=== PATIENT | female | born 1975 | race African-American/Black ===

== ENCOUNTER → 2019-05-29 15:37 | Outpatient (CLI) | payer OTHER, SELFPAY ==
[2019-05-29 13:57] VITALS: BMI 43.6
[2019-05-29 17:30] LABS: Absolute Lymphocyte Count 3.51 X10^3/uL (0.83-4.51); Absolute Neutrophil Count 4.7 X10^3/uL (2.0-7.7); Basophil# 0.03 X10^3/uL; Basophil% 0.3 % (0-1); Eosinophil# 0.06 X10^3/uL; Eosinophils% 0.7 % (0-5); Hematocrit 38.7 % (37-47); Hemoglobin 12.5 g/dL (12.0-15.0); Lymphocyte # 3.51 X10^3/ul (4.0); Lymphocyte % 39.6 % (19-41); Mean Corp Hgb Conc 32.3 g/dL (32-36); Mean Corpuscular Hgb 29.6 pg (27.0-32.0); Mean Corpuscular Volume 91.7 fL (81-99); Mean Platelet Vol. 9.8 fl (6.2-12.0); Monocyte# 0.57 X10^3/uL; Monocyte% 6.4 % (0-10); NRBC Flagged by Analyzer 0 % (0-5); Neutrophil # 4.68 X10^3/uL (2.7-7.7); Neutrophil % 52.8 % (47-70); Platelet Count 449 K/mm3 (150-450); RBC Distribution Width SD 43.6 fl (35.1-43.9); Red Blood Count 4.22 M/mm3 (4.2-5.4); White Blood Count 8.9 K/mm3 (4.4-11.0)
[2019-05-29 17:47] LABS: Hemoglobin A1c 5.6 % (4.2-6.3)
[2019-05-29 17:53] LABS: ALB/GLOB Ratio 0.8 RATIO (0.9-2.4); AST(SGOT) 17 U/L (15-37); Alanine Aminotransfer ALT/SGPT 26 U/L (13-56); Albumin, Serum 3.8 g/dL (3.2-5.0); Alkaline Phosphatase 129 U/L (45-117); Anion Gap 8 (5-15); BUN 10 mg/dL (7-18); BUN/Creat Ratio 12.3 RATIO (10-20); Calcium,Total 9.2 mg/dL (8.5-10.1); Chloride 102 mmol/L (98-107); Cholesterol 228 mg/dL (200); Creatinine, Serum 0.81 mg/dL (0.55-1.02); EST Glomerular Filtration Rate 81 mL/min (>60); Est Glom Filt Rate - Afr Amer 98 mL/min (>60); Globulin 4.6 g/dL (2.2-4.2); Glucose 81 mg/dL (74-106); High Density Lipoprotein 51 mg/dL; Potassium 3.7 mmol/L (3.5-5.1); Protein, Total 8.4 g/dL (6.4-8.2); Sodium Level 139 mmol/L (136-145); T4 Free Direct 1.07 ng/dL (0.76-1.46); Thyroid Stim Hormone (TSH) 1.05 uIU/mL (0.358-3.74); Triglycerides 151 mg/dL; Very Low Density Lipoprotein 30 mg/dL (5-40)
== END ==
PROVIDERS: Family Provider Internal Medicine; PCP Internal Medicine; Referring Provider Internal Medicine; Visit Provider Internal Medicine
DX: I10 Essential (primary) hypertension (principal); E66.01 Morbid (severe) obesity due to excess calories; Z68.41 Body mass index [BMI] 40.0-44.9, adult
CPT/HCPCS: 36415; 80053; 80061; 83036; 84439; 84443; 85025

== ENCOUNTER → 2019-06-28 10:46 | Outpatient (CLI) | payer OTHER, SELFPAY ==
[2019-06-28 10:18] VITALS: BMI 44.1
[2019-06-28 13:39] LABS: Anion Gap 4 (5-15); BUN 13 mg/dL (7-18); BUN/Creat Ratio 15.2 RATIO (10-20); Calcium,Total 9.7 mg/dL (8.5-10.1); Chloride 104 mmol/L (98-107); Creatinine, Serum 0.85 mg/dL (0.55-1.02); EST Glomerular Filtration Rate 76 mL/min (>60); Est Glom Filt Rate - Afr Amer 92 mL/min (>60); Glucose 82 mg/dL (74-106); Potassium 4.1 mmol/L (3.5-5.1); Sodium Level 138 mmol/L (136-145)
== END ==
PROVIDERS: Family Provider Internal Medicine; PCP Internal Medicine; Visit Provider Internal Medicine
DX: I10 Essential (primary) hypertension (principal)
CPT/HCPCS: 36415; 80048

== ENCOUNTER → 2020-03-06 14:17 | Outpatient (CLI) | payer OTHER, SELFPAY ==
[2020-02-28 11:51] VITALS: BMI 43.6
[2020-03-06 16:03] LABS: Anion Gap 7 (5-15); BUN 7 mg/dL (7-18); BUN/Creat Ratio 10.5 RATIO (10-20); Calcium,Total 8.8 mg/dL (8.5-10.1); Chloride 101 mmol/L (98-107); Creatinine, Serum 0.67 mg/dL (0.55-1.02); EST Glomerular Filtration Rate 101 mL/min (>60); Est Glom Filt Rate - Afr Amer 122 mL/min (>60); Glucose 76 mg/dL (74-106); Potassium 3.8 mmol/L (3.5-5.1); Sodium Level 137 mmol/L (136-145)
== END ==
PROVIDERS: PCP Internal Medicine; Referring Provider Internal Medicine; Visit Provider Internal Medicine
DX: I10 Essential (primary) hypertension (principal)
CPT/HCPCS: 36415; 80048

== ENCOUNTER → 2020-05-07 17:00 | Outpatient (CLI) | payer OTHER, SELFPAY ==
[2020-03-09 08:38] VITALS: BMI 43.6
--- NOTE | 2020-05-07 17:14 | BI_ITS ---
MAMMOGRAPHY - BILATERAL SCREENING REASON FOR EXAM: Female, 45 years old. Routine annual screening examination. PERTINENT HISTORY: Non-contributory. TECHNIQUE: Digital bilateral breast earline (3D mammographic acquisition) in the CC and MLO projections. 2-D mediolateral oblique (MLO) and craniocaudad (CC) views of both breasts were obtained. CAD: Full Field Digital Mammography with Computer Added Detection was performed. COMPARISON: Comparison is made with prior study dated 12/04/2013. FINDINGS: Breast Composition: The breasts are almost entirely fatty. There are no dominant masses or suspicious calcifications. Stable small benign-appearing bilateral axillary nodes. No other significant abnormalities are identified. There has been no significant change since the prior study. BI/SCREEN MAMM (CAD) W/EARLINE BILAT IMPRESSION: Stable bilateral screening mammogram. Yearly follow-up mammogram recommended. (A) ASSESSMENT CATEGORY: BIRADS Category 2: Benign. A letter regarding these results will be sent to the patient by the facility within 30 days. Approximately 10% of breast cancers are not detected by mammography. A normal mammogram should not delay biopsy of a clinically suspicious abnormality. [id number] Electronically Signed: Eusebio Dodson, at 9:02 EDT , Service support ,
== END ==
PROVIDERS: PCP Internal Medicine; Referring Provider Internal Medicine; Visit Provider Internal Medicine
DX: Z12.31 Encounter for screening mammogram for malignant neoplasm of breast (principal)
CPT/HCPCS: 77063; 77067

== ENCOUNTER → 2020-09-22 13:40 | Outpatient (CLI) | payer OTHER, SELFPAY ==
[2020-03-09 08:38] VITALS: BMI 43.6
[2020-09-22 15:20] LABS: Absolute Lymphocyte Count 3.85 X10^3/uL (0.83-4.51); Absolute Neutrophil Count 3.9 X10^3/uL (2.0-7.7); Basophil# 0.02 X10^3/uL; Basophil% 0.2 % (0-1); Eosinophil# 0.05 X10^3/uL; Eosinophils% 0.6 % (0-5); Hematocrit 39.2 % (37-47); Hemoglobin 12.6 g/dL (12.0-15.0); Lymphocyte # 3.85 X10^3/ul (4.0); Lymphocyte % 45.9 % (19-41); Mean Corp Hgb Conc 32.1 g/dL (32-36); Mean Corpuscular Hgb 29.9 pg (27.0-32.0); Mean Corpuscular Volume 92.9 fL (81-99); Monocyte# 0.51 X10^3/uL; Monocyte% 6.1 % (0-10); NRBC Flagged by Analyzer 0 % (0-5); Neutrophil # 3.94 X10^3/uL (2.7-7.7); Platelet Count 453 K/mm3 (150-450); RBC Distribution Width CV 13.3 % (11.6-14.6); RBC Distribution Width SD 45.3 fl (35.1-43.9); Red Blood Count 4.22 M/mm3 (4.2-5.4); White Blood Count 8.4 K/mm3 (4.4-11.0)
[2020-09-22 16:12] LABS: ALB/GLOB Ratio 0.8 RATIO (0.9-2.4); AST(SGOT) 29 U/L (15-37); Alanine Aminotransfer ALT/SGPT 45 U/L (13-56); Albumin, Serum 3.8 g/dL (3.2-5.0); Alkaline Phosphatase 116 U/L (45-117); Anion Gap 4 (5-15); BUN 9 mg/dL (7-18); BUN/Creat Ratio 11.4 RATIO (10-20); Calcium,Total 9.4 mg/dL (8.5-10.1); Chloride 103 mmol/L (98-107); Cholesterol 199 mg/dL (200); Creatinine, Serum 0.79 mg/dL (0.55-1.02); EST Glomerular Filtration Rate 83 mL/min (>60); Est Glom Filt Rate - Afr Amer 100 mL/min (>60); Globulin 4.6 g/dL (2.2-4.2); Glucose 81 mg/dL (74-106); High Density Lipoprotein 50 mg/dL; Potassium 3.5 mmol/L (3.5-5.1); Protein, Total 8.4 g/dL (6.4-8.2); Sodium Level 139 mmol/L (136-145); Triglycerides 176 mg/dL; Very Low Density Lipoprotein 35 mg/dL (5-40)
== END ==
PROVIDERS: PCP Internal Medicine; Referring Provider Internal Medicine; Visit Provider Internal Medicine
DX: I10 Essential (primary) hypertension (principal); E78.5 Hyperlipidemia, unspecified; F31.9 Bipolar disorder, unspecified; E66.01 Morbid (severe) obesity due to excess calories; Z68.41 Body mass index [BMI] 40.0-44.9, adult
CPT/HCPCS: 36415; 80053; 80061; 85025

== ENCOUNTER → 2021-03-31 15:48 | Outpatient (CLI) | payer OTHER, SELFPAY ==
[2021-03-31 17:35] LABS: Thyroid Stim Hormone (TSH) 1.31 uIU/mL (0.358-3.74)
[2021-03-31 17:53] LABS: Valproic Acid (Depakene) Level 47 ug/mL (50-100)
== END ==
PROVIDERS: PCP Internal Medicine; Referring Provider Nurse Practitioner Family; Visit Provider Nurse Practitioner Family
DX: F31.9 Bipolar disorder, unspecified (principal)
CPT/HCPCS: 36415; 80164; 84443

== ENCOUNTER → 2021-05-20 07:00 | Outpatient (CLI) | payer OTHER, SELFPAY ==
--- NOTE | 2021-05-20 07:02 | BI_ITS ---
MAMMOGRAPHY - BILATERAL SCREENING REASON FOR EXAM: Female, 46 years old. Routine annual screening examination. PERTINENT HISTORY: Non-contributory. TECHNIQUE: Digital bilateral breast earline (3D mammographic acquisition) in the CC and MLO projections. 2-D mediolateral oblique (MLO) and craniocaudad (CC) views of both breasts were obtained. CAD: Full Field Digital Mammography with Computer Added Detection was performed. COMPARISON: Comparison is made with prior study dated 05/07/2020 and 12/04/2013. FINDINGS: Breast Composition: The breasts are almost entirely fatty. There are no dominant masses or suspicious calcifications. Stable small benign-appearing bilateral axillary lymph nodes. No other significant abnormalities are identified. There has been no significant change since the prior study. BI/SCRN MAMM (CAD)W/EARLINE BILAT IMPRESSION: Stable bilateral screening mammogram. Yearly follow-up mammogram recommended. (A) ASSESSMENT CATEGORY: BIRADS Category 2: Benign. A letter regarding these results will be sent to the patient by the facility within 30 days. Approximately 10% of breast cancers are not detected by mammography. A normal mammogram should not delay biopsy of a clinically suspicious abnormality. [id number] Electronically Signed: Eusebio Dodson MD at 8:26 EST , Service support ,
== END ==
PROVIDERS: PCP Internal Medicine; Referring Provider Nurse Practitioner Family; Visit Provider Nurse Practitioner Family
DX: Z12.31 Encounter for screening mammogram for malignant neoplasm of breast (principal)
CPT/HCPCS: 77063; 77067

== ENCOUNTER 2021-06-01 11:09 | Day surgery (SDC) | payer OTHER, SELFPAY ==
[2021-06-01] VITALS (7 sets, daily range): BP systolic 95–125; BP diastolic 61–88; PULSE 72–84; RESP 16; TEMP -13.6–35.8; O2SAT 100; BMI 42.9
[2021-06-01] MEDS: Lactated Ringers 1,000 ML 15 ML IV (11:41)
--- NOTE | 2021-06-01 12:13 | HP.PCM_ITS ---
History and Physical Date of Admission: 06/01/21 VINITA ROBERTS, is a 46 F who presents A screening colonoscopy. She has no abdominal pain. No nausea. No chest pain or shortness of breath. She is not have any problems with her bowels. She does have a past medical history of hypertension , hypothyroidism ,bipolar depression and hyperlipidemia. All of those are under control. She takes blood pressure medicines on a daily basis Past medical history: Hypertension, hyperlipidemia, obesity, bipolar depression Past surgical history: Negative Social history: Negative alcohol and drugs Family history: Negative for GI malignancy or GI disease ROS Const Constitutional: No chills, fatigue, fever(s), frequent falls, malaise, weakness, sleep problems or change in appetite Eyes Eyes: No blurry vision, change in vision, double vision, discharge or visual disturbances ENT ENT: No abnormal hearing, ear pain, ear pressure, tinnitus or dizziness/vertigo Resp Respiratory: No cough, shortness of breath or wheezing Cardio Cardiology: Positive for fast heart rate; no chest pain at rest, chest pain with exertion, shortness of breath, dyspnea on exertion, generalized swelling, irregular heart rhythm, lightheadedness, orthopnea or palpitations Gastro GI: No abdominal pain, change in bowel habits, constipation, diarrhea, nause a/dyspepsia or vomiting Genitourinary-Female: No difficulty urinating, burning urination, painful urination, urinary incontinence, urinary frequency, urinary urgency, urinary hesitancy, urinary retention, Frequent nighttime urination/ nocturia, sexual problems, genital lesions, abnormal vaginal bleeding, pelvic pain, vaginal dryness, vaginal odor or Vaginal Itching Musc Musculoskeletal: No joint pain, back pain, joint swelling, limited range of motion, numbness or tingling Skin Skin: No change in skin color, itching, rash or wounds Breast Breast: No breast lump or breast pain Neuro Neurology: No abnormal hearing, weakness, frequent falls, numbness, tingling or visual disturbances Psych Psychiatric: No change in appetite Endo Endocrine: No fatigue Aller/Imm Allergy/Immunologic: No itchy eyes or wheezing Cortez/Lymp Hematologic/Lymphatic: No easy bleeding, easy bruising or enlarged lymph nodes Exam Blood pressure is 125/88 pulse , 84 respiratory rate is 16, and temperature is 97.6 On HEENT: Normocephalic atraumatic Neck: No JVD lymphadenopathy Cardiovascular: +1 S1-S2 Respiratory: Clear to auscultation bilaterally Abdominal exam: Within normal limits Assessment & Plan Problems She will undergo screening colonoscopy. She was explained alternatives, risk, benefits including not withstanding bleeding, infection, sepsis, perforation, need for emergent surgery . She will have ASA of 1.
--- NOTE | 2021-06-01 12:49 | OP.COLON_ITS ---
Patient Name: Elizabeth Mosley Procedure Date: 06/01/2021 11:40 AM Date of : 1975 Age: 46 Procedure: Colonoscopy Indications: Screening for colorectal malignant neoplasm Providers: Edgar Wray DO Medicines: See the Anesthesia note for documentation of the administered medications Patient Profile: This is a 46 year old female. Refer to note in patient chart for documentation of history and physical. Last Colonoscopy: none. The patient's first colonoscopy is today. Complications: No immediate complications. Procedure: Pre-Anesthesia Assessment: - Prior to the procedure, a History and Physical was performed, and patient medications and allergies were reviewed. The patient is competent. The risks and benefits of the procedure and the sedation options and risks were discussed with the patient. All questions were answered and informed consent was obtained. Patient identification and proposed procedure were verified by the physician in the pre-procedure area. Mental Status Examination: alert and oriented. Airway Examination: normal oropharyngeal airway and neck mobility. Respiratory Examination: clear to auscultation. CV Examination: normal. Prophylactic Antibiotics: The patient does not require prophylactic antibiotics. Prior Anticoagulants: The patient has taken no previous anticoagulant or antiplatelet agents. ASA Grade Assessment: II - A patient with mild systemic disease. After reviewing the risks and benefits, the patient was deemed in satisfactory condition to undergo the procedure. The anesthesia plan was to use moderate sedation / analgesia (conscious sedation). Immediately prior to administration of medications, the patient was re-assessed for adequacy to receive sedatives. The heart rate, respiratory rate, oxygen saturations, blood pressure, adequacy of pulmonary ventilation, and response to care were monitored throughout the procedure. The physical status of the patient was re-assessed after the procedure. After I obtained informed consent, the scope was passed under direct vision. Throughout the procedure, the patient's blood pressure, pulse, and oxygen saturations were monitored continuously. The Colonoscope was introduced through the anus and advanced to the cecum, identified by the appendiceal orifice, ileocecal valve and palpation. The colonoscopy was performed without difficulty. The patient tolerated the procedure well. The quality of the bowel preparation was good. Moderate Sedation: Moderate (conscious) sedation was administered by the endoscopy nurse and supervised by the endoscopist. The patient's oxygen saturation, heart rate, blood pressure and response to care were monitored. Total physician intraservice time was 15 minutes. Scope In: 12:21:59 PM Scope Withdrawal Time 0 hours 12 minutes 38 seconds Scope Out: 12:43:07 PM Total Procedure Duration Time 0 hours 21 minutes 8 seconds Findings: The perianal and digital rectal examinations were normal. A few medium-mouthed diverticula were found in the sigmoid colon, transverse colon and ascending colon. The exam was otherwise without abnormality on direct and retroflexion views. Impression: - Diverticulosis in the sigmoid colon, in the transverse colon and in the ascending colon. - The examination was otherwise normal on direct and retroflexion views. - No specimens collected. Recommendation: - Discharge patient to home. - Resume previous diet. - Continue present medications. - Repeat colonoscopy in 10 years for surveillance. - Return to GI office PRN. Procedure Code(s): --- Professional --- 99614, Colonoscopy, flexible; diagnostic, including collection of specimen(s) by brushing or washing, when performed (separate procedure) 03299, 59, Moderate sedation services provided by the same physician or other qualified health intensive care medicine specialist performing the diagnostic or therapeutic service that the sedation supports, requiring the presence of an independent trained observer to assist in the monitoring of the patient's level of consciousness and physiological status; initial 15 minutes of intraservice time, patient age 5 years or older CPT copyright 2017 [employer]. All rights reserved. The codes documented in this report are preliminary and upon edger technician review may be revised to meet current compliance requirements. Edgar Wray DO 06/01/2021 12:48:43 PM This report has been signed electronically. Number of Addenda: 1 Note Initiated On: 06/01/2021 11:40 AM Addendum Number: 1 Addendum Date: 03/11/2022 6:32:58 AM MAC was used instead of moderate sedation for this patient. Edgar Wray DO 03/11/2022 6:33:03 AM This report has been signed electronically.
--- NOTE | 2021-06-01 12:50 | OP.CCLET_ITS ---
03/11/2022 Rosa Dwyer MD [address] [place] [address] [place] [address] Re : Colonoscopy procedure for Elizabeth Mosley Dear Dr. Dwyer This procedure was performed on Tuesday, June 01, 2021. My impressions and recommendations are as follows: Impressions : - Diverticulosis in the sigmoid colon, in the transverse colon and in the ascending colon. - The examination was otherwise normal on direct and retroflexion views. - No specimens collected. Recommendations : - Discharge patient to home. - Resume previous diet. - Continue present medications. - Repeat colonoscopy in 10 years for surveillance. - Return to GI office PRN. My findings are described in the full procedure note, which is enclosed. If I can be of further assistance, please feel free to contact me at . Sincerely, Edgar Wray, 06/01/2021 12:48:43 PM This report has been signed electronically.
== END 2021-06-01 13:49 ==
LOC: EN 11:17 → AC 11:24
PROVIDERS: PCP Internal Medicine; Referring Provider Internal Medicine; Visit Provider Internal Medicine Gastroenterology
PROC: 0DJD8ZZ Inspection of Lower Intestinal Tract, Via Natural or Artificial Opening Endoscopic (ICD-10-PCS; CPT 45378; principal; 2021-06-01 11:55)
DX: Z12.11 Encounter for screening for malignant neoplasm of colon (principal); K57.30 Diverticulosis of large intestine without perforation or abscess without bleeding; I10 Essential (primary) hypertension; E78.5 Hyperlipidemia, unspecified; F31.9 Bipolar disorder, unspecified; E66.01 Morbid (severe) obesity due to excess calories; Z68.41 Body mass index [BMI] 40.0-44.9, adult; Z79.899 Other long term (current) drug therapy
CPT/HCPCS: 45378; J7120; J2405

== ENCOUNTER 2021-09-29 14:49 | Outpatient (CLI) | payer OTHER, SELFPAY ==
[2021-09-29 16:37] LABS: Absolute Lymphocyte Count 3.64 X10^3/uL (0.83-4.51); Absolute Neutrophil Count 4.4 X10^3/uL (2.0-7.7); Basophil# 0.02 X10^3/uL; Basophil% 0.2 % (0-1); Eosinophil# 0.05 X10^3/uL; Eosinophils% 0.6 % (0-5); Hematocrit 37.9 % (37-47); Hemoglobin 12.5 g/dL (12.0-15.0); Lymphocyte # 3.64 X10^3/ul (0.83-4.51); Lymphocyte % 41.2 % (19-41); Mean Corpuscular Hgb 30.3 pg (27.0-32.0); Monocyte# 0.64 X10^3/uL; Monocyte% 7.2 % (0-10); NRBC Flagged by Analyzer 0 % (0-5); Neutrophil # 4.44 X10^3/uL (2.7-7.7); Neutrophil % 50.3 % (47-70); Platelet Count 403 K/mm3 (150-450); RBC Distribution Width CV 13.3 % (11.6-14.6); RBC Distribution Width SD 44.6 fl (35.1-43.9); Red Blood Count 4.12 M/mm3 (4.2-5.4); White Blood Count 8.8 K/mm3 (4.4-11.0)
[2021-09-29 17:03] LABS: ALB/GLOB Ratio 0.8 RATIO (0.9-2.4); AST(SGOT) 20 U/L (15-37); Alanine Aminotransfer ALT/SGPT 40 U/L (13-56); Albumin, Serum 3.6 g/dL (3.2-5.0); Alkaline Phosphatase 114 U/L (45-117); Anion Gap 5 (5-15); BUN 12 mg/dL (7-18); BUN/Creat Ratio 15.7 RATIO (10-20); Calcium,Total 9.3 mg/dL (8.5-10.1); Chloride 99 mmol/L (98-107); Cholesterol 220 mg/dL (200); Creatinine, Serum 0.76 mg/dL (0.55-1.02); EST Glomerular Filtration Rate 86 mL/min (>60); Est Glom Filt Rate - Afr Amer 104 mL/min (>60); Globulin 4.7 g/dL (2.2-4.2); Glucose 80 mg/dL (74-106); High Density Lipoprotein 51 mg/dL; Potassium 3.5 mmol/L (3.5-5.1); Protein, Total 8.3 g/dL (6.4-8.2); Sodium Level 135 mmol/L (136-145); Thyroid Stim Hormone (TSH) 1.59 uIU/mL (0.358-3.74); Triglycerides 113 mg/dL; Very Low Density Lipoprotein 23 mg/dL (5-40)
== END 2021-09-29 23:59 | disposition home or self-care (01) ==
LOC: BIMLAB 14:50
PROVIDERS: PCP Internal Medicine; Referring Provider Nurse Practitioner Family; Visit Provider Nurse Practitioner Family
DX: I10 Essential (primary) hypertension (principal); F32.9 Major depressive disorder, single episode, unspecified; E03.9 Hypothyroidism, unspecified
CPT/HCPCS: 36415; 80053; 80061; 84443; 85025

== ENCOUNTER → 2022-07-21 | Outpatient (CLI) | payer OTHER, SELFPAY ==
--- NOTE | 2022-07-21 07:38 | BI_ITS ---
MAMMOGRAPHY - BILATERAL SCREENING REASON FOR EXAM: Female, 47 years old. Routine annual screening examination. PERTINENT HISTORY: Non-contributory. TECHNIQUE: Digital bilateral breast earline (3D mammographic acquisition) in the CC and MLO projections. 2-D mediolateral oblique (MLO) and craniocaudad (CC) views of both breasts were obtained. CAD: Full Field Digital Mammography with Computer Added Detection was performed. COMPARISON: Comparison is made with prior examination dated 05/20/2021 and 05/07/2020. FINDINGS: Breast Composition: The breasts are almost entirely fatty. There are no dominant masses or suspicious calcifications. Stable benign-appearing bilateral axillary lymph nodes. No other significant abnormalities are identified. There has been no significant change since the prior study. BI/SCRN MAMM (CAD)W/EARLINE BILAT IMPRESSION: Stable bilateral screening mammogram. Yearly follow-up mammogram recommended. (A) ASSESSMENT CATEGORY: BIRADS Category 2: Benign. A letter regarding these results will be sent to the patient by the facility within 30 days. Approximately 10% of breast cancers are not detected by mammography. A normal mammogram should not delay biopsy of a clinically suspicious abnormality. [id number] Electronically Signed: Eusebio Dodson MD at 9:02 EST ,
== END | disposition home or self-care (01) ==
LOC: OPBI 07:36
PROVIDERS: PCP Internal Medicine; Visit Provider Internal Medicine
DX: Z12.31 Encounter for screening mammogram for malignant neoplasm of breast (principal)
CPT/HCPCS: 77063; 77067

== ENCOUNTER → 2022-08-17 | Outpatient (CLI) | payer OTHER, SELFPAY ==
[2022-08-17 12:42] LABS: Thyroid Stim Hormone (TSH) 1.06 uIU/mL (0.358-3.74)
[2022-08-17 12:43] LABS: Valproic Acid (Depakene) Level 58 ug/mL (50-100)
== END | disposition home or self-care (01) ==
LOC: BIMLAB 10:51
PROVIDERS: PCP Internal Medicine; Referring Provider Nurse Practitioner Family; Visit Provider Nurse Practitioner Family
DX: F31.9 Bipolar disorder, unspecified (principal)
CPT/HCPCS: 36415; 80164; 84443

== ENCOUNTER → 2022-08-23 | Outpatient (CLI) | payer OTHER, SELFPAY | END | disposition home or self-care (01) | LOC: LAB 16:32 | PROVIDERS: PCP Internal Medicine; Visit Provider Nurse Practitioner Family | DX: F31.9 Bipolar disorder, unspecified (principal) | CPT/HCPCS: 36415; 82140 ==

== ENCOUNTER → 2023-03-31 | Outpatient (CLI) | payer OTHER, SELFPAY ==
[2023-03-31 12:22] LABS: Absolute Lymphocyte Count 3.54 X10^3/uL (0.83-4.51); Absolute Neutrophil Count 4.2 X10^3/uL (2.0-7.7); Basophil# 0.02 X10^3/uL; Basophil% 0.2 % (0-1); Eosinophil# 0.04 X10^3/uL; Eosinophils% 0.5 % (0-5); Hematocrit 41.7 % (37-47); Hemoglobin 13.4 g/dL (12.0-15.0); Lymphocyte # 3.54 X10^3/ul (0.83-4.51); Lymphocyte % 42.2 % (19-41); Mean Corp Hgb Conc 32.1 g/dL (32-36); Mean Corpuscular Hgb 29.8 pg (27.0-32.0); Mean Corpuscular Volume 92.7 fL (81-99); Monocyte# 0.62 X10^3/uL; Monocyte% 7.4 % (0-10); NRBC Flagged by Analyzer 0 % (0-5); Neutrophil # 4.15 X10^3/uL (2.7-7.7); Neutrophil % 49.5 % (47-70); Platelet Count 413 K/mm3 (150-450); RBC Distribution Width CV 13.1 % (11.6-14.6); RBC Distribution Width SD 44.2 fl (35.1-43.9); White Blood Count 8.4 K/mm3 (4.4-11.0)
[2023-03-31 13:27] LABS: AST(SGOT) 20 U/L (15-37); Alanine Aminotransfer ALT/SGPT 32 U/L (13-56); Albumin, Serum 3.6 g/dL (3.2-5.0); Alkaline Phosphatase 127 U/L (45-117); Bilirubin, Direct 0.12 mg/dL (0.00-0.30); Globulin 4.7 g/dL (2.2-4.2); Protein, Total 8.3 g/dL (6.4-8.2)
[2023-03-31 13:31] LABS: Valproic Acid (Depakene) Level 48 ug/mL (50-100)
== END | disposition home or self-care (01) ==
LOC: BIMLAB 09:16
PROVIDERS: PCP Internal Medicine; Referring Provider Student in an Organized Health Care Education/Training Program; Visit Provider Student in an Organized Health Care Education/Training Program
DX: F31.9 Bipolar disorder, unspecified (principal); Z51.81 Encounter for therapeutic drug level monitoring
CPT/HCPCS: 36415; 80076; 80164; 85025

== ENCOUNTER → 2023-08-11 | Outpatient (CLI) | payer OTHER, SELFPAY ==
[2023-08-11 12:35] LABS: Absolute Lymphocyte Count 3.73 X10^3/uL (0.83-4.51); Basophil# 0.02 X10^3/uL; Basophil% 0.2 % (0-1); Eosinophil# 0.05 X10^3/uL; Eosinophils% 0.5 % (0-5); Hematocrit 38.4 % (37-47); Hemoglobin 12.6 g/dL (12.0-15.0); Lymphocyte # 3.73 X10^3/ul (0.83-4.51); Lymphocyte % 39.4 % (19-41); Mean Corp Hgb Conc 32.8 g/dL (32-36); Mean Corpuscular Hgb 29.8 pg (27.0-32.0); Mean Corpuscular Volume 90.8 fL (81-99); Mean Platelet Vol. 10.1 fl (6.2-12.0); Monocyte# 0.62 X10^3/uL; Monocyte% 6.5 % (0-10); NRBC Flagged by Analyzer 0 % (0-5); Neutrophil # 5.02 X10^3/uL (2.7-7.7); Neutrophil % 53.1 % (47-70); Platelet Count 404 K/mm3 (150-450); RBC Distribution Width CV 13.2 % (11.6-14.6); RBC Distribution Width SD 43.4 fl (35.1-43.9); Red Blood Count 4.23 M/mm3 (4.2-5.4); White Blood Count 9.5 K/mm3 (4.4-11.0)
[2023-08-11 13:05] LABS: ALB/GLOB Ratio 0.7 RATIO (0.9-2.4); AST(SGOT) 17 U/L (15-37); Alanine Aminotransfer ALT/SGPT 23 U/L (13-56); Albumin, Serum 3.4 g/dL (3.2-5.0); Alkaline Phosphatase 121 U/L (45-117); Anion Gap 3 (5-15); BUN 12 mg/dL (7-18); BUN/Creat Ratio 15.9 RATIO (10-20); Calcium,Total 9.2 mg/dL (8.5-10.1); Chloride 101 mmol/L (98-107); Cholesterol 202 mg/dL (200); Creatinine, Serum 0.76 mg/dL (0.55-1.02); EST Glomerular Filtration Rate 86 mL/min (>60); Est Glom Filt Rate - Afr Amer 104 mL/min (>60); Globulin 4.6 g/dL (2.2-4.2); Glucose 95 mg/dL (74-106); High Density Lipoprotein 46 mg/dL; Potassium 3.4 mmol/L (3.5-5.1); Sodium Level 134 mmol/L (136-145); Triglycerides 154 mg/dL; Very Low Density Lipoprotein 31 mg/dL (5-40)
== END | disposition home or self-care (01) ==
LOC: BIMLAB 10:09
PROVIDERS: PCP Internal Medicine; Referring Provider Internal Medicine; Visit Provider Internal Medicine
DX: I10 Essential (primary) hypertension (principal)
CPT/HCPCS: 36415; 80053; 80061; 85025

== ENCOUNTER → 2023-09-13 | Outpatient (CLI) | payer OTHER, SELFPAY ==
--- NOTE | 2023-09-13 08:06 | BI_ITS ---
MAMMOGRAPHY - BILATERAL SCREENING 3-D TOMOSYNTHESIS REASON FOR EXAM: Female, 48 years old. SCREENING PERTINENT HISTORY: No significant family history. TECHNIQUE: 2-D mammograms and 3-D Tomosynthesis of the breast (s) were performed. CAD was performed. COMPARISON: 07/21/2022 FINDINGS: The breast composition is composed of scattered fibroglandular density. Scattered benign calcifications are seen. No dense spiculated masses or suspicious microcalcifications are identified. No architectural distortion is identified. There is no skin thickening or retraction. There has been no significant change since the prior study. BI/SCRN MAMM (CAD)W/EARLINE BILAT IMPRESSION: No mammographic signs of malignancy. Routine yearly mammograms recommended. ASSESSMENT CATEGORY: BIRADS Category 1: Negative. A letter regarding these results will be sent to the patient by the facility within 30 days. FOLLOW UP RECOMMENDATION: Yearly follow up mammogram recommended. (A) Approximately 10% of breast cancers are not detected by mammography. A normal mammogram should not delay biopsy of a clinically suspicious abnormality. Electronically Signed: Jayesh Alarcon MD at 19:45 EST ,
== END | disposition home or self-care (01) ==
LOC: OPBI 08:05
PROVIDERS: PCP Internal Medicine; Referring Provider Internal Medicine; Visit Provider Internal Medicine
DX: Z12.31 Encounter for screening mammogram for malignant neoplasm of breast (principal)
CPT/HCPCS: 77063; 77067

== ENCOUNTER → 2024-02-14 | Outpatient (CLI) | payer OTHER, SELFPAY ==
[2024-02-14 16:56] LABS: Valproic Acid (Depakene) Level 46 ug/mL (50-100)
[2024-02-14 17:02] LABS: Anion Gap 5 (5-15); BUN 11 mg/dL (7-18); BUN/Creat Ratio 14.1 RATIO (10-20); Calcium,Total 9.7 mg/dL (8.5-10.1); Chloride 103 mmol/L (98-107); Creatinine, Serum 0.78 mg/dL (0.55-1.02); EST Glomerular Filtration Rate 83 mL/min (>60); Est Glom Filt Rate - Afr Amer 100 mL/min (>60); Glucose 81 mg/dL (74-106); Potassium 3.7 mmol/L (3.5-5.1); Sodium Level 138 mmol/L (136-145)
== END | disposition home or self-care (01) ==
LOC: BIMLAB 14:19
PROVIDERS: Student in an Organized Health Care Education/Training Program; PCP Internal Medicine; Referring Provider Internal Medicine; Visit Provider Internal Medicine
DX: F31.9 Bipolar disorder, unspecified (principal); Z51.81 Encounter for therapeutic drug level monitoring; I10 Essential (primary) hypertension
CPT/HCPCS: 36415; 80048; 80164

== ENCOUNTER → 2025-03-20 | Outpatient (CLI) | payer OTHER, SELFPAY ==
[2025-03-20 09:48] LABS: Hematocrit 37.6 % (37-47); Hemoglobin 12.1 g/dL (12.0-15.0); Immature Granulocytes Count 0.030 X10^3/uL (0.0-0.0); Mean Corp Hgb Conc 32.2 g/dL (32-36); Mean Corpuscular Volume 88.5 fL (81-99); Mean Platelet Vol. 9.7 fl (6.2-12.0); NRBC Flagged by Analyzer 0 % (0-5); Platelet Count 343 K/mm3 (150-450); RBC Distribution Width CV 14.1 % (11.6-14.6); RBC Distribution Width SD 44.8 fl (35.1-43.9); Red Blood Count 4.25 M/mm3 (4.2-5.4); White Blood Count 8.9 K/mm3 (4.4-11.0)
[2025-03-20 10:17] LABS: Valproic Acid (Depakene) Level 37 ug/mL (50-100)
[2025-03-20 10:21] LABS: AST(SGOT) 18 U/L (<=31); Alanine Aminotransfer ALT/SGPT 16 U/L (<=34); Albumin, Serum 4.1 g/dL (3.5-5.0); Alkaline Phosphatase 114 U/L (35-104); Anion Gap 10 (5-15); BUN 9 mg/dL (4-19); BUN/Creat Ratio 12.7 RATIO (10-20); Calcium,Total 9.8 mg/dL (7.6-11.0); Carbon Dioxide 25.7 mmol/L (21.0-32.0); Chloride 104 mmol/L (98-108); Cholesterol 228 mg/dL (<=200); Globulin 3.7 g/dL (2.2-4.2); Glucose 99 mg/dL (70-99); Low Density Lipoprotein Calc. 147 mg/dL; Potassium 4.1 mmol/L (3.3-5.1); Triglycerides 158 mg/dL; Very Low Density Lipoprotein 32 mg/dL (5-40); cholesterol:hdl ratio screen 4.62
== END | disposition home or self-care (01) ==
PROVIDERS: Student in an Organized Health Care Education/Training Program; PCP Internal Medicine; Referring Provider Internal Medicine; Visit Provider Internal Medicine
DX: Z00.00 Encounter for general adult medical examination without abnormal findings (principal); F31.9 Bipolar disorder, unspecified
CPT/HCPCS: 36415; 80053; 80061; 80164; 85025

== ENCOUNTER → 2025-04-01 | Outpatient (CLI) | payer OTHER, SELFPAY ==
--- NOTE | 2025-04-01 07:15 | BI_ITS ---
EXAM: SCRN MAMM (CAD)W/EARLINE BILAT DATE: 04/01/2025 CLINICAL HISTORY: F, Age 50 y/o , BREAST CANCER SCREENING No family history. TECHNIQUE: Procedure Code: [id number] Modality: MG Procedure: SCRN MAMM (CAD)W/EARLINE BILAT COMPARISON: Prior exam(s) dated September 13, 2023.. FINDINGS: TISSUE DENSITY: The breasts are almost entirely fatty. Bilateral Breast Mammographic Findings: No significant masses, calcifications or other abnormalities are identified. Stable small benign-appearing bilateral axillary lymph nodes. No suspicious masses, areas of developing architectural distortion, or suspicious calcifications. There has been no significant interval change. BI/SCRN MAMM (CAD)W/EARLINE BILAT IMPRESSION: Stable screening bilateral mammogram. OVERALL FINAL ASSESSMENT BI-RADS 2: BENIGN RECOMMENDATION: Routine annual follow-up in 1 Year Additional Recommendation none A letter with findings and recommendations will be mailed to the patient. Reading Location: [place] [id number]
--- OUTSIDE RECORDS SUMMARY | 2025-04-01 07:28 | XMS RPT_ITS | CCD ---
Author Organization [facility] Care Team Providers Care Medical Physics Professor Name Role Phone Dr. Rosa Dwyer Primary Care Provider Dr. Rosa Dwyer Referring Provider [phone] Isela ETIENNE, KALINA Mckeon Attending Provider TERESITA SHELTON Attending Unavailable RENITA THOMAS JR Admitting Unavailable SCHETERESITA ALEJANDRO Attending Unavailable ANGELES, DIEGO Referring Unavailable SCHEPENSTERESITA Attending Unavailable SCHEPENS, TERESITA Admitting Unavailable ANGELES, DIEGO Referring Unavailable ANGELES, DIEGO Referring Unavailable Unavailable Primary Care Provider Unavailabl e PHYSICIAN, NOT RECORDED Primary Care Physician JULES Christy MD Attending Unavailable PHYSICIAN, NOT RECORDED Primary Care UnavailDMITRIY Lopez MD Attending Unavailable PHYSICIAN, NOT RECORDED Primary Care UnavailJULES Davis MD Attending Unavailable PHYSICIAN, NOT RECORDED Primary Care Unavaila ble Oleghe, Efewongbe Primary Care Unavailable Jh Miner Attending Unavailable Jh Miner Attending Unavailable Oleghe, Efewongbe Primary Care Unavailable Oleghe, Efewongbe Attending Unavailable Oleghe, Efewongbe Referring Unavailable Oleghe, Efewongbe Primary Care Unavailable Symone Quach Attending Unavailable Oleghe, Efewongbe Primary Care Unavailable Oleghe, Efewongbe Referring Unavailable Oleghe, Efewongbe Primary Care Unavailable Jh Miner Attending Unavailable Jh Miner Consulting Unavailable Oleghe, Efewongbe Attending Unavailable Oleghe, Efewongbe Referring Unavailable Oleghe, Efewongbe Primary Care Unavailable Oleghe, Efewongbe Attending Unavailable Rosa Dwyer Referring Unavailable Rosa Dwyer Primary Care Unavailable Medications Current Medications Medication Drug Class(es) Dates Sig (Normalized) Sig (Original) Biotin Forte oral tablet (2 sources) Start: 7 take 1 tablet by mouth once daily Biotin Forte oral tablet Dose = 1 tab(s), Oral, Daily, # 90 tab(s), 0 Refill(s) Start Date: 07/13/16 Status: Ordered Quantity: 90.0 Unit: tab(s) Repeat number: 1 cyclobenzaprine hydrochloride 10 mg oral tablet (2 sources) Muscle Relaxant Start: 7 Flexeril 10 mg oral tablet Dose : 10 mg = 1 tab(s), Oral, TID, PRN for muscle spasm, 0 Refill(s) Start Date: 07/13/16 Status: Ordered Repeat number: 1 hydroCHLOROthiazide 25 mg oral tablet (13 sources) Thiazide Diuretic Start: 9 End: 2 take 25 mg by mouth once daily Hydrochlorothiazide Active 25 MG PO DAILY July 06, 2022 3:57pm Start: 05-30-2019 End: 06-28-2019 take 12.5 mg by mouth once daily Hydrochlorothiazide Discontinued 12.5 MG PO DAILY May 30, 2019 2:19pm June 28, 2019 11:39am Multivitamin preparation (2 sources) Start: 07-13-2016 take 1 tablet by mouth once daily Multivitamin Dose = 1 tab(s), Oral, Daily, 0 Refill(s) Start Date: 07/13/16 Status: Ordered Repeat number: 1 Completed/Discontinued Medications Medication Drug Class(es) Dates Sig (Normalized) Sig (Original) divalproex sodium 500 mg delayed release oral tablet (19 sources) Mood Stabilizer, Anti-epileptic Agent Start: 05-29-2019 End: 06-28-2019 take 1 tablet by mouth once daily Divalproex (Depakote Er) 500 mg tablet extended release 24 hr Discontinued 500 MG PO DAILY May 29, 2019 2:42pm June 28, 2019 10:17am Start: 02-14-2019 End: 07-06-2022 divalproex sodium 500 mg ora l delayed release tablet Dose : 500 mg = 1 tab(s), Oral, Daily, # 30 tab(s), 5 Refill(s), called to pharmacy (Rx) Start Date: 02/14/19 Status: Ordered Quantity: 30.0 Unit: tab(s) Repeat number: 6 Problems Active Problems Problem Classification Problem Date Documented Date Episodic/Chronic Anxiety disorders (2 sources) Anxiety disorder, unspecified; Translations: [Anxiety disorder, unspecified] Onset: 09-01-2022 Chronic Disorders of lipid metabolism (2 sources) Hyperlipidemia; Translations: [Hyperlipidemia, unspecified] 10-04-2019 Chronic Essential hypertension (3 sources) Hypertensive disorder; Translations: [Essential (primary) hypertension] Chronic Mood disorders (12 sources) Depressive disorder; Translations: [Depression] Onset: 09-01-2022 Chronic Other nutritional; endocrine; and metabolic disorders (2 sources) Body mass index 40+ - severely obese; Translations: [Morbid (severe) obesity due to excess calories] 05-29-2019 Chronic Other screening for suspected conditions (not mental disorders or infectious disease) (3 sources) Encounter for screening for malignant neoplasm of cervix; Translations: [Encounter for screening mammogram for malignant neoplasm of breast] Onset: 10-22-2024 Episodic Residual codes; unclassified (2 sources) Altered mental status; Translations: [Altered mental status, unspecified] 10-13-2014 Episodic Thyroid disorders (3 sources) Hypothyroidism; Translations: [Hypothyroidism, unspecified] Chronic Unclassified (1 source) Caregiver's other noncompliance with patient's medication regimen; Translations: [Caregiver's other noncompliance with patient's medication regimen] Onset: 09-02-2022 Past or Other Problems Problem Classification Problem Date Documented Date Episodic/Chronic Residual codes; unclassified (2 sources) Disorientation, unspecified; Translations: [Disorientation, unspecified] Onset: 09-01-2022 Episodic Unclassified (1 source) Caregiver's other noncompliance with patient's medication regimen; Translations: [Caregiver's other noncompliance with patient's medication regimen] Onset: 09-01-2022 Results Test Name Value Interpretation Reference Range Facility CBC W/Diff, Automatedon 03-10 Absolute Lymph 3.96 X10 3/uL Normal 0.83-4.51 [facility] Comment on above: Performed By: #### L 500.4100, L100.0100, L500.4050 #### [facility] [address] [place], [address] Absolute Neut 4.2 X10 3/uL Normal 2.0-7.7 [facility] Comment on above: Performed By: #### L 500.4100, L100.0100, L500.4050 #### [facility] [address] [place], [address] Basophils/100 WBC (Bld) 0.3 % Normal 0-1 [facility] Comment on above: Performed By: #### L 500.4100, L100.0100, L500.4050 #### [facility] [address] [place], [address] Eosinophils/100 WBC (Bld) 0.7 % Normal 0-5 [facility] Comment on above: Performed By: #### L 500.4100, L100.0100, L500.4050 #### [facility] [address] [place], [address] Erythrocyte distribution width (RBC) [Ratio] 14.1 % Normal 11.6-14.6 [facility] Comment on above: Performed By: #### L 500.4100, L100.0100, L500.4050 #### [facility] [address] [place], [address] Hematocrit (Bld) [Volume fraction] 37.6 % Normal 37-47 [facility] Comment on above: Performed By: #### L 500.4100, L100.0100, L500.4050 #### [facility] [address] [place], [address] Hemoglobin (Bld) [Mass/Vol] 12.1 g/dL Normal 12.0-15.0 [facility] Comment on above: Performed By: #### L 500.4100, L100.0100, L500.4050 #### [facility] [address] [place], [address] IG% 0.300 Normal 0.0-0.9 [facility] Comment on above: Result Comment: IG% - Immature Granulocytes (promyelocytes, myelocytes and metamyelocytes) > 1% indicates that a LEFT SHIFT is Present. Performed By: #### L 500.4100, L100.0100, L500.4050 #### [facility] [address] [place], [address] Lymphocytes/100 WBC (Bld) 44.7 % High 19-41 [facility] Comment on above: Performed By: #### L 500.4100, L100.0100, L500.4050 #### [facility] [address] [place], [address] MCH (RBC) [Entitic mass] 28.5 pg Normal 27.0-32.0 [facility] Comment on above: Performed By: #### L 500.4100, L100.0100, L500.4050 #### [facility] [address] [place], [address] MCHC (RBC) [Mass/Vol] 32.2 g/dL Normal 32-36 [facility] Comment on above: Performed By: #### L 500.4100, L100.0100, L500.4050 #### [facility] [address] [place], [address] MCV (RBC) [Entitic vol] 88.5 fL Normal 81-99 [facility] Comment on above: Performed By: #### L 500.4100, L100.0100, L500.4050 #### [facility] [address] [place], [address] Monocytes/100 WBC (Bld) 6.7 % Normal 0-10 [facility] Comment on above: Performed By: #### L 500.4100, L100.0100, L500.4050 #### [facility] [address] [place], [address] Neutrophils/100 WBC (Bld) 47.3 % Normal 47-70 [facility] Comment on above: Performed By: #### L 500.4100, L100.0100, L500.4050 #### [facility] [address] [place], [address] Nucleated RBC (Bld) [#/Vol] 0 10*3/uL Normal 0-5 [facility] Comment on above: Performed By: #### L 500.4100, L100.0100, L500.4050 #### [facility] [address] [place], [address] Platelet mean volume (Bld) [Entitic vol] 9.7 fL Normal 6.2-12.0 [facility] Comment on above: Performed By: #### L 500.4100, L100.0100, L500.4050 #### [facility] [address] [place], [address] Platelets (Bld) [#/Vol] 343 10*3/uL Normal 150-450 [facility] Comment on above: Performed By: #### L 500.4100, L100.0100, L500.4050 #### [facility] [address] [place], [address] RBC (Bld) [#/Vol] 4.25 10*6/uL Normal 4.2-5.4 [facility] Comment on above: Performed By: #### L 500.4100, L100.0100, L500.4050 #### [facility] [address] [place], [address] RDW SD 44.8 fl High 35.1-43.9 [facility] Comment on above: Performed By: #### L 500.4100, L100.0100, L500.4050 #### [facility] [address] [place], [address] WBC (Bld) [#/Vol] 8.9 10*3/uL Normal 4.4-11.0 [facility] Comment on above: Performed By: #### L 500.4100, L100.0100, L500.4050 #### [facility] [address] [place], [address] Comprehensive Metabolic Prof ilon 03-20-2025 Albumin [Mass/Vol] 4.1 g/dL Normal 3.5-5.0 [facility] Comment on above: Performed By: #### L 500.4100, L100.0100, L500.4050 #### [facility] [address] [place], [address] Albumin/Globulin [Mass ratio] 1.1 {ratio} Normal 0.9-2.4 [facility] Comment on above: Performed By: #### L 500.4100, L100.0100, L500.4050 #### [facility] [address] [place], [address] ALK PHOS 114 U/L High 35-104 [facility] Comment on above: Performed By: #### L 500.4100, L100.0100, L500.4050 #### [facility] [address] [place], [address] ALT [Catalytic activity/Vol] 16 U/L Normal <=34 [facility] Comment on above: Performed By: #### L 500.4100, L100.0100, L500.4050 #### [facility] [address] [place], [address] AST [Catalytic activity/Vol] 18 U/L Normal <=31 [facility] Comment on above: Performed By: #### L 500.4100, L100.0100, L500.4050 #### [facility] [address] [place], [address] Bilirubin [Mass/Vol] 0.29 mg/dL Normal 0.00-1.30 [facility] Comment on above: Performed By: #### L 500.4100, L100.0100, L500.4050 #### [facility] [address] [place], [address] BUN/CRE 12.7 RATIO Normal 10-20 [facility] Comment on above: Performed By: #### L 500.4100, L100.0100, L500.4050 #### [facility] [address] [place], [address] Calcium [Mass/Vol] 9.8 mg/dL Normal 7.6-11.0 [facility] Comment on above: Performed By: #### L 500.4100, L100.0100, L500.4050 #### [facility] [address] [place], [address] Chloride [Moles/Vol] 104 mmol/L Normal 98-108 [facility] Comment on above: Performed By: #### L 500.4100, L100.0100, L500.4050 #### [facility] [address] [place], [address] CO2 [Moles/Vol] 25.7 mmol/L Normal 21.0-32.0 [facility] Comment on above: Performed By: #### L 500.4100, L100.0100, L500.4050 #### [facility] [address] [place], [address] Creatinine [Mass/Vol] 0.72 mg/dL Normal 0.70-1.20 [facility] Comment on above: Performed By: #### L 500.4100, L100.0100, L500.4050 #### [facility] [address] [place], [address] GAP 10 Normal 5-15 [facility] Comment on above: Performed By: #### L 500.4100, L100.0100, L500.4050 #### [facility] [address] [place], [address] GFR/1.73 sq M.predicted among non-blacks MDRD (S/P/Bld) [Vol rate/Area] 101 mL/min/{1.73_m2} Normal >60 [facility] Comment on above: Result Comment: mL/m in/1.73m2 CKD-EPI Creatinine Equation (2020) Performed By: #### L 500.4100, L100.0100, L500.4050 #### [facility] [address] [place], [address] Globulin (S) [Mass/Vol] 3.7 g/dL Normal 2.2-4.2 [facility] Comment on above: Performed By: #### L 500.4100, L100.0100, L500.4050 #### [facility] [address] [place], [address] Glucose [Mass/Vol] 99 mg/dL Normal 70-99 [facility] Comment on above: Performed By: #### L 500.4100, L100.0100, L500.4050 #### [facility] [address] [place], [address] Potassium [Moles/Vol] 4.1 mmol/L Normal 3.3-5.1 [facility] Comment on above: Performed By: #### L 500.4100, L100.0100, L500.4050 #### [facility] [address] [place], [address] Sodium [Moles/Vol] 140 mmol/L Normal 133-145 [facility] Comment on above: Performed By: #### L 500.4100, L100.0100, L500.4050 #### [facility] [address] [place], [address] T PROT 7.7 g/dL Normal 5.9-8.4 [facility] Comment on above: Performed By: #### L 500.4100, L100.0100, L500.4050 #### [facility] [address] [place], [address] Urea nitrogen [Mass/Vol] 9 mg/dL Normal 4-19 [facility] Comment on above: Performed By: #### L 500.4100, L100.0100, L500.4050 #### [facility] [address] [place], [address] Lipid Profileon 03-20-2025 CHOL:HDL 4.62 Normal [facility] Comment on above: Performed By: #### L 500.4100, L100.0100, L500.4050 #### [facility] [address] [place], [address] Cholesterol [Mass/Vol] 228 mg/dL High <=200 [facility] Comment on above: Result Comment: Chol esterol level, Desirable <200 mg/dL Borderline high cholesterol 200-239 mg/dL High cholesterol >=240 mg/dL Recommendations of the NCEP Adult Treatment Panel for the following risk-cutoff thresholds for the [place] population. Performed By: #### L 500.4100, L100.0100, L500.4050 #### [facility] [address] [place], [address] Cholesterol in HDL [Mass/Vol] 49 mg/dL Normal [facility] Comment on above: Result Comment: Ami onal Cholesterol Education Program (NCEP) guidelines: <40 mg/dL: Low HDL-cholesterol (major risk factor for CHD) >= 60 mg/dL: High HDL-cholesterol (negative risk factor for CHD) HDL-cholesterol is affected by a number of factors, e.g. smoking, exercise, hormones, sex and age. Performed By: #### L 500.4100, L100.0100, L500.4050 #### [facility] [address] [place], [address] Cholesterol in LDL [Mass/Vol] 147 mg/dL Normal [facility] Comment on above: Result Comment: Bord ggzyvg=633-500 mg/dL Higher Ttfn=781 mg/dL or greater Friedwald Equation for LDL-C Performed By: #### L 500.4100, L100.0100, L500.4050 #### [facility] [address] [place], [address] Cholesterol in VLDL [Mass/Vol] 32 mg/dL Normal 5-40 [facility] Comment on above: Performed By: #### L 500.4100, L100.0100, L500.4050 #### [facility] [address] [place], [address] Triglyceride [Mass/Vol] 158 mg/dL Normal [facility] Comment on above: Result Comment: The drugs N-Acetylcysteine and Metamizole may falsely depress this assay. Normal range: <150 mg/dL Borderline High: 150-199 mg/dL High: 200-499 mg/dL Very High: >500 mg/dL Performed By: #### L 500.4100, L100.0100, L500.4050 #### [facility] [address] [place], [address] MR/Jamel 03-20-2025 MR/ [address], [address] [place] [address] OFFICE VISIT Date of Service: 03/20/25 MR#: [id number] Acct: [id number] Name: ELIZABETH MOSLEY Rep #: [id number] : 1975 Provider: Dr. Jh Yousif se, DO Age/Sex: 49/F [place] [facility] [place]: Signed Intake Vital Signs 08/08/24 07:05 03/07/25 13:42 03/20/25 08:32 Height 5 ft 5 in 5 ft 5 in 5 ft 5 in Weight: 261 lb 8 oz 267 lb BMI 43.4 44.4 BP 142/82 H 137/81 H Blood Pressure Location Rt brachial Lt brachial Position Sitting Sitting Respiration 16 16 Pulse 79 81 Pulse Source Monitor Monitor Temp 96.7 F L Pulse Oximetry (%) 96 Oxygen Delivery Method room air BP Intake Visit Reasons: Follow up Accompanied by: Granddaughter Allergies No Known Allergies Allergy (Verified 03/20/25 08:36) Medications ???Medication ???Instructions ???Recorded ???Confirmed ???Type hydrocortisone 2.5 % topical 1 applic topical BID PRN rash 01/3003/20/25 Rx ointment #28.35 grams nystatin 100,000 unit/gram topical 1 applic topical TID #60 grams 0 02/14/24 03/20/25 Rx powder hydrochlorothiazide 25 mg tablet 25 mg PO DAILY #90 tabs 04/23/24 0 03/20/25 Rx tirzepatide (weight loss) 2.5 2.5 mg (0.5 mL) subcut QWEEK #2 mL 03/07/25 03/20/25 Rx mg/0.5 mL subcutaneous pen injector (Zepbound) divalproex 500 mg tablet,delayed 500 mg PO QHS #90 tabs 03/20/25 Rx release (Depakote) [facility] Medical History (Updated 03/07/25 @ 14:[address] Rosa Dwyer MD) Preventative health care Intertriginous dermatitis associated with moisture Bilateral lower extremity edema Encounter for medication monitoring Bipolar 1 disorder Wears contact lenses Bipolar disorder Depression Low iron Injury of head and neck Non-smoker Hypertension Encounter for preventative adult health care examination Hypothyroidism Hypertension Depression Surgical History Hx laparoscopic cholecystectomy History of tubal ligation Family History Other Anemia Depression Hypertension Parkinsons Thyroid disorder Social History (Reviewed 03/07/25 @ 13:47 by Iveth Tomlin Smoking Status: Never smoker alcohol intake: never substance use type: does not use what type of physical activity do you participate in: swimming frequency: 1-2 times per week HPI History of Present Illness History provided by: patient HPI: Elizabeth Mosley is a 49 year old female who presents today for follow up evaluation. Father in December, but she was prepared for this. Mood has been doing largely well despite the stressor. Has had some additions to her household. Elaborates that her 2 grand children from her one daughter and also her grandson from her other daughter so has had 3 grandchildren living with her. Also has her sister and her granddaughter living with her. Has been trying to get up early to go and swim to help do some self care. Work has been doing pretty good. Sleep has been doing largely well. Denies SI/HI or AVH. Review of Systems Constitutional Denies: fever(s), chills, change in weight or fatigue Eyes Denies: change in vision or blurry vision Ears, Nose, Mouth, Throat Denies: throat pain, neck pain or change in hearing Cardiovascular Denies: chest pain, palpitations or dyspnea Respiratory Denies: dyspnea, cough or wheezing Gastrointestinal Denies: abdominal pain, nausea, vomiting, diarrhea or constipation Genitourinary Denies: dysuria or urinary frequency Musculoskeletal Denies: back pain, neck pain, joint pain or muscle weakness Integumentary/Breast Denies: rash or new lesions Neurological Denies: headache(s), dizziness or confusion Endocrine Denies: fatigue or excessive sweating Hematologic/Lymphatic Denies: easy bruising or easy bleeding Allergic/Immunologic Denies: wheezing Exam Mental Status Exam - Psych Appearance casually dressed and no apparent distress Attitude cooperative and calm Activity/Motor Behavior MSE activity/motor behavior finding no adventitious movements Speech regular rate, regular volume and regular prosody Mood euythmic Affect full range and congruent Thought Process linear, logical and coherent Thought Content no delusions and no hallucinations Suicidal Ideation none Homicidal Ideation none Attention intact Concentration intact Sensorium/Orientation awake, alert and oriented x3 Memory/Cognition other (appropriate for stated age) Insight good Judgement good Assessment Plan Assessment Plan (1) Bipolar 1 disorder: Plan: - Continue depakote 500 mg at bedtime. - Some recent increase in anxiety secondary to passing of her father how (more content not included)... Normal [facility] Valproic Acid (Depakene) Lev jacki 03-20-2025 VALPROIC ACID 37 ug/mL Low 50-100 [facility] Comment on above: Result Comment: Valp roic Acid concentrations >100 ug/mL are potentially toxic. Performed By: #### L 501.8100 #### [facility] [address] [place], [address] Internal Medicine Office Vis iton 03-07-2025 Internal Medicine Office Visit [facility] [address] [place] [address] [place] [address] OFFICE VISIT Date of Service: 03/07/25 MR#: [id number] Acct: [id number] Name: ELIZABETH MOSLEY Rep #: [id number] : 1975 Provider: Dr. Rosa marin MD Age/Sex: 49/F [place] [facility] [place] Status: Signed Intake Vital Signs 08/08/24 07:05 03/07/25 13:42 Height 5 ft 5 in 5 ft 5 in Weight: 263 lb 261 lb 8 oz BMI 43.7 43.4 BP 136/88 H 142/82 H Blood Pressure Location Lt brachial Rt brachial Position Sitting Sitting Respiration 16 16 Pulse 78 79 Pulse Source Monitor Monitor Temp 96.7 F L Temp Source Temporal Pulse Oximetry (%) 96 Oxygen Delivery Method room air Intake Visit Reasons: YEARLY Chief Complaint: yearly Research Tech Required: No Accompanied by: Self Is patient in pain?: No Allergies No Known Allergies Allergy (Verified 03/07/25 13:37) Medications ???Medication ???Instructions ???Recorded ???Confirmed ???Type hydrocortisone 2.5 % topical 1 applic topical BID PRN rash 01/3003/07/25 Rx ointment #28.35 grams nystatin 100,000 unit/gram topical 1 applic topical TID #60 grams 0 02/14/24 03/07/25 Rx powder hydrochlorothiazide 25 mg tablet 25 mg PO DAILY #90 tabs 04/23/24 0 03/07/25 Rx divalproex 500 mg tablet,delayed 500 mg PO QHS #90 tabs 08/08/24 Rx release (Depakote) tirzepatide (weight loss) 2.5 2.5 mg (0.5 mL) subcut QWEEK #2 mL 03/07/25 03/07/25 Rx mg/0.5 mL subcutaneous pen injector (Zepbound) Nurse's Note: yearly [facility] Medical History (Updated 03/07/25 @ 14:[address] Rosa Dwyer MD) Preventative health care Intertriginous dermatitis associated with moisture Bilateral lower extremity edema Encounter for medication monitoring Bipolar 1 disorder Wears contact lenses Bipolar disorder Depression Low iron Injury of head and neck Non-smoker Hypertension Encounter for preventative adult health care examination Hypothyroidism Hypertension Depression Surgical History Hx laparoscopic cholecystectomy History of tubal ligation Family History Other Anemia Depression Hypertension Parkinsons Thyroid disorder Social History Smoking Status: Never smoker alcohol intake: never substance use type: does not use what type of physical activity do you participate in: swimming frequency: 1-2 times per week HPI HPI Chief Complaint: yearly Details: ELIZABETH MOSLEY, is a 49 F who presents to the office today for her yearly visit. No acute concerns at this time. No significant personal or family history changes since the last visit. Has stayed active and continues to exercise at least daily. Lost a few pounds but currently remains at a BMI of 43.4. She denies any significant personal or family history of pancreatitis, pancreatic or thyroid cancer. No significant alcohol use or abuse. Continues to follow-up closely with [facility] and up-to-date on her Pap smear. Mammogram is due. Last colon cancer screening was in 2020 and a 10-year follow-up was recommended. Has not seen dermatology. ROS Const Constitutional: No body ache, excessive sweating, fatigue, fever(s), frequent falls, headache(s), snoring, weakness, weight change, sleep problems or change in appetite Eyes Eyes: No blurry vision, change in vision, eye pain or Light sensitivity ENT ENT: No abnormal hearing, ear or mastoid pain, tinnitus, nasal congestion, headache(s), neck pain or sore throat Resp Respiratory: No cough, shortness of breath, snoring or wheezing Cardio Cardiology: No chest pain at rest, chest pain with exertion, excessive sweating, shortness of breath, dyspnea on exertion, lightheadedness, orthopnea or palpitations Gastro GI: No abdominal pain, change in bowel habits, constipation, cramping, diarrhea, nausea/dyspepsia or vomiting Genitourinary-Female: No burning urination, painful urination, urinary incontinence, urinary frequency, blood in urine, abnormal periods or pelvic pain Musc Musculoskeletal: No abnormal gait, joint pain, back pain, limited range of motion, neck pain, numbness, stiffness, tingling or Arthritis Skin Skin: No dry skin, redness, lesions, itchy eyes, rash or wounds Neuro Neurology: No abnormal gait, abnormal hearing, abnormal speech, dizziness, weakness, frequent falls, headache(s), memory loss, numbness or tingling Psych Psychiatric: No anxiety, No change in appetite, No depression, No memory loss and No Thoughts of harming yourself/Others Endo Endocrine: No cold intolerance, excessive sweating, fatigue, flushing, heat intolerance, increased thirst/drinking, increased hunger or weight change Aller/I (more content not included)... Normal [facility] Retail Delivery Driver Cytology Reporton 2024 Retail Delivery Driver Cytology Report . Pathology Reports Accession: Collected Date/Time: Received Date/Time: Pathologist: [id number] 10/22/2024 14:26 EDT 10/22/2024 18:00 EDT Retail Delivery Driver Cytology Report SPECIMEN: Specimen Description: Liquid Prep w/ HPV Specimen: Cervical/Endocervical Screening or Diagnostic: Screening RELEVANT HISTORY: LMP: Aug 2024 SPECIMEN ADEQUACY: SATISFACTORY FOR EVALUATION Endocervical/Transforma tional zone component present INTERPRETATION/RESULTS: NEGATIVE FOR INTRAEPITHELIAL LESION OR MALIGNANCY HIGH RISK HPV TESTING: Event Code Result HPV Interp See Interp HPVN HPV Interp Text: High Risk HPV Typing: NEGATIVE HPV types 16, 18, 31, 33, 35, 39, 45, 51, 52, 56, 58, 59, 66 and 68 DNA were undetectable or below the pre-set threshold. The cecy High-Risk HPV DNA Test is not intended for use as a screening device for Pap normal women under age 30 and is not intended to substitute for regular Pap screening. The cecy High-Risk HPV DNA Test is designed to augment existing methods for the detection of cervical disease and should be used in conjunction with clinical information derived from other diagnostic and screening tests, physical examinations and full medical history in accordance with appropriate patient management procedures. NOTE: A negative result does not preclude the presence of HPV infection because results depend on adequate specimen collection, absence of inhibitors and sufficient DNA to be detected. As of: 10/29/24 15:40 EDT COMMENT: This Pap Test was successfully processed and evaluated with the assistance of the [employer] ThinPrep Test Imaging System. Pathology Reports Accession: Collected Date/Time: Received Date/Time: Pathologist: [id number] 10/22/2024 14:26 EDT 10/22/2024 18:00 EDT Verified by Pathology report verified by [facility] Screened by: JEWEL Electronically signed by Mariza Manzanares Sign-Out Date: 10/29/2024 15:45 Performing Lab: [facility], [address] [place] [address] Pathology Dept Disclaimer The Pap test is a screening test for cervical cancer. As evidenced by published data, it is subject to both inherent false negative and false positive results. Your patient's results should be interpreted in context with pertinent clinical history including gynecological examination. Normal [facility] HPVon 10-25-2024 HPV Interp Normal See Interp HPVN [facility] Comment on above: Order Comment: Order placed by AP_HPV_ORDER rule from [id number] Result Comment: High Risk HPV Typing: NEGATIVE HPV types 16, 18, 31, 33, 35, 39, 45, 51, 52, 56, 58, 59, 66 and 68 DNA were undetectable or below the pre-set threshold. The cecy High-Risk HPV DNA Test is not intended for use as a screening device for Pap normal women under age 30 and is not intended to substitute for regular Pap screening. The cecy High-Risk HPV DNA Test is designed to augment existing methods for the detection of cervical disease and should be used in conjunction with clinical information derived from other diagnostic and screening tests, physical examinations and full medical history in accordance with appropriate patient management procedures. NOTE: A negative result does not preclude the presence of HPV infection because results depend on adequate specimen collection, absence of inhibitors and sufficient DNA to be detected. See Interp HPVN Performed By: #### H PV #### [facility] [address] [place] [id number] HPV Source Cervix Normal [facility] Comment on above: Order Comment: Order placed by AP_HPV_ORDER rule from [id number] Performed By: #### H PV #### [facility] [address] [place] [id number] MR/BMS.BPon 08-08-2024 MR/BMS.BP [address], [address] [place] [address] OFFICE VISIT Date of Service: 08/08/24 MR#: [id number] Acct: [id number] Name: ELIZABETH MOSLEY Rep #: [id number] : 1975 Provider: Dr. Jh Yousif se, DO Age/Sex: 49/F [place] [facility] [place]: Signed Intake Vital Signs 01/18/24 06:57 02/14/24 13:46 08/08/24 07:05 Height 5 ft 5 in 5 ft 5 in 5 ft 5 in Weight: 267 lb 6 oz 263 lb BMI 44.4 43.7 BP 121/84 H 120/64 136/88 H Blood Pressure Location Rt brachial Lt brachial Lt brachial Position Sitting Sitting Sitting Respiration 16 16 Pulse 85 81 78 Pulse Source Monitor Monitor Monitor Temp 97.3 F L Pulse Oximetry (%) 96 Oxygen Delivery Method room air BP Intake Visit Reasons: 6 M FU Accompanied by: Self Allergies No Known Allergies Allergy (Verified 08/08/24 07:07) Medications ???Medication ???Instructions ???Recorded ???Confirmed ???Type hydrocortisone 2.5 % topical 1 applic topical BID PRN rash 08/01/3008/08/24 Rx ointment #28.35 grams nystatin 100,000 unit/gram topical 1 applic topical TID #60 grams 0 02/14/24 08/08/24 Rx powder hydrochlorothiazide 25 mg tablet 25 mg PO DAILY #90 tabs 04/23/24 0 08/08/24 Rx divalproex 500 mg tablet,delayed 500 mg PO QHS #90 tabs 08/08/24 Rx release (Depakote) [facility] Medical History (Updated 12/12/24 @ 07:22 by Selena Laura SUPERINTENDENT CIRCUS, SUPERINTENDENT CIRCUS-C) Intertriginous dermatitis associated with moisture Bilateral lower extremity edema Encounter for medication monitoring Bipolar 1 disorder Wears contact lenses Bipolar disorder Depression Low iron Injury of head and neck Non-smoker Hypertension Encounter for preventative adult health care examination Hypothyroidism Hypertension Depression Surgical History Hx laparoscopic cholecystectomy History of tubal ligation Family History Other Anemia Depression Hypertension Parkinsons Thyroid disorder Social History Smoking Status: Never smoker alcohol intake: never substance use type: does not use what type of physical activity do you participate in: swimming frequency: 1-2 times per week HPI History of Present Illness History provided by: patient HPI: Elizabeth Mosley is a 49 year old female who presents today for follow up evaluation. Patient reports that she has been hanging in there. Has been very busy at her working at the [employer]. Mood has been largely ok. Does remain feeling somewhat tired. Has been waking up and having trouble getting back to sleep. If she does fall back asleep she can oversleep. Does help take care of her grandchildren on the weekend. Dad continues to live in the halfway and has been decompensating to some degree. Appetite has been largely stable. Denies SI/HI or AVH. Review of Systems Constitutional Denies: fever(s), chills, change in weight or fatigue Eyes Denies: change in vision or blurry vision Ears, Nose, Mouth, Throat Denies: throat pain, neck pain or change in hearing Cardiovascular Denies: chest pain, palpitations or dyspnea Respiratory Denies: dyspnea, cough or wheezing Gastrointestinal Denies: abdominal pain, nausea, vomiting, diarrhea or constipation Genitourinary Denies: dysuria or urinary frequency Musculoskeletal Denies: back pain, neck pain, joint pain or muscle weakness Integumentary/Breast Denies: rash or new lesions Neurological Denies: headache(s), dizziness or confusion Endocrine Denies: fatigue or excessive sweating Hematologic/Lymphatic Denies: easy bruising or easy bleeding Allergic/Immunologic Denies: wheezing Exam Mental Status Exam - Psych Appearance casually dressed and no apparent distress Attitude cooperative and calm Activity/Motor Behavior MSE activity/motor behavior finding no adventitious movements Speech regular rate, regular volume and regular prosody Mood euythmic Affect full range and congruent Thought Process linear, logical and coherent Thought Content no delusions and no hallucinations Suicidal Ideation none Homicidal Ideation none Attention intact Concentration intact Sensorium/Orientation awake, alert and oriented x3 Memory/Cognition other (appropriate for stated age) Insight good Judgement good Assessment Plan Assessment Plan (1) Bipolar 1 disorder: Plan: - Continue depakote 500 mg at bedtime. -last valproic acid 48, which is appropriate for maintenance treatment - Advised of risks benefits and possible side effects - doing largely well (2) Encounter for medication monitoring: Plan: - See above Medications: Refilled divalproex (Depa (more content not included)... [facility] Progress Noteon 10-24-2022 Progress Note Pt met with this RN. Pt is discharging from evening IOP. Message sent to Dr. Shelton through Secure Chat for clarification. Pt explains I'm supposed to take: Depakote ER 250mg four tablets at night. Pt's discharge instructions indicate five tablets at night. [facility] is going to [facility], tomorrow at 1:30 pm. 2:45 pm: Received a return message from Dr. Shelton who approved Depakote ER 250mg four tablet at night. Depakote corrected on discharge instructions. Pt thanks this RN for the correction. [facility] GROUPNOTEon 10-20-2022 GROUPNOTE Outpatient [facility] Intensive Outpatient Program (IOP) Group Therapy - Session 2 Group Name: Intensive Outpatient Program Summary: Patients and outbound telemarketer discussed and processed changes that will be occurring for group. Patients were informed of this time slot at this ([facility]) location would be ending on 10/27/2022. Patients were presented options: earlier time slot same location, same time slot at different location ([facility]), or discharge with referral to other agency/provider. Patient were also provided director's contact information if they had further questions. Department: [facility] Psych IOP Group Topic: Check-in Group Date: 10/20/2022 Start Time: 6:25 PM End Time: 8:00 PM Number of Participants: 2 Mental Status Exam: Appearance: Appropriately dressed and groomed and Good eye contact Mood: Irritated Affect: Appropriate and Congruent with mood Behavior: Cooperative and Monopolizing Alertness: Alert Speech: Pressured Cognition: Intact, Oriented X4, and Intelligent Thought Process: Circumstantial Thought Content: No evidence of psychosis/delusions Level/Quality of Participation: active Interactions with others: monopolizing Interventions utilized were Building rapport and engagement and Empathic listening Patient's Response to Intervention: Patient joined group and was informed of the changes occurring to group. Patient was informed of the options she had available to her and provided with production assembly supervisor's phone number if she had further questions. Patient shared that she had a follow up appointment scheduled with an agency which is closer to home. Patient expressed frustrations as she received call from daughter and stated that her daughter knows that she is in group at the time and that her father is home and would be available to provide assistance. Patient discussed difficulties with her immediate family, as well as, struggles and difficulties with siblings with regards to care for their father. Patient additionally shared her experienced difficulty in attending group due to her work schedule and commute. Progress Towards Goal(s): Moderate Additional Comments: NA Next Step: Continue with current services Patients Problems: Patient Active Problem List Diagnosis Bipolar 1 disorder, manic, mild (CMS/HCC) (HCC) Agitation states as acute reaction to exceptional (gross) stress Caregiver's other noncompliance with patient's medication regimen Disorientation Manic behavior (HCC) Name: Elizabeth Mosley Date of : 1975 MR: [id number] Claire Yeung [facility] GROUPNOTE Outpatient [facility] Intensive Outpatient Program (IOP) Group Therapy - Session 3 Group Name: Intensive Outpatient Program Summary: Processing and advocacy for mental health care and services. Discussion of what was seen before beginning treatment/therapy versus how it is looked at now. Discussion of what they would like to see happen with mental health treatment. Processing and discussing the need for improved communication, not just within their own circles of family and/or friends but people in general; increased understanding/knowledge , removal of stigma, treating anyone with mental health condition as a person, not an embarrassment and definitely don't shame them. Department: [facility] Psych IOP Group Topic: Check-in Group Date: 10/20/2022 Start Time: 8:05 PM End Time: 8:25 PM Number of Participants: 2 Mental Status Exam: Appearance: Appropriately dressed and groomed and Good eye contact Mood: Anxious Affect: Appropriate and Congruent with mood Behavior: Cooperative and Interactive Alertness: Alert Speech: Clear and Pressured Cognition: Intact, Oriented X4, and Intelligent Thought Process: Circumstantial Thought Content: No evidence of psychosis/delusions Level/Quality of Participation: active, mild-moderately redirectable Interactions with others: gave feedback, and mild-moderately monopolizing Interventions utilized were Building rapport and engagement, Empathic listening, and Dialectical Behavioral Therapy skills (DBT) Patient's Response to Intervention: Patient engaged in discussion of identification of one's support network. Patient reports having a good support network. Patient demonstrated recognition that she was monopolizing discussion; offering apology to fellow group member and curtailing details of interaction with family. Patient was receptive to receiving materials about emotion regulation. Progress Towards Goal(s): Moderate Additional Comments: NA Next Step: Continue with current services Patients Problems: Patient Active Problem List Diagnosis ? Bipolar 1 disorder, manic, mild (CMS/HCC) (HCC) ? Agitation states as acute reaction to exceptional (gross) stress ? Caregiver's other noncompliance with patient's medication regimen ? Disorientation ? Manic behavior (HCC) Name: Elizabeth Mosley Date of : 1975 MR: [id number] Claire Yeung, [facility] GROUPNOTEon 10-18-2022 GROUPNOTE Outpatient [facility] Intensive Outpatient Program (IOP) Group Therapy - Session 1 Group Name: Intensive Outpatient Program Summary: Therapist facilitated check in exploring and reinforcing skills used to manage mental health sxs. Identified ways of fitting mindfulness practice into daily activities. Explored pts' use of mindfulness and their thoughts on its helpfulness. Department: [facility] Psych IOP Group Topic: Check-in Group Date: 10/18/2022 Start Time: 5:30 PM End Time: 6:25 PM Number of Participants: 3 Mental Status Exam: Appearance: Appropriately dressed and groomed Mood: Pleasant Affect: Full and Appropriate Behavior: Cooperative and Engaging Alertness: Alert Speech: Appropriate and Clear Cognition: Oriented X4 Thought Process: Goal-directed Thought Content: No evidence of psychosis/delusions Level/Quality of Participation: attentive, cooperative, engaged, and supportive Interactions with others: gave feedback and supportive Interventions utilized were Building rapport and engagement, Empathic listening, Dialectical Behavioral Therapy skills (DBT), and Psychoeducation Patient's Response to Intervention: Pt arrived a little late to group as she was coming from work. Pt immediately joined in sharing group has helped her develop more insight into contributing factors to her mental health issues including her marital relationship. Pt shares she is getting ready to make some difficult decisions. Pt is trying to practice mindfulness. She is using grounding techniques to remain in control of her emotions. Pt says she is being more assertive at home and setting boundaries, she is making self care more of a priority and she is practicing acceptance. Pt is focusing her efforts on what she can control and what is in her best interest. Pt is trying to no longer let others control her. Progress Towards Goal(s): Significant Additional Comments: n/a Next Step: Continue with current services Patients Problems: Patient Active Problem List Diagnosis Bipolar 1 disorder, manic, mild (CMS/HCC) (HCC) Agitation states as acute reaction to exceptional (gross) stress Caregiver's other noncompliance with patient's medication regimen Disorientation Manic behavior (HCC) Name: Elizabeth Mosley Date of : 1975 MR: [id number] Kindra Ratliff [facility] GROUPNOTE Outpatient [facility] Intensive Outpatient Program (IOP) Group Therapy - Session 2 Group Name: Intensive Outpatient Program Summary: Therapist facilitated discussion about emotion regulation skills to include opposite action, checking the facts, PLEASE and paying attention to positive events. Explored how pts have been using these skills. Explored where efforts are good and where improvements could be made. Department: [facility] Psych IOP Group Topic: Emotional Regulation Skill Group Date: 10/18/2022 Start Time: 6:35 PM End Time: 7:25 PM Number of Participants: 3 Mental Status Exam: Appearance: Appropriately dressed and groomed Mood: Pleasant Affect: Appropriate Behavior: Cooperative and Interactive Alertness: Alert Speech: Appropriate Cognition: Oriented X4 Thought Process: Goal-directed Thought Content: No evidence of psychosis/delusions Level/Quality of Participation: attentive and cooperative Interactions with others: gave feedback and supportive Interventions utilized were Building rapport and engagement, Empathic listening, Dialectical Behavioral Therapy skills (DBT), and Psychoeducation Patient's Response to Intervention: Pt appeared receptive to information presented throughout group. Pt has learned through experience the value of medication compliance. She shared how she has modified her diet to eat healthy foods that do not have a negative impact on her mental health. Pt participated in group discussion about mood altering substances. Pt has been sleeping well and she exercises on a regular basis. Progress Towards Goal(s): Moderate Additional Comments: n/a Next Step: Continue with current services Patients Problems: Patient Active Problem List Diagnosis Bipolar 1 disorder, manic, mild (CMS/HCC) (HCC) Agitation states as acute reaction to exceptional (gross) stress Caregiver's other noncompliance with patient's medication regimen Disorientation Manic behavior (HCC) Name: Elizabeth Mosley Date of : 1975 MR: [id number] Kindra Ratliff, [facility] GROUPNOTE Outpatient [facility] Intensive Outpatient Program (IOP) Group Therapy - Session 3 Group Name: Intensive Outpatient Program Summary: Continued discussion about emotion regulation skills to include opposite action, checking the facts, PLEASE and paying attention to positive events. Explored how pts have been using these skills. Explored where efforts are good and where improvements could be made. Department: [facility] Psych IOP Group Topic: Emotional Regulation Skill Group Date: 10/18/2022 Start Time: 7:35 PM End Time: 8:25 PM Number of Participants: 3 Mental Status Exam: Appearance: Appropriately dressed and groomed Mood: Pleasant Affect: Appropriate Behavior: Cooperative and Interactive Alertness: Alert Speech: Appropriate Cognition: Oriented X4 Thought Process: Goal-directed Thought Content: No evidence of psychosis/delusions Level/Quality of Participation: attentive and cooperative Interactions with others: gave feedback and supportive Interventions utilized were Building rapport and engagement, Empathic listening, Dialectical Behavioral Therapy skills (DBT), and Psychoeducation Patient's Response to Intervention: Pt shares positive events she incorporates into her day/routine. Pt is able to identify how pleasant events enhance how she feels and contribute to having a life worth living. Pt shares she finds positive events daily through her work. She shares several examples with the group. Pt encouraged to continue positive efforts. Progress Towards Goal(s): Moderate Additional Comments: n/a Next Step: Continue with current services Patients Problems: Patient Active Problem List Diagnosis Bipolar 1 disorder, manic, mild (CMS/HCC) (HCC) Agitation states as acute reaction to exceptional (gross) stress Caregiver's other noncompliance with patient's medication regimen Disorientation Manic behavior (HCC) Name: Elizabeth Mosley Date of : 1975 MR: [id number] Kindra Ratliff, [facility] GROUPNOTEon 10-17-2022 GROUPNOTE Outpatient [facility] Intensive Outpatient Program (IOP) Group Therapy - Session 2 Group Name: Intensive Outpatient Program Summary: Education on the origins of emotions and the relationships that thoughts and feelings have on the experiencing of emotions. Reframing of negative thought and increased insight provided regarding the impact of thoughts on mood functioning. Department: [facility] Psych IOP Group Topic: Feeling Awareness/Expression Group Date: 10/17/2022 Start Time: 6:45 PM End Time: 7:30 PM Number of Participants: 4 Mental Status Exam: Appearance: Appropriately dressed and groomed Mood: euthymic Affect: full Behavior: Pleasant, Cooperative, Engaging, and Interactive Alertness: Alert Speech: Appropriate, Clear, and Normal pace Cognition: Intact, Oriented X4, and Intelligent Thought Process: Goal-directed Thought Content: No evidence of psychosis/delusions Level/Quality of Participation: active, attentive, cooperative, and engaged Interactions with others: supportive Interventions utilized were Building rapport and engagement, Cognitive Behavioral Therapy (CBT), Psychoeducation, Patient's Response to Intervention: Pt was alert and engaged in treatment. Pt gained education on the relationship between thought feelings and behaviors. Pt was receptive to challenging and re-framing of thoughts. Pt was active in ones attempt to recognize distortions and placed considerable effort in trying to work through and resolve distortions and irrationalities. Pt articulated multiple distorted thoughts and patterns that she has came to realize in her time in treatment. Pt articulated that her self- talk has been guilt driven and her guilt has driven her decisions and behavior which has led to increased anxiety. Progress Towards Goal(s): Minimal Additional Comments: n/a Next Step: Continue with current services Patients Problems: Patient Active Problem List Diagnosis Bipolar 1 disorder, manic, mild (CMS/HCC) (HCC) Agitation states as acute reaction to exceptional (gross) stress Caregiver's other noncompliance with patient's medication regimen Disorientation Manic behavior (HCC) Name: Elizabeth Mosley Date of : 1975 MR: [id number] Bg Howe, [facility] GROUPNOT Outpatient [facility] Intensive Outpatient Program (IOP) Group Therapy - Session 1 Group Name: [facility] Outpatient [facility] Summary: Check-in facilitated where patient assessed current symptoms, articulated needs and shared coping strategies used and there perceived effectiveness. Department: [facility] IOP Group Topic: Check-in Group Date: 10/17/2022 Start Time: 5:30 AM End Time: 6:30 PM Number of Participants: 4 Mental Status Exam: Appearance: Appropriately dressed and groomed Mood: euthymic Affect: full Behavior: Pleasant, Cooperative, Engaging, and Interactive Alertness: Alert Speech: Appropriate, Clear, and Normal pace Cognition: Intact, Oriented X4, and Intelligent Thought Process: Goal-directed Thought Content: No evidence of psychosis/delusions Level/Quality of Participation: active, attentive, cooperative, and engaged Interactions with others: supportive Interventions utilized were Building rapport and engagement, Cognitive Behavioral Therapy (CBT), Psychoeducation, Modeling/skills training techniques Patient's Response to Intervention: Pt was attentive and engaged in discussed. Pt provided update on current symptoms, medication compliance and needs. Pt reported improved mood functioning as she has transitioned from [facility]. Pt shared worry about her going back to work and wanting to ease back into it rather than dive in completely. Pt rated depression and anxiety as 1/10 and reported not SI, SH, thoughts or intentions. Pt overall appeared to be doing well and is stable at this time. Progress Towards Goal(s): Minimal Additional Comments: NA Next Step: Continue with current services Patients Problems: Patient Active Problem List Diagnosis Bipolar 1 disorder, manic, mild (CMS/HCC) (HCC) Agitation states as acute reaction to exceptional (gross) stress Caregiver's other noncompliance with patient's medication regimen Disorientation Manic behavior (HCC) Name: Elizabeth Mosley Date of : 1975 MR: [id number] Bg Howe, [facility] GROUPNOTE Outpatient [facility] Intensive Outpatient Program (IOP) Group Therapy - Session 3 Group Name: Intensive Outpatient [facility] Summary: insight on the attachments to deprivation, rejection and control was provided. Consequences to such unhealthy attachments was explored. Department: [facility] Psych IOP Group Topic: Feeling Awareness/Expression Group Date: 10/17/2022 Start Time: 7:45 PM End Time: 8:30 PM Number of Participants: 4 Mental Status Exam: Appearance: Appropriately dressed and groomed Mood: euthymic Affect: full Behavior: Pleasant, Cooperative, Engaging, and Interactive Alertness: Alert Speech: Appropriate, Clear, and Normal pace Cognition: Intact, Oriented X4, and Intelligent Thought Process: Goal-directed Thought Content: No evidence of psychosis/delusions Level/Quality of Participation: active, attentive, cooperative, and engaged Interactions with others: supportive Interventions utilized were Building rapport and engagement, Cognitive Behavioral Therapy (CBT), Dialectical Behavioral Therapy skills (DBT), Psychoeducation, Modeling/skills training, and Motivational interviewing techniques Patient's Response to Intervention: Pt was attentive and engaged during session. Pt gained insight regarding attachments and the potential for one to be be recreating unhealthy patterns that are rooted in early life experiences. Pt gained awareness on non-conscious attachments (deprivation, rejection and control) and how they may manifest in adulthood. Pt expressed understanding and was able to provide examples. Pt was transparent about where she thinks she allows rejection and control to govern thinking, pt discussed strategies that she can use to take the attachments into account. Pt was receptive to encouragement to seek out individual therapist to further explore attachments. Progress Towards Goal(s): Minimal Additional Comments: Next Step: Continue with current services Patients Problems: Patient Active Problem List Diagnosis Bipolar 1 disorder, manic, mild (CMS/HCC) (HCC) Agitation states as acute reaction to exceptional (gross) stress Caregiver's other noncompliance with patient's medication regimen Disorientation Manic behavior (HCC) Name: Elizabeth Mosley Date of : 1975 MR: [id number] STEVIE Beasley-S [facility] CARECOORDon 10-13-2022 [place] Missed Session Note Excused Pt is excused from Psych IOP group on this date. [facility] GROUPNOTEon 10-11-2022 GROUPNOTE Outpatient [facility] Intensive Outpatient Program (IOP) Group Therapy - Session 1 Group Name: Intensive Outpatient Program Summary: Discussed with pt how they have been doing since last session. Inquired about mental status, stressors, use of coping skills. Provided support and encouragement. Department: [facility] Psych IOP Group Topic: Check-in Group Date: 10/11/2022 Start Time: 5:30 PM End Time: 6:25 PM Number of Participants: 5 Mental Status Exam: Appearance: Appropriately dressed and groomed Mood: euthymic Affect: full Behavior: Pleasant, Cooperative, Engaging, and Interactive Alertness: Alert Speech: Appropriate, Clear, and Normal pace Cognition: Intact, Oriented X4, and Intelligent Thought Process: Goal-directed Thought Content: No evidence of psychosis/delusions Level/Quality of Participation: active, attentive, cooperative, and engaged Interactions with others: supportive Interventions utilized were Building rapport and engagement, Cognitive Behavioral Therapy (CBT), Psychoeducation, Modeling/skills training techniques Patient's Response to Intervention: Pt was attentive and engaged in discussed. Pt provided update on current symptoms, medication compliance and needs. Reports depression at a 1 (10 severe) and anxiety at a 1 (10 severe). Progress Towards Goal(s): Minimal Additional Comments: NA Next Step: Continue with current services Patients Problems: Patient Active Problem List Diagnosis Bipolar 1 disorder, manic, mild (CMS/HCC) (HCC) Agitation states as acute reaction to exceptional (gross) stress Caregiver's other noncompliance with patient's medication regimen Disorientation Manic behavior (HCC) Name: Elizabeth Mosley Date of : 1975 MR: [id number] Debra Man [facility] GROUPNOTE Outpatient [facility] Intensive Outpatient Program (IOP) Group Therapy - Session 2 Group Name: Intensive Outpatient Program Summary: Reviewed handout What do emotions do for you. Discussed how emotions motivate us for action, how we use emotions to communicate with others and to communicate with ourselves. Also discussed setting boundaries and the challenges and benefits that come with that. Department: [facility] Psych IOP Group Topic: Emotions 101 Group Date: 10/11/2022 Start Time: 6:40 PM End Time: 7:25 PM Number of Participants: 5 Mental Status Exam: Appearance: Appropriately dressed and groomed Mood: euthymic Affect: full Behavior: Pleasant, Cooperative, Engaging, and Interactive Alertness: Alert Speech: Appropriate, Clear, and Normal pace Cognition: Intact, Oriented X4, and Intelligent Thought Process: Goal-directed Thought Content: No evidence of psychosis/delusions Level/Quality of Participation: active, attentive, cooperative, and engaged Interactions with others: supportive Interventions utilized were Building rapport and engagement, Cognitive Behavioral Therapy (CBT), Dialectical Behavioral Therapy skills (DBT), Psychoeducation, Modeling/skills training, and Motivational interviewing techniques Patient's Response to Intervention: Pt was attentive and engaged during discussion. Demonstrated knowledge and understanding of what emotions do for us. Gained insight regarding setting boundaries. Pt reports that her day started off rough but she is feeling better now. She wants to go back to work but is not ready to get back to her regular schedule. Progress Towards Goal(s): Minimal Additional Comments: n/a Next Step: Continue with current services Patients Problems: Patient Active Problem List Diagnosis Bipolar 1 disorder, manic, mild (CMS/HCC) (HCC) Agitation states as acute reaction to exceptional (gross) stress Caregiver's other noncompliance with patient's medication regimen Disorientation Manic behavior (HCC) Name: Elizabeth Mosley Date of : 1975 MR: [id number] Debra Conway [facility] GROUPNOTE Outpatient [facility] Intensive Outpatient Program (IOP) Group Therapy - Session 3 Group Name: Intensive Outpatient Program Summary: Discussed topic of control. Discussed that when we try to control things that we do not have control over is when we become distressed. Reviewed list of 50 things that we do have control over. Encouraged pt to work in increasing their awareness and focusing on what in in their control. Department: [facility] Psych IOP Group Topic: Other Group Date: 10/11/2022 Start Time: 7:40 PM End Time: 8:25 PM Number of Participants: 4 Mental Status Exam: Appearance: Appropriately dressed and groomed Mood: euthymic Affect: full Behavior: Pleasant, Cooperative, Engaging, and Interactive Alertness: Alert Speech: Appropriate, Clear, and Normal pace Cognition: Intact, Oriented X4, and Intelligent Thought Process: Goal-directed Thought Content: No evidence of psychosis/delusions Level/Quality of Participation: active, attentive, cooperative, and engaged Interactions with others: supportive Interventions utilized were Building rapport and engagement, Cognitive Behavioral Therapy (CBT), Dialectical Behavioral Therapy skills (DBT), Psychoeducation, Modeling/skills training, and Motivational interviewing techniques Patient's Response to Intervention: Pt was attentive and engaged during session. Actively participated in discussion regarding control. Related to wanting to control things that they do not have control over. Identified a few items from the list of things we can control that they can refer back to when they feel they don't have control over anything. Pt reports that she feels that she is really benefiting from this group. Progress Towards Goal(s): Minimal Additional Comments: Next Step: Continue with current services Patients Problems: Patient Active Problem List Diagnosis Bipolar 1 disorder, manic, mild (CMS/HCC) (HCC) Agitation states as acute reaction to exceptional (gross) stress Caregiver's other noncompliance with patient's medication regimen Disorientation Manic behavior (HCC) Name: Elizabeth Mosley Date of : 1975 MR: [id number] Debra Conway [facility] Progress Noteon 10-11-2022 Progress Note Intermittent FMLA - [employer] Pt stopped by PHP, requesting intermittent FMLA. Documentation completed and pt agrees with content. 3:[address] Thomas reviewed, approves and signs FMLA documentation. Debra, [facility] Therapist will give pt FMLA will she returns to [facility] tonight. [facility] GROUPNOTEon 10-10-2022 GROUPNOTE Outpatient [facility] Intensive Outpatient Program (IOP) Group Therapy - Session 3 Group Name: Intensive Outpatient Program Summary: Reviewed handout that listed multiple different emotion describing words. Processed with pt their thoughts on how many words to describe emotions there are. Began to review and challenge myths about emotions. Department: [facility] Psych IOP Group Topic: Emotions 101 Group Date: 10/10/2022 Start Time: 7:35 PM End Time: 8:25 PM Number of Participants: 4 Mental Status Exam: Appearance: Appropriately dressed and groomed Mood: dysthymic Affect: mood congruent Behavior: Pleasant, Cooperative, Engaging, and Interactive Alertness: Alert Speech: Appropriate, Clear, and Normal pace Cognition: Intact, Oriented X4, and Intelligent Thought Process: Goal-directed Thought Content: No evidence of psychosis/delusions Level/Quality of Participation: active, attentive, cooperative, and engaged Interactions with others: supportive Interventions utilized were Building rapport and engagement, Cognitive Behavioral Therapy (CBT), Dialectical Behavioral Therapy skills (DBT), Psychoeducation, Modeling/skills training, and Motivational interviewing techniques Patient's Response to Intervention: Pt was attentive and engaged during session. Actively participated in discussed about emotions. Pt reports that the words to describe her current emotions are peaceful, hopeful, and joyful. Progress Towards Goal(s): Minimal Additional Comments: Next Step: Continue with current services Patients Problems: Patient Active Problem List Diagnosis Bipolar 1 disorder, manic, mild (CMS/HCC) (HCC) Agitation states as acute reaction to exceptional (gross) stress Caregiver's other noncompliance with patient's medication regimen Disorientation Manic behavior (HCC) Name: Elizabeth Mosley Date of : 1975 MR: [id number] Debra Man [facility] GROUPNOTE Outpatient [facility] Intensive Outpatient Program (IOP) Group Therapy - Session 2 Group Name: Intensive Outpatient Program Summary: Continued to discuss how exercise improves mental health. Explored the connection between exercise and mental well-being. Discussed strategies to help us to remember to exercise. Department: [facility] Psych IOP Group Topic: Physical Activity Group Date: 10/10/2022 Start Time: 6:35 PM End Time: 7:25 PM Number of Participants: 5 Mental Status Exam: Appearance: Appropriately dressed and groomed Mood: euthymic Affect: full Behavior: Pleasant, Cooperative, Engaging, and Interactive Alertness: Alert Speech: Appropriate, Clear, and Normal pace Cognition: Intact, Oriented X4, and Intelligent Thought Process: Goal-directed Thought Content: No evidence of psychosis/delusions Level/Quality of Participation: active, attentive, cooperative, and engaged Interactions with others: supportive Interventions utilized were Building rapport and engagement, Cognitive Behavioral Therapy (CBT), Dialectical Behavioral Therapy skills (DBT), Psychoeducation, Modeling/skills training, and Motivational interviewing techniques Patient's Response to Intervention: Pt was attentive and engaged during discussion. Demonstrated knowledge and understanding of the mental health benefits of exercise. Pt identifies stamina, energy, and endorphins as benefits to exercise. Progress Towards Goal(s): Minimal Additional Comments: n/a Next Step: Continue with current services Patients Problems: Patient Active Problem List Diagnosis Bipolar 1 disorder, manic, mild (CMS/HCC) (HCC) Agitation states as acute reaction to exceptional (gross) stress Caregiver's other noncompliance with patient's medication regimen Disorientation Manic behavior (HCC) Name: Elizabeth Mosley Date of : 1975 MR: [id number] Debra Conway [facility] - [facility] Group Name: Intensive Outpatient Program Summary: Reviewed mindfulness handout Taking Hold of Your Mind. Discussed the what skills; observe, describe, and participate. Discussed the hoe skills; nonjudgementally, one-minded, and effectively. Began to discuss the mental health benefits of exercise. Department: [facility] Psych IOP Group Topic: Mindfulness Group Date: 10/10/2022 Start Time: 5:30 PM End Time: 6:25 PM Number of Participants: 6 Mental Status Exam: Appearance: Appropriately dressed and groomed Mood: euthymic Affect: full Behavior: Pleasant, Cooperative, Engaging, and Interactive Alertness: Alert Speech: Appropriate, Clear, and Normal pace Cognition: Intact, Oriented X4, and Intelligent Thought Process: Goal-directed Thought Content: No evidence of psychosis/delusions Level/Quality of Participation: active, attentive, cooperative, and engaged Interactions with others: supportive Interventions utilized were Building rapport and engagement, Cognitive Behavioral Therapy (CBT), Psychoeducation, Modeling/skills training techniques Patient's Response to Intervention: Pt was attentive and engaged in discussed. Pt provided update on current symptoms, medication compliance and needs. Attentive during discussed about mindfulness. Engaged in discussed regarding exercise. Pt reports that she goes swimming and walks for exercise. Progress Towards Goal(s): Minimal Additional Comments: NA Next Step: Continue with current services Patients Problems: Patient Active Problem List Diagnosis Bipolar 1 disorder, manic, mild (CMS/HCC) (HCC) Agitation states as acute reaction to exceptional (gross) stress Caregiver's other noncompliance with patient's medication regimen Disorientation Manic behavior (HCC) Name: Elizabeth Mosley Date of : 1975 MR: [id number] Debra Conway [facility] Progress Noteon 10-10-2022 Progress Note Admission Note Psychiatric IOP Date: 10/10/2022 Start Time: 5:30 pm End Time: 8:30 pm Pt admitted to Psychiatric IOP on this date. She reported understanding and agreement with Pt rights/responsibilities , group rules/expectations, and confidentiality. She signed all consents for Tx. Reviewed presenting problem and goals for Tx with the Pt. Pts mood is euthymic and her affect is full. She is alert and oriented x4. She demonstrates fair insight and judgment. Treatment Plan problems developed with the Pt and opened. Pt was oriented to the unit and daily group paperwork. She is scheduled to begin in the group this evening at 5:30pm. [facility] Progress Note OUTPATIENT [facility] PHYSICIAN ORDERS Admit to: [] Partial Hospitalization Program [x] Psych Intensive Outpatient Program [] Addiction Medicine Intensive Outpatient Program []Relapse Prevention - Psych [] Recovery Readiness []Relapse Prevention - Addiction [] Impaired Professionals Aftercare with individual sessions [] Other: 2. Client to attend: []Day []Afternoon [x]Evening # of sessions per week: 3- 3 hour sessions Anticipated Length of Stay: 16-20 Sessions 3. This level of care is needed: [x] To reduce or control psychiatric symptoms to prevent relapse of hospitalization [x] To improve Client?s level of functioning [] To maintain current level of functioning [x] To accurately diagnose client condition [x] Because there is a reasonable expectation that improvement will result with this level of care 4. Admitting Diagnosis(es): (F31.9) Bipolar I disorder (HCC) 5. Allergies: Patient has no known allergies. 6. Client to Attend and Participate in the following activities: [x] Group Therapy [x] Education relevant to client condition [x] Individualized Activity Therapy [x] Individual Therapy as needed [x] Family Therapy as needed [] Other (please identify): 7. Lab Work: [] CBC [] TSH [] U/A [] Urine HcG<55 with intact uterus [] GTT [] Valproic Acid Level on DATE [] Depakote Level on NA [] [place] Level on DATE [] Other: NA 8. Urine Drug Screening: [] on admission [] random [] frequency (identify): for the following substances: cannabinoids; amphetamine group; barbiturate group; benzodiazepine group; cocaine metabolite; methadone; opiates; oxycodone; fentanyl; Buprenorphine Rationale for UDS: [] Monitoring sobriety/level of use [] Treatment compliance [] Behavioral Indicators [] Other (identify): 9. Breathalyzer: [] on admission [] random [] frequency (identify): 9. Additional: 10. Physician: Debra Conway [facility] GROUPNOTEon 10-05-2022 GROUPNOTE Outpatient [facility] Intensive Outpatient Program (IOP) Group Therapy - Session 3 Group Name: Intensive Outpatient Program Summary: Therapist introduced topic of resiliency. Presented foundational principles of resilience using acronym BOUNCE BACK. Provided definitions and quotes related to resilience. Provided hand out with tips for enhancing resiliency. Department: [facility] Psych IOP Group Topic: Other Group Date: 10/05/2022 Start Time: 2:35 PM End Time: 3:25 PM Number of Participants: 7 Mental Status Exam: Appearance: Appropriately dressed and groomed and Good eye contact Mood: pleasant, positive Affect: Full Behavior: Engaging Alertness: Alert Speech: Appropriate and Clear Cognition: Oriented X4 Thought Process: Goal-directed Thought Content: No evidence of psychosis/delusions Level/Quality of Participation: attentive and cooperative Interactions with others: gave feedback and supportive Interventions utilized were Building rapport and engagement, Empathic listening, and Psychoeducation Patient's Response to Intervention: Pt arrived for this last hour of group. This is her first session after transferring from [facility]. During course of group discussion, pt says she feels she is ready to return to work. Therapist informed pt that she could transfer to the evening IOP to accommodate her work schedule. Pt agreed and stated she would like to transfer. Pt met with psychiatrist for admission. Pt will start the evening group on 10/10/2022. Progress Towards Goal(s): Significant Additional Comments: n/a Next Step: Continue with current services Patients Problems: Patient Active Problem List Diagnosis Bipolar 1 disorder, manic, mild (CMS/HCC) (HCC) Agitation states as acute reaction to exceptional (gross) stress Caregiver's other noncompliance with patient's medication regimen Disorientation Manic behavior (HCC) Name: Elizabeth Mosley Date of : 1975 MR: [id number] Kindra Ratliff, [facility] Progress Noteon 10-05-2022 Progress Note FMLA - [employer] Completed return to work letter. Pt is requesting to return to work on 10-08-22, change to intermittent FMLA and transfer to evening IOP. Dr. Thomas signs letter. Original letter given to pt and a copy placed in chart. [facility] CARECOORDon 10-03-2022 [place] Pt cancelled for IOP on this date. Start date rescheduled for 10/05/2022. Signature: GUANACO Brink [facility] Progress Noteon 10-03-2022 Progress Note Pt phones IOP. Pt is unable to attend IOP as she is attending to an ill family member. Pt plans to return to treatment on Monday10-05-22. Will inform Treatment team. [facility] GROUPNOTEon 09-30-2022 GROUPNOTE Outpatient [facility] Partial Hospitalization Program (PHP) Group Therapy - Afternoon Session 2 Group Name: Partial Hospitalization Program Summary: Patients and counselor discussed the use of behavioral activation to manage sxs of depression and developed a brief behavioral activation plan for patients to use. Department: [facility] PHP Group Topic: Depression Group Date: 09/30/2022 Start Time: 2:15 PM End Time: 3:00 PM Number of Participants: 7 Mental Status Exam: Appearance: Appropriately dressed and groomed and Good eye contact Mood: Euthymic Affect: Full Behavior: Pleasant, Cooperative, Engaging, and Interactive Alertness: Falling asleep Speech: Appropriate and Clear Cognition: Intact, Oriented X4, and Intelligent Thought Process: Goal-directed Thought Content: No evidence of psychosis/delusions Level/Quality of Participation: active Interactions with others: gave feedback, supportive, asked thoughtful questions, and offered helpful suggestions Interventions utilized were Psychoeducation, Worksheet on behavioral activation and cognitive distortions Patient's Response to Intervention: Pt appeared appreciative of intervention strategies and appeared willing to use techniques to manage sxs of impairment. Progress Towards Goal(s): Moderate Additional Comments: This is patient's last day of PHP. Patient will continue to manage her sxs of impairment through engagement in IOP. Pt continues to experience sxs that impair functioning and will likely benefit from continuation of IOP. Next Step: Final PHP session. Scheduled to start Psych IOP on 10/03/22 Patients Problems: Patient Active Problem List Diagnosis Bipolar 1 disorder, manic, mild (CMS/HCC) (HCC) Agitation states as acute reaction to exceptional (gross) stress Caregiver's other noncompliance with patient's medication regimen Disorientation Manic behavior (HCC) Name: Elizabeth Mosley Date of : 1975 MR: [id number] Mike Gambino, [facility] GROUPNOT Outpatient [facility] Partial Hospitalization Program (PHP) Group Therapy - Afternoon Session 1 Group Name: [facility] Hospitalization Program Summary: Pt and counselor discussed the use of mindfulness and self-compassion. The topic of behavioral activation for depression was discussed and explored. Department: [facility] Group Topic: Depression Group Date: 09/30/2022 Start Time: 1:00 PM End Time: 2:00 PM Number of Participants: 7 Mental Status Exam: Appearance: Appropriately dressed and groomed and Good eye contact Mood: Euthymic Affect: Full Behavior: Pleasant, Cooperative, Engaging, and Interactive Alertness: Falling asleep Speech: Appropriate and Clear Cognition: Intact, Oriented X4, and Intelligent Thought Process: Goal-directed Thought Content: No evidence of psychosis/delusions Level/Quality of Participation: active Interactions with others: gave feedback, supportive, asked thoughtful questions, and offered helpful suggestions Interventions utilized were Psychoeducation, Mindfulness meditation on the topic of compassion, video by Nicola Benavides on the Upward Spiral (Behavioral Activation), CBT for depression Patient's Response to Intervention: Pt appeared appreciative of intervention strategies and appeared willing to use techniques to manage sxs of impairment. Progress Towards Goal(s): Moderate Additional Comments: This is patient's last day of PHP. Patient will continue to manage her sxs of impairment through engagement in IOP. Pt continues to experience sxs that impair functioning and will likely benefit from continuation of IOP. Next Step: Final PHP session. Scheduled to start Psych IOP on 10/03/22 Patients Problems: Patient Active Problem List Diagnosis Bipolar 1 disorder, manic, mild (CMS/HCC) (HCC) Agitation states as acute reaction to exceptional (gross) stress Caregiver's other noncompliance with patient's medication regimen Disorientation Manic behavior (HCC) Name: Elizabeth Mosley Date of : 1975 MR: [id number] Mike Gambino, [facility] GROUPNOTE Outpatient [facility] Partial Hospitalization Program (PHP) Group Therapy - Morning Session 1 Group Name: [facility] Hospitalization Program Summary: Pt explored the difference between healthy productive methods of avoidance as an effective coping mechanisms as well as some of those ways in which it is used in manners that accrue negative consequences. Department: [facility] PHP Group Topic: Defense Mechanisms Group Date: 09/30/2022 Start Time: 9:00 AM End Time: 9:53 AM Number of Participants: 8 Mental Status Exam: Appearance: Appropriately dressed, well groomed Good eye contact Mood: Slightly dysphoric Affect: Full Behavior: Pleasant and Interactive Alertness: Alert Speech: Appropriate and Normal pace Cognition: Intact, Oriented X4, and Intelligent Thought Process: Goal-directed Thought Content: No evidence of psychosis/delusions Level/Quality of Participation: active, attentive, cooperative, engaged, initiates communication, motivated, and offered feedback Interactions with others: gave feedback and made helpful suggestions Interventions utilized were Psychoeducation Patient's Response to Intervention: Pt was able to appropriately acknowledge her struggles at times with getting overwhelmed had how at those times that shutting down is basically a defense mechanism reflective of avoidance. Clinician praise pt insight and her intent to start being accountable to walking towards the problem. Progress Towards Goal(s): Moderate Additional Comments: Pt continues to report problems with sleep and managing side effects of meds that create barriers for meeting demands of ADLS include her job duties. Next Step: Continue with current services Patients Problems: Patient Active Problem List Diagnosis Bipolar 1 disorder, manic, mild (CMS/HCC) (HCC) Agitation states as acute reaction to exceptional (gross) stress Caregiver's other noncompliance with patient's medication regimen Disorientation Manic behavior (HCC) Name: Elizabeth Mosley Date of : 1975 MR: [id number] Lis Spence [facility] Partial Hospitalization Program (PHP) Group Therapy -Morning Session 2 Group Name: Partial Hospitalization Program Summary: Pt was educated on adapting perspective and other active steps involved with the process of acceptance that can lead to distress tolerance and lowering emotional sensitivity and reactivity. Department: [facility] PHP Group Topic: Acceptance Group Date: 09/30/2022 Start Time: 10:00 AM End Time: 10:53 AM Number of Participants: 7 Mental Status Exam: Appearance: Appropriately dressed and groomed and Good eye contact Mood: Less dysphoric Affect: Full Behavior: Pleasant and Interactive Alertness: Alert Speech: Appropriate, Clear Cognition: Intact, Oriented X4, and Intelligent Thought Process: Goal-directed Thought Content: No evidence of psychosis/delusions Level/Quality of Participation: active, cooperative, engaged, initiates communication, motivated, and offered feedback Interactions with others: gave feedback supportive Interventions utilized were Cognitive Behavioral Therapy (CBT) and Dialectical Behavioral Therapy skills (DBT) Patient's Response to Intervention: Pt recognize one way of adapting as learning to adjust standards for herself as well as her expectations of others as a way to reduce unnecessary stress by placing the bar too high. Clinician reinforced that the bar should be congruent with one's functioning in order to afford zeny as one cannot expect a great deal when that person is barely functioning on a basic level. Progress Towards Goal(s): Moderate Additional Comments: Pt reports ongoing struggles with concentration, fatigue, and motivation which create notable challenges for pt in meeting demands of ADLS both personal and professional. Next Step: Continue with current services Patients Problems: Patient Active Problem List Diagnosis Bipolar 1 disorder, manic, mild (CMS/HCC) (HCC) Agitation states as acute reaction to exceptional (gross) stress Caregiver's other noncompliance with patient's medication regimen Disorientation Manic behavior (HCC) Name: Elizabeth Mosley Date of : 1975 MR: [id number] Lis Spence [facility] Normal [facility] Nursing Noteon 09-30-2022 Nursing Note Pt met requirements to safely discharge from [facility]. Pt medication list reviewed. Pt has a good understanding of medication. Pt has follow-up appointment with [facility], and pt plans to attend afternoon IOP. Pt expresses intent to attend follow-up care. Pt denies SI/HI and states feels safe to discharge from this level of care. Normal [facility] Progress Noteon 09-30-2022 Progress Note [facility] [address] [place] [address] Patient Name: Elizabeth Mosley Date of : 1975 INTERVAL HISTORY: Elizabeth is presenting today in follow up for bipolar disorder and anxiety. She will be discharging from [facility] today. Reports overall doing okay. She appears to be euthymic bright, no evidence of euphoria or depression. Reports still feeling slightly fatigued throughout the day. Reports it has been better since decreasing the daily dose of Risperdal. She continues to take Depakote and nightly Risperdal for mood stabilization. She denies suicidal or homicidal ideation. Denies auditory visual hallucinations. No evidence of delusional thinking or paranoia. Reports some mild lower leg swelling, she has not had this before, thinks it may be from sitting more throughout the day as she has been in groups. She is elevating her legs when she gets home. Reports she is sleeping and eating well. Reports spending time with family. Reports that stress at home is relatively stable, continues to take care of her elderly father. She has not returned to work yet. She has found groups to be helpful, she is going to be starting IOP on Monday. PAST MEDICAL/SURGICAL/PSYCHI ATRIC HISTORY: Reviewed with the patient, no changes. She has a history of bipolar 1 disorder. Has two admissions; one for catatonia/mood disorder and another for holli. She has not been on any other psychiatric medications in the past. Denies previous suicide attempts. PAST FAMILY MEDICAL/PSYCHIATRIC HISTORY: Reviewed with the patient, no changes. Denies PAST SOCIAL HISTORY: Reviewed with the patient, no changes. Reports she is from [facility]. 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 She currently lives with her and 2 children. She is Buddhism. CURRENT MEDICATIONS: Current Outpatient Medications: divalproex (Depakote ER) 250 MG 24 hr tablet, Take 3 tablets (750 mg) by mouth 2 times daily. Do not crush, chew, or split., Disp: 180 tablet, Rfl: 1 hydroCHLOROthiazide (HYDRODiuril) 25 MG tablet, Take 1 tablet (25 mg) by mouth daily. Do not start before September 17, 2022., Disp: 30 tablet, Rfl: 0 hydrOXYzine pamoate (Vistaril) 50 MG capsule, Take 1 capsule (50 mg) by mouth every 8 hours as needed for anxiety., Disp: 30 capsule, Rfl: 1 risperiDONE (RisperDAL) 0.5 MG tablet, Take 1 tablet (0.5 mg) by mouth 2 times daily., Disp: 60 tablet, Rfl: 1 traZODone (Desyrel) 50 MG tablet, Take 1 tablet (50 mg) by mouth Nightly as needed for sleep., Disp: 30 tablet, Rfl: 1 ALLERGIES: No Known Allergies REVIEW OF SYSTEMS: General: +fatigue . denies any acute physical complaints, good general state of health HEENT: normal vision, no throat problems, no head cold Respiratory: denies shortness of breath Cardiovascular: +mild BLLE Gastrointestinal: denies nausea, denies vomiting, denies change in bowel, denies change in appetite Musculoskeletal: denies back pain, denies joint pain Dermatologic: denies any rashes Neurologic: denies headaches, denies any involuntary movements Remainder of review of systems is negative except where described elsewhere in this note. OBJECTIVE EXAM: Vitals: 09/30/22 1007 BP: (!) 137/95 Pulse: 94 Resp: 16 Temp: 36.8 ?C (98.2 ?F) SpO2: 96% MENTAL STATUS EXAM: APPEARANCE: casually groomed, stated age BEHAVIOR: calm/cooperative PSYCHOMOTOR: average SPEECH: normal rate, volume, coherent, spontaneous. LANGUAGE: average MOOD: ok AFFECT: full THOUGHT PROCESS: linear/organized THOUGHT CONTENT: future oriented, focused on driving, groups, family ASSOCIATIONS: intact PERCEPTIONS/HALLUCINATI ONS: denies ABSTRACTION: good INSIGHT: good, including concerning psychiatric condition. JUDGMENT: good, including concerning psychiatric condition. ORIENTATION: oriented to person, place, time, and general circumstances MEMORY: recent and remote memory intact ATTENTION SPAN: good CONCENTRATION: good GAIT: normal gait and station, slow but steady Suicide Risk Assessment: Acutely low as patient denies any current suicidal ideation, plan or intent. Patient expresses desire to get better and engage in mental health treatment. Patient exhibits future-oriented thinking as patient reports. Patient denies any history of suicide attempts or psychiatric hospitalizations. Static risk factors include being age 47 y.o. and demographics female with medical issues HTN. Dynamic risk factors include bipolar disorder and they are being addressed in treatment plan. These protective factors are more compelling than risk factors and justify outpatient level of care as the least restrictive treatment setting. PHQ: No flowsheet data found. Interpretation of Total Score Depression Severity: 1-4 = Minimal depression, 5-9 = Mild depression, 10-14 = Moderate depression, 15-19 = Moderately severe depression, 20- (more content not included)... [facility] GROUPNOTEon 09-29-2022 GROUPNOTE [facility]patient [facility] Partial Hospitalization Program (PHP) Group Therapy - Afternoon Session 1 Group Name: Partial Hospitalization Program Summary: Checked-in with patients to discuss things that they are learning in [facility] and tell about themselves and process what led to their journey to [facility]. Department: [facility] Psych [facility] Group Topic: Check-in Group Date: 09/29/2022 Start Time: 1:00 PM End Time: 1:50 PM Number of Participants: 4 Mental Status Exam: Appearance: Appropriately dressed and groomed and Poor eye contact Mood: Euthymic Affect: Flat, Restricted, and Congruent with mood Behavior: Pleasant and Withdrawn Alertness: Drowsy, Tired, and Falling asleep Speech: Appropriate, Clear, and Normal pace Cognition: Concentration problems Thought Process: Goal-directed Thought Content: No evidence of psychosis/delusions Level/Quality of Participation: active, attentive, drowsy, engaged, minimal, and withdrawn Interactions with others: gave feedback and supportive Interventions utilized were Building rapport and engagement and Empathic listening Patient's Response to Intervention: Pt struggled to be engaged in today's group. Initially shared about her journey with her mental health and was very well spoken. Prior to and after sharing, pt struggled to stay awake and participate in the conversation. When pt shared, she explained that she was not taking the correct amount of her medication and has been working with the doctor to get back to a better baseline and is hoping that this will help her with staying awake. Progress Towards Goal(s): Minimal Additional Comments: N/A Next Step: Continue with current services Patients Problems: Patient Active Problem List Diagnosis ? Bipolar 1 disorder, manic, mild (CMS/HCC) (HCC) ? Agitation states as acute reaction to exceptional (gross) stress ? Caregiver's other noncompliance with patient's medication regimen ? Disorientation ? Manic behavior (HCC) Name: Elizabeth Mosley Date of : 1975 MR: [id number] [facility] GROUPNOTE Outpatient [facility] Partial Hospitalization Program (PHP) Group Therapy - Afternoon Session 2 Group Name: Partial Hospitalization Program Summary: Discussed specific mindfulness strategies such as 5, 4, 3, 2, 1 Grounding technique and Urge Surfing. Modeled skills and gave patients opportunity to practice them as well. Department: [facility] Psych IOP Group Topic: Mindfulness Group Date: 09/29/2022 Start Time: 2:00 PM End Time: 2:50 PM Number of Participants: 4 Mental Status Exam: Appearance: Appropriately dressed and groomed and Good eye contact Mood: Euthymic Affect: Full, Flat, Restricted, Appropriate, and Congruent with mood Behavior: Pleasant, Cooperative, Engaging, Interactive, Withdrawn, and Assertive Alertness: Alert, Drowsy, Tired, and Falling asleep Speech: Appropriate, Clear, and Normal pace Cognition: Intact, Intelligent, and Concentration problems Thought Process: Goal-directed Thought Content: No evidence of psychosis/delusions Level/Quality of Participation: active, attentive, cooperative, drowsy, engaged, minimal, and withdrawn Interactions with others: gave feedback and supportive Interventions utilized were Building rapport and engagement, Empathic listening, Dialectical Behavioral Therapy skills (DBT), and Psychoeducation Patient's Response to Intervention: Pt struggled with engaging at times when she wasn't specifically active in practicing the mindfulness strategies. She was open to standing up and walking around to practice them and this also helped her stay awake. After returning to her desk, it was difficult for her to stay awake. Progress Towards Goal(s): Minimal Additional Comments: N/A Next Step: Continue with current services Patients Problems: Patient Active Problem List Diagnosis Bipolar 1 disorder, manic, mild (CMS/HCC) (HCC) Agitation states as acute reaction to exceptional (gross) stress Caregiver's other noncompliance with patient's medication regimen Disorientation Manic behavior (HCC) Name: Elizabeth Mosley Date of : 1975 MR: [id number] [facility] GROUPNOTE Outpatient [facility] Partial Hospitalization Program (PHP) Group Therapy - Morning Session 3 Group Name: Partial Hospitalization Program Summary: Patients and counselor discussed the use of behavioral activation and challenging cognitive distortions to reduce sxs of depression. Patients and counselor discussed the connection between thoughts, feelings, and behaviors. Department: [facility] PHP Group Topic: Depression Group Date: 09/29/2022 Start Time: 11:00 AM End Time: 11:55 AM Number of Participants: 5 Mental Status Exam: Appearance: Appropriately dressed and groomed and Good eye contact Mood: Euthymic Affect: Full Behavior: Pleasant, Cooperative, Engaging, and Interactive Alertness: Drowsy and Falling asleep Speech: Appropriate and Clear Cognition: Intact, Oriented X4, Intelligent, and Concentration problems Thought Process: Goal-directed Thought Content: No evidence of psychosis/delusions Level/Quality of Participation: active, attentive, and drowsy Interactions with others: gave feedback, supportive, asked thoughtful questions, and offered helpful suggestions Interventions utilized were Psychoeducation and Modeling/skills training, Discussion on Behavioral activation, Video on the benefits of CBT and how to challenge negative thinking, Discussion on connection between thoughts, feelings, and behaviors. Patient's Response to Intervention: Pt appeared appreciative of intervention strategies discussed in session and appeared willing to use techniques to manage sxs of impairment. Progress Towards Goal(s): Minimal Additional Comments: Pt appears to continue to have difficulty managing sxs of impairment. Therefore, pt will continue with current services. Next Step: Continue with current services Patients Problems: Patient Active Problem List Diagnosis Bipolar 1 disorder, manic, mild (CMS/HCC) (HCC) Agitation states as acute reaction to exceptional (gross) stress Caregiver's other noncompliance with patient's medication regimen Disorientation Manic behavior (HCC) Name: Elizabeth Mosley Date of : 1975 MR: [id number] Mike Gambino, [facility] GROUPNOTE Outpatient [facility] Partial Hospitalization Program (PHP) Group Therapy - Morning Session 2 Group Name: Partial Hospitalization Program Summary: Pt and counselor discussed the cycle of Anxiety and Depression and the use of CBT tools to help reduce sxs of Anxiety and Depression. Department: [facility] PHP Group Topic: Anxiety Group Date: 09/29/2022 Start Time: 10:00 AM End Time: 11:00 AM Number of Participants: 5 Mental Status Exam: Appearance: Appropriately dressed and groomed and Good eye contact Mood: Euthymic Affect: Full Behavior: Pleasant, Cooperative, Engaging, and Interactive Alertness: Drowsy and Falling asleep Speech: Appropriate and Clear Cognition: Intact, Oriented X4, Intelligent, and Concentration problems Thought Process: Goal-directed Thought Content: No evidence of psychosis/delusions Level/Quality of Participation: active, attentive, and drowsy Interactions with others: gave feedback, supportive, asked thoughtful questions, and offered helpful suggestions Interventions utilized were Psychoeducation and Modeling/skills training, Discussion on the Cycle of anxiety and depression, CBT techniques to manage depression and anxiety Patient's Response to Intervention: Pt appeared appreciative of intervention strategies discussed in session and appeared willing to use techniques to manage sxs of impairment. Progress Towards Goal(s): Minimal Additional Comments: Pt appears to continue to have difficulty managing sxs of impairment. Therefore, pt will continue with current services. Next Step: Continue with current services Patients Problems: Patient Active Problem List Diagnosis Bipolar 1 disorder, manic, mild (CMS/HCC) (HCC) Agitation states as acute reaction to exceptional (gross) stress Caregiver's other noncompliance with patient's medication regimen Disorientation Manic behavior (HCC) Name: Elizabeth Mosley Date of : 1975 MR: [id number] Mike Gambino [facility] Progress Noteon 09-29-2022 Progress Note FMLA - [facility] Reviewed FMLA with pt. Pt agrees with FMLA. Pt is planning to discharge from [facility] on 09-30-22 and start afternoon IOP on 10-03-22. Pt is grateful. Emotional support provided. 10:[address] Shelton notified via Secure Chat that documents are ready for review and signature. 1:49 pm: FMLA faxed to [facility] per release of information. FMLA documentation and fax verification given to pt. [facility] GROUPNOTEon 09-28-2022 GROUPNOTE Outpatient [facility] Partial Hospitalization Program (PHP) Group Therapy - Afternoon Session 2 Group Name: Partial Hospitalization Program Summary: Acceptance and Commitment Therapy (ACT) based tools were implemented to help patients recognize the costs of avoidance and control and help patients engage in values based committed action in order to reduce sxs of impairment and increase functioning. Department: [facility] Group Topic: Other Group Date: 09/28/2022 Start Time: 2:10 PM End Time: 3:00 PM Number of Participants: 7 Mental Status Exam: Appearance: Appropriately dressed and groomed and Good eye contact Mood: Euthymic Affect: Full Behavior: Pleasant, Cooperative, Engaging, and Interactive Alertness: Drowsy and Falling asleep Speech: Appropriate and Clear Cognition: Intact, Oriented X4, Intelligent, and Concentration problems Thought Process: Goal-directed Thought Content: No evidence of psychosis/delusions Level/Quality of Participation: active, attentive, and drowsy Interactions with others: gave feedback, supportive, asked thoughtful questions, and offered helpful suggestions Interventions utilized were Psychoeducation and Modeling/skills training, Acceptance and Commitment Therapy (ACT), Discussion on the Costs of Avoidance and Control. Patient's Response to Intervention: Pt appeared appreciative of intervention strategies discussed in session and appeared willing to use techniques to manage sxs of impairment. Progress Towards Goal(s): Minimal Additional Comments: Pt appears to continue to have difficulty managing sxs of impairment. Therefore, pt will continue with current services. Next Step: Continue with current services Patients Problems: Patient Active Problem List Diagnosis Bipolar 1 disorder, manic, mild (CMS/HCC) (HCC) Agitation states as acute reaction to exceptional (gross) stress Caregiver's other noncompliance with patient's medication regimen Disorientation Manic behavior (HCC) Name: Elizabeth Mosley Date of : 1975 MR: [id number] Mike Gambino [facility] GROUPNOTE Outpatient [facility] Partial Hospitalization Program (PHP) Group Therapy - Afternoon Session 1 Group Name: Partial Hospitalization Program Summary: Patients and counselor discussed the evolution of the human brain to normalize life stressors and negative thoughts. Acceptance an Commitment Therapy (ACT) based interventions were used to explore avoidance and control strategies used to manage thoughts and feelings. Department: [facility] PHP Group Topic: Other Group Date: 09/28/2022 Start Time: 1:00 PM End Time: 2:00 PM Number of Participants: 7 Mental Status Exam: Appearance: Appropriately dressed and groomed and Good eye contact Mood: Euthymic Affect: Full Behavior: Pleasant, Cooperative, Engaging, and Interactive Alertness: Drowsy and Falling asleep Speech: Appropriate and Clear Cognition: Intact, Oriented X4, Intelligent, and Concentration problems Thought Process: Goal-directed Thought Content: No evidence of psychosis/delusions Level/Quality of Participation: active, attentive, and drowsy Interactions with others: gave feedback, supportive, asked thoughtful questions, and offered helpful suggestions Interventions utilized were Psychoeducation and Modeling/skills training, Acceptance and Commitment Therapy (ACT), Discussion on the Costs of Avoidance and Control, Video on the evolution of the human mind. Patient's Response to Intervention: Pt appeared appreciative of intervention strategies discussed in session and appeared willing to use techniques to manage sxs of impairment. Progress Towards Goal(s): Minimal Additional Comments: Pt appears to continue to have difficulty managing sxs of impairment. Therefore, pt will continue with current services. Next Step: Continue with current services Patients Problems: Patient Active Problem List Diagnosis Bipolar 1 disorder, manic, mild (CMS/HCC) (HCC) Agitation states as acute reaction to exceptional (gross) stress Caregiver's other noncompliance with patient's medication regimen Disorientation Manic behavior (HCC) Name: Elizabeth Mosley Date of : 1975 MR: [id number] Mike Gambino, [facility] Therapy - Morning Session 2 Group Name: Partial Hospitalization Program Summary: Pt. Completed worksheets on the bodily and catastrophic thought patterns that fuel panic and anxiety. Pt's identified a distressing thought and a helpful affirmation to start using when the thought resurfaces. Department: [facility] Group Topic: Anxiety Group Date: 09/28/2022 Start Time: 10:00 AM End Time: 10:50 AM Number of Participants: 6 Mental Status Exam: Appearance: Appropriately dressed and groomed, Good eye contact Mood: Depressed, anxious Affect: Appropriate, and Congruent with mood Level of Participation: moderate Quality of Participation: attentive, cooperative, and engaged Interactions with others: supportive Behavior: Pleasant, Cooperative, and Interactive Alertness: Alert Speech: Appropriate, Clear, and Normal pace Cognition: Intact and Oriented X4 Thought Process: Goal-directed Thought Content: No evidence of psychosis/delusions Progress Towards Goal(s): Moderate Level/Quality of Participation: active and cooperative Interactions with others: gave feedback Interventions utilized were Cognitive Behavioral Therapy (CBT), Dialectical Behavioral Therapy skills (DBT), and Psychoeducation Patient's Response to Intervention: Pt. Struggled to stay awake due to medications. Progress Towards Goal(s): Moderate Additional Comments: Next Step: Continue with current services Patients Problems: Patient Active Problem List Diagnosis Bipolar 1 disorder, manic, mild (CMS/HCC) (HCC) Agitation states as acute reaction to exceptional (gross) stress Caregiver's other noncompliance with patient's medication regimen Disorientation Manic behavior (HCC) Name: Elizabeth Mosley Date of : 1975 MR: [id number] Janeth Cao, [facility] (PHP) Group Therapy - Morning Session 3 Group Name: Partial Hospitalization Program Summary: Discussed the difference between Perfectionism and striving for excellence, how to challenge perfectionism and using a replacement behavior. Reading of the poem, the worst day ever and the application to life about the importance of looking at problems and stressors from multiple angles. Department: [facility] Group Topic: Other Group Date: 09/28/2022 Start Time: 11:00 AM End Time: 11:50 AM Number of Participants: 7 Mental Status Exam: Appearance: Appropriately dressed and groomed, Good eye contact Mood: Depressed, anxious Affect: Appropriate, and Congruent with mood Level of Participation: moderate Quality of Participation: attentive, cooperative, and engaged Interactions with others: supportive Behavior: Pleasant, Cooperative, and Interactive Alertness: Alert Speech: Appropriate, Clear, and Normal pace Cognition: Intact and Oriented X4 Thought Process: Goal-directed Thought Content: No evidence of psychosis/delusions Progress Towards Goal(s): Moderate Level/Quality of Participation: active Interactions with others: gave feedback Interventions utilized were Cognitive Behavioral Therapy (CBT), Dialectical Behavioral Therapy skills (DBT), and Psychoeducation Patient's Response to Intervention: Pt. Chose to focus on perspective and process vs. Perfection. Pt. Wanting to live in the moment more. Pt. Shared a wounding comment a past psychiatrist had made to her about her being a burden on society. Pt. Was able to channel this comment in a directions of growth and proving to herself that she could and has contributed to society. Pt. Also letting go of negative self-judgments about not being a good enough Buddhism. Progress Towards Goal(s): Moderate Additional Comments: Next Step: Continue with current services Patients Problems: Patient Active Problem List Diagnosis Bipolar 1 disorder, manic, mild (CMS/HCC) (HCC) Agitation states as acute reaction to exceptional (gross) stress Caregiver's other noncompliance with patient's medication regimen Disorientation Manic behavior (HCC) Name: Elizabeth Mosley Date of : 1975 MR: [id number] Janeth Cao [facility] Partial Hospitalization Program (PHP) Group Therapy - Morning Session 1 Group Name: Partial Hospitalization Program Summary: Check in. Pt.'s reviewed what they were finding helpful in PHP. Discussed ways to cope with, manage and decrease anxiety. The toll of rumination. Department: [facility] Psych IOP Group Topic: Anxiety Group Date: 09/28/2022 Start Time: 9:00 AM End Time: 9:50 AM Number of Participants: 7 Mental Status Exam: Appearance: Appropriately dressed and groomed, Good eye contact Mood: Depressed, anxious Affect: Appropriate, and Congruent with mood Level of Participation: moderate Quality of Participation: attentive, cooperative, and engaged Interactions with others: supportive Behavior: Pleasant, Cooperative, and Interactive Alertness: Alert Speech: Appropriate, Clear, and Normal pace Cognition: Intact and Oriented X4 Thought Process: Goal-directed Thought Content: No evidence of psychosis/delusions Progress Towards Goal(s): Moderate Level/Quality of Participation: active, drowsy, and fell asleep, side effect of meds. Interactions with others: gave feedback Interventions utilized were Building rapport and engagement, Empathic listening, Cognitive Behavioral Therapy (CBT), and Dialectical Behavioral Therapy skills (DBT) Patient's Response to Intervention: Pt shared her [place] poem to her anxiety with a message of perseverance and letting go Progress Towards Goal(s): Moderate Additional Comments: Next Step: Continue with current services Patients Problems: Patient Active Problem List Diagnosis Bipolar 1 disorder, manic, mild (CMS/HCC) (HCC) Agitation states as acute reaction to exceptional (gross) stress Caregiver's other noncompliance with patient's medication regimen Disorientation Manic behavior (HCC) Name: Elizabeth Mosley Date of : 1975 MR[facility] [id number] [facility] GROUPNOTEon 09-27-2022 GROUPNOTE Outpatient [facility] Partial Hospitalization Program (PHP) Group Therapy - Morning Session 2 Group Name: Partial Hospitalization Program Summary: Acceptance and Commitment Therapy informed tools were used to help patients explore values and emotional/psychological obstacles that cause challenges in patients accomplishing personal goals. Department: [facility] PHP Group Topic: Values Group Date: 09/27/2022 Start Time: 10:15 AM End Time: 11:00 AM Number of Participants: 4 Mental Status Exam: Appearance: Appropriately dressed and groomed Mood: Euthymic Affect: Full Behavior: Pleasant, Cooperative, Engaging, and Interactive Alertness: Drowsy and Falling asleep Speech: Appropriate and Clear Cognition: Intact, Oriented X4, and Intelligent Thought Process: Goal-directed Thought Content: No evidence of psychosis/delusions Level/Quality of Participation: cooperative, drowsy, and motivated Interactions with others: gave feedback, supportive, and asked thoughtful questions Interventions utilized were Psychoeducation and Modeling/skills training, Acceptance and Commitment Therapy (ACT), An exercise to identify values was used in session and processed in session. Patient's Response to Intervention: Pt appeared to have difficulty staying awake but attempted to be engaged in session. Pt is able to identify some intrinsic value that are of importance in her life. Progress Towards Goal(s): Minimal Additional Comments: Pt appears to continue to have stress due to grief/loss and health/medical problems. Therefore, pt will continue with current services. Next Step: Continue with current services Patients Problems: Patient Active Problem List Diagnosis Bipolar 1 disorder, manic, mild (CMS/HCC) (HCC) Agitation states as acute reaction to exceptional (gross) stress Caregiver's other noncompliance with patient's medication regimen Disorientation Manic behavior (HCC) Name: Elizabeth Mosley Date of : 1975 MR: [id number] Mike Gambino, [facility] GROUPNOTE Outpatient [facility] Partial Hospitalization Program (PHP) Group Therapy - Morning Session 3 Group Name: Partial Hospitalization Program Summary: Patients explored and discussed personal values and developed personal goals to live out personal values. Department: [facility] Group Topic: Values Group Date: 09/27/2022 Start Time: 11:10 AM End Time: 12:00 PM Number of Participants: 4 Mental Status Exam: Appearance: Appropriately dressed and groomed Mood: Euthymic Affect: Full Behavior: Pleasant, Cooperative, Engaging, and Interactive Alertness: Drowsy and Falling asleep Speech: Appropriate and Clear Cognition: Intact, Oriented X4, and Intelligent Thought Process: Goal-directed Thought Content: No evidence of psychosis/delusions Level/Quality of Participation: cooperative, drowsy, and motivated Interactions with others: gave feedback, supportive, and asked thoughtful questions Interventions utilized were Psychoeducation and Modeling/skills training, Acceptance and Commitment Therapy (ACT), A worksheet on clarifying values, obstacles, and small action steps was completed in session and discussed. Patient's Response to Intervention: Pt appeared to have difficulty staying awake but attempted to be engaged in session. Progress Towards Goal(s): Minimal Additional Comments: Pt met with nurse for a significant portion of the group. Pt was not present in group for a billable hour. Next Step: Continue with current services Patients Problems: Patient Active Problem List Diagnosis Bipolar 1 disorder, manic, mild (CMS/HCC) (HCC) Agitation states as acute reaction to exceptional (gross) stress Caregiver's other noncompliance with patient's medication regimen Disorientation Manic behavior (HCC) Name: Elizabeth Mosley Date of : 1975 MR: [id number] Mike Gambino, [facility] GROUPNOTE Outpatient [facility] Partial Hospitalization Program (PHP) Group Therapy - Morning Session 1 Group Name: Partial Hospitalization Program Summary: A check-in was conducted to assess patient goals and current difficulties. The topic of Values was explored using Acceptance and Commitment Therapy as a theoretical framework. Department: [facility] PHP Group Topic: Values Group Date: 09/27/2022 Start Time: 9:05 AM End Time: 10:00 AM Number of Participants: 4 Mental Status Exam: Appearance: Appropriately dressed and groomed Mood: Euthymic Affect: Full Behavior: Pleasant, Cooperative, Engaging, and Interactive Alertness: Drowsy and Falling asleep Speech: Appropriate and Clear Cognition: Intact, Oriented X4, and Intelligent Thought Process: Goal-directed Thought Content: No evidence of psychosis/delusions Level/Quality of Participation: cooperative, drowsy, and motivated Interactions with others: gave feedback, supportive, and asked thoughtful questions Interventions utilized were Psychoeducation and Modeling/skills training, Acceptance and Commitment Therapy (ACT), A video on the difference between values and goals was watched and discussed. Patient's Response to Intervention: Pt appeared to have difficulty staying awake but attempted to be engaged in session. Pt is able to identify the importance of identifying values. Progress Towards Goal(s): Minimal Additional Comments: Pt appears to continue to have stress due to grief/loss and health/medical problems. Therefore, pt will continue with current services. Next Step: Continue with current services Patients Problems: Patient Active Problem List Diagnosis Bipolar 1 disorder, manic, mild (CMS/HCC) (HCC) Agitation states as acute reaction to exceptional (gross) stress Caregiver's other noncompliance with patient's medication regimen Disorientation Manic behavior (HCC) Name: Elizabeth Mosley Date of : 1975 MR: [id number] Mike Gambino, [facility] Progress Noteon 09-27-2022 Progress Note [facility] [address], [address] [place] [address] Patient Name: Elizabeth Mosley Date of : 1975 INTERVAL HISTORY: Elizabeth is presenting today in follow up for bipolar disorder and anxiety. He continues to endorse feeling fatigued during the day. Reports that during groups if she is not doing anything she will start to fall asleep. Apparently when she returns home when she has something to do she will not be quite as tired. Reports that she is sleeping well at night. Overall her mood appears to be euthymic. She did not display any evidence of euphoria or significant disorganization. Denies suicidal or homicidal ideation. Continues to take Depakote and Risperdal daily for mood stabilization. Also reports at times feeling somewhat heavy when she stands up and walks. Her gait was somewhat slow but it was stable. Reports that she is getting help from family at home taking care of her father, when probed about stress about home life she did not endorse any significant issues at home and seems to be handling it well. She would like to transition to [facility] at the end of this week. PAST MEDICAL/SURGICAL/PSYCHI ATRIC HISTORY: Reviewed with the patient, no changes. She has a history of bipolar 1 disorder. Has two admissions; one for catatonia/mood disorder and another for holli. She has not been on any other psychiatric medications in the past. Denies previous suicide attempts. PAST FAMILY MEDICAL/PSYCHIATRIC HISTORY: Reviewed with the patient, no changes. Denies PAST SOCIAL HISTORY: Reviewed with the patient, no changes. Reports she is from [facility]. 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 She currently lives with her and 2 children. She is Buddhism. CURRENT MEDICATIONS: Current Outpatient Medications: divalproex (Depakote ER) 250 MG 24 hr tablet, Take 3 tablets (750 mg) by mouth 2 times daily. Do not crush, chew, or split., Disp: 180 tablet, Rfl: 1 hydroCHLOROthiazide (HYDRODiuril) 25 MG tablet, Take 1 tablet (25 mg) by mouth daily. Do not start before September 17, 2022., Disp: 30 tablet, Rfl: 0 hydrOXYzine pamoate (Vistaril) 50 MG capsule, Take 1 capsule (50 mg) by mouth every 8 hours as needed for anxiety., Disp: 30 capsule, Rfl: 1 risperiDONE (RisperDAL) 0.5 MG tablet, Take 1 tablet (0.5 mg) by mouth 2 times daily., Disp: 60 tablet, Rfl: 1 traZODone (Desyrel) 50 MG tablet, Take 1 tablet (50 mg) by mouth Nightly as needed for sleep., Disp: 30 tablet, Rfl: 1 ALLERGIES: No Known Allergies REVIEW OF SYSTEMS: General: +fatigue . denies any acute physical complaints, good general state of health HEENT: normal vision, no throat problems, no head cold Respiratory: denies shortness of breath Cardiovascular: denies symptoms, denies chest pain Gastrointestinal: denies nausea, denies vomiting, denies change in bowel, denies change in appetite Musculoskeletal: denies back pain, denies joint pain Dermatologic: denies any rashes Neurologic: denies headaches, denies any involuntary movements Remainder of review of systems is negative except where described elsewhere in this note. OBJECTIVE EXAM: Vitals: 09/27/22 1100 BP: (!) 130/92 BP Location: Left arm Patient Position: Sitting Pulse: 102 Resp: 16 Temp: 36.9 ?C (98.4 ?F) TempSrc: Tympanic SpO2: 96% MENTAL STATUS EXAM: APPEARANCE: casually groomed, stated age BEHAVIOR: calm/cooperative PSYCHOMOTOR: average SPEECH: normal rate, volume, coherent, spontaneous. LANGUAGE: average MOOD: ok AFFECT: full THOUGHT PROCESS: linear/organized THOUGHT CONTENT: future oriented, focused on feeling tired ASSOCIATIONS: intact PERCEPTIONS/HALLUCINATI ONS: denies ABSTRACTION: good INSIGHT: good, including concerning psychiatric condition. JUDGMENT: good, including concerning psychiatric condition. ORIENTATION: oriented to person, place, time, and general circumstances MEMORY: recent and remote memory intact ATTENTION SPAN: good CONCENTRATION: good GAIT: normal gait and station, slow but steady Suicide Risk Assessment: Acutely low as patient denies any current suicidal ideation, plan or intent. Patient expresses desire to get better and engage in mental health treatment. Patient exhibits future-oriented thinking as patient reports. Patient denies any history of suicide attempts or psychiatric hospitalizations. Static risk factors include being age 47 y.o. and demographics female with medical issues HTN. Dynamic risk factors include bipolar disorder and they are being addressed in treatment plan. These protective factors are more compelling than risk factors and justify outpatient level of care as the least restrictive treatment setting. PHQ: No flowsheet data found. Interpretation of Total Score Depression Severity: 1-4 = Minimal depression, 5-9 = Mild depression, 10-14 = Moderate depression, 15-19 = Moderately se (more content not included)... Normal [facility] GROUPNOTEon 09-26-2022 GROUPNOTE Outpatient [facility] Partial Hospitalization Program (PHP) Group Therapy - Afternoon Session 2 Group Name: Partial Hospitalization Program Summary: Patients and counselor discussed how to challenge negative and unhelpful thinking as well as the use of CBT/DBT strategies to aid in decision making to reduce stress and increase functioning. Department: [facility] PHP Group Topic: Clarity of Thought Process Group Date: 09/26/2022 Start Time: 2:00 PM End Time: 2:57 PM Number of Participants: 3 Mental Status Exam: Appearance: Appropriately dressed and groomed and Good eye contact Mood: Euthymic Affect: Full Behavior: Pleasant, Cooperative, Engaging, and Interactive Alertness: Falling asleep Speech: Appropriate and Clear Cognition: Intact, Oriented X4, Intelligent, and Concentration problems Thought Process: Goal-directed Thought Content: No evidence of psychosis/delusions Level/Quality of Participation: active Interactions with others: gave feedback, supportive, asked thoughtful questions, and offered helpful suggestions Interventions utilized were Empathic listening and Cognitive Behavioral Therapy (CBT), a Pro/Con list was created to help patients develop decision making tools. Patient's Response to Intervention: Pt appeared appreciative of intervention strategies and willing to use techniques to the best of her ability to manage sxs of impairment. Progress Towards Goal(s): Minimal Additional Comments: Pt appeared to have difficulty staying awake during group but was able to use coloring and engaging in session to manage her tiredness. Next Step: Continue with current services Patients Problems: Patient Active Problem List Diagnosis Bipolar 1 disorder, manic, mild (CMS/HCC) (HCC) Agitation states as acute reaction to exceptional (gross) stress Caregiver's other noncompliance with patient's medication regimen Disorientation Manic behavior (HCC) Name: Elizabeth Mosley Date of : 1975 MR: [id number] Mike Gambino [facility] GROUPNOTE Outpatient [facility] Partial Hospitalization Program (PHP) Group Therapy - Afternoon Session 1 Group Name: Partial Hospitalization Program Summary: Patients and Counselor discussed the connection between thoughts, feelings, and behaviors and worked to challenge negative and unhelpful thinking. Department: [facility] PHP Group Topic: Clarity of Thought Process Group Date: 09/26/2022 Start Time: 1:00 PM End Time: 2:00 PM Number of Participants: 3 Mental Status Exam: Appearance: Appropriately dressed and groomed and Good eye contact Mood: Euthymic Affect: Full Behavior: Pleasant, Cooperative, Engaging, and Interactive Alertness: Falling asleep Speech: Appropriate and Clear Cognition: Intact, Oriented X4, Intelligent, and Concentration problems Thought Process: Goal-directed Thought Content: No evidence of psychosis/delusions Level/Quality of Participation: active Interactions with others: gave feedback, supportive, asked thoughtful questions, and offered helpful suggestions Interventions utilized were Empathic listening and Cognitive Behavioral Therapy (CBT) Patient's Response to Intervention: Pt appeared appreciative of intervention strategies and willing to use techniques to the best of her ability to manage sxs of impairment. Progress Towards Goal(s): Minimal Additional Comments: Pt appeared to have difficulty staying awake during group but was able to use coloring and engaging in session to manage her tiredness. Next Step: Continue with current services Patients Problems: Patient Active Problem List Diagnosis Bipolar 1 disorder, manic, mild (CMS/HCC) (HCC) Agitation states as acute reaction to exceptional (gross) stress Caregiver's other noncompliance with patient's medication regimen Disorientation Manic behavior (HCC) Name: Elizabeth Mosley Date of : 1975 MR: [id number] Mike Gambino [facility] GROUPNOTE Department: [facility] 6 Du al Diagnosis Group Topic: Values Group Date: 09/26/2022 Start Time: 10:00 AM End Time: 11:00 AM Facilitators: Flavio Cadet [facility] Number of Participants: 4 Group Name: Partial Hospitalization Program Treatment Modality: Expressive Art Therapy Purpose: increase insight or knowledge Summary: The group members were given the task to create a collage around a theme related to their therapy goals. Patients were given 90 min to look through magazines and/or use given art supplies to create a vision board and share the board with the group. Name: Elizabeth Mosley Date of : 1975 MR: [id number] Mental Status Exam: Appearance: Appropriately dressed and groomed Mood: Dysphoric Affect: Full Behavior: Pleasant, Cooperative, Engaging, and Interactive Alertness: Drowsy Speech: Soft-spoken Cognition: Easily distracted Thought Process: Tangential Thought Content: Preoccupations Level/Quality of Participation: fluctuating Interactions with others: gave feedback Interventions utilized were Expressive therapy Patient's Response to Intervention: Pt attended group and was able to stay focused for part of the session but struggled with falling asleep. Progress Towards Goal(s): Minimal Additional Comments: N/A Next Step: Continue with current services Patients Problems: Patient Active Problem List Diagnosis Bipolar 1 disorder, manic, mild (CMS/HCC) (HCC) Agitation states as acute reaction to exceptional (gross) stress Caregiver's other noncompliance with patient's medication regimen Disorientation Manic behavior (HCC) [facility] GROUPNOTE Department: [facility] Group Topic: Check-in Group Date: 09/26/2022 Start Time: 9:00 AM End Time: 10:00 AM Facilitators: Flavio Cadet [facility] Number of Participants: 4 Group Name: Partial Hospitalization Program Treatment Modality: Cognitive Behavioral Therapy Purpose: increase insight or knowledge Summary: Group members each shared their name, part of their story and what brought them to [facility], and shared how their weekend went. Name: Elizabeth Mosley Date of : 1975 MR: [id number] Mental Status Exam: Appearance: Appropriately dressed and groomed Mood: Anxious Affect: Fluctuating Behavior: Pleasant, Cooperative, and Disorganized Alertness: Drowsy Speech: Normal pace Cognition: Easily distracted Thought Process: Tangential Thought Content: Preoccupations Level/Quality of Participation: Fluctuating Interactions with others: gave feedback Interventions utilized were Building rapport and engagement, Empathic listening, and Cognitive Behavioral Therapy (CBT) Patient's Response to Intervention: Pt attended group but struggled with staying focused. Pt fell asleep mid sentence. Pt shared that her medication is now taken at night and is being adjusted. Pt reported that she has been sleeping 7hrs a night. Pt reported that she drove a little bit with her . Progress Towards Goal(s): Minimal Additional Comments: Pt denied any thoughts of self harm. Body language was congruent with disclosure. Next Step: Continue with current services Patients Problems: Patient Active Problem List Diagnosis Bipolar 1 disorder, manic, mild (CMS/HCC) (HCC) Agitation states as acute reaction to exceptional (gross) stress Caregiver's other noncompliance with patient's medication regimen Disorientation Manic behavior (HCC) [facility] GROUPNOTE Department: [facility] PHP Group Topic: Values Group Date: 09/26/2022 Start Time: 11:00 AM End Time: 12:00 PM Facilitators: STEVIE Alvarez Number of Participants: 4 Group Name: Partial Hospitalization Program Treatment Modality: Expressive Art Therapy Purpose: Gain Insight Summary: The group members continued to work on vision boards and were given the opportunity to share their board with the group. Name: Elizabeth Mosley Date of : 1975 MR: [id number] Mental Status Exam: Appearance: Appropriately dressed and groomed Mood: Anxious and Depressed Affect: fluctuating Behavior: Pleasant Alertness: Drowsy Speech: Fluctuating Cognition: Easily distracted Thought Process: Tangential Thought Content: Preoccupations Level/Quality of Participation: attentive Interactions with others: gave feedback Interventions utilized were Expressive therapy Patient's Response to Intervention: Pt was able to complete vision board. Pt shared her board with the group. The pt's vision board had images that represented how the pt felt about her family relationships. Progress Towards Goal(s): Minimal Additional Comments: N/A Next Step: Continue with current services Patients Problems: Patient Active Problem List Diagnosis Bipolar 1 disorder, manic, mild (CMS/HCC) (HCC) Agitation states as acute reaction to exceptional (gross) stress Caregiver's other noncompliance with patient's medication regimen Disorientation Manic behavior (HCC) [facility] GROUPNOTEon 09-23-2022 GROUPNOTE Outpatient [facility] Partial Hospitalization Program (PHP) Group Therapy - Afternoon Session 1 Group Name: Partial Hospitalization Program Summary: Staff facilitated extended check-in, focusing on self-awareness and feedback to peers. Staff modeled positive social skills. Staff encouraged members to practice social skills. Department: [facility] Addiction IOP Group Topic: Emotional Regulation Skill Group Date: 09/23/2022 Start Time: 1:00 PM End Time: 1:55 PM Number of Participants: 6 Mental Status Exam: Appearance: Appropriately dressed and groomed Mood: Depressed Affect: Flat Behavior: Passive Alertness: Falling asleep Speech: Soft-spoken Cognition: Easily distracted Thought Process: Goal-directed Thought Content: No evidence of psychosis/delusions Level/Quality of Participation: passive Interactions with others: limited Interventions utilized were Building rapport and engagement, Empathic listening, and Cognitive Behavioral Therapy (CBT) Patient's Response to Intervention: Pt sleeps through most of group. Progress Towards Goal(s): Minimal Additional Comments: Pt reports her medication is too strong. Pt answers briefly when prompted. Pt is very drowsy, ie eyes closed, head nodding. Next Step: Continue with current services Patients Problems: Patient Active Problem List Diagnosis Bipolar 1 disorder, manic, mild (CMS/HCC) (HCC) Agitation states as acute reaction to exceptional (gross) stress Caregiver's other noncompliance with patient's medication regimen Disorientation Manic behavior (HCC) Name: Elizabeth Mosley Date of : 1975 MR: [id number] Aleshiavalentino Hoffmann [facility] GROUPNOTE Outpatient [facility] Partial Hospitalization Program (PHP) Group Therapy - Afternoon Session 2 Group Name: Partial Hospitalization Program Summary: Staff facilitated discussion of benefits of mindful engagement in pleasant activity, ie check-in game. Staff affirmed member insights. Staff challenged members to identify other mindful activities. Staff engaged members in Weekend Planning. Staff encouraged members to commit to 1 self-care activity. Department: [facility] Addiction IOP Group Topic: Emotional Regulation Skill Group Date: 09/23/2022 Start Time: 2:00 PM End Time: 2:50 PM Number of Participants: 6 Mental Status Exam: Appearance: Appropriately dressed and groomed Mood: Depressed Affect: Flat Behavior: Passive Alertness: Falling asleep Speech: Soft-spoken Cognition: Easily distracted Thought Process: Goal-directed Thought Content: No evidence of psychosis/delusions Level/Quality of Participation: passive Interactions with others: limited Interventions utilized were Building rapport and engagement, Empathic listening, and Cognitive Behavioral Therapy (CBT) Patient's Response to Intervention: Pt leaves group briefly for dr arizmendi. Pt is more alert, more responsive following. Additional Comments: Pt shares tearfully about caregiving. Pt monologues. Pt reports she needs supervision/med management help. Pt plans to have dinner with family as self-care. Next Step: Continue with current services Patients Problems: Patient Active Problem List Diagnosis Bipolar 1 disorder, manic, mild (CMS/HCC) (HCC) Agitation states as acute reaction to exceptional (gross) stress Caregiver's other noncompliance with patient's medication regimen Disorientation Manic behavior (HCC) Name: Elizabeth Mosley Date of : 1975 MR: [id number] Aleshia Hoffmann [facility] (PHP) Group Therapy - Morning Session 1 Group Name: Partial Hospitalization Program Summary: The Acceptance and Commitment Skills of Defusion and [id number] were developed and discussed in session. Department: [facility] Group Topic: Other Group Date: 09/23/2022 Start Time: 9:05 AM End Time: 10:00 AM Number of Participants: 8 Mental Status Exam: Appearance: Appropriately dressed and groomed and Good eye contact Mood: Euthymic Affect: Full Behavior: Pleasant and Cooperative Alertness: Tired and Falling asleep, Alert and cooperative at times Speech: Appropriate and Clear Cognition: Intact, Oriented X4, and Intelligent Thought Process: Goal-directed Thought Content: No evidence of psychosis/delusions Level/Quality of Participation: active and cooperative when awake Interactions with others: gave feedback, supportive, and asked thoughtful questions Interventions utilized were Building rapport and engagement, Empathic listening, Cognitive Behavioral Therapy (CBT), Psychoeducation, and Modeling/skills training Patient's Response to Intervention: Pt reported concerns in session about paperwork that needed to be filled out. Pt appeared appreciative of intervention strategies and appeared willing to engage in treatment. Progress Towards Goal(s): Minimal Additional Comments: none Next Step: Continue with current services Patients Problems: Patient Active Problem List Diagnosis Bipolar 1 disorder, manic, mild (CMS/HCC) (HCC) Agitation states as acute reaction to exceptional (gross) stress Caregiver's other noncompliance with patient's medication regimen Disorientation Manic behavior (HCC) Name: Elizabeth Mosley Date of : 1975 MR: [id number] Mike Gambino, [facility] Therapy - Morning Session 3 Group Name: Partial Hospitalization Program Summary: The Acceptance and Commitment Skills of Defusion and [id number] were further developed and discussed in session in order to apply these concepts to their daily lives. Department: [facility] PHP Group Topic: Other Group Date: 09/23/2022 Start Time: 11:15 AM End Time: 12:00 PM Number of Participants: 8 Mental Status Exam: Appearance: Appropriately dressed and groomed and Good eye contact Mood: Euthymic Affect: Full Behavior: Pleasant and Cooperative Alertness: Tired and Falling asleep, Alert and cooperative at times Speech: Appropriate and Clear Cognition: Intact, Oriented X4, and Intelligent Thought Process: Goal-directed Thought Content: No evidence of psychosis/delusions Level/Quality of Participation: active and cooperative when awake Interactions with others: gave feedback, supportive, and asked thoughtful questions Interventions utilized were Building rapport and engagement, Empathic listening, Cognitive Behavioral Therapy (CBT), Psychoeducation, and Modeling/skills training, Acceptance and Commitment Therapy (ACT), a Youtube video from Les Black on living through values was viewed and discussed. Patient's Response to Intervention: Pt appeared appreciative of intervention strategies and appeared willing to engage in treatment. Progress Towards Goal(s): Minimal Additional Comments: none Next Step: Continue with current services Patients Problems: Patient Active Problem List Diagnosis Bipolar 1 disorder, manic, mild (CMS/HCC) (HCC) Agitation states as acute reaction to exceptional (gross) stress Caregiver's other noncompliance with patient's medication regimen Disorientation Manic behavior (HCC) Name: Elizabeth Mosley Date of : 1975 MR: [id number] Mike Gambino [facility] GROUPNOTE Outpatient [facility] Partial Hospitalization Program (PHP) Group Therapy - Morning Session 2 Group Name: Partial Hospitalization Program Summary: The Acceptance and Commitment Therapy Skills of Defusion and Nwxp-fw-[id number], as well as the CBT cognitive model, were discussed in session and further developed. Department: [facility] PHP Group Topic: Other Group Date: 09/23/2022 Start Time: 10:15 AM End Time: 11:00 AM Number of Participants: 8 Mental Status Exam: Appearance: Appropriately dressed and groomed and Good eye contact Mood: Euthymic Affect: Full Behavior: Pleasant and Cooperative Alertness: Tired and Falling asleep, Alert and cooperative at times Speech: Appropriate and Clear Cognition: Intact, Oriented X4, and Intelligent Thought Process: Goal-directed Thought Content: No evidence of psychosis/delusions Level/Quality of Participation: active and cooperative when awake Interactions with others: gave feedback, supportive, and asked thoughtful questions Interventions utilized were Building rapport and engagement, Empathic listening, Cognitive Behavioral Therapy (CBT), Psychoeducation, and Modeling/skills training, Acceptance and Commitment Therapy (ACT). Patient's Response to Intervention: Pt appeared appreciative of intervention strategies and appeared willing to engage in treatment. Progress Towards Goal(s): Minimal Additional Comments: none Next Step: Continue with current services Patients Problems: Patient Active Problem List Diagnosis Bipolar 1 disorder, manic, mild (CMS/HCC) (HCC) Agitation states as acute reaction to exceptional (gross) stress Caregiver's other noncompliance with patient's medication regimen Disorientation Manic behavior (HCC) Name: Elizabeth Mosley Date of : 1975 MR: [id number] Mike Gambino [facility] Progress Noteon 09-23-2022 Progress Note Payor Note: [employer] PPO Transaction ID: [id number] Authorization Response through [employer] No pre-cert required. See printout. [facility] Progress Note [facility] [address], [facility] [address] [id number] Patient Name: Elizabeth Mosley Date of : 1975 INTERVAL HISTORY: Elizabeth is presenting today for intake into the [facility]. She had a recent hospitalization to [facility] and was discharged this week. At that time she presented manic with euphoric behavior. She was discharged with Depakote and Risperdal for mood stabilization. Today she reports doing okay. She appears to be euthymic, there is no significant disorganization or euphoria noted. She seems appropriately groomed. Reports that she is feeling very tired however. Reports she had difficulty staying with her eyes open during groups. She believes it is because of the extended release Depakote. Even though this is what she was taking while in the hospital. She reports sleep and appetite are good. Reports reduced level of stress at home as her family is helping out with her father's care. She denied suicidal or homicidal ideation, no intent or plan. Denies auditory or visual hallucinations. Reports that she is planning on resting over the weekend and then returning next week. She denies other significant physical complaints or medication side effects. PAST MEDICAL/SURGICAL/PSYCHI ATRIC HISTORY: Reviewed with the patient, no changes. She has a history of bipolar 1 disorder. Has two admissions; one for catatonia/mood disorder and another for holli. She has not been on any other psychiatric medications in the past. Denies previous suicide attempts. PAST FAMILY MEDICAL/PSYCHIATRIC HISTORY: Reviewed with the patient, no changes. Denies PAST SOCIAL HISTORY: Reviewed with the patient, no changes. Reports she is from [facility]. 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 She currently lives with her and 2 children. She is Buddhism. CURRENT MEDICATIONS: Current Outpatient Medications: divalproex (Depakote ER) 250 MG 24 hr tablet, Take 3 tablets (750 mg) by mouth 2 times daily. Do not crush, chew, or split., Disp: 180 tablet, Rfl: 1 hydroCHLOROthiazide (HYDRODiuril) 25 MG tablet, Take 1 tablet (25 mg) by mouth daily. Do not start before September 17, 2022., Disp: 30 tablet, Rfl: 0 hydrOXYzine pamoate (Vistaril) 50 MG capsule, Take 1 capsule (50 mg) by mouth every 8 hours as needed for anxiety., Disp: 30 capsule, Rfl: 1 risperiDONE (RisperDAL) 0.5 MG tablet, Take 1 tablet (0.5 mg) by mouth 2 times daily., Disp: 60 tablet, Rfl: 1 traZODone (Desyrel) 50 MG tablet, Take 1 tablet (50 mg) by mouth Nightly as needed for sleep., Disp: 30 tablet, Rfl: 1 ALLERGIES: No Known Allergies REVIEW OF SYSTEMS: General: denies any acute physical complaints, good general state of health HEENT: normal vision, no throat problems, no head cold Respiratory: denies shortness of breath Cardiovascular: denies symptoms, denies chest pain Gastrointestinal: denies nausea, denies vomiting, denies change in bowel, denies change in appetite Musculoskeletal: denies back pain, denies joint pain Dermatologic: denies any rashes Neurologic: denies headaches, denies any involuntary movements Remainder of review of systems is negative except where described elsewhere in this note. OBJECTIVE EXAM: There were no vitals filed for this visit. MENTAL STATUS EXAM: APPEARANCE: casually groomed, stated age BEHAVIOR: calm/cooperative PSYCHOMOTOR: average SPEECH: normal rate, volume, coherent, spontaneous. LANGUAGE: average MOOD: ok AFFECT: full THOUGHT PROCESS: linear/organized THOUGHT CONTENT: future oriented, focused on feeling tired ASSOCIATIONS: intact PERCEPTIONS/HALLUCINATI ONS: denies ABSTRACTION: good INSIGHT: good, including concerning psychiatric condition. JUDGMENT: good, including concerning psychiatric condition. ORIENTATION: oriented to person, place, time, and general circumstances MEMORY: recent and remote memory intact ATTENTION SPAN: good CONCENTRATION: good GAIT: normal gait and station Suicide Risk Assessment: Acutely low as patient denies any current suicidal ideation, plan or intent. Patient expresses desire to get better and engage in mental health treatment. Patient exhibits future-oriented thinking as patient reports. Patient denies any history of suicide attempts or psychiatric hospitalizations. Static risk factors include being age 47 y.o. and demographics female with medical issues HTN. Dynamic risk factors include bipolar disorder and they are being addressed in treatment plan. These protective factors are more compelling than risk factors and justify outpatient level of care as the least restrictive treatment setting. PHQ: No flowsheet data found. Interpretation of Total Score Depression Severity: 1-4 = Minimal depression, 5-9 = Mild depression, 10-14 = Moderate depression, 15-19 = Moderately severe depression, 20-27 = Severe depression ASSESSMENT: 1.) Bipolar 1 di (more content not included)... [facility] Progress Note Admission Note [facility] Date: 09/23/2022 Start Time: 900 End Time: 300 Patient is admitted to [facility] on this date. Patient reported understanding and agreement with patient's rights/responsibilities , group rules/expectations, and confidentiality. Patient signed all consents for treatment. Staff reviewed presenting problem and goals for treatment with the patient. Treatment Plan problem(s) 1 is developed with the patient and opened. Patient was oriented to the unit and daily group paperwork. Patient is scheduled to begin in the group this morning at 9:00am. [facility] Progress Note Pt arrived to [facility], reviewed pertinent documentation (from intake) with this RN. Pt VS obtained and physician made aware pt arrived. Pt nutrition and pain screen reviewed; see screening tool in patient's chart for notes. Pt medications list reviewed and updated, pt pharmacy updated. Pt allergies, HOR, phone number, emergency contact and follow-up care reviewed, see intake paperwork. Pt aware in the event of absence with a no call/no show statues, the emergency contact will be called to ensure pt is safe. Pt verbalized understanding and acceptance of this plan. Pt given opportunity to ask questions, this RN answered questions to pt's understanding and satisfaction based on pt's response of stating clarification. Pt aware of the importance of own role in ensuring the best care is received for a therapeutic outcome; that role being participation, medication adherence and discussing any concerns with the treatment team so adjustments can be made when/if needed. Pt provided with contact information for PHP. Pt oriented to floor and escorted to [facility] group therapy session. [facility] Progress Note OUTPATIENT [facility] PHYSICIAN ORDERS Admit to: [x] Partial Hospitalization Program [] Psych Intensive Outpatient Program [] Addiction Medicine Intensive Outpatient Program []Relapse Prevention - Psych [] Recovery Readiness []Relapse Prevention - Addiction [] [facility] Aftercare with individual sessions [] Other: 2. Client to attend: [x]Day []Evening [x]Afternoon # of sessions per week: 5 Anticipated Length of Stay: 10 Sessions 3. This level of care is needed: [x] To reduce or control psychiatric symptoms to prevent relapse of hospitalization [x] To improve Client?s level of functioning [] To maintain current level of functioning [x] To accurately diagnose client condition [x] Because there is a reasonable expectation that improvement will result with this level of care 4. Admitting Diagnosis(es): F31.9 Bipolar ! Disorder 5. Allergies: Patient has no known allergies. 6. Client to Attend and Participate in the following activities: [x] Group Therapy [x] Education relevant to client condition [] Individualized Activity Therapy [x] Individual Therapy as needed [x] Family Therapy as needed [] Other (please identify): 7. Lab Work: [] CBC [] TSH [] U/A [] Urine HcG<55 with intact uterus [] GTT [] Valproic Acid Level on DATE [] Depakote Level on NA [] [place] Level on DATE [] Other: NA 8. Urine Drug Screening: [] on admission [] random [] frequency (identify): for the following substances: cannabinoids; amphetamine group; barbiturate group; benzodiazepine group; cocaine metabolite; methadone; opiates; oxycodone; Rationale for UDS: [] Monitoring sobriety/level of use [] Treatment compliance [] Behavioral Indicators [] Other (identify): 9. Breathalyzer: [] on admission [] random [] frequency (identify): 9. Additional: 10. Physician: Priyanka [facility] Progress Noteon 09-22-2022 Progress Note Outpatient [facility] Initial Assessment Start Time: 1:30 , End Time: 3:[address] Appointed Guardian? Does patient have a Durable Power of Software Packager? Does the patient have an Advanced Directive? If Yes, copy received? Screening Tool Score Comment (required for each screening tool) PHQ-9 3 (PHQ-2: 1) Suggestive of mild depression JOSE-7 3 Suggestive of mild anxiety AUDIT-C 1 Not suggestive of problem drinking DAST-10 1 Not suggestive fo prolbem drug use Life Events Checklist Negative Pt reported learning about severe human suffering PCL-5 12 Not suggestive of PTSD Language Preferred Language: Namibian Languages Spoken: Namibian Presenting Problem(s) Reason for visit as reported by patient Chief Complaint Patient presents with Mental Health Problem Pt presented for evaluation for Partial Hospitalization Program. Referral Information Referral source as reported by patient: Physician Type of Physician: Treating Psychiatrist (Comment Name) History of presenting problem(s) (Onset, duration, precipitating factors, why person is here now, contributing stressors): Pt reported a history of bipolar disorder requiring recent hospitalization due to medicaiton issue. Current Environment/Living Situation Housing Stability In the last 12 months, was there a time when you were not able to pay the mortgage or rent on time?: No In the last 12 months, how many places have you lived?: 1 In the last 12 months, was there a time when you did not have a steady place to sleep or slept in a [place] [facility] [place] (including now)?: No Patient feels safe at home: Yes Living Arrangements: Spouse/significant other, Children Type of Residence: Private residence Current Family Circumstances (include family involvement, level of family support for treatment, bereavement concerns) Support Systems: Spouse/significant other Lack of Caregiver Support: No Childhood/Adolescent History (note any significant developmental issues, history of abuse/neglect, history of emotional or behavioral concerns, what was it like growing up in your family, etc.): Pt denied childhood issues. Family of Origin History Parents' Marital Status: If parents never each other, which parent was primary caregiver? How does patient describe relationship with parents: Struggled with loss of her mom at age 23, currently caring for her father in her home which can reportedly be stressful How were drugs/alcohol used in your family growing up?: Unknown Relationship History Describe history of significant partner relationships: (describe history of marriages/other significant romantic relationships): Pt reported this is her 3rd marriage, stated he is supportive, although unhappy he brought her back to the hospital after initial hospitalization. Number of Children: 7 (6 living) Ages: 14 year old daughter and 16 year old son still at home, 4 adult children no longer at home Custody status/concerns (if any): Pt reported having custody of younger childhren. Has any spouse/significant other struggled with mental health, alcohol or drug problems? No Does patient have any history (childhood or as an adult) of any of the following (document in the medical history): Abuse/Domestic Violence: No Neglect: No Exploitation: No Sexual History Gender Identify: female Sexual Orientation: Straight Have you ever traded sex for anything (i.e. food, money, drugs)? Have you ever been coerced or forced to engage in any sexual activity? Cultural & Ethnic Information (note patient's cultural beliefs, values and traditions and identify any impact on treatment) Not that impacts medical decisions Episcopalian/Spiritual Orientation (note if patient identifies any belief in higher power, mosque belief, or not. Identify any spiritual/mosque beliefs about suicide) Buddhism Educational History Highest level of education attained: Grad school Education background (type, setting): Various Academic performance and preferred areas of study: Good student Attitude toward academic achievement: Positive Interest in future education/training: Not at this time Vocation/Employment History (If not employed, is patient seeking work, disabled, comment if unemployment related to behavioral health needs at this time) Employment Status: Not Employed Current Employer: Not answered Start Date: Not answered Service [place] Status: Never Served Branch: Not answered Years Served: Additional Comments: Financial Issues How hard is it for you to pay for the very basics like food, housing, medical care, and heating?: Not very hard Social/Support System (describe usual social, peer-group, environmental settings - note if any recent changes) Support Systems: Spouse/significant other Social Connections In a typical week, how many times do you talk on the phone with family, frien (more content not included)... [facility] 36on 09-21-2022 36 Patient's called and asked for an update from Dr. Shelton regarding patient. [facility] CARECOORDon 09-21-2022 CARECOORD Patient is being discharged today. She is not suicidal. She will be returning home at time of discharge. Her will provide transportation. She will be following up with [facility] program after discharge. [facility] CAREPLNon 09-21-2022 CAREPLN Problem: Sensory Perceptual Alteration as Evidenced by Goal: Participates in unit activities Outcome: Progressing Goal: Able to discuss content of hallucinations/delusion s Outcome: Progressing Goal: Will not act on psychotic perception Outcome: Progressing Problem: Potential for Harm to Self or Others Goal: Participates in unit activities Outcome: Progressing Goal: Denies harm toward self or others Outcome: Progressing Problem: Ineffective Coping Goal: Identifies ineffective coping skills Outcome: Progressing Goal: Identifies healthy coping skills Outcome: Progressing Goal: Demonstrates healthy coping skills Outcome: Progressing Goal: Participates in unit activities Outcome: Progressing Problem: Anxiety Goal: Attempts to manage anxiety with help Outcome: Progressing Problem: Self Care Deficit Goal: Patient completes hygiene Outcome: Progressing Problem: Defensive Coping Goal: Discusses and identifies healthy coping skills Outcome: Progressing Goal: Identifies appropriate social interaction Outcome: Progressing [facility] CAREPLN Problem: Sensory Perceptual Alteration as Evidenced by Goal: Participates in unit activities Outcome: Progressing Goal: Able to discuss content of hallucinations/delusion s Outcome: Progressing Goal: Will not act on psychotic perception Outcome: Progressing Problem: Potential for Harm to Self or Others Goal: Participates in unit activities Outcome: Progressing Goal: Denies harm toward self or others Outcome: Progressing Problem: Ineffective Coping Goal: Identifies ineffective coping skills Outcome: Progressing Goal: Identifies healthy coping skills Outcome: Progressing Goal: Demonstrates healthy coping skills Outcome: Progressing Goal: Participates in unit activities Outcome: Progressing Problem: Anxiety Goal: Attempts to manage anxiety with help Outcome: Progressing Problem: Self Care Deficit Goal: Patient completes hygiene Outcome: Progressing Problem: Defensive Coping Goal: Discusses and identifies healthy coping skills Outcome: Progressing Goal: Identifies appropriate social interaction Outcome: Progressing [facility] GROUPNOTEon 09-21-2022 GROUPNOTE Department: [facility] Group Topic: Other Group Date: 09/21/2022 Start Time: 1500 End Time: 1535 Facilitators: Santa Peña Number of Participants: 4 Group Name: Leisure Education Treatment Modality: Recreation Therapy Purpose: Explore ways to overcome challenges related to change Summary: Change: Opposite Hand - To allow Patients the opportunity to experience the challenge, as well as, the achievement of creating a new path. Patients are challenged to write or color with their opposite hand to create a simulation of sensations and feelings. Discussion focuses on the process of change and areas of their lives they want to address. Name: Elizabeth Mosley Date of : 1975 MR: [id number] Appearance: Good eye contact Affect: Appropriate Behavior: Pleasant Alertness: Alert Speech: Appropriate and Rapid speech at times Level/Quality of Participation: engaged Interactions with others: supportive Interventions utilized were Empathic listening and Expressive therapy Patient's Response to Intervention: Patient engaged appropriately in intervention and discussion. Patient had good eye contact during interaction and was supportive toward peers. Patient was able to talk about past experience where they were able to learn something new, as well as, talk about a future change they would like to make to support their wellness or a new leisure skill to learn. Patient focused on wanting to work toward getting rid of stigmas. Patient expressed understanding of the group purpose. Continue to engage Patient in groups to address stated treatment goals and objectives. Patients Problems: Patient Active Problem List Diagnosis Bipolar 1 disorder, manic, mild (CMS/HCC) (HCC) Agitation states as acute reaction to exceptional (gross) stress Caregiver's other noncompliance with patient's medication regimen Disorientation Manic behavior (HCC) [facility] GROUPNOTE Department: [facility] Main Group Topic: Relaxation Group Date: 09/21/2022 Start Time: 1020 End Time: 1100 Facilitators: Renee Borden Number of Participants: 7 Group Name: relaxation, self care Treatment Modality: Activity Therapy Purpose: enhance coping skills, express feelings, and reinforce self-care Summary: To Promote relaxation developing positive coping skills reducing stress. Patient will explore multiple techniques to maintain wellness through stress management. Discussion: benefits of relaxing and slowing down. Name: Elizabeth Mosley Date of : 1975 MR: [id number] Appearance: Appropriately dressed and groomed Mood: Euthymic Affect: Appropriate Behavior: Cooperative Alertness: Alert Speech: Appropriate Level/Quality of Participation: active Interactions with others: supportive Interventions utilized were Building rapport and engagement and Empathic listening Patient Response to Intervention: Patient activity engaged in group promoting relaxation. Will continue to offer groups and encourage participation. Patients Problems: Patient Active Problem List Diagnosis Bipolar 1 disorder, manic, mild (CMS/HCC) (HCC) Agitation states as acute reaction to exceptional (gross) stress Caregiver's other noncompliance with patient's medication regimen Disorientation Manic behavior (HCC) [facility] GROUPNOTE Department: [facility] 7 Stepdown Group Topic: Distress Tolerance Skills Group Date: 09/21/2022 Start Time: 0900 End Time: 944 Facilitators: STEVIE Goff Number of Participants: 3 Group Name: dual diagnosis Treatment Modality: Cognitive Behavioral Therapy Purpose: enhance coping skills and reinforce self-care Summary: Discussed sympathetic/parasympath etic nervous system, as well as dangers to physical and mental health due to prolonged stress. Discussed benefits of gratitude and reframing thoughts (CBT) in situations that are out of our control. Name: Elizabeth Mosley Date of : 1975 MR: [id number] Mental Status Exam: Appearance: Appropriately dressed and groomed Mood: Euthymic Affect: Congruent with mood Behavior: Pleasant Alertness: Alert Speech: Appropriate Cognition: Intact Thought Process: Goal-directed Thought Content: No evidence of psychosis/delusions Level/Quality of Participation: active Interactions with others: gave feedback Interventions utilized were CBT Patient's Response to Intervention: Pt was Actively Engaged and Receptive. Pt was Able to verbalize current knowledge/experience, Able to verbalize/acknowledge new learning, Able to retain information and Capable of insight. Pt reported they are thankful for, ?life Progress Towards Goal(s): Moderate Next Step: Continue with current services Patients Problems: Patient Active Problem List Diagnosis Bipolar 1 disorder, manic, mild (CMS/HCC) (HCC) Agitation states as acute reaction to exceptional (gross) stress Caregiver's other noncompliance with patient's medication regimen Disorientation Manic behavior (HCC) [facility] Progress Noteon 09-21-2022 Progress Note Pt discharged to [facility]. Pt picked up by . Discharge medications, appointments, and instructions reviewed with pt. Pt verbalizes understanding. Pt signed discharge paperwork. Pt denies SI/HI and is escorted to intake for belongings. [facility] Progress Note Pt was in dining amarilis m when approached by RN during assessment. Proper PPE was worn during interaction. Pt states she got seven plus hours of sleep. Pt denies SI/HI and denies AH/VH at this time. Pt states she's feeling well. Pt does examine medication, but is med compliant. Pt is encouraged to see staff with questions/ concerns. Will continue to monitor patient. [facility] Progress Note Pt pleasant and cooperative on the unit. Mood is brighter and affect congruent. Voicing no SI and social with her peers. Compliant with medications. Emotional support given. [facility] CARECOORDon 09-20-2022 CHARLY TREVINO met with patient briefly to discuss discharge planning, patient reports having an appointment scheduled for this 09/22 but is unsure of the location and time. SWT agreed to review patient's chart and follow-up with TCC to obtain this information. Per patient's chart and TCC, patient is scheduled for intake/psychiatric follow-up appointment on 10/25/2022 at 2 PM. SWT relayed this information to patient, patient expressed some confusion and requested contact number for [facility] to contact them independently to confirm upcoming appointment. ANUPAMT provided patient with phone number per her request. Patient thanked SWT. [facility] CAREPLNon 09-20-2022 CAREPLN Problem: Sensory Perceptual Alteration as Evidenced by Goal: Participates in unit activities Outcome: Progressing Goal: Able to discuss content of hallucinations/delusion s Outcome: Progressing Goal: Will not act on psychotic perception Outcome: Progressing Problem: Potential for Harm to Self or Others Goal: Participates in unit activities Outcome: Progressing Goal: Denies harm toward self or others Outcome: Progressing Problem: Ineffective Coping Goal: Identifies ineffective coping skills Outcome: Progressing Goal: Identifies healthy coping skills Outcome: Progressing Goal: Demonstrates healthy coping skills Outcome: Progressing Goal: Participates in unit activities Outcome: Progressing Problem: Anxiety Goal: Attempts to manage anxiety with help Outcome: Progressing Problem: Self Care Deficit Goal: Patient completes hygiene Outcome: Progressing Problem: Defensive Coping Goal: Discusses and identifies healthy coping skills Outcome: Progressing Goal: Identifies appropriate social interaction Outcome: Progressing [facility] GROUPNOTEon 09-20-2022 GROUPNOTE Department: [address] Diagnosis Group Topic: Emotional Regulation Skill Group Date: 09/20/2022 Start Time: 1300 End Time: 1400 Facilitators: STEVIE Alvarez Number of Participants: 5 Group Name: Coping skills Treatment Modality: Cognitive Behavioral Therapy Purpose: enhance coping skills Summary: Started group out with a daily reading from The Language of Letting Go book that was about the importance of taking life one step at a time. Each group member introduced themselves and shared one goal they were working on today. Discussed worksheet on Coping Skills and group members gained insight into each of the 6 areas and list specific things they could do to cope. Group members were asked to give specific examples of coping skills they could use. Name: Elizabeth Mosley Date of : 1975 MR: [id number] Mental Status Exam: Appearance: Appropriately dressed and groomed Mood: Anxious Affect: Full Behavior: Monopolizing, Impulsive, and Disorganized Alertness: Alert Speech: Rapid speech Cognition: Easily distracted Thought Process: Tangential Thought Content: Preoccupations Level/Quality of Participation: restless Interactions with others: monopolizing Interventions utilized were Building rapport and engagement, Empathic listening, and Cognitive Behavioral Therapy (CBT) Patient's Response to Intervention: Pt attended group but was restless and struggled with monopolizing. Pt asked many questions but struggled with finding the words to describe how she was feeling and thinking. Pt was redirectable. Progress Towards Goal(s): Minimal Additional Comments: N/A Next Step: Continue with current services Patients Problems: Patient Active Problem List Diagnosis Bipolar 1 disorder, manic, mild (CMS/HCC) (HCC) Agitation states as acute reaction to exceptional (gross) stress Caregiver's other noncompliance with patient's medication regimen Disorientation Manic behavior (HCC) [facility] GROUPNOTE Department: [facility] Group Topic: Other Group Date: 09/20/2022 Start Time: 1020 End Time: 1100 Facilitators: Caio Hernadez Number of Participants: 7 Group Name: Gamaliel Treatment Modality: Leisure Development Purpose: express feelings, improve communication skills, and reinforce self-care Summary: Pts will choose a song from a given list. Pts will share how the song has impacted their life or how the song is meaningful to them. Pts will have the opportunity to listen, sing, or otherwise perform the song with the therapist if they desire. Name: Elizabeth Mosley Date of : 1975 MR: [id number] Mental Status Exam: Appearance: Appropriately dressed and groomed Mood: Euthymic Affect: Appropriate Behavior: Engaging and Interactive Alertness: Alert Speech: Appropriate Cognition: Intelligent Thought Process: Goal-directed Thought Content: No evidence of psychosis/delusions Level/Quality of Participation: engaged Interactions with others: supportive and asked thoughtful questions Interventions utilized were Building rapport and engagement and Empathic listening Patient's Response to Intervention: Pt voiced improvement Next Step: Continue with current services Patients Problems: Patient Active Problem List Diagnosis Bipolar 1 disorder, manic, mild (CMS/HCC) (HCC) Agitation states as acute reaction to exceptional (gross) stress Caregiver's other noncompliance with patient's medication regimen Disorientation Manic behavior (HCC) [facility] GROUPNOTE Department: [facility] Group Topic: Other Group Date: 09/20/2022 Start Time: 0830 End Time: 0900 Facilitators: Renee Borden Number of Participants: 9 Group Name: Coping skills Treatment Modality: Activity Therapy Purpose: enhance coping skills and reinforce self-care Summary: To increase coping skills by using methods to deal with stress such as relaxation, art music,activities you enjoy doing . To improve self care health and wellness. Name: Elizabeth Mosley Date of : 1975 MR: [id number] Appearance: Appropriately dressed and groomed Mood: Euthymic Affect: Appropriate Behavior: Pleasant Alertness: Alert Speech: Appropriate Level/Quality of Participation: engaged Interactions with others: supportive Interventions utilized were Building rapport and engagement and Empathic listening Patient Response to Intervention: Patient was actively engaged in group social on task supportive of peers. Will continue to offer groups and encourage participation. Patients Problems: Patient Active Problem List Diagnosis Bipolar 1 disorder, manic, mild (CMS/HCC) (HCC) Agitation states as acute reaction to exceptional (gross) stress Caregiver's other noncompliance with patient's medication regimen Disorientation Manic behavior (HCC) [facility] Progress Noteon 09-20-2022 Progress Note Pt was in dining amarilis m when approached by RN during assessment. Proper PPE was worn during interaction. Pt denies SI/HI and denies AH/VH at this time. Pt states she slept well last night. During med pass pt was examining meds, but pt is med complaint. Pt encouraged to see staff with questions or concerns. Will continue to monitor patient. [facility] Progress Note Nutrition rescreen completed. Chart reviewed. Patient to be monitored and followed by the diet extrusion technician. [facility] CAREPLNon 09-19-2022 CAREPLN Problem: Sensory Perceptual Alteration as Evidenced by Goal: Participates in unit activities Outcome: Progressing Goal: Able to discuss content of hallucinations/delusion s Outcome: Progressing Goal: Will not act on psychotic perception Outcome: Progressing Problem: Potential for Harm to Self or Others Goal: Participates in unit activities Outcome: Progressing Goal: Denies harm toward self or others Outcome: Progressing Problem: Ineffective Coping Goal: Identifies ineffective coping skills Outcome: Progressing Goal: Identifies healthy coping skills Outcome: Progressing Goal: Demonstrates healthy coping skills Outcome: Progressing Goal: Participates in unit activities Outcome: Progressing Problem: Anxiety Goal: Attempts to manage anxiety with help Outcome: Progressing Problem: Self Care Deficit Goal: Patient completes hygiene Outcome: Progressing Problem: Defensive Coping Goal: Discusses and identifies healthy coping skills Outcome: Progressing Goal: Identifies appropriate social interaction Outcome: Progressing [facility] GROUPNOTEon 09-19-2022 GROUPNOTE Department: [facility] Group Topic: Other Group Date: 09/19/2022 Start Time: 1723 End Time: 1800 Facilitators: [place] Number of Participants: 6 Group Name: Self Expression Treatment Modality: Recreation Therapy Purpose: Explore Self Expression and Self Awareness Summary: Chat Pack: Favorites - To allow Patients the opportunity to explore self awareness and socialization through leisure engagement. Discussion to focus on their experience of participation, as well as, the process of reconnection to leisure interests. Name: Elizabeth Mosley Date of : 1975 MR: [id number] Appearance: Appropriately dressed and groomed Affect: Appropriate Behavior: Cooperative Alertness: Drowsy and Falling asleep Speech: Appropriate and Slurred Level/Quality of Participation: drowsy and engaged Interactions with others: supportive Interventions utilized were Building rapport and engagement and Empathic listening Patient's Response to Intervention: Patient came in after group had started, she engaged in intervention though falling asleep more so as the group went on and then woke before group ended. Patient was observed being interactive with peers and laughing during the group at times. Patient voiced enjoyment in participation. Continue to engage Patient in groups to address stated treatment goals and objectives. Patients Problems: Patient Active Problem List Diagnosis Bipolar 1 disorder, manic, mild (CMS/HCC) (HCC) Agitation states as acute reaction to exceptional (gross) stress Caregiver's other noncompliance with patient's medication regimen Disorientation Manic behavior (HCC) [facility] GROUPNOTE Department: [address] Diagnosis Group Topic: Anxiety Group Date: 09/19/2022 Start Time: 1300 End Time: 1400 Facilitators: Flavio Cadet [facility] Number of Participants: 7 Group Name: Serenity Prayer Treatment Modality: Cognitive Behavioral Therapy Purpose: enhance coping skills and express feelings Summary: The group members each introduced themselves and shared one goal they were working on today. The group read a meditation from the Language of Letting Go book on connecting with peace through places, objects and rituals/practice. Each member was asked to share what helps them find a sense of peace and serenity. The group reviewed worksheet on coping skills for anxiety and each member was asked what brings them a sense of stillness. Name: Elziabeth Mosley Date of : 1975 MR: [id number] Mental Status Exam: Appearance: Appropriately dressed and groomed Mood: Depressed Affect: Flat Behavior: Pleasant Alertness: Alert Speech: Appropriate Cognition: Intact, Oriented X4, and Intelligent Thought Process: Goal-directed Thought Content: Preoccupations Level/Quality of Participation: attentive Interactions with others: gave feedback Interventions utilized were Cognitive Behavioral Therapy (CBT) Patient's Response to Intervention: Pt was attentive in group. Pt shared that he goal today is to work with doctors to return home and manage my medications Progress Towards Goal(s): Minimal Additional Comments: N/A Next Step: Continue with current services Patients Problems: Patient Active Problem List Diagnosis Bipolar 1 disorder, manic, mild (CMS/HCC) (HCC) Agitation states as acute reaction to exceptional (gross) stress Caregiver's other noncompliance with patient's medication regimen Disorientation Manic behavior (HCC) [facility] GROUPNOTE Department: [facility] Group Topic: Goals Group Date: 09/19/2022 Start Time: 1030 End Time: 1115 Facilitators: Renee Borden Number of Participants: 6 Group Name: goals Treatment Modality: Activity Therapy Purpose: enhance coping skills and express feelings Summary: Patient will focus setting goal identifying positive steps to wellness resources and steps to complete. Discussion benefits of receiving support and encouragement. Name: Elizabeth Mosley Date of : 1975 MR: [id number] Appearance: Appropriately dressed and groomed Mood: Euthymic Affect: Appropriate Behavior: Cooperative Alertness: Alert Speech: Appropriate Level/Quality of Participation: active Interactions with others: intrusive and supportive Interventions utilized were Building rapport and engagement and Empathic listening Patient Response to Intervention: Patient was actively engaged in group social on task supportive of peers. Will continue to offer groups and encourage participation. Patients Problems: Patient Active Problem List Diagnosis Bipolar 1 disorder, manic, mild (CMS/HCC) (HCC) Agitation states as acute reaction to exceptional (gross) stress Caregiver's other noncompliance with patient's medication regimen Disorientation Manic behavior (HCC) [facility] GROUPNOTE Department: [facility] Group Topic: Goals Group Date: 09/19/2022 Start Time: 0845 End Time: 0918 Facilitators: Renee Borden Number of Participants: 6 Group Name: self care Treatment Modality: Activity Therapy Purpose: enhance coping skills, express feelings, and reinforce self-care Summary: To promote positive self- image by identifying things you do to maintain good health and improve well - being to gain an understanding regarding the importance of short - term goals. patient will focus on the positive aspects found in everyday life visualizing achieving daily and weekly goals. Name: Elizabeth Mosley Date of : 1975 MR: [id number] Appearance: Appropriately dressed and groomed Mood: Euthymic Affect: Appropriate Behavior: Pleasant Alertness: Alert Speech: Appropriate Level/Quality of Participation: active Interactions with others: supportive Interventions utilized were Building rapport and engagement and Empathic listening Patient Response to Intervention: Patient participated in group answering questions appropriately. Will continue to offer groups and encourage participation. Patients Problems: Patient Active Problem List Diagnosis Bipolar 1 disorder, manic, mild (CMS/HCC) (HCC) Agitation states as acute reaction to exceptional (gross) stress Caregiver's other noncompliance with patient's medication regimen Disorientation Manic behavior (HCC) [facility] Progress Noteon 09-19-2022 Progress Note Pt sitting in dining area having breakfast when approached by RN for assessment. Pt states that she got about 7 hours of sleep last night and is feeling better. Emotional support provided. Pt denies SI/HI and makes verbal contract for safety on unit. Pt encouraged to seek staff with any questions/concerns/need s. Will continue to monitor pt for safety on unit. [facility] Progress Note Patient resting in b ed with no s/s of acute distress, has been compliant with medications, no SI/HI voiced. Mood pleasant and cooperative with a bright affect. No prn medications given. [facility] GROUPNOTEon 09-18-2022 GROUPNOTE Department: [facility]ER[facility] Group Topic: Other Group Date: 09/18/2022 Start Time: 1030 End Time: 1100 Facilitators: Caio Hernadez Number of Participants: 8 Group Name: Jukebox Treatment Modality: Leisure Development Purpose: express feelings, improve communication skills, and reinforce self-care Summary: Pts will choose a song from a given list. Pts will share how the song has impacted their life or how the song is meaningful to them. Pts will have the opportunity to listen, sing, or otherwise perform the song with the therapist if they desire. Name: Elizabeth Mosley Date of : 1975 MR: [id number] Mental Status Exam: Appearance: Appropriately dressed and groomed Mood: Euthymic Affect: Congruent with mood Behavior: Pleasant Alertness: Drowsy and Falling asleep Speech: Appropriate Cognition: Intelligent Thought Process: Goal-directed Thought Content: unobserved as pt kept falling asleep Level/Quality of Participation: drowsy Interactions with others: minimal participation with peers as pt kept falling asleep Interventions utilized were Building rapport and engagement and Empathic listening Patient's Response to Intervention: Pt voiced improvement Next Step: Continue with current services Patients Problems: Patient Active Problem List Diagnosis Bipolar 1 disorder, manic, mild (CMS/HCC) (HCC) Agitation states as acute reaction to exceptional (gross) stress Caregiver's other noncompliance with patient's medication regimen Disorientation Manic behavior (HCC) [facility] Progress Noteon 09-18-2022 Progress Note Patient cooperative with nursing care and medication compliant. Patient denied SI/HI/Hallucinations and contracted for safety. Patient socialized with peers, ate meals, attended some groups. Patient walked hallways with other patient. Patient paranoid about medications administered in morning, needing additional information on what each medication was and why being given. Nurse washed patient clothes. Patient given vistaril for anxiety and tylenol for neck pain due to tension, therapeutic. Juan Beauchamp RN [facility] Progress Note Patient out visible on the unit, pleasant in conversation, preoccupied with scheduled depakote. Mood stable, denies SI/HI, denies pain. HS snack given. [facility] CAREPLNon 09-17-2022 CAREPLN Problem: Sensory Perceptual Alteration as Evidenced by Goal: Participates in unit activities Outcome: Progressing Goal: Able to discuss content of hallucinations/delusion s Outcome: Progressing Goal: Will not act on psychotic perception Outcome: Progressing [facility] GROUPNOTEon 09-17-2022 GROUPNOTE Department: [facility] Group Topic: Emotional Regulation Skill Group Date: 09/17/2022 Start Time: 1030 End Time: 1100 Facilitators: Debi Hunt Number of Participants: 4 Group Name: Music Bingo Treatment Modality: music therapy Purpose: enhance coping skills Summary: Patient was provided with a 5x5 [employer] card grid of song titles. Patient then guessed the song titles while they were played and matched the song to the title on their card. Discussion of the use of mindfulness as a coping strategy followed. Name: Elizabeth Mosley Date of : 1975 MR: [id number] Mental Status Exam: Appearance: Appropriately dressed and groomed Mood: Euthymic Affect: Full Behavior: Cooperative Alertness: Alert Speech: Appropriate Cognition: [place] Thought Process: Circumstantial Thought Content: No evidence of psychosis/delusions Level/Quality of Participation: attentive Interactions with others: gave feedback Interventions utilized were recreational music therapy Patient's Response to Intervention: Patient participated appropriately choosing a song and sharing with the group. Pt affect was bright and eye contact was good. Pt provided verbal support to peers and participated in group singing. Progress Towards Goal(s): Moderate Next Step: Continue with current services Patients Problems: Patient Active Problem List Diagnosis Bipolar 1 disorder, manic, mild (CMS/HCC) (HCC) Agitation states as acute reaction to exceptional (gross) stress Caregiver's other noncompliance with patient's medication regimen Disorientation Manic behavior (HCC) [facility] GROUPNOTE Department: [facility] Group Topic: Other Group Date: 09/17/2022 Start Time: 899 End Time: 929 Facilitators: Renee Borden Number of Participants: 8 Group Name: Art Treatment Modality: Activity Therapy Purpose: enhance coping skills and reinforce self-care Summary: To provide each patient an opportunity to express themselves through art a group focus on creative activities allowing each patient to explore their own unique artistic style and have the chance to appreciate the differences of others. Patient will work independently or as part of the team all task will be planned to match the functional level of each patient. Name: Elizabeth Mosley Date of : 1975 MR: [id number] Appearance: Appropriately dressed and groomed Mood: Euthymic Affect: Appropriate Behavior: Cooperative Alertness: Alert Speech: Appropriate Level/Quality of Participation: active Interactions with others: supportive Interventions utilized were Building rapport and engagement, Relaxation Patient Response to Intervention: Patient was actively engaged in group social on task supportive of peers. Will continue to offer groups and encourage participation. Patients Problems: Patient Active Problem List Diagnosis Bipolar 1 disorder, manic, mild (CMS/HCC) (HCC) Agitation states as acute reaction to exceptional (gross) stress Caregiver's other noncompliance with patient's medication regimen Disorientation Manic behavior (HCC) [facility] Progress Noteon 09-17-2022 Progress Note This nurse wore a KN 95 mask during all interactions with pt. Pt denies SI; no intent. Pt denies any anxiety/depressive symptoms. Pt compliant with meds; denies any side effects. Pt inspected each medication; glaring at this nurse prior to taking each med. Pt denies any hallucinations. Out in milieu social with peers; attending group. Remains hypervigilant ;suspicious on approach. Conversation superficial and dismissive. Pt reports adequate sleep /appetite. Monitored closely throughout shift. [facility] Progress Note Patient is out on th e unit this evening watching television. Patient is friendly, cooperative, and social with peers. She is compliant with her scheduled medications this evening and understands the need to take her scheduled Risperdal this evening. She denies current SI/HI. Patient is encouraged to come to staff with needs, will continue to monitor for safety and provide support. [facility]20[facility] met briefly with patient. She is discussed with Dr. Shelton the benefits of signing and is a voluntary admission and agreed to do so. [facility] CAREPLNon 09-16-2022 CAREPLN Problem: Sensory Perceptual Alteration as Evidenced by Goal: Participates in unit activities 09/16/2022 1143 by Tanisha Sweeney RN Outcome: Progressing 09/16/2022 1040 by Tanisha Sweeney RN Outcome: Progressing Goal: Able to discuss content of hallucinations/delusion s 09/16/2022 1143 by Tanisha Sweeney RN Outcome: Progressing 09/16/2022 1040 by Tanisha Sweeney RN Outcome: Progressing Goal: Will not act on psychotic perception 09/16/2022 1143 by Tanisha Sweeney RN Outcome: Progressing 09/16/2022 1040 by Tanisha Sweeney RN Outcome: Progressing [facility] CAREPLN Problem: Sensory Perceptual Alteration as Evidenced by Goal: Participates in unit activities Outcome: Progressing Goal: Able to discuss content of hallucinations/delusion s Outcome: Progressing Goal: Will not act on psychotic perception Outcome: Progressing [facility] GROUPNOTEon 09-16-2022 GROUPNOTE Department: [facility] [place] [facility] Diagnosis Group Topic: Clarity of Thought Process Group Date: 09/16/2022 Start Time: 1300 End Time: 1345 Facilitators: STEVIE Alvarez Number of Participants: 5 Group Name: Positive Affirmations Treatment Modality: Cognitive Behavioral Therapy Purpose: enhance coping skills Summary: The group began with each member introducing themselves. The group members were given a list of 101 positive affirmations and asked to read through and [place] the ones that were meaningful. The group members were asked to write out up to 10 of the affirmations on the given worksheet. The group was asked to review worksheet daily and read the affirmation to help build new neural pathways. Name: Elizabeth Mosley Date of : 1975 MR: [id number] Mental Status Exam: Appearance: Appropriately dressed and groomed Mood: Depressed Affect: fluctuating Behavior: Pleasant Alertness: Alert Speech: Soft-spoken Cognition: Easily distracted Thought Process: Tangential and Loose associations Thought Content: Preoccupations Level/Quality of Participation: offered feedback Interactions with others: gave feedback Interventions utilized were Building rapport and engagement, Empathic listening, and Cognitive Behavioral Therapy (CBT) Patient's Response to Intervention: Pt attended group but struggled with staying engaged. Pt fell asleep a few times. Progress Towards Goal(s): Minimal Additional Comments: N/A Next Step: Continue with current services Patients Problems: Patient Active Problem List Diagnosis Bipolar 1 disorder, manic, mild (CMS/HCC) (HCC) Agitation states as acute reaction to exceptional (gross) stress Caregiver's other noncompliance with patient's medication regimen Disorientation Manic behavior (HCC) [facility] GROUPNOTE Department: [address] Diagnosis Group Topic: Acceptance Group Date: 09/16/2022 Start Time: 0900 End Time: 1000 Facilitators: STEVIE Alvarez Number of Participants: 6 Group Name: Accepting Change and working through challenges Treatment Modality: Cognitive Behavioral Therapy Purpose: increase insight or knowledge Summary: The group members each introduced themselves and shared one goal they were working on today. The group read a meditation from the Language of Letting Go book on accepting change and problem solving. Name: Elizabeth Mosley Date of : 1975 MR: [id number] Mental Status Exam: Appearance: Appropriately dressed and groomed Mood: Depressed Affect: Full Behavior: Pleasant Alertness: Alert Speech: Rapid speech Cognition: Easily distracted Thought Process: Racing Thought Content: Preoccupations Level/Quality of Participation: attentive Interactions with others: gave feedback Interventions utilized were Cognitive Behavioral Therapy (CBT) Patient's Response to Intervention: Pt was attentive in group. Pt presented with rapid speech and monopolized most of the conversation in group. Pt was redirectable. Pt had low insight into her self care behavior she had prior to coming into the hospital. Pt reported that she believed she was sleeping fine before being admitted. Discussed the importance of daily routine including 7-9hrs of sleep daily at similar times to help with mood disorders. Progress Towards Goal(s): Minimal Additional Comments: N/A Next Step: Continue with current services Patients Problems: Patient Active Problem List Diagnosis Bipolar 1 disorder, manic, mild (CMS/HCC) (HCC) Agitation states as acute reaction to exceptional (gross) stress Caregiver's other noncompliance with patient's medication regimen Disorientation Manic behavior (HCC) [facility] Progress Noteon 09-16-2022 Progress Note Pt A&OX4, denies current SI. Pleasant and cooperative during assessment. Pt spent most of the day in the lounge interacting with peers. Pt reports sleep well last night and feels rested. Elizabeth refused her Risperdal this am. Will continue to monitor for safety on the unit. [facility] Progress Note Patient is out in da y area watching television, she is cooperative and social with peers. Patient was compliant with her scheduled Depakote, but declined her Risperdal this evening. She denies current SI/HI and AH/VH. Patient encouraged to come to staff with needs, will continue to monitor for safety and provide support. [facility] CAREPLNon 09-15-2022 CAREPLN Problem: Sensory Perceptual Alteration as Evidenced by Goal: Participates in unit activities Outcome: Progressing Goal: Able to discuss content of hallucinations/delusion s Outcome: Progressing Goal: Will not act on psychotic perception Outcome: Progressing Problem: Potential for Harm to Self or Others Goal: Participates in unit activities Outcome: Progressing Goal: Denies harm toward self or others Outcome: Progressing Problem: Ineffective Coping Goal: Identifies ineffective coping skills Outcome: Progressing Goal: Identifies healthy coping skills Outcome: Progressing Goal: Demonstrates healthy coping skills Outcome: Progressing Goal: Participates in unit activities Outcome: Progressing Problem: Anxiety Goal: Attempts to manage anxiety with help Outcome: Progressing Problem: Self Care Deficit Goal: Patient completes hygiene Outcome: Progressing Problem: Defensive Coping Goal: Discusses and identifies healthy coping skills Outcome: Progressing Goal: Identifies appropriate social interaction Outcome: Progressing [facility] GROUPNOTEon 09-15-2022 GROUPNOTE Department: [facility] Group Topic: Other Group Date: 09/15/2022 Start Time: 1700 End Time: 1745 Facilitators: Caio Hernadez Number of Participants: 4 Group Name: ItrybeforeIbuy Purpose: enhance coping skills, express feelings, improve communication skills, and increase insight or knowledge Summary: Pts learn about literary styles, movements, and authors in a discussion format. Pts have an opportunity to express preferences of authors and aesthetics. Pts have an opportunity to check out a book from the [employer] library to keep with them throughout their admission. Name: Elizabeth Mosley Date of : 1975 MR: [id number] Mental Status Exam: Appearance: Appropriately dressed and groomed Mood: Euthymic Affect: Congruent with mood Behavior: Pleasant Alertness: Drowsy, Tired, and Falling asleep Speech: Appropriate Cognition: Intelligent Thought Process: pt slept throughout group Thought Content: pt slept throughout group Level/Quality of Participation: drowsy Interactions with others: pt did not interact with peers Interventions utilized were Building rapport and engagement and Empathic listening Patient's Response to Intervention: Pt said, One day I'm gonna stay awake for one of these Progress Towards Goal(s): Minimal Next Step: Continue with current services Patients Problems: Patient Active Problem List Diagnosis Bipolar 1 disorder, manic, mild (CMS/HCC) (HCC) Agitation states as acute reaction to exceptional (gross) stress Caregiver's other noncompliance with patient's medication regimen Disorientation Manic behavior (HCC) [facility] GROUPNOTE Department: [facility] Group Topic: Other Group Date: 09/15/2022 Start Time: 1500 End Time: 1530 Facilitators: Caio Hernadez Number of Participants: 4 Group Name: One Block Off the Grid (1BOG)kebox Purpose: express feelings and reinforce self-care Summary: Pts will choose a song from a given list. Pts will share how the song has impacted their life or how the song is meaningful to them. Pts will have the opportunity to listen, sing, or otherwise perform the song with the therapist if they desire. Name: Elizabeth Mosley Date of : 1975 MR: [id number] Mental Status Exam: Appearance: Appropriately dressed and groomed Mood: Euthymic Affect: Appropriate Behavior: Interactive Alertness: Drowsy and Falling asleep Speech: Appropriate Cognition: Intelligent Thought Process: Goal-directed Thought Content: No evidence of psychosis/delusions Level/Quality of Participation: drowsy and engaged Interactions with others: supportive Interventions utilized were Building rapport and engagement and Empathic listening Patient's Response to Intervention: Pt voiced improvement Progress Towards Goal(s): Moderate Additional Comments: Pt was insightful and displayed a willingness to share with the group; pt became drowsy about midway through group and fell asleep Next Step: Continue with current services Patients Problems: Patient Active Problem List Diagnosis Bipolar 1 disorder, manic, mild (CMS/HCC) (HCC) Agitation states as acute reaction to exceptional (gross) stress Caregiver's other noncompliance with patient's medication regimen Disorientation Manic behavior (HCC) [facility] GROUPNOTE Department: [facility] 7 Stepdown Group Topic: Distress Tolerance Skills Group Date: 09/15/2022 Start Time: 1300 End Time: 1340 Facilitators: STEVIE Goff Number of Participants: 5 Group Name: dual diagnosis Treatment Modality: Behavior Modification Therapy, Cognitive Behavioral Therapy, Psychoeducation, and Skills Training Purpose: enhance coping skills, explore maladaptive thinking, increase insight or knowledge, and reinforce self-care Summary: Reviewed worksheet on 'Quotes for Therapeutic group work'. Asked Pts to discuss one quote they felt was meaningful to them. Reviewed concepts such as CBT, DBT, Opposite Action, coping skills (gratitude, meditation, mindfulness) Name: Elizabeth Mosley Date of : 1975 MR: [id number] Mental Status Exam: Appearance: Appropriately dressed and groomed Mood: Euthymic Affect: Congruent with mood Behavior: Disruptive and Impulsive Alertness: Alert Speech: Rapid speech Cognition: Intact Thought Process: Tangential Thought Content: No evidence of psychosis/delusions Level/Quality of Participation: active and disruptive Interactions with others: gave feedback Interventions utilized were Cognitive Behavioral Therapy (CBT), Psychoeducation, and Modeling/skills training Patient's Response to Intervention: Pt was Actively Engaged and Receptive. Pt was Able to verbalize current knowledge/experience, Able to verbalize/acknowledge new learning. Pt reported they learned, ?I will be an agent of change by taking one day at a time. Progress Towards Goal(s): Minimal Additional Comments: Pt verbose, interrupting other group members. Next Step: Continue with current services Patients Problems: Patient Active Problem List Diagnosis Bipolar 1 disorder, manic, mild (CMS/HCC) (HCC) Agitation states as acute reaction to exceptional (gross) stress Caregiver's other noncompliance with patient's medication regimen Disorientation Manic behavior (HCC) [facility] GROUPNOTE Department: [facility] Group Topic: Mindfulness Group Date: 09/15/2022 Start Time: 1030 End Time: 1100 Facilitators: Debi Hunt Number of Participants: 6 Group Name: Music Trivia Treatment Modality: Music Therapy Purpose: enhance coping skills Summary: Patient was given the task of guessing the song title and artist. The activity uses well known music to alleviate patient's hospital related anxiety by: helping direct patients' focus on identifying titles and artists of songs, improving patient's mood, affect, and group participation. Participation in the group will decrease patient's feeling of isolation and discussion will follow about using focused music listening as a mindfulness technique. Name: Elizabeth Mosley Date of : 1975 MR: [id number] Mental Status Exam: Appearance: Appropriately dressed and groomed Mood: Euthymic Affect: Full Behavior: Pleasant and Cooperative Alertness: Alert Speech: Appropriate Cognition: Intact Thought Process: Goal-directed Thought Content: No evidence of psychosis/delusions Level/Quality of Participation: active Interactions with others: gave feedback Interventions utilized were Expressive therapy Patient's Response to Intervention: Patient participated appropriately choosing a song and sharing with the group. Pt affect was bright and eye contact was good. Pt provided verbal support to peers and participated in group singing. Progress Towards Goal(s): Minimal Next Step: Continue with current services Patients Problems: Patient Active Problem List Diagnosis Bipolar 1 disorder, manic, mild (CMS/HCC) (HCC) Agitation states as acute reaction to exceptional (gross) stress Caregiver's other noncompliance with patient's medication regimen Disorientation Manic behavior (HCC) [facility] GROUPNOTE Department: [facility] 7 Stepdown Group Topic: Anxiety Group Date: 09/15/2022 Start Time: 00 End Time: 0944 Facilitators: STEVIE Goff Number of Participants: 6 Pt left during group to meet with psych provider Group Name: dual diagnosis Treatment Modality: Behavior Modification Therapy, Cognitive Behavioral Therapy, and Skills Training Purpose: enhance coping skills, increase insight or knowledge, and reinforce self-care Summary: Group focused on Anxiety. Reviewed worksheet, What is Anxiety from [employer]. Explored symptoms, types of and treatments for anxiety. Discussed how anxiety negatively impacts mental health and addiction. Provided worksheet on, ?if your anxiety was a monster?. Name: Elizabeth Mosley Date of : 1975 MR: [id number] Mental Status Exam: Appearance: Appropriately dressed and groomed Mood: Euthymic Affect: Congruent with mood Behavior: Cooperative Alertness: Alert Speech: Appropriate Cognition: Intact Thought Process: Tangential Thought Content: grandiose Level/Quality of Participation: active Interactions with others: gave feedback Interventions utilized were Cognitive Behavioral Therapy (CBT) and Modeling/skills training Patient's Response to Intervention: Pt was Actively Engaged and Receptive, some difficulty staying on topic. Pt reported they are going to work on, walking Progress Towards Goal(s): Moderate Next Step: Continue with current services Patients Problems: Patient Active Problem List Diagnosis Bipolar 1 disorder, manic, mild (CMS/HCC) (HCC) Agitation states as acute reaction to exceptional (gross) stress Caregiver's other noncompliance with patient's medication regimen Disorientation Manic behavior (HCC) [facility] Progress Noteon 09-15-2022 Progress Note Nutrition rescreen completed. Chart reviewed. Patient to be monitored and followed by the diet extrusion technician. [facility] Progress Note Pt was in day area w hen approached by RN during assessment. Proper PPE was worn during interaction. Pt states no SI/HI during this time and also states no AH/VH during this time. Pt states she slept for about four to six hours. Pt also states she feels rested and that she's not as angry as she was when she first arrived on the floor. Pt is attending groups. Pt is encouraged to see staff with any questions or concerns. Will continue to monitor patient. [facility] Progress Note Patient resting in b ed with no s/s of acute distress. Was out on the unit prior to bed sitting with peers but falling asleep. Compliant with medications, has denied pain, no delusions voiced. [facility] CARECOORDon 09-14-2022 [facility] Psycho-Social Assessment (Social Work) Date: 09/14/2022 Patient Name: Elizabeth Mosley : 1975 Identifying Information: The patient is a 47-year-old -[place] woman admitted to seventh floor of [facility]. Patient is known to the mental health/psychiatric unit as she was previously here from 08/31/2022 to 09/06/2022. Patient was stabilized and referred to the counseling center [facility] for follow-up care. Patient did not sign in for current admission. Presenting Problem: Patient presented to the ED on 01/09/2023 via private vehicle with her . He reports that patient was discharged from [facility] but started displaying manic behavior. During assessment in the ED patient encompassed her thoughts and was fixated around the help of her . Patient has inconsistent timeline and believes she is missing days of her week. Patient reports that her is her help but he is unable to take care of her which is why she is back for further evaluation. 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 Psychiatric History: Patient has mental health diagnosis of bipolar disorder. Patient is currently on Depakote and hydroxyzine. Patient was referred to to the counseling Center of [facility] for mental health and psychiatric care. Patient has recent history of psychiatric hospitalization from 08/31/2022 to 10/04/2022. Patient was hospitalization due to disorganization, rambling, and being confused. Patient was discharged after stabilization. Patient denies any recent or past history of suicide attempts. Patient denies current SI/HI/AVH. Patient denies any history of passive SI. Patient denies any recent or past history of SIB. Substance Abuse/Use: Patient denies any history of substance use disorder. Patient denies any recreational use of marijuana or alcohol. Patient denies any history of IV drug use. Patient denies any history of engagement in AA/NA meetings, IOP, previous detox admissions, or residential treatment. Medical/Self-care Issues: Patient did not report any medical issues or concerns. Patient denies any issues with self-care. Legal/Trauma/ History: Patient denies any current or past legal issues. Patient denies any history of trauma or abuse as an adolescent. Patient denies history of trauma or abuse as an adult. Patient denies any history of enlistment or status. Family Constellation/Childhood History: Patient reports that she is currently and living with her in [facility]. Patient reports that she has 8 children but only 2 of which continue to live in the home. Patient did not report any history about her mother or father. Patient does report that she has 1 brother and 4 sisters however she is not close with any of those family members. She does report family history of mental health issues but did not provide specific details. Patient reports that she was born and raised in [place] by her mother and father. Patient denies any history of trauma or abuse throughout her adolescence. Education/Work: Patient reports that she graduated high school from [employer] and went on to [employer] in college to attempt a degree in nursing. Patient reports that she did not finish this degree due to being and starting to have children. Patient did not report any current history of employment. Patient denies SSI/SSD. Cultural/Spirituality/L eisure: Patient denies any cultural needs or concerns at the current time. Patient reports that she is of the [employer] and is attending services in her local community. Patient reports leisure activities such as spending time with her family. Support Systems/Collateral Information: Patient reports that her is her primary social support. Patient reports however she recently became paranoid about him. Patient not provide specific details as to what caused her paranoia. Patient reports that her adult children are also supportive of her. Patient's is aware that she was admitted to the hospital as he was with her during her admission. C-SSRS Actual Attempt (Past 3 Months): No (Patient denies any recent history of suicide attempts.) Actual Attempt (Lifetime): No (Patient has recent HX of psychiatric evaluation from 08/31/2022 to 10/04/2022. Patient was hospitalization due to disorganization, rambling, and being confused. Patient was discharged after stabilization. Patient denies any past HX of suicide attempts.) Interrupted Attempts (Past 3 Months): No (Patient denies) Interrupted Attempts (Lifetime): No (Patient denies) Aborted or Self-Interrupted Attempt (Past 3 Months): No (Patient denies) Aborted or Self-Interrupted Attempt (Lifetime): No (Patient denies) Preparatory Acts or Behavior (Past 3 Months): No (Patient denies) Preparatory Acts or Be (more content not included)... Normal [facility] CAREPLNon 09-14-2022 CAREPLN Problem: Sensory Perceptual Alteration as Evidenced by Goal: Participates in unit activities Outcome: Progressing Goal: Able to discuss content of hallucinations/delusion s Outcome: Progressing Goal: Will not act on psychotic perception Outcome: Progressing Problem: Potential for Harm to Self or Others Goal: Participates in unit activities Outcome: Progressing Goal: Denies harm toward self or others Outcome: Progressing Problem: Ineffective Coping Goal: Identifies ineffective coping skills Outcome: Progressing Goal: Identifies healthy coping skills Outcome: Progressing Goal: Demonstrates healthy coping skills Outcome: Progressing Goal: Participates in unit activities Outcome: Progressing Normal [facility] CAREPLN Problem: Sensory Perceptual Alteration as Evidenced by Goal: Participates in unit activities Outcome: Progressing Goal: Able to discuss content of hallucinations/delusion s Outcome: Progressing Goal: Will not act on psychotic perception Outcome: Progressing Problem: Potential for Harm to Self or Others Goal: Participates in unit activities Outcome: Progressing Goal: Denies harm toward self or others Outcome: Progressing Problem: Ineffective Coping Goal: Identifies ineffective coping skills Outcome: Progressing Goal: Identifies healthy coping skills Outcome: Progressing Goal: Demonstrates healthy coping skills Outcome: Progressing Goal: Participates in unit activities Outcome: Progressing Problem: Anxiety Goal: Attempts to manage anxiety with help Outcome: Progressing Problem: Self Care Deficit Goal: Patient completes hygiene Outcome: Progressing Problem: Defensive Coping Goal: Discusses and identifies healthy coping skills Outcome: Progressing Goal: Identifies appropriate social interaction Outcome: Progressing [facility] Consulton 09-14-2022 Consult [facility] Medicine Consult Patient - Elizabeth Mosley, Age - 47 y.o. - 1975 Room Number - 7-104 Consulting - Teresita Shelton MD Primary Care Physician - No [facility] provider [facility] file[id number] Date of Admission - 09/13/2022 10:12 AM Hospital Day - 1 Reason for Consult: Medical Management HISTORY OF PRESENT ILLNESS: Elizabeth is a 47 y.o. female pmhx below. She also reports history of hypertension. Well-controlled with hydrochlorothiazide in the past and typically takes 12.5 mg daily and if blood pressure remains elevated up to 25 mg daily. No chest pain or shortness of breath. Patient recently discharged from behavioral unit and felt that she was doing well, reports being in an altercation with her and that he thought she was acting unlike herself ultimately ending in hospitalization and behavior unit again. Initially patient seemed calm on exam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 she is saying. states that he is not aware if she has been taking her medications because she gets angry at them for asking if she took medications. Due to collateral obtained from , concerned for acute holli. Patient will require involuntary inpatient psychiatric care. [place] slip filled out. Valproic acid level is 60. Hallie Kitchen DO Normal [facility] CARECOORDon 09-06-2022 CARECOORD Discharge: Patient d c home with her today. She advises she gets her pcp from [facility], agreeable with appt with psychiatrist/counselor for outpt services. No other concerns for sw. [facility] GROUPNOTEon 09-06-2022 GROUPNOTE Inpatient Behavioral Health Services Department: [facility] 7 Stepdown Group Name: dual diagnosis Group Topic: Interpersonal Effectiveness Group Date: 09/06/2022 Start Time: 1215 End Time: 1330 Facilitators: STEVIE Goff Number of Participants: 7 Group Focus: co-dependency Treatment Modality: Behavior Modification Therapy, Psychoeducation, and Skills Training Purpose: enhance coping skills, increase insight or knowledge, and regain self-worth Summary: Group discussion on control/expectations/hermann undaries with a focus on boundaries and codependency. Discussed maladaptive boundaries and ways to improve boundaries Name: Elizabeth Mosley Date of : 1975 MR: [id number] Interventions utilized were Psychoeducation and Modeling/skills training Patient's Response to Intervention: Pt was Actively Engaged and Receptive. Pt was Able to verbalize current knowledge/experience, Able to verbalize/acknowledge new learning, Able to retain information and Capable of insight. Pt reported they learned, ?boundaries are important for peace, life and love Mental Status Exam: Appearance: Appropriately dressed and groomed Mood: Euthymic Affect: Congruent with mood Level of Participation: active Quality of Participation: attentive Interactions with others: gave feedback Behavior: Pleasant Alertness: Alert Speech: Appropriate Cognition: Intact Thought Process: Goal-directed Thought Content: No evidence of psychosis/delusions Progress Towards Goal(s): Moderate Next Step: Continue with current services Patients Problems: Patient Active Problem List Diagnosis Bipolar 1 disorder, manic, mild (CMS/HCC) (HCC) Agitation states as acute reaction to exceptional (gross) stress Caregiver's other noncompliance with patient's medication regimen Disorientation [facility] GROUPNOTE Inpatient Behavioral Health Services Department: [facility] ACTIV[facility]IES THERAPY Group Name: Trivia Group Topic: Other Group Date: 09/06/2022 Start Time: 1030 End Time: 1100 Facilitators: Caio Hernadez Number of Participants: 5 Group Focus: clarity of thought and communication Purpose: increase insight or knowledge and reinforce self-care Summary: Pts will engage in trivia surrounding several areas of pop culture. After each question and answer, pts are encouraged to discuss their relation to the topic, where they were when such and such happened, when they first heard a song, their first impressions of a movie etc. Name: Elizabeth Mosley Date of : 1975 MR: [id number] Interventions utilized were Building rapport and engagement and Empathic listening Patient's Response to Intervention: Pt voiced improvement Mental Status Exam: Appearance: Appropriately dressed and groomed Mood: Euthymic Affect: Appropriate Level of Participation: active Quality of Participation: engaged Interactions with others: supportive Behavior: Interactive Alertness: Alert Speech: Appropriate Next Step: Continue with current services Patients Problems: Patient Active Problem List Diagnosis Bipolar 1 disorder, manic, mild (CMS/HCC) (HCC) Agitation states as acute reaction to exceptional (gross) stress Caregiver's other noncompliance with patient's medication regimen Disorientation [facility] Progress Noteon 09-06-2022 Progress Note Pt discharged to [facility]. Pt picked up by . Discharge medications, appointments, and instructions reviewed with pt. Pt verbalizes understanding. Pt signed discharge paperwork. Pt denies SI/HI and is escorted to intake for belongings. [facility] Progress Note Pt sitting in day ar ea when approached by RN for assessment. Proper PPE worn during interaction. Pt pleasant, cooperative, and medication compliant. Pt denies any complaints at this time. Emotional support provided. Pt denies SI/HI and makes verbal contract for safety on unit. Pt encouraged to seek staff with any questions/concerns/need s. Will continue to monitor pt for safety on unit. [facility] Progress Note Nutrition rescreen completed. Chart reviewed. Patient to be monitored and followed by the diet extrusion technician. Normal [facility] GROUPNOTEon 09-05-2022 GROUPNOT Inpatient [facility] Health Services Department: [facility] ACTIVITIES THERAPY Group Name: Self Expression Group Topic: Other Group Date: 09/05/2022 Start Time: 1735 End Time: 1805 Facilitators: Santa Peña Number of Participants: 7 Treatment Modality: Recreation Therapy Purpose: Explore Self Expression Summary: Blackout Poetry - To allow patients the opportunity to engage in self exploration and check in with current emotional/mental state. Patients are provided a handout on what blackout poetry is and how to create it. Patient are provided a printout of a book page to create their rose marie expression. Discussion focuses on patients' ability to express themselves through written words provided. Name: Elizabeth Mosley Date of : 1975 MR: [id number] Interventions utilized were Empathic listening and Expressive therapy Patient's Response to Intervention: Patient came in after group had started and engaged minimally in intervention. Patient voiced understanding directives for intervention and worked on their own expression when able to stay awake. Patient had to be woken up at the end of group. Continue to engage Patient in groups to address stated treatment goals and objectives. Appearance: fair eye contact Affect: neutral Level of Participation: minimal Quality of Participation: cooperative and drowsy Interactions with others: na Behavior: sleeping much of the group Alertness: Falling asleep Speech: Appropriate Patients Problems: Patient Active Problem List Diagnosis Bipolar 1 disorder, manic, mild (CMS/HCC) (HCC) Agitation states as acute reaction to exceptional (gross) stress Caregiver's other noncompliance with patient's medication regimen Disorientation Normal [facility] GROUPNOTE Inpatient Behavioral Health Services Department: [facility] 6 Dual Diagnosis Group Name: Dual Diagnosis Group Topic: Distress Tolerance Skills Group Date: 09/05/2022 Start Time: 1300 End Time: 1345 Facilitators: STEVIE Alvarez Number of Participants: 2 Group Focus: other Distraction Treatment Modality: Behavior Modification Therapy and Cognitive Behavioral Therapy Purpose: enhance coping skills Summary: The group began with each group member sharing their name and one goal they are working on today. The group read a daily meditation from The Language of Letting Go book on the benefits of strengthening both hemispheres of the brain as a way of getting temporary relief from emotional pain. Name: Elizabeth Mosley Date of : 1975 MR: [id number] Interventions utilized were Cognitive Behavioral Therapy (CBT) Patient's Response to Intervention: Pt came to group but struggled with staying awake. When asked what her goal for today was, pt responded I am working through grief Mental Status Exam: Appearance: Appropriately dressed and groomed Mood: Depressed and Dysphoric Affect: Flat Level of Participation: minimal Quality of Participation: drowsy Interactions with others: gave feedback Behavior: Withdrawn Alertness: Falling asleep Speech: Soft-spoken Cognition: Easily distracted Thought Process: Blocking Thought Content: Preoccupations Progress Towards Goal(s): Minimal Additional Comments: N.A Next Step: Continue with current services Patients Problems: Patient Active Problem List Diagnosis Bipolar 1 disorder, manic, mild (CMS/HCC) (HCC) Agitation states as acute reaction to exceptional (gross) stress Caregiver's other noncompliance with patient's medication regimen Disorientation Normal [facility] GROUPNOTE Inpatient Behavioral Health Services Department: [facility] ACTIVITIES THERAPY Group Name: Gentle Stretch Group Topic: Mindfulness Group Date: 09/04/2022 Start Time: 1405 End Time: 1429 Facilitators: Santa Peña Number of Participants: 4 Treatment Modality: Recreation Therapy Purpose: reinforce self-care and mind/body connection Summary: Gentle Stretch - To allow Patients the opportunity to engage in gentle stretching from a chair. During the intervention Patients are encouraged to be present in the movements as a means to connect mind and body. Patients are expected to practice self-care by not pushing they're limits and instead working within them. Support is offered as needed to meet this expectation. Name: Elizabeth Mosley Date of : 1975 MR: [id number] Interventions utilized were Modeling/skills training Patient's Response to Intervention: Patient was able to meet expectations for group without support required though participated minimally. Patient was falling asleep through much of group. Patient denied any discomfort during the intervention and left prior to the end of group. Patient did not return. Continue to engage Patient in groups to address stated treatment goals and objectives. Appearance: patient falling asleep much of the time Affect: Appropriate with interaction Level of Participation: minimal Quality of Participation: cooperative and passive Interactions with others: na Behavior: Passive much of the time Alertness: Falling asleep Speech: Appropriate Patients Problems: Patient Active Problem List Diagnosis Bipolar 1 disorder, manic, mild (CMS/HCC) (HCC) Agitation states as acute reaction to exceptional (gross) stress Caregiver's other noncompliance with patient's medication regimen Disorientation [facility] GROUPNOTE inpatient Behavioral Health Services Department:[facility] activities Therapy Group Name: Activity Therapy Group Topic: Goals Group Date: 09/05/2022 Start Time: 844 End Time: 919 Facilitators: Renee Borden Number of Participants: 3 Group Focus: setting goals Treatment Modality: Activity Therapy Purpose: express feelings and reinforce self-care Summary: Patient will focus setting goal identifying positive steps to wellness resources and steps to complete. Discussion benefits of receiving support and encouragement. Name: Elizabeth Mosley Date of : 1975 MR: [id number] Interventions utilized were Building rapport and engagement Patient Response to Intervention: Patient engaged meet expectations sharing in group discussion. Will continue to offer groups also encourage participation. Appearance: Appropriately dressed and groomed Mood: Euthymic Affect: Appropriate Level of Participation: active Quality of Participation: cooperative Interactions with others: supportive Behavior: Pleasant Alertness: Alert Speech: Appropriate Patients Problems: Patient Active Problem List Diagnosis Bipolar 1 disorder, manic, mild (CMS/HCC) (HCC) Agitation states as acute reaction to exceptional (gross) stress Caregiver's other noncompliance with patient's medication regimen Disorientation [facility] Progress Noteon 09-05-2022 Progress Note Pt calm and cooperat arvin on approach with this nurse. BHT reports multiple attempts to obtain vital signs, pt continues to refuse stating leave me alone I'm sleeping. Pt complaint with scheduled medications at this time for this nurse. Pt up steady and observed wandering unit from time to time. Pt can be irritable with staff at times, pt encouraged to reach out to staff with any needs. PPE worn during interactions will continue to monitor for safety. [facility] Progress Note --- Attestation signed by Teresita Shelton MD at 09/05/2022 12:49 PM I saw and evaluated the patient, participating in the leblanc portions of the service. I reviewed the resident?s note. I agree with the resident?s findings and plan. Inpatient MDM Complexity: 1.) Patient has at least one chronic illness with severe exacerbation, and requiring 2.) Prescription drug management and high risk of morbidity without ongoing treatment due to ongoing disorganization of thoughts, anxiety, poor self care and functioning . MDM Level: high Inpatient Psychiatric Progress Note 09/05/22 Elizabeth Mosley was seen in follow up for bipolar 1 disorder, which is chronic in nature. On exam, patient was seen walking the halls. Patient reports she is doing better. She states that she is eating and sleeping well. She reports that she is able to think much clearer than when she first arrived on the unit. She states that a couple weeks ago she had tested positive for COVID and began to have COVID fog. In addition, states that she had a lot of family concerns such as her step-mother being very sick. States that she knew that her mental health would be effected and scheduled appointments with her psychiatry provider, however she came to the hospital before the appointment. Patient noticeably has a brighter effect and is more pleasant on interaction. She appears to have some thought blocking at times, but is improved throughout interaction. She reports her came to visit yesterday and has told her she looks like she is doing better. Patient is eager to be discharged as she doesn't like being in the hospital. Denies any suicidal or homicidal ideations. Denies any auditory or visual hallucinations. Medications: divalproex, 500 mg, Oral, Nightly [START ON 09/06/2022] divalproex, 500 mg, Oral, Daily LORazepam, 1 mg, Oral, BID PRN medications: acetaminophen OR acetaminophen, diphenhydrAMINE AND haloperidol lactate AND LORazepam, diphenhydrAMINE AND haloperidol AND LORazepam, hydrOXYzine pamoate, ondansetron ODT OR ondansetron, polyethylene glycol (PEG) 3350, traZODone Mental Status Examination: Vitals : BP 127/84 Pulse 101 Temp 35.8 ?C (96.5 ?F) (Temporal) Resp 18 Ht 1.676 m (5' 6) Wt 113 kg (250 lb) SpO2 100% BMI 40.35 kg/m? APPEARANCE: Fairly groomed. BEHAVIOR: normal PSYCHOMOTOR: within normal limits SPEECH: Coherent and Regular rate, rhythm, volume and articulation LANGUAGE: Naming intact MOOD: Euthymic AFFECT: Euthymic, full-range THOUGHT PROCESS: Blocking, but improving THOUGHT CONTENT: normal PERCEPTIONS/HALLUCINATI ONS: denies ABSTRACTION: fair INSIGHT: fair, including concerning psychiatric condition. JUDGMENT: fair, including concerning psychiatric condition. ORIENTATION: Appropriate to age, Person, and Place MEMORY: recent and remote memory intact ATTENTION SPAN: good CONCENTRATION: good FUND OF KNOWLEDGE: good GAIT: Within normal limits ROS: [x] All negative/unchanged except if checked. Explain positive(checked items) below: [] Constitutional [] Eyes [] Ear/Nose/Mouth/Throat [] Respiratory [] CV [] GI [] [] Musculoskeletal [] Skin/Breast [] Neurological [] Endocrine [] Heme/Lymph [] Allergic/Immunologic Explanation: ASSESSMENT: 1.) Unspecified mood disorder 2.) Catatonia Patient symptoms :are improving Patient continues to need, on a daily basis, active treatment furnished directly by or requiring the supervision of inpatient psychiatric personnel. Treatment Plan: Increase patient's Depakote to 500 mg in morning and 500 mg nightly. Continue ativan 1 mg BID Continue Current Medications if not otherwise stated. Will continue to titrate medications and assess for effectiveness and tolerability. Continue Follow-up. Continue crisis intervention oriented psychotherapy, group and milieu therapies. Social work and transitional care continue to assist with necessary family liaison and discharge planning. Pt expressed agreement and understanding with treatment plan. PSYCHOTHERAPY/COUNSELIN G: Supportive, therapeutic interview [facility] Progress Note Pt walking in [place] when approached by RN for assessment. Proper PPE worn during interaction. Pt pleasant, cooperative, and medication compliant. Pt is however very fixated on medications and doses. Pt states, I am doing better. I slept okay. Emotional support provided. Pt denies SI/HI and makes verbal contract for safety on unit. Pt encouraged to seek staff with any questions/concerns/need s. Will continue to monitor pt for safety on unit. [facility] GROUPNOTEon 09-04-2022 GROUPNOTE Inpatient Behavioral Health Services Department: [facility] ACTIVITIES THERAPY Group Name: [facility] Group Topic: Other Group Date: 09/04/2022 Start Time: 1030 End Time: 1100 Facilitators: Caio Hernadez Number of Participants: 6 Group Focus: anxiety, communication, and relaxation Purpose: express feelings and reinforce self-care Summary: Pts will choose a song from a given list. Pts will share how the song has impacted their life or how the song is meaningful to them. Pts will have the opportunity to listen, sing, or otherwise perform the song with the therapist if they desire. Name: Elizabeth Mosley Date of : 1975 MR: [id number] Interventions utilized were Building rapport and engagement and Empathic listening Patient's Response to Intervention: Pt voiced improvement, but slept through most of the group Mental Status Exam: Appearance: Appropriately dressed and groomed Mood: Euthymic Affect: Appropriate Level of Participation: moderate Quality of Participation: drowsy Interactions with others: supportive Behavior: Pleasant Alertness: Drowsy Speech: Appropriate and Soft-spoken Next Step: Continue with current services Patients Problems: Patient Active Problem List Diagnosis Bipolar 1 disorder, manic, mild (CMS/HCC) (HCC) Agitation states as acute reaction to exceptional (gross) stress Caregiver's other noncompliance with patient's medication regimen Disorientation Normal [facility] Progress Noteon 09-04-2022 Progress Note Pt denies SI/HI AH/V H at this time, pt observed socializing with peers in dayroom. Pt bright and cooperative on approach, pt will randomly start rambling and going on tangents. Pt complaint with scheduled medications, pt reports high levels of anxiety. Pt offered PRN vistaril for anxiety, pt encouraged to reach out to staff with any needs or concerns. PPE worn during interactions will continue to monitor for safety. [facility] Progress Note Elizabeth has been mor e talkative today, with appropriate conversation. Reviewed scheduled and PRN medications with her, and she verbalized understanding. Is asking to start on Ozempic for weight loss, as she states she has discussed this with her own physician. Met with [facility] this morning, and attended group. Denied any SI/HI. [facility] Progress Note Pt anxious and sligh tly guarded during interactions and assessments. Pt denies SI/HI AH/VH at this time, pt complaint with scheduled medications. Pt made complaints of N/V and anxiety PRN vistaril and zofran given at 2306. Pt observed pacing hallway for most of this shift, pt encouraged to reach out to staff with any other needs or concerns. PPE worn during interactions will continue to monitor for safety. [facility] GROUPNOTEon 09-03-2022 GROUPNOTE inpatient Behavioral Health Services Department: [facility] ACTIVITIES THERAPY Group Name: [facility] Group Topic: Other Group Date: 09/03/2022 Start Time: 1020 End Time: 1100 Facilitators: Renee Borden Number of Participants: 4 Group Focus: Leisure, card game Treatment Modality: Activity Therapy Purpose: enhance coping skills Summary: Patient will focus on game playing activities a game that is organized and meant to enhance the therapeutic experience patient will learn games ,skills and techniques Q&A. Name: Elizabeth Mosley Date of : 1975 MR: [id number] Interventions utilized were Building rapport and engagement Patient Response to Intervention: Patient actively participated in group . Will continue to offer group activity and encourage group participation. Appearance: Appropriately dressed and groomed Affect: Appropriate Level of Participation: active Quality of Participation: cooperative Interactions with others: supportive Behavior: Pleasant Alertness: Alert Speech: Appropriate Patients Problems: Patient Active Problem List Diagnosis Bipolar 1 disorder, manic, mild (CMS/HCC) (HCC) Agitation states as acute reaction to exceptional (gross) stress Caregiver's other noncompliance with patient's medication regimen Disorientation [facility] Progress Noteon 09-03-2022 Progress Note Elizabeth denies any suicidal thoughts. Reviewed ordered medications with pt and she verbalized understanding. Compliant with AM meds. Behavior calm. [facility] Progress Note Pt calm and cooperat arvin on the unit. Mood is sad and affect is blunted. Voicing no SI and denies any AH/VH. Compliant with medications. Pt is guarded and conversation is minimal. Emotional support given. [facility] GROUPNOTEon 09-02-2022 GROUPNOTE Inpatient Behavioral Health Services Department: [facility] ACTIVITIES THERAPY Group Name: [facility]ord[facility]ov[facility] Group Topic: Other Group Date: 09/02/2022 Start Time: 1500 End Time: 1530 Facilitators: Caio Hernadez Number of Participants: 4 Group Focus: anxiety, communication, and relaxation Purpose: express feelings and reinforce self-care Summary: Pts will choose a song from a given list. Pts will share how the song has impacted their life or how the song is meaningful to them. Pts will have the opportunity to listen, sing, or otherwise perform the song with the therapist if they desire. Name: Elizabeth Mosley Date of : 1975 MR: [id number] Interventions utilized were Building rapport and engagement and Empathic listening Patient's Response to Intervention: Pt voiced improvement Mental Status Exam: Appearance: Appropriately dressed and groomed Mood: Euthymic Affect: Blunted Level of Participation: when cued Quality of Participation: attentive Interactions with others: supportive Behavior: Interactive Alertness: Drowsy Speech: Appropriate Next Step: Continue with current services Patients Problems: Patient Active Problem List Diagnosis Bipolar 1 disorder, manic, mild (CMS/HCC) (HCC) Agitation states as acute reaction to exceptional (gross) stress Caregiver's other noncompliance with patient's medication regimen Disorientation [facility] GROUPNOTE Inpatient Behavioral Health Services Department: [facility] 7 Stepdown Group Name: dual diagnosis Group Topic: Personal Responsibility Group Date: 09/02/2022 Start Time: 1300 End Time: 1355 Facilitators: STEVIE Goff Number of Participants: 5 Group Focus: self-awareness Treatment Modality: Behavior Modification Therapy and Psychoeducation Purpose: enhance coping skills, express irrational fears, and increase insight or knowledge Summary: Pt was Actively Engaged and Receptive. Pt was Able to verbalize current knowledge/experience, Able to verbalize/acknowledge new learning, Able to retain information and Capable of insight. Pt was able to express which ways they have self-sabotaged themselves. Pt reported, Name: Elizabeth Mosley Date of : 1975 MR: [id number] Interventions utilized were Psychoeducation and Modeling/skills training Patient's Response to Intervention: Pt attended group and became agitated during group and ended up leaving about half way through. Pt was walking around group room frustrated that she was in the hospital and wanting to Mental Status Exam: Appearance: Appropriately dressed and groomed Mood: agitated Affect: Inappropriate Level of Participation: active Quality of Participation: disruptive Interactions with others: did not engage with others Behavior: Agitated Alertness: Alert Speech: Pressured Cognition: Intact Thought Process: Tangential Thought Content: No evidence of psychosis/delusions Progress Towards Goal(s): None Additional Comments: Pt expressed frustrations with nursing staff for giving her medication in hallway, I don;t take that medication. Pt also frustrated with part of group topic on Control/Expectations/Hermann undaries. Pt wanting answers to what she was to supposed to do different to not end up in hospital. [facility] stated that question would better be discussed in a one to one counseling session, not during group and that [facility] had no background on patient that an answer could be adequately formed. Encouraged Pt to engage with individual counseling after discharge. Next Step: Continue with current services Patients Problems: Patient Active Problem List Diagnosis Bipolar 1 disorder, manic, mild (CMS/HCC) (HCC) Agitation states as acute reaction to exceptional (gross) stress Caregiver's other noncompliance with patient's medication regimen Disorientation [facility] GROUPNOTE Inpatient Behavioral Health Services Department: [facility] ACTIVITIES THERAPY Group Name: Leslie Group Topic: Emotional Regulation Skill Group Date: 09/02/2022 Start Time: 1030 End Time: 1100 Facilitators: Debi Hunt Number of Participants: 3 Group Focus: feeling awareness/expression Treatment Modality: Music Therapy Purpose: enhance coping skills Summary: Pt was given the opportunity to share a song that has been helpful to them in a difficult time or makes them feel better with the group. Pt was asked to give feedback to peer choices. Discussed how music can be used as a coping skill and for emotional regulation and expression. Name: Elizabeth Mosley Date of : 1975 MR: [id number] Interventions utilized were recreational music therapy Patient's Response to Intervention: Pt wandered in and out of group with minimal interaction. Did not choose song, but did sing to a song chosen by a peer. Next Step: Continue with current services Patients Problems: Patient Active Problem List Diagnosis Bipolar 1 disorder, manic, mild (CMS/HCC) (HCC) Agitation states as acute reaction to exceptional (gross) stress Caregiver's other noncompliance with patient's medication regimen Disorientation [facility] Progress Noteon 09-02-2022 Progress Note ACTIVITY THERAPY ASSESSMENT Met with patient for activity therapy assessment. Reviewed diagnosis, presenting complaint, current living situation, cultural/spiritual preferences, education level, vocational status and mental status at time of this assessment. Diagnosis (per chart review): bipolar Presenting Problem: change in mental status Does the patient identify any cultural/spiritual influences that may impact patient participation with programs offered by the Activities team? Yes If Yes, describe: religious Review of Recreation Therapy Involvement/Interests Identify types of leisure activities patient reports doing in their free time? manas Is patient satisfied with current leisure lifestyle? Yes Leisure Barriers: none Review of Music Therapy Involvement/Interests Favorite Band/Artist: none Musical Preferences: religious Music Experiences/Skills: none Use of Music: Gnosticism Level of recent/current engagement in musical activities identified above: Listens often Music Triggers/Adverse reactions: none Review of Other Diversionary Activities/Interests Identify any additional activities/hobbies/even ts in which patient participates on a regular basis: none Is patient able to identify the wellness benefits of engaging in recreation, music, or other diversionary activities? No If Yes, describe: n/a If No, is patient willing to consider participating in programming offered by the Activities team to experience the potential wellness benefits? Yes Was Patient provided information on unit programming, including types of activities and program schedule for the unit? Yes Activities Therapy Treatment Plan Goal(s): symptom stabablization Objective(s): attend group and partiicpate without interference from symptoms Intervention: Pt will be offered 1 music therapy or recreation therapy group daily and 2 diversionary milieu groups. Tisha Hunt MT-EITAN [facility] Progress Note Pt up and about on t he unit, wandering the hallways. Pt has a blank stare on her face at times. Elizabeth refused her Ativan this am, will continue to monitor for safety on the unit. [facility] Progress Note Pt refused Ativan. Normal [facility] Progress Note --- Attestation signed by Teresita Shelton MD at 09/02/2022 4:45 PM I saw and evaluated the patient, participating in the leblanc portions of the service. I reviewed the resident?s note. I agree with the resident?s findings and plan. Inpatient MDM Complexity: 1.) Patient has at least one chronic illness with severe exacerbation, and requiring 2.) Prescription drug management and high risk of morbidity without ongoing treatment due to ongoing thought disorganization, poor self care and functioning, she is also been invasive into other patients space requiring as needed medications, she is not safe for discharge. MDM Level: high Inpatient Psychiatric Progress Note 09/02/22 Elizabeth Mosley was seen in follow up for bipolar 1 disorder, which is chronic in nature. On exam, patient was seen walking the halls. Patient reports she is doing okay. Reports yesterday was a bad day. She states that she was brought in by family because they said I wasn't doing well. Patient states she has no sense of time and cannot give a timeline of events. Patient reports she has been compliant with her medication of Depakote of 250 mg in morning and 500 mg at night. 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 She does endorse her father recently, unable to state when. Patient is open to medication changes, but is cautious to which. She denies any suicidal or homicidal ideation. Denies any auditory or visual hallucinations. Per staff, patient has been invasive of other patient's space. She was B52'd yesterday. Per nursing, there were concerns the patient was laying on towel naked in her room. Patient states that she was drying herself off. Medications: divalproex, 250 mg, Oral, Daily divalproex, 500 mg, Oral, Nightly influenza, 0.5 mL, IntraMUSCular, Once LORazepam, 1 mg, Oral, BID PRN medications: acetaminophen OR acetaminophen, cloNIDine, diphenhydrAMINE AND haloperidol lactate AND LORazepam, diphenhydrAMINE AND haloperidol AND LORazepam, hydrOXYzine pamoate, ondansetron ODT OR ondansetron, polyethylene glycol (PEG) 3350, traZODone Mental Status Examination: Vitals : BP 122/71 Pulse 95 Temp 36.3 ?C (97.3 ?F) (Temporal) Resp 20 Ht 1.676 m (5' 6) Wt 113 kg (250 lb) SpO2 98% BMI 40.35 kg/m? APPEARANCE: Disheveled. BEHAVIOR: avoids eye contact and uninterested PSYCHOMOTOR: psychomotor retardation SPEECH: Coherent and Regular rate, rhythm, volume and articulation LANGUAGE: Naming intact MOOD: Dysphoric AFFECT: Flat THOUGHT PROCESS: Blocking THOUGHT CONTENT: minimal PERCEPTIONS/HALLUCINATI ONS: denies ABSTRACTION: fair INSIGHT: poor, including concerning psychiatric condition. JUDGMENT: poor, including concerning psychiatric condition. ORIENTATION: Appropriate to age, Person, and Place MEMORY: global memory impairment noted ATTENTION SPAN: poor CONCENTRATION: poor FUND OF KNOWLEDGE: poor GAIT: Within normal limits ROS: [x] All negative/unchanged except if checked. Explain positive(checked items) below: [x] Constitutional [] Eyes [] Ear/Nose/Mouth/Throat [] Respiratory [] CV [] GI [] [] Musculoskeletal [] Skin/Breast [] Neurological [] Endocrine [] Heme/Lymph [] Allergic/Immunologic Explanation: confusion ASSESSMENT: 1.) Unspecified mood disorder 2.) Catatonia Patient symptoms :are improving Patient continues to need, on a daily basis, active treatment furnished directly by or requiring the supervision of inpatient psychiatric personnel. Treatment Plan: Increase patient's Depakote to 250 mg in morning and 500 mg nightly. Start ativan 1 mg BID Continue Current Medications if not otherwise stated. Will continue to titrate medications and assess for effectiveness and tolerability. Continue Follow-up. Continue crisis intervention oriented psychotherapy, group and milieu therapies. Social work and transitional care continue to assist with necessary family liaison and discharge planning. Pt expressed agreement and understanding with treatment plan. PSYCHOTHERAPY/COUNSELIN G: Supportive, therapeutic interview [facility] Psych Noteon 09-02-2022 Psych Note Urine specimen collected and sent to lab at 0540 [facility] Psych Note Pt refused lab draw this morning. [facility] Psych Note Pt having very bizar re behaviors last night, was out in day room getting very close and into peers personable space, Pressing her face against glass looking into nurses station, attempting to get out of door by using her ID band, Pt laughs inappropriately, Put her call light on from bathroom and nurse found pt laying naked in floor on a towel, Pt needed several commands to get off floor before she finally did, Pt states she did not fall. Pt was medicated with B52 and finally settled down and fell asleep. Safety maintained and will monitor her closely. [facility] Psych Note Pt having very bizar re behaviors, Pressing face against glass to nurses station, laughs inappropriately, getting very close and into peers personal space, attempting to open doors with her ID band, Pt went down to room and put her bathroom call light on, when nurse entered pt was naked and laying in bathroom floor on a towel, pt states she did not fall, asked pt to get off floor and she proceeded to scoot across floor then got on hands and knees with bare buttocks in air and released gas in front of nurse. Pt did finally get off floor and got dressed then into bed, Pt was medicated and resting quietly in room. Safety maintained on unit. [facility] 09-01-2022 [facility] Psycho-Social Assessment (Social Work) Date: 09/01/2022 Patient Name: Elizabeth Mosley : 1975 Patient is a poor historian due to mental state, staff will reach out to daughters for collateral. Limited info in chart review. Identifying Information: Pt is a 47 yr old b/f. Presenting Problem: Pt presented to ED with family after mental decline in community. Patient family reports confusion with lack of sleep, some delusions, they believe she is not taking medications as prescribed per ED report. Psychiatric History: unclear history of whether she is seeing a psychiatrist or if her pcp is prescribing. Substance Abuse/Use: tox screen negative Medical/Self-care Issues: none noted Legal/Trauma/ History: unknown Family Constellation/Childhood History: unknown Education/Work: unknown Cultural/Spirituality/L eisure: unknown Support Systems/Collateral Information: daughters: Mayra Adam [phone] Maddy Medrano [phone] C-SSRS Actual Attempt (Past 3 Months): (unknown due to pt's mental state and lack of collateral info from chart review) Suicidal Ideation: (unknown) Activating Events (Recent): (unknown , family reports recent decline) Treatment History: Previous psychiatric diagnoses and treatments (pt is on psychiatric medications, unclear who provider is) Other Risk Factors: pt unable to assist in her assessment due to mental state, pt lives in [facility] unknown provider Clinical Status (Recent): Mixed affective episode (e.g. Bipolar) Protective Factors (Recent): Supportive social network or family Plan: to obtain more collateral information on pts history and treatment provider. Stabilize pt and schedule appropriate follow up care. Pt is not signed in/unknown if pt has decision maker. Comment: Please note this report has been produced using speech recognition software and may contain errors related to that system including errors in grammar, punctuation, and spelling, as well as words and phrases that may be inappropriate. If there are any questions or concerns please feel free to contact the dictating provider for clarification. [facility] CT HEAD WO IV CONTRASTon CT HEAD WO IV CONTRAST Patient Name: ELIZABETH STEVENS : 1975 Exam Date/Time: 09/01/2022 00:40 Procedure: CT HEAD WO IV CONTRAST Ordering Provider: ANGELES STEPHEN Reason For Exam: Mental status change, unknown cause CT HEAD WITHOUT CONTRAST: CLINICAL INDICATION: Mental status change. COMPARISON: none TECHNIQUE: [address] images through the brain. Sagittal and coronal reformatted images provided. Dose reduction was employed with automated exposure control. FINDINGS: Ventricles and extra-axial spaces: Cerebral ventricles and sulci are normal in size and configuration. No extra-axial fluid collection. Cerebral and cerebellar parenchyma: No abnormal areas of decreased or increased parenchymal density. No mass, mass effect or acute cortical infarct. Hemorrhage: None. Brainstem: Normal. Visualized paranasal sinuses: Right posterior ethmoid sinus mucosal thickening. Mastoid air cells: Normal. Visualized orbits: Normal. Calvarium and skull base: Normal. Other: Empty sella syndrome. IMPRESSION: No acute intracranial process. Right posterior ethmoid sinus mucosal thickening. Report Dictated on Electronically Signed By: Henry Manuel Electronically Signed Date/Time: 09/01/2022 1:08 AM EST [facility] Consulton 09-01-2022 [facility] Medicine Consult Patient - Elizabeth Mosley, Age - 47 y.o. - 1975 Room Number - @[email or web address]@ [facility] - Teresita Shelton MD Primary Care Physician - No primary care provider on file. [facility] # - [id number] Date of Admission - 08/31/2022 11:59 PM Hospital Day - 0 Reason for Consult: Medical Management HISTORY OF PRESENT ILLNESS: Elizabeth is a 47 y.o. female pmhx below. I reviewed the chart and discussed with RN. Per chart review, patient presented to the ED for evaluation and treatment. Family brought the patient in states she has been having a change in mental status she has not been taking her medications she has a history of bipolar. Patient had some mild tachycardia, labs unremarkable except for a mild UTI. Patient was medically cleared and admitted for IP psychiatric treatment. [facility] [place] consulted for medical management for UTI. On exam, patient is lying prone in bed in no acute distress. Patient is drowsy but arouses to her name. Initially patient was cooperative with minimal verbal communication, but did deny any urinary symptoms by saying no. Patient then became irritable with my questioning. She got up from her bed and preceded to walk out her room and then came back to her room. Patient mumbled no and waved her hand at me to stop. Unable to complete ROS due to patients mentation. Denies chest pain, sob, abdominal pain, nausea, vomiting, diarrhea, constipation, fevers, or chills. Past Medical History: No past medical history on file. Past Surgical History: No past surgical history on file. Medications: [START ON 09/02/2022] influenza, 0.5 mL, IntraMUSCular, Once PRN medications: acetaminophen OR acetaminophen, cloNIDine, diphenhydrAMINE AND haloperidol lactate AND LORazepam, diphenhydrAMINE AND haloperidol AND LORazepam, hydrOXYzine pamoate, ondansetron ODT OR ondansetron, polyethylene glycol (PEG) 3350, traZODone Allergies: Patient has no known allergies. Social History: Social History Socioeconomic History Marital status: Single Spouse name: Not on file Number of children: Not on file Years of education: Not on file Highest education level: Not on file Occupational History Not on file Tobacco Use Smoking status: Unknown Smokeless tobacco: Not on file Substance and Sexual Activity Alcohol use: Not on file Drug use: Defer Sexual activity: Defer Other Topics Concern Not on file Social History Narrative Not on file Social Determinants of Health Financial Resource Strain: Unknown Difficulty of Paying Living Expenses: Patient refused Food Insecurity: Unknown Worried About Running Out of Food in the Last Year: Patient refused Ran Out of Food in the Last Year: Patient refused Transportation Needs: Unknown Lack of Transportation (Medical): Patient refused Lack of Transportation (Non-Medical): Patient refused Physical Activity: Unknown Days of Exercise per Week: Patient refused Minutes of Exercise per Session: Patient refused Stress: Unknown Feeling of Stress : Patient refused Social Connections: Unknown Frequency of Communication with Friends and Family: Patient refused Frequency of Social Gatherings with Friends and Family: Patient refused Attends Judaism Services: Patient refused Active Member of Clubs or Organizations: Patient refused Attends Club or Organization Meetings: Patient refused Marital Status: Patient refused Intimate Partner Violence: Unknown Fear of Current or Ex-Partner: Patient refused Emotionally Abused: Patient refused Physically Abused: Patient refused Sexually Abused: Patient refused Housing Stability: Unknown Unable to Pay for Housing in the Last Year: Patient refused Number of Places Lived in the Last Year: Not on file Unstable Housing in the Last Year: Patient refused Family History: @FAMHXNH@ REVIEW OF SYSTEMS: 10 point ROS obtained, as per HPI, otherwise NEG Physical Exam: Vitals: BP (!) 146/109 (BP Location: Left arm, Patient Position: Sitting) Pulse 110 Temp 36.4 ?C (97.6 ?F) (Temporal) Resp 16 Ht 5' 6 (1.676 m) Wt 250 lb (113 kg) SpO2 99% BMI 40.35 kg/m? BMI Classification: Morbidly Obese (>40.0) Pulse Ox: SpO2 Av.2 % Min: 97 % Max: 99 % Supplemental O2: General appearance: No apparent distress, appears stated age and cooperative with exam. HEENT: Normal cephalic, atraumatic without obvious deformity. Pupils equal, round, and reactive to light. Extra ocular muscles intact. Conjunctivae/corneas clear. Neck: Supple, with full range of motion. No jugular venous distention. Trachea midline. No lymphadenopathy. Respiratory: Normal respiratory effort. Clear to auscultation, bilaterally without Rales/Wheezes/Rhonchi. Cardiovascular: Regular rate and rhythm with normal S1/S2 without murmurs, rubs or gallops. Abdomen: Soft, non-tender, non-distended with normal bowel sounds. No rebound or guarding. M (more content not included)... Normal [facility] ECG 12-LEADon 09-01-2022 ECG 12-LEAD IMPRESSION: Sinus tachycardia Left axis deviation normal intervals no st elevations Electronically Signed On 08-31-2022 22:02:07 EST by Jermaine Cedeño Normal [facility] ED Nursing Noteon 09-01-2022 ED Nursing Note Pt transported to [facility] with zaid Lynne and protective services. Per previous nurse all belongings were taken home by sister and pt has no belongings bags in ED. Pt stable and ambulatory. Paperwork given to zaid Lynne. Claire Dubois RN 09/01/22 1832 [facility] ED Nursing Note Report called to [place] [id number] nurse. Claire Dubois RN 09/01/22 1139 [facility] ED Nursing Note Rounded on patient. Pt resting comfortably supine, breathing unlabored, no signs of distress noted. Will continue to monitor. Claire Dubois RN 09/01/22 4588 [facility] ED Nursing Note Pt transferred to [facility] by Mar ZURITA and protective services. Kailee Rhodes 09/01/22 0413 [facility] ED Nursing Note PT has been wanded b y protective services. Belonging have been checked and sent home with daughter. Mar Webber RN 09/01/22 0333 [facility] ED Nursing Note PT changed into 2 go wns and gripper socks. PT daughter is taking bags and belongings home with her. Protective services called. Mar Webbre RN 09/01/22 0326 [facility] ED Nursing Note PT demeanor is aggressive. PT was asked to show pill she swallowed pt showed pill still in mouth then swallowed aggressivly and put her face into my face with her tongue out and mouth open making gurgle noises towards me. PT refused to get into 2 gowns and gripper socks. SUPERINTENDENT CIRCUS notified. Mar Webber RN 09/01/22 0303 [facility] ED Nursing Note PT is sitting up in bed and no longer on her stomach. PT still will not answer if she is in pain. Call light within reach. Fluid bolus is complete. Mar Webber RN 09/01/22 0153 [facility] ED Nursing Note PT laying on stomach e towards the top of ER bed. RN asked PT if she is in pain she stated no. RN asked the PT if there was anything I could do for her, PT would not respond. Family states PT has been not taking her bipolar medication and has altered mental status. PT can state who she is, where she is and the year, but can not identify the correct president. PT A&Ox3. Call light within reach. Family at bedside. Mar Webber RN 09/01/22 0132 [facility] ED Nursing Note Pt presents to ed wi th c/o altered mental status. Pt family states patient has not been taking some of her home medications over the past few weeks and she has become more confused and weak over the last week. Pt A&OX3 at present time. Unable to tell this RN who the president is. Pt slow to respond and soft spoken. Pt denies pain, denies any other symptoms at present time. Call light in reach, family at bedside. Ubaldo Jackson RN 09/01/22 0059 [facility] Progress Noteon 09-01-2022 Progress Note Pt has been on the unit, having a difficult time keeping her eyes open. Pt has been encouraged multiple times to return to her room to lay down in her bed. Pt has yet to lay down. Will continue to encouraged pt to lay down. Will continue to monitor. [facility] Progress Note Pt informed an urine specimen is needed, specimen cup provided. Pt just stared at this RN with no interaction after instructions were provided. [facility] Progress Note Nutrition rescreen completed. Chart reviewed. Patient to be monitored and followed by the diet extrusion technician. [facility] Progress Note Pt given 2 mg of ati van PO per provider for possible cationic symptoms. Will continue to monitor for safety and medication effectiveness. [facility] Progress Note Pt A&Ox1, pt oriente d to self only multiple attempts made to reorient pt to time, place and situation. Pt refuses to answer any admission questions at this time, pt refuses to sign any and all admission paperwork. Pt oriented to room and unit, pt given folder containing pt's safety, rights and unit policies. Pt encouraged to reach out to staff with any needs or concerns, will continue to monitor for safety. [facility] ED Provider Noteon 3 ED Provider Note Emergency Department Encounter [facility] EMERGENCY DEPT Patient: Elizabeth Mosley : 1975 Date of Evaluation: 08/31/2022 ED Provider: SKIP Aaron CNP I saw the patient as the Clinician in Triage and performed a brief history and physical exam, established acuity, and ordered appropriate tests to develop basic plan of care. I wore appropriate PPE for the entirety of this encounter. Brief HPI: In brief, Elizabeth Mosley is a 47 y.o. female that presents for evaluation and treatment patient family brought the patient in states she has been having a change in mental status she has not been taking her medications she has a history of bipolar and she denies any chest pain or shortness of breath she speaking in full sentences able to swallow her her own secretions she is asking questions and overtly she is somewhat confused denies any problems or urination frequency urgency burning discharge. Focused Physical exam: GENERAL: The patient appears nourished and normally developed. Vital signs as documented. EYES: Head exam is unremarkable. No scleral icterus or orbital trauma noted. HEENT: Mucous membranes moist. Nares patent without copious rhinorrhea. No enlarged lymphadenopathy. LUNGS: Lungs are clear to auscultation, without any respiratory distress. CARDIAC: Rhythm is regular. No dysrythmias or murmurs. ABDOMEN: Nontender with no obvious masses, and no peritoneal signs. EXTREMITIES: Non edematous, with no obvious deformities. SKIN: Good color, with no significant rashes. No pallor. NEURO: No obvious neurological deficits, normal sensation and strength bilaterally. patient able to ambulate. Plan/MDM: We will obtain a CBC BMP urine drug screen urine hCG drug screen troponin EKG chest x-ray EtOH disposition pending results of imaging laboratory studies. Patients symptoms are consistent with sepsis, severe sepsis, or septic shock (If yes use .sepsiscoremeasure): None Please see subsequent provider note for further details and disposition (Comment: Please note this report has been produced using speech recognition software and may contain errors related to that system including errors in grammar, punctuation, and spelling as well as words and phrases that may be inappropriate. If there are any questions or concerns please feel free to contact the dictating provider for clarification) SKIP Aaron CNP Acute Care [facility] SKIP Aaron CNP 08/31/22 5354 [facility] ED Provider Note Emergency Department Encounter [facility] EMERGENCY DEPT Patient: Elizabeth Mosley : 1975 Date of Evaluation: 08/31/2022 ED Supervising Physician: Anna Victor MD I independently examined and evaluated Elizabeth Mosley. This will serve as my Supervisory note and shared attestation. I did perform a substantive portion of the visit including all aspects of the Medical Decision Making. I wore appropriate PPE for the entirety of this encounter. In brief, Elizabeth Mosley is a 47 y.o. female that presents to the emergency department at the behest of her daughter for worsening symptoms of bipolar disorder including anxiety, racing thoughts, lack of sleep at night. Daughter states that she has not been consistently taking her bipolar medication, she cannot member of the top of her head which one it is. Patient seems disoriented to her. Patient is anxious, but cooperative, disoriented and does not seem to know where she is. Patient has some mild tachycardia but her labs are unremarkable except for a mild UTI which is likely only partially contributing to her symptoms. This can be treated with oral medication with [facility]. Plan will be to admit to [facility] and placed patient under pink slip. All EKG interpretations are in epiphany. All diagnostic, treatment, and disposition decisions were made by myself in conjunction with the CODY/Resident. For all further details of the patient's emergency department visit, please see their documentation. Comment: Please note this report has been produced using speech recognition software and may contain errors related to that system including errors in grammar, punctuation, and spelling, as well as words and phrases that may be inappropriate. If there are any questions or concerns please feel free to contact the dictating provider for clarification. Anna Victor MD Acute Care [facility] Anna Victor MD 09/01/22 0250 [facility] ED Provider Note EMERGENCY DEPARTMENT ENCOUNTER Pt Name: Elizabeth Mosley Birthdate 1975 Date of evaluation: 08/31/2022 ED Provider: SKIP Aaron CNP EDcare was supervised by Dr. Victor who independently examined and evaluated the patient. Please see their attestation note for further details. CHIEF COMPLAINT Change in mental status Chief Complaint Patient presents with Altered Mental Status Per family has been off of her medications for about maybe 2 weeks but over last week and half they have noticed increase confusion. Pt a&ox3 but thinks that rahat is president. Pt calm and cooperative. Pt on 25mg hydrochlorothiazide 500mg divalproex and 25 mg hydroxyzine. Pt sts stress is why pt not taking meds due to a lot of family stuff going on. Pt denies HI/SI HISTORY OF PRESENT ILLNESS (Location/Symptom, Timing/Onset, Context/Setting, Quality, Duration, Modifying Factors, Severity) Note limiting factors. I wore appropriate PPE for the entirety of this encounter. HPI Elizabeth Mosley is a 47 y.o. female who presents to the emergency department for evaluation treatment patient has been off her medicine approximately 2 weeks according to the family members as she has had increased confusion. She is not combative she is cooperative patient alert to person somewhat confused to time and place she denies any other injury or illness. She denies any suicidal homicidal ideations. She denies any fever chills or rashes or any other injury. Patient does not smoke drink or use illicit drugs. Nursing Notes were reviewed. Limitations to history: Altered mental status/confusion Outside historians: Family daughter Review of Systems GENERAL: Denies weight change, fatigue, weakness, fever HEENT: Denies trauma, headache, dizziness, visual change, ear pain, hearing change, tinnitus, rhinorrhea CARDIAC: Denies hypertension, murmur, angina, palpations, dyspnea on exertion, edema RESPIRATORY: Denies shortness of breath, wheezing, cough, sputum, asthma, COPD GI: Denies nausea, vomiting, change in bowels, abdominal pain URINARY: Denies changes in frequency/urgency, hematuria, incontinence, flank pain MUSCULOSKELETAL: Denies weakness, pain, change in ROM, redness, swelling NEURO: Denies loss in sensation, tingling, tremors, weakness, fainting or seizures ENDO: Denies heat/cold intolerance, polyuria, polydipsia, or swelling around neck PSYCH: Denies changes in mood, anxiety, depression, tension, memory complained of confusion Pertinent positives and negatives as per HPI. PAST MEDICAL HISTORY No past medical history on file. SURGICAL HISTORY No past surgical history on file. CURRENT MEDICATIONS There are no discharge medications for this patient. ALLERGIES Patient has no known allergies. FAMILY HISTORY No family history on file. SOCIAL HISTORY Social History Socioeconomic History Marital status: Single Tobacco Use Smoking status: Unknown Substance and Sexual Activity Drug use: Defer Sexual activity: Defer Social Determinants of Health Financial Resource Strain: Unknown Difficulty of Paying Living Expenses: Patient refused Food Insecurity: Unknown Worried About Running Out of Food in the Last Year: Patient refused Ran Out of Food in the Last Year: Patient refused Transportation Needs: Unknown Lack of Transportation (Medical): Patient refused Lack of Transportation (Non-Medical): Patient refused Physical Activity: Unknown Days of Exercise per Week: Patient refused Minutes of Exercise per Session: Patient refused Stress: Unknown Feeling of Stress : Patient refused Social Connections: Unknown Frequency of Communication with Friends and Family: Patient refused Frequency of Social Gatherings with Friends and Family: Patient refused Attends Judaism Services: Patient refused Active Member of Clubs or Organizations: Patient refused Attends Club or Organization Meetings: Patient refused Marital Status: Patient refused Intimate Partner Violence: Unknown Fear of Current or Ex-Partner: Patient refused Emotionally Abused: Patient refused Physically Abused: Patient refused Sexually Abused: Patient refused Housing Stability: Unknown Unable to Pay for Housing in the Last Year: Patient refused Unstable Housing in the Last Year: Patient refused SCREENINGS PHYSICAL EXAM ED Triage Vitals Temp Heart Rate Resp BP 08/31/22213208/31/[id number]/31/[id number]/31/222132 36.9 ?C (98.5 ?F) (!) 125 20 (!) 131/92 SpO2 Temp Source Heart Rate Source Patient Position 08/31/22213208/31/22213209/01/2215009/01/22 015 99 % Temporal Monitor Sitting BP Location FiO2 (%) 09/01/22 0151 -- Left arm Physical Exam GENERAL: The patient appears nourished and normally developed. Vital signs as documented. EYES: Head exam is unremarkable. No scleral icterus or orbital trauma noted. HEENT: Mucous membranes moist. Nares patent without copious rhin (more content not included)... Normal [employer] [facility] No Panel InformationOrdered By: Jermaine Cedeño on 08-31-2022 P [place] 48 degrees [employer] Phone: TX Interval 150 ms [employer] Phone: QRS [place] -30 degrees [employer] Phone: QRSD Interval 86 ms [employer] Work Phone: QT Interval 325 ms [employer] Phone: QTC Interval 454 ms [employer] Phone: T Wave [place] 47 degrees [employer] Phone: [employer] Phone: No Panel Informationon 08-31 Sinus tachycardia Left axis deviation normal intervals no st elevations Electronically Signed On 08-31-2022 22:02:07 EST by Jermaine Cedeño CV Jermaine Dee MD - 08/31/2022 IMPRESSION: Sinus tachycardia Left axis deviation normal intervals no st elevations Electronically Signed On 08-31-2022 22:02:07 EST by Jermaine Cedeño [facility] [employer] Vital signsOrdered By: Carlos Cedeño on 08-31-2022 Heart rate 118 /min bpm [employer] Work Phone: XR Chest 2 Viewson 3 1. No acute finding. Report Dictated on Electronically Signed By: Renita Shoemaker Electronically Signed Date/Time: 08/31/2022 11:04 PM EST [facility] [employer] Patient Name: ELIZABETH MOSLEY : 1975 Exam Date/Time: 08/31/2022 22:59 Procedure: XR CHEST 2 VIEWS Ordering Provider: ANGELES STEPHEN Reason For Exam: short of breath CHEST X-RAY TWO VIEWS CLINICAL INDICATION: short of breath TECHNIQUE: Frontal and lateral views of the chest. COMPARISON: None FINDINGS: Lungs are show no significant consolidation. No pleural effusion or pneumothorax. No vascular congestion. Heart size normal. Low lung volumes on the lateral view. [facility] Renita Shoemaker MD - 08/31/2022 Patient Name: ELIZABETH MOSLEY : 1975 Exam Date/Time: 08/31/2022 22:59 Procedure: XR CHEST 2 VIEWS Ordering Provider: ANGELES STEPHEN Reason For Exam: short of breath CHEST X-RAY TWO VIEWS CLINICAL INDICATION: short of breath TECHNIQUE: Frontal and lateral views of the chest. COMPARISON: None FINDINGS: Lungs are show no significant consolidation. No pleural effusion or pneumothorax. No vascular congestion. Heart size normal. Low lung volumes on the lateral view. IMPRESSION: 1. No acute finding. Report Dictated on Electronically Signed By: Renita Shoemaker Electronically Signed Date/Time: 08/31/2022 11:04 PM EST [facility] Radiology Study observation (narrative) [facility] [employer] XR Chest 2 ViewsOrdered By: Renita Shoemaker on 08-31-2022 [facility] Work Phone: Absolute lymphocyte counton 09-29-2021 Lymphocytes Auto (Unsp spec) [#/Vol] 3.64 10*3/uL 0.83-4.51 [facility] Work Phone: Basophil percentageon 2021 Basophils/100 WBC (Bld) 0.2 % 0-1 [facility] Work Phone: Bilirubin [Mass/Vol] 0.40 mg/dL 0.20-1.00 [facility] Work Phone: Comment on above: For patients on eltr ombopag therapy, use of Dimension [place] TBIL is not recommended. Chloride [Moles/Vol] 99 mmol/L 98-107 [facility] Work Phone: Cholesterol [Mass/Vol] 220 mg/dL <200 [facility] Work Phone: Comment on above: <200 mg/dL Desirable 200-240 mg/dL Borderline >240 mg/dL High Risk Eosinophils/100 WBC (Bld) 0.6 % 0-5 [facility] Work Phone: Glucose [Mass/Vol] 80 mg/dL 74-106 [facility] Work Phone: Neutrophils (Bld) [#/Vol] 4.4 10*3/uL 2.0-7.7 [facility] Work Phone: Neutrophils/100 WBC (Bld) 50.3 % 47-70 [facility] Work Phone: Potassium [Moles/Vol] 3.5 mmol/L 3.5-5.1 [facility] Work Phone: Protein [Mass/Vol] 8.3 g/dL 6.4-8.2 [facility] Work Phone: Sodium [Moles/Vol] 135 mmol/L 136-145 [facility] Work Phone: Triglyceride [Mass/Vol] 113 mg/dL [facility] Work Phone: Comment on above: The drugs N-Acetylcy steine and Metamizole may falsely depress this assay.Serum Triglycerides Reference Interval Normal <150 mg/dL Borderline high 150 - 199 mg/dL High 200 - 499 mg/dL Very High > or = 500 mg/dL WBC (Bld) [#/Vol] 8.8 10*3/uL 4.4-11.0 [facility] Work Phone: Blood erythrocytes count (nu mber/volume)on 09-29-2021 RBC (Bld) [#/Vol] 4.12 10*6/uL 4.2-5.4 [facility] Work Phone: Blood hemoglobin measurement (mass/volume)on 09-29-2021 Hemoglobin (Bld) [Mass/Vol] 12.5 g/dL 12.0-15.0 [facility] Work Phone: Blood lymphocytes/100 leukoc yteson 09-29-2021 Lymphocytes/100 WBC (Bld) 41.2 % 19-41 [facility] Work Phone: Blood monocytes/100 leukocyt eson 09-29-2021 Monocytes/100 WBC (Bld) 7.2 % 0-10 [facility] Work Phone: Blood platelet mean volumeon 09-29-2021 Platelet mean volume (Bld) [Entitic vol] 10.0 fL 6.2-12.0 [facility] Work Phone: Determination of erythrocyte mean corpuscular volume (MCV)on 09-29-2021 MCV (RBC) [Entitic vol] 92.0 fL 81-99 [facility] Work Phone: Hematocrit Auto (Bld) [Volum e fraction]on 09-29-2021 Hematocrit (Bld) [Volume fraction] 37.9 % 37-47 [facility] Work Phone: Laboratory - Chemistry and C hemistry - challengeon 09-29-2021 ALP [Catalytic activity/Vol] 114 U/L 45-117 [facility] Work Phone: ALT [Catalytic activity/Vol] 40 U/L 13-56 [facility] Work Phone: CO2 [Moles/Vol] 31.0 mmol/L 21.0-32.0 [facility] Work Phone: Globulin (S) [Mass/Vol] 4.7 g/dL 2.2-4.2 [facility] Work Phone: Urea nitrogen/Creatinine [Mass ratio] 15.7 mg/mg 10-20 [facility] Work Phone: Laboratory - Hematology and Cell countson 09-29-2021 Erythrocyte distribution width (RBC) [Entitic vol] 44.6 fL 35.1-43.9 [facility] Work Phone: Erythrocyte distribution width (RBC) [Ratio] 13.3 % 11.6-14.6 [facility] Work Phone: Immature granulocytes/100 WBC (Bld) 0.500 % 0.0-0.9 [facility] Work Phone: Comment on above: IG% - Immature Granu locytes (promyelocytes, myelocytes and metamyelocytes) > 1% indicates that a LEFT SHIFT is Present. MCH (RBC) [Entitic mass] 30.3 pg 27.0-32.0 [facility] Work Phone: Nucleated RBC/100 WBC (Bld) [Ratio] 0 % 0-5 [facility] Work Phone: MCHC Auto (RBC) [Mass/Vol]on 09-29-2021 MCHC (RBC) [Mass/Vol] 33.0 g/dL 32-36 [facility] Work Phone: No Panel Informationon 09-29 Estimated GFR (MDRD) Amer 104 mL/min >60 [facility] Work Phone: Comment on above: GFR Calc Estimated GFR (MDRD) Non-Af Amer 86 mL/min >60 [facility] Work Phone: Comment on above: Non- GFR Calc Thyroid Stimulating Hormone (TSH) 1.59 uIU/mL 0.358-3.74 [facility] Work Phone: Platelets bldon 09-29-2021 Platelets (Bld) [#/Vol] 403 10*3/uL 150-450 [facility] Work Phone: Serum or plasma albumin shannan urement (mass/volume)on 09-29-2021 Albumin [Mass/Vol] 3.6 g/dL 3.2-5.0 [facility] Work Phone: Serum or plasma albumin/glob ulin mass ratioon 09-29-2021 Albumin/Globulin [Mass ratio] 0.8 {ratio} 0.9-2.4 [facility] Work Phone: Serum or plasma calcium shannan urement (mass/volume)on 09-29-2021 Calcium [Mass/Vol] 9.3 mg/dL 8.5-10.1 [facility] Work Phone: Serum or plasma cholesterol in HDL measurement (mass/volume)on 09-29-2021 Cholesterol in HDL [Mass/Vol] 51 mg/dL [facility] Work Phone: Comment on above: The drugs N-Acetylcy steine and Metamizole may falsely depress this assay. Reference Range HDL <40 mg/dL Low HDL Cholesterol HDL >or= 60 mg/dL High HDL Cholesterol Serum or plasma cholesterol in VLDL measurement (mass/volume)on 09-29-2021 Cholesterol in VLDL [Mass/Vol] 23 mg/dL 5-40 [facility] Work Phone: Serum or plasma creatinine m easurement (mass/volume)on 09-29-2021 Creatinine [Mass/Vol] 0.76 mg/dL 0.55-1.02 [facility] Work Phone: Comment on above: The validity of the calculated GFR & GFRAA in patients over 70 years has not been determined. Clinical correlation is essential. Serum or plasma low density lipoprotein (LDL) cholesterol measurement (mass/volume)on 09-29-2021 Cholesterol in LDL [Mass/Vol] 146 mg/dL 0-130 [facility] Work Phone: Serum or plasma urea nitroge n measurement (mass/volume)on 09-29-2021 Urea nitrogen [Mass/Vol] 12 mg/dL 7-18 [facility] Work Phone: Thin prep Papanicolaou smear with manual screeningon 09-29-2021 Thin prep Papanicolaou smear with manual screening 20 U/L 15-37 [facility] Work Phone: Thin prep Papanicolaou smear with manual screening 5 5-15 [facility] Work Phone: COVID PCR, SCREENING CONGREG ATEon 01-02-2020 CORONAVIRUS 2019,PCR NOT DETECTED Normal Not Detected [facility] Comment on above: Result Comment: This assay is designed to detect the N, ORF1ab and/or S genes of SARS-CoV-2 via nucleic acid amplification. A Negative (NOT DETECTED) result does not preclude 2019-nCoV infection since the adequacy of sample collection and/or low viral burden may result in presence of viral nucleic acids below the clinical sensitivity of this test method. Negative (NOT DETECTED) result should not be used as the sole basis for treatment or other patient management decisions. Rather negative results should be combined with clinical observations, patient history, and epidemiological information to make patient management decisions. Fact sheet for providers: https://www.fda.gov/media/355019/download Fact sheet for patients: https://www.fda.gov/media/789300/download This test has received FDA Emergency Use Authorization (EUA) and has been verified by [facility] ([facility]). This test is only authorized for the duration of time that circumstances exist to justify the authorization of the emergency use of in vitro diagnostic tests for the detection of SARS-CoV-2 virus and/or diagnosis of COVID-19 infection under section 564(b)(1) of the Act, 21 U.S.C. 360bbb-3(b)(1), unless the authorization is terminated or revoked sooner. [facility] ([facility]) is certified under CLIA-88 as qualified to perform high complexity testing. This tests analytical performance characteristics have been determined by [facility]. Testing is performed at [facility] is located at [address] [place] [address] (CLIA License #[id number], CAP #[id number]). Performed By: #### C VCLA #### [facility] [address] [place] [address] COVID PCR, SCREENING CONGREG ATEon 01-01-2020 Lab Specimen Source Nasal, Nasopharyngeal Normal [facility] Comment on above: Performed By: #### C VCLA #### [facility] [address] [place] [address] .Auto Diffon 10-10-2018 Ammonia mass conc (P) 0.60 10 3/mcL Normal 0.15-1.00 [facility] ([place]) Comment on above: Performed By: #### C CATHIE LAIRD, ANEU #### [place] [address] #### CMP, GFR, LIPID, VALPR, TSH #### [address] [address] Basophils #/vol (Bld) 0.00 10 3/mcL Normal 0.00-0.19 [facility] ([place]) Comment on above: Performed By: #### C BCTHOMASIFF, ANEU #### [place] [address] #### CMP, GFR, LIPID, VALPR, TSH #### [address] [address] Basophils/100 WBC (Bld) 0.5 % Normal 0.0-2.5 [facility] ([place]) Comment on above: Performed By: #### C BCTHOMASIFF, ANEU #### [place] [address] #### CMP, GFR, LIPID, VALPR, TSH #### [address] [address] Eosinophils #/vol (Bld) 0.10 10 3/mcL Normal 0.00-0.40 [facility] ([place]) Comment on above: Performed By: #### C BC, ADIFF, ANEU #### [address] [address] #### CMP, GFR, LIPID, VALPR, TSH #### [address] [address] Eosinophils/100 WBC (Bld) 0.8 % Normal 0.0-7.0 [facility] ([place]) Comment on above: Performed By: #### C BC, ADIFF, ANEU #### [place] [address] #### CMP, GFR, LIPID, VALPR, TSH #### [address] [address] Lymphocytes #/vol (Bld) 3.50 10 3/mcL Normal 0.77-3.85 [facility] ([place]) Comment on above: Performed By: #### C BC, ADIFF, ANEU #### [place] [address] #### CMP, GFR, LIPID, VALPR, TSH #### [address] [address] Lymphocytes/100 WBC (Bld) 43.8 % Normal 10.0-50.0 [facility] ([place]) Comment on above: Performed By: #### C BC, ADIFF, ANEU #### [place] [address] #### CMP, GFR, LIPID, VALPR, TSH #### [address] [address] Monocytes/100 WBC (Bld) 7.7 % Normal 1.7-13.0 [facility] ([place]) Comment on above: Performed By: #### C BC, ADIFF, ANEU #### [place] [address] #### CMP, GFR, LIPID, VALPR, TSH #### [address] [address] Neutrophils/100 WBC (Bld) 47.2 % Normal 37.0-80.0 [facility] ([place]) Comment on above: Performed By: #### C BC, THOMASIFF, ANEU #### [address] [address] #### CMP, GFR, LIPID, VALPR, TSH #### [address] [address] .GFRon 10-10-2018 GFR 86 ml/min/1.73sqm Normal [facility] ([place]) Comment on above: Result Comment: GFR Population mean for , Non- Americans Ages 20-29 = 116 mL/min/1.73 sq.m. Ages 30-39 = 107 mL/min/1.73 sq.m. Ages 40-49 = 99 mL/min/1.73 sq.m. Ages 50-59 = 93 mL/min/1.73 sq.m. Ages 60-69 = 85 mL/min/1.73 sq.m. Ages 70+ = 75 mL/min/1.73 sq.m. Chronic Kidney Disease: Less than 60 mL/min/1.73 square meters End Stage Renal Disease: Less than 15 mL/min/1.73 square meters Performed By: #### C BC, ADIFF, ANEU #### [address] [address] #### CMP, GFR, LIPID, VALPR, TSH #### [address] [address] GFR Non- 71 ml/min/1.73sqm Normal [facility] ([place]) Comment on above: Result Comment: GFR Population mean for , Non- Americans Ages 20-29 = 116 mL/min/1.73 sq.m. Ages 30-39 = 107 mL/min/1.73 sq.m. Ages 40-49 = 99 mL/min/1.73 sq.m. Ages 50-59 = 93 mL/min/1.73 sq.m. Ages 60-69 = 85 mL/min/1.73 sq.m. Ages 70+ = 75 mL/min/1.73 sq.m. Chronic Kidney Disease: Less than 60 mL/min/1.73 square meters End Stage Renal Disease: Less than 15 mL/min/1.73 square meters Performed By: #### C BC, ADIFF, ANEU #### [place] [address] #### CMP, GFR, LIPID, VALPR, TSH #### [place] [address] .NEUABSon 10-10-2018 Neutrophils #/vol (Bld) 3.80 10 3/mcL Normal 2.85-6.16 [facility] ([place]) Comment on above: Performed By: #### C BC, ADIFF, ANEU #### [place] [address] #### CMP, GFR, LIPID, VALPR, TSH #### [place] [address] CBCon 10-10-2018 Erythrocyte distribution width Ratio (RBC) 14.0 % Normal 11.5-14.5 [facility] ([place]) Comment on above: Performed By: #### C EITAN, ADIFF, ANEU #### [place] [address] #### CMP, GFR, LIPID, VALPR, TSH #### [place] [address] Hematocrit Volume Fraction (Bld) 38.7 % Normal 37.0-47.0 [facility] ([place] Comment on above: Performed By: #### C BC, ADIFF, ANEU #### [place] [address] #### CMP, GFR, LIPID, VALPR, TSH #### [place] [address] Hemoglobin mass conc (Bld) 12.8 G/dL Normal 12.0-16.0 [facility] ([place] Comment on above: Performed By: #### C BC, ADIFF, ANEU #### [place] [address] #### CMP, GFR, LIPID, VALPR, TSH #### [place] [address] MCH Entitic mass (RBC) 30.9 pg Normal 27.0-31.2 [facility] ([place]) Comment on above: Performed By: #### C THOMAS LAIRDIFF, ANEU #### [place] [address] #### CMP, GFR, LIPID, VALPR, TSH #### [address] [address] MCHC mass conc (RBC) 33.0 G/dL Normal 33.0-37.0 [facility] ([place]) Comment on above: Performed By: #### C EITAN ADIFF, ANEU #### [place] [address] #### CMP, GFR, LIPID, VALPR, TSH #### [place] [address] MCV Entitic volume (RBC) 93.5 fL Normal 80.0-94.0 [facility] ([place]) Comment on above: Performed By: #### C CATHIE LAIRD, ANEU #### [place] [address] #### CMP, GFR, LIPID, VALPR, TSH #### [place] [address] Platelet mean volume Entitic volume (Bld) 8.5 fL Normal 7.4-10.4 [facility] ([place]) Comment on above: Performed By: #### C CATHIE LAIRD, ANEU #### [place] [address] #### CMP, GFR, LIPID, VALPR, TSH #### [place] [address] Platelets #/vol (Bld) 415 10 3/mcL High 130-400 [facility] ([place]) Comment on above: Performed By: #### C EITAN, ADIFF, ANEU #### [place] [address] #### CMP, GFR, LIPID, VALPR, TSH #### [place] [address] RBC #/vol (Bld) 4.14 10 6/mcL Low 4.20-5.40 [facility] ([place]) Comment on above: Performed By: #### C BC, ADIFF, ANEU #### [place] [address] #### CMP, GFR, LIPID, VALPR, TSH #### [address] [address] WBC #/vol (Bld) 8.10 10 3/mcL Normal 4.60-10.80 [facility] ([place]) Comment on above: Performed By: #### C BC, ADIFF, ANEU #### [place] [address] #### CMP, GFR, LIPID, VALPR, TSH #### [place] [address] CMPon 10-10-2018 Albumin mass conc 3.8 G/dL Normal 3.5-5.0 [facility] ([place]) Comment on above: Performed By: #### C BC, ADIFF, ANEU #### [place] [address] #### CMP, GFR, LIPID, VALPR, TSH #### [place] [address] Albumin/Globulin mass ratio 1.0 {ratio} Low 1.1-2.5 [facility] ([place]) Comment on above: Performed By: #### C BC, ADIFF, ANEU #### [place] [address] #### CMP, GFR, LIPID, VALPR, TSH #### [place] [address] ALP enzyme act/vol 107 U/L Normal 40-135 [facility] ([place]) Comment on above: Performed By: #### C BC, ADIFF, ANEU #### [place] [address] #### CMP, GFR, LIPID, VALPR, TSH #### [place] [address] ALT enzyme act/vol 24 U/L Normal 10-35 [facility] ([place]) Comment on above: Performed By: #### C BC, ADIFF, ANEU #### [address] [address] #### CMP, GFR, LIPID, VALPR, TSH #### [address] [address] AST enzyme act/vol 19 U/L Normal 10-40 [facility] ([place]) Comment on above: Performed By: #### C BC, ADIFF, ANEU #### [place] [address] #### CMP, GFR, LIPID, VALPR, TSH #### [address] [address] Bili Total 0.3 mg/dL Normal 0.2-1.0 [facility] ([place]) Comment on above: Performed By: #### C BC, ADIFF, ANEU #### [place] [address] #### CMP, GFR, LIPID, VALPR, TSH #### [address] [address] Calcium mass conc 9.8 mg/dL Normal 8.4-10.2 [facility] ([place]) Comment on above: Performed By: #### C BC, ADIFF, ANEU #### [place] [address] #### CMP, GFR, LIPID, VALPR, TSH #### [address] [address] Chloride molar conc 103 mmol/L Normal 98-107 [facility] ([place]) Comment on above: Performed By: #### C BC, ADIFF, ANEU #### [place] [address] #### CMP, GFR, LIPID, VALPR, TSH #### [address] [address] CO2 molar conc 28 mmol/L Normal 22-29 [facility] ([place]) Comment on above: Performed By: #### C BC, ADIFF, ANEU #### [address] [address] #### CMP, GFR, LIPID, VALPR, TSH #### [place] [address] Creatinine mass conc 0.86 mg/dL Normal 0.55-1.02 [facility] ([place]) Comment on above: Performed By: #### C BC, ADIFF, ANEU #### [place] [address] #### CMP, GFR, LIPID, VALPR, TSH #### [place] [address] Electrolyte Balance 8.0 mEq/L Normal [facility] ([place]) Comment on above: Performed By: #### C BC, ADIFF, ANEU #### [place] [address] #### CMP, GFR, LIPID, VALPR, TSH #### [place] [address] Globulin mass conc (S) 3.9 G/dL Normal [facility] ([place]) Comment on above: Performed By: #### C BC, ADIFF, ANEU #### [place] [address] #### CMP, GFR, LIPID, VALPR, TSH #### [place] [address] Glucose mass conc 78 mg/dL Normal 70-105 [facility] ([place]) Comment on above: Performed By: #### C BC, ADIFF, ANEU #### [place] [address] #### CMP, GFR, LIPID, VALPR, TSH #### [place] [address] Potassium molar conc 4.3 mmol/L Normal 3.5-5.1 [facility] ([place]) Comment on above: Performed By: #### C BC, ADIFF, ANEU #### [place] [address] #### CMP, GFR, LIPID, VALPR, TSH #### [address] [address] Protein mass conc 7.7 G/dL Normal 6.4-8.2 [facility] ([place]) Comment on above: Performed By: #### C BC, ADIFF, ANEU #### [address] [address] #### CMP, GFR, LIPID, VALPR, TSH #### [address] [address] Sodium molar conc 139 mmol/L Normal 136-145 [facility] ([place]) Comment on above: Performed By: #### C BC, ADIFF, ANEU #### [address] [address] #### CMP, GFR, LIPID, VALPR, TSH #### [address] [address] Urea nitrogen mass conc 11 mg/dL Normal 7-18 [facility] ([place]) Comment on above: Performed By: #### C BC, ADIFF, ANEU #### [address] [address] #### CMP, GFR, LIPID, VALPR, TSH #### [address] [address] Urea nitrogen/Creatinine mass ratio 13 ratio Normal 7-27 [facility] ([place]) Comment on above: Performed By: #### C BC, ADIFF, ANEU #### [address] [address] #### CMP, GFR, LIPID, VALPR, TSH #### [address] [address] LIPIDon 10-10-2018 Cholesterol in HDL mass conc 44 mg/dL Normal 40-60 [facility] ([place]) Comment on above: Performed By: #### C BC, ADIFF, ANEU #### [address] [address] #### CMP, GFR, LIPID, VALPR, TSH #### [address] [address] Cholesterol in LDL mass conc 107 mg/dL Normal 0-130 [facility] ([place]) Comment on above: Performed By: #### C BC, ADIFF, ANEU #### [address] [address] #### CMP, GFR, LIPID, VALPR, TSH #### [address] [address] Cholesterol mass conc 173 mg/dL Normal 0-200 [facility] ([place]) Comment on above: Result Comment: Chol esterol Reference Interval: Less than 200 Desirable 200-239 Borderline high risk 240 and above High risk Performed By: #### C BC, ADIFF, ANEU #### [place] [address] #### CMP, GFR, LIPID, VALPR, TSH #### [place] [address] Triglyceride mass conc 108 mg/dL Normal 0-150 [facility] ([place]) Comment on above: Result Comment: Trig lyceride Reference Interval: Less than 150 Normal 150-199 Borderline high risk 200-499 High risk 500 or higher Very high risk Performed By: #### C BC, ADIFF, ANEU #### [place] [address] #### CMP, GFR, LIPID, VALPR, TSH #### [place] [address] TSHon 10-10-2018 Thyrotropin Qn 1.33 mcIU/mL Normal 0.36-3.74 [facility] ([place]) Comment on above: Performed By: #### C BC, ADIFF, ANEU #### [place] [address] #### CMP, GFR, LIPID, VALPR, TSH #### [place] [address] VALPRon 10-10-2018 Protein mass conc 15 mcg/mL Low 50-100 [facility] ([place]) Comment on above: Performed By: #### C BC, ADIFF, ANEU #### [place] [address] #### CMP, GFR, LIPID, VALPR, TSH #### [facility] [address] [place] [address] Protein mass conc Unknown Normal [facility] ([place]) Comment on above: Performed By: #### C BC, ADIFF, ANEU #### [facility] [address] [place], [place] [address] #### CMP, GFR, LIPID, VALPR, TSH #### [facility] [address] [place] [address] Vital Signs Date Time Vital Sign Value Performing Clinician Facility 08-12-2024 21:14-0500 Body temperature 97.52 [degF] JULES ALVARADO MD [facility] 08-12-2024 21:14-0500 Diastolic Blood Pressure Non-Invasive 90 mm[Hg] JULES ALVARADO MD [facility] 08-12-2024 21:14-0500 Heart rate 69 /min JULES ALVARADO MD [facility] 08-12-2024 21:14-0500 Respiratory rate 18 /min JULES ALVARADO MD [facility] 08-12-2024 21:14-0500 Systolic Blood Pressure Non-Invasive 130 mm[Hg] JULES ALVARADO MD [facility] 09-29-2021 14:10-0400 Body mass index (BMI) [Ratio] 41.8 kg/m2 Dr. Rosa Dwyer Work Phone: [facility] Work Phone: 09-29-2021 14:10-0400 Body temperature 96.7 [degF] Dr. Rosa Dwyer Work Phone: [facility] Work Phone: 09-29-2021 14:10-0400 Body weight 113.[address] Rosa Dwyer Work Phone: [facility] Work Phone: 09-29-2021 14:10-0400 Diastolic blood pressure 82 mm[Hg] Dr. Rosa Dwyer Work Phone: [facility] Work Phone: 09-29-2021 14:10-0400 Heart rate 86 /min Dr. Rosa Dwyer Work Phone: [facility] Work Phone: 09-29-2021 14:10-0400 Respiratory rate 16 /min Dr. Rosa Dwyer Work Phone: [facility] Work Phone: 09-29-2021 14:10-0400 SaO2% (BldA) [Mass fraction] 98 % Dr. Rosa Dwyer Work Phone: [facility] Work Phone: 09-29-2021 14:10-0400 Systolic blood pressure 130 mm[Hg] Dr. Rosa Dwyer Work Phone: [facility] Work Phone: Encounters Encounter Date Encounter Type Care Provider Facility Start: 03-28-2025 Encounter for genera l adult medical examination without abnormal findings Rosa Dwyer [facility] Start: 03-20-2025 End: 03-20-2025 ambulatory [place] [place]: 03-20-2025 End: 03-20-2025 ambulatory Jh L Seese Facility:[facility] Start: 03-07-2025 End: 03-07-2025 ambulatory Rosa Dwyer [place] [place]: 02-05-2025 ambulatory [place]quezi [place] Start: 10-22-2024 End: 10-26-2024 ambulatory DMITRIY TUCKER MD Facility:[facility] Start: 10-22-2024 End: 10-26-2024 Encounter for gynecological examination (general) (routine) without abnormal findings DMITRIY TUCKER MD Facility:[facility] Start: 08-13-2024 End: 08-13-2024 ambulatory JULES ALVARADO MD Facility:[facility] Start: 08-13-2024 End: 08-13-2024 Patient encounter procedure JULES ALVARADO MD [facility] Start: 08-12-2024 End: 08-12-2024 Emergency department patient visit JULES ALVARADO MD [facility] Start: 08-08-2024 End: 08-08-2024 ambulatory Rosa Dwyer Facility:[facility] Start: 07-25-2024 ambulatory Symone Quach Facility :[facility] Start: 10-24-2022 End: 10-25-2022 ambulatory [facility] Start: 10-20-2022 End: 10-21-2022 ambulatory [facility] Start: 10-19-2022 End: 10-19-2022 ambulatory [facility] Start: 10-18-2022 End: 10-18-2022 [facility] Start: 10-13-2022 End: 10-14-2022 [facility] Start: 10-12-2022 End: 10-12-2022 [facility] Start: 10-10-2022 End: 10-11-2022 [facility] Start: 10-05-2022 End: 10-06-2022 [facility] Start: 10-03-2022 End: 10-04-2022 [facility] Start: 09-30-2022 End: 10-01-2022 [facility] Start: 09-30-2022 End: 09-30-2022 [facility] Start: 09-29-2022 End: 09-30-2022 [facility] Start: 09-29-2022 End: 09-29-2022 ambulatory [facility] Start: 09-28-2022 End: 09-29-2022 ambulatory [facility] Start: 09-28-2022 End: 09-28-2022 ambulatory [facility] Start: 09-27-2022 End: 09-28-2022 ambulatory [facility] Start: 09-27-2022 End: 09-27-2022 ambulatory [facility] Start: 09-26-2022 End: 09-27-2022 ambulatory [facility] Start: 09-26-2022 End: 09-26-2022 ambulatory [facility] Start: 09-23-2022 End: 09-24-2022 Evaluation and management of inpatient [facility] Start: 09-23-2022 End: 09-23-2022 Evaluation and management of inpatient [facility] Start: 09-22-2022 End: 09-23-2022 Evaluation and management of inpatient [facility] Start: 09-13-2022 End: 09-21-2022 Evaluation and management of inpatient RENITA THOMAS JR [facility] Start: 09-01-2022 End: 09-06-2022 Evaluation and management of inpatient [facility] Start: 08-31-2022 End: 09-01-2022 Emergency department patient visit [facility] Start: 08-31-2022 End: 08-31-2022 Subsequent hospital visit by physician [facility] Comment on above: Arrived Start: 07-21-2022 End: 07-21-2022 ambulatory [facility] Work Phone: Start: 07-21-2022 End: 07-21-2022 Patient encounter procedure [facility] Start: 09-29-2021 End: 09-29-[address] Rosa Dwyer Work Phone: [facility] Start: 03-31-[address] Rayne Dwyer Work Phone: [facility] Procedures Date Procedure Procedure Detail Performing Clinician Start: 08-31-2022 Radiologic exam ches t 2 views Diego Angeles [employer] Work Phone: Start: 08-31-2022 Ecg routine ecg w/le ast 12 lds trcg only w/o i&r Diego Angeles [employer] - [employer]LECT[employer]ICAL REPA[employer]ER Work Phone: Start: 07-21-2022 End: 07-21-2022 Screening mammography None (qualifier value) JULES ALVARADO MD Plan of Treatment Date Care Activity Detail Author Start: 07-31-2027 DTaP/Tdap/Td Vaccine s (2 - Td or Tdap) DTaP/Tdap/Td Vaccines (2 - Td or Tdap) [facility] Start: 04-01-2025 ambulatory Ambulatory Facility:[facility] Start: 07-21-2023 Screening for malign ant neoplasm of breast Mammogram [facility] Start: 2023 Zoster Vaccines (1 o f 2) Zoster Vaccines (1 of 2) [facility] Start: 07-01-2021 COVID-19 Vaccine (4 - Booster for Moderna series) COVID-19 Vaccine (4 - Booster for Moderna series) [facility] Start: 2003 Screening for malign ant neoplasm of cervix [facility] Start: 1994 Screening for malign ant neoplasm of cervix Pap Smear [facility] Start: 1991 Hepatitis C screening Hepatitis C Sc reening [facility] Start: 1974 MMR Vaccines (1 of 1 - Standard series) MMR Vaccines (1 of 1 - Standard series) [facility] Start: 1973 Hepatitis B Vaccines (1 of 3 - 3-dose series) Hepatitis B Vaccines (1 of 3 - 3-dose series) [facility] Start: 1973 HIV screening HIV Screening [facility] Start: 1973 Lipid panel Lipid Panel [facility] Start: 1973 Screening for malign ant neoplasm of colon [facility] Payers Date Payer Category Payer Self-pay [id number] 2020 Private Health Insurance [id number] 2020 Private Health Insurance [id number] 1.315 1973 Unknown [id number] 1973 Unknown [id number] 1973 Unknown [id number] Unknown [id number] 3 Unknown [id number] c Unknown [facility] [id number] 5 Unknown [id number] Unknown [id number] Unknown [id number] Unknown [id number] Unknown [id number] Unknown [id number] Unknown [id number] Social History Date Type Detail Facility Start: 09-29-2021 End: 09-29-2021 Tobacco smoking status TNIS Unknown if ever smoked [facility] Start: 1975 Sex Assigned At Female W [facility] Start: 09-01-2022 History SDOH Housing Unable to Pay 3 [facility] [employer] Start: 1975 Sex Assigned At Not on file [facility] Tobacco smoking status Never smo ked tobacco (finding) [facility] Sexual Orientation [facility] Start: 01-02-2019 Sex Female (finding) [facility] Functional Status Date Assessment Result Facility 08-12-2024 Functional Status ID band on, Call device within reach [facility] Mental Status Date Assessment Result Facility 08-12-2024 Mental Status Oriented x 4 [facility] Clinical Notes 09-01-2022 to 08-13-2024 Note Date & Type Note Facility 08-13-2024 Note Exam Date Time Procedure Performing Provider Status 08/13/24 2:43 PM VL Venous US/Doppler One Leg (for DVT). FATIMAH GONZALEZ MD; Auth (Verified) [facility]02-03-2025 Hospital Discharge instructions Patient Education 08/12/2024 21:45:29 Possible Causes of Low Back or Leg Pain Possible Causes of Low Back or Leg Pain BIG: The symptoms in your back or leg may be due to pressure on a nerve. This pressure may be caused by a damaged disk or by abnormal bone growth. Either way, you may feel pain, burning, tingling, ornumbness. If you have pressure on a nerve that connects to the sciatic nerve, pain may shoot down your leg. Pressure from the disk Constant wear and tear can weaken a disk over time and cause back pain. The disk can then be damaged by a sudden movement or injury. If its soft center starts to bulge, the disk may press on a nerve.Or the outside of the disk may tear, and the soft center may squeeze through and pinch a nerve. Pressure from bone As a disk wears out, the vertebrae right above and below the disk start to touch. This can put pressure on a nerve. Often, abnormal bone (called bone spurs) grows where the vertebrae rub against eachother. This can cause the foramen or the spinal canal to narrow (called stenosis) and press againsta nerve. [id number] [employer]. [address] [place] [address], [place] [address]. All rights reserved. This information is not intended as a substitute for professional medical care. Always follow yourhealthcare professional's instructions. Follow Up Care 08/12/2024 21:14:14 With:Outpatient vascular lab Address:Unknown When:Within 1 Day(s) Comments:Return tomorrow to have an outpatient vascular study of your left leg to evaluate for possible DVT (blood clot.Limit activity and weightbearing as tolerated.Use Tylenol, Advil or Aleve for pain as needed.Return to the ED if symptoms worsen. [facility] 02-03-2025 Note Discharge Instructions Thank you for allowing [facility] to assist you with your healthcare needs. The following is importantdischarge information regarding your hospital visit. What to Do Next Instructions from Your Care Team Discharge ED Outpatient Vascular Lab - Ordered -- Test Requested: Venous duplex scan, Lower extremity, Left, Test Reason: Pain, Mon-Fri 8am-4:30pm: Call [phone] at 7:30am to schedule a same day appointment for testing. Please be aware there may be a short wait time., Weekend Holiday 8am-6pm: Ca... Post Acute Orders No qualifying data available. You Need to Schedule the Following Appointments Follow Up with Outpatient vascular lab When:In 1 day Additional Information: Return tomorrow to have an outpatient vascular study of your left leg to evaluate for possible DVT (blood clot. Limit activity and weightbearing as tolerated. Use Tylenol, Advil or Aleve for pain as needed. Return to the ED if symptoms worsen. Allergies NKA Medications Please ask your primary doctor or pharmacist before taking any other medication not listed, including over the counter drugs, herbal medications, vitamins and or supplements as they may interact withyour home medications. What How Much When Instructions Last Dose Unchanged cyclobenzaprine (Flexeril 10 mg oral tablet) 1 tab(s) by mouth Three (3) times a day as needed for for muscle spasm Unchanged divalproex sodium (divalproex sodium 500 mg oral delayed release tablet) 1 tab(s) by mouth Every day Unchanged multivitamin (Biotin Forte oral tablet) 1 tab(s) by mouth Every day Unchanged multivitamin (Multivitamin) 1 tab(s) by mouth Every day Please take this list to your next doctor s visit. Bring all medications you take, including over the counter medications, herbals and other supplements with you to your doctor s visit. Patients and families are reminded to discard old lists and to update any records with all medication providers or retail pharmacies. Education Materials Possible Causes of Low Back or Leg Pain BIG: The symptoms in your back or leg may be due to pressure on a nerve. This pressure may be caused by a damaged disk or by abnormal bone growth. Either way, you may feel pain, burning, tingling, ornumbness. If you have pressure on a nerve that connects to the sciatic nerve, pain may shoot down your leg. Pressure from the disk Constant wear and tear can weaken a disk over time and cause back pain. The disk can then be damaged by a sudden movement or injury. If its soft center starts to bulge, the disk may press on a nerve.Or the outside of the disk may tear, and the soft center may squeeze through and pinch a nerve. Pressure from bone As a disk wears out, the vertebrae right above and below the disk start to touch. This can put pressure on a nerve. Often, abnormal bone (called bone spurs) grows where the vertebrae rub against eachother. This can cause the foramen or the spinal canal to narrow (called stenosis) and press againsta nerve. [id number] [employer]. [address] [place] [address]. All rights reserved. This information is not intended as a substitute for professional medical care. Always follow yourhealthcare professional's instructions. Additional Information VACCINATE! IT SAVES LIVES! Members of the community who have not yet received the COVID-19 vaccine and would like to receive it can visit one of [facility] vaccine clinics. There are many vaccine clinic locations within the [facility]. For locations and available times, please visit www.gettheshot.coronavirus.[place].gov/. It is important to note that some COVID mobile vaccine clinics are held outdoors and may be canceled in rainy or stormy conditions. To learn more about pediatric vaccinations (ages 5-11), we invite you to visit the [facility] webpage. [email or web address].[email or web address].org/[email or web address]-Rornzkbgdba-[email or web address]-[email or web address]-[email or web address] stions.htmlTo learn more about the COVID-19 vaccine, we invite you to visit the CDC website for a list of frequently asked questions. https://www.cdc.gov/coronavirus/2019-ncov/vaccines/faq.html [employer] Patient Portal Access Instructions: Stay connected with your healthcare team and access your personal medical information anytime with the [employer] Patient Portal. If you would like a full copy of your medical records please contact the [facility] Medical Records Department Monday through Monday between 8a.m. and 4:30p.m. Please follow the directions below to access the portal: 1.Access the email account you provided upon registration to the [facility].2.Look for an invitation email from [facility].3.Open the email and access the invitation link: Accept Invitation to [employer]4.Fill in the required macedo to create your account. Sign into www.[facility] with your username and password that you created in the above steps to stay up to date. You can then view a summary of results, a summary of your visits, and the ability to download your summaries to your computer or send the information securely to a physician. Remember that your healthcare information is confidential, so carefully consider who you will allow to register on the [employer] Patient Portal for access to your information. You can also access the [employer] Patient Portal on the [employer]. Simply click on Health Records under [employer] and then click on the [employer] logo. HOW TO SAFELY DISPOSE OF PRESCRIPTION MEDICATIONS Please use one of the following methods to safely dispose of your unused medications. 1.Use a drug disposal kit: the drug disposal pouch allows you to safely discard your old and unuseddrugs. Ask your nurse to give you one when you are discharged.2.Visit a local take-back location: Many local pharmacies and police departments have programs that collect old and unwanted prescriptiondrugs. Call your local pharmacy or go to http://PayRange.Telnic/9T0Mz0x to find one close to you.3.Make use of household items: Use cat litter or old coffee grounds to dispose medications if other options arenot available. Mix your drugs with these household products, seal them in an airtight container andthrow it into the garbage. Call [facility]: [phone] to be sure your drugs can be disposed of in this way. Some medicines may require a different approach.4.Never flush your medications down the toilet. IF YOU HAVE BEEN PRESCRIBED AN OPIOIDS FOR PAIN If you have been prescribed an opioid (such as hydrocodone, oxycodone or morphine), it is critical to understand the possible side effects and risks of opioid pain medications. Even when taken as directed, opioids can have several side effects including: Tolerance, meaning you might need to take more of a medication for the same pain relief. Nausea, vomiting and/or constipation. Sleepiness, dizziness, dry mouth, confusion, depression or itching. Physical dependence, meaning you have withdrawal symptoms when a medication is stopped ? this can develop within a few days. KNOW YOUR RESPONSIBILITIES It is important to know exactly how much and how often to take the opioid pain medications you are prescribed. Never take opioids in higher amounts or more often than prescribed. Do not combine opioids with alcohol or other drugs that cause drowsiness, such as benzodiazepines, also known as benzos,including diazepam and alprazolam, muscle relaxants or sleep aids. Never sell or share prescriptionopioids. This is illegal. Store opioids in a secure place and out of reach of others (including children, family, friends and visitors). The last page(s) of this document has been signed and retained as a CHART COPY Signatures Patient Education Materials Possible Causes of Low Back or Leg Pain Medication Leaflets My discharge plan and instructions have been reviewed and explained to me and ARMANDO Win DEBORAH D understand my current condition and have read and understand these discharge instructions. I have received a written copy of the plan/instructions. If I have questions, I am aware that I should contact my doctor. 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 Authorizing Provider divalproex (Depakote ER) 250 MG 24 hr tablet Take 5 tabs at night 09/30/22 Teresita Shelton MD hydroCHLOROthiazide (HYDRODiuril) 25 MG tablet Take 1 tablet (25 mg) by mouth daily. Do not start before September 17, 2022. 09/17/22 09/17/23 SKIP Sales CNP hydrOXYzine pamoate (Vistaril) 50 MG capsule Take 1 capsule (50 mg) by mouth every 8 hours as needed for anxiety. 09/06/22 10/06/22 China Boswell MD risperiDONE (RisperDAL) 0.5 MG tablet Take 1 tablet (0.5 mg) by mouth every evening. 09/30/22 11/29/22 Teresita Shelton MD Discharge Treatment Recommendations: Upon APPROVED discharge from Psychiatric IOP, you are being recommended to follow up with the following home going instructions: Upcoming Appointments: Relapse Prevention/ Psychiatric Aftercare BRODERICK Counselor: BRODERICK Phone: BRODERICK When: NA Scheduled Start Date: NA # of sessions recommended: Other Recommendations: Engage with outpatient medication provider, Seek out and engage with an individual counselor (referrals provided), and Maintain medication compliance Patient given a copy of these treatment recommendations? yes Patient Signature: Date: [facility]04-13-2023 NoteOutpatient Behavioral Health Individualized Treatment Plan Program: [x] Psych IOP [] PHP [] Addiction Med IOP [] [facility] Diagnosis: Bipolar 1 disorder, current episode manic with psychotic features; Unspecified anxiety disorder Adjustment disorder Initial Treatment Plan Date: 09/23/22 LOC Placed (Addiction Med IOP only): NA Tx Plan Revisions Reason and Date: 10/03/2022 Transition to IOP level of care Reason and Date: 10/10/22 transition from afternoon IOP to evening IOP _Discharge from Psych IOP Problem/Need Section Problem Identification/Need 1: Mental Health Disorder Problem Statement: Pt demonstrated impairment in multiple functioning areas as a result of Anxiety, holli and depressive symptoms Date Established Status Revised Date Status D/C Date D/C Status 09/23/22 Active 10/10/2022 active 10/24/22 goals Met Additional Comment(s): Pt has been seen by Dr Shelton. Describe patient's strengths (ie, personal attributes, traits, coping skills, resources, natural supports): Education; Independent living; Motivation level for treatment; Stable domestic situation Please note any preferences regarding treatment services (ie, requests for accommodations, specific treatment staff, appointment times, cultural and/or mosque considerations, etc). Patient wants PHP, 10/10/22 evening IOP due to returning to work Please identify family members/friends who can be involved in your treatment. Name Relationship Release obtained? If no, explain Jermaine Mosley Spouse Yes Please identify other treatment providers (*required): Type of Provider Name Release obtained? If no, explain Primary Care Provider* referred to [facility] family practice Other Provider* Goals/Objectives Goal 1 Problem ID: 1 Goal/Desired Outcome in Patient's Words: Learn skills to manage my depression and anxiety. Goal/Anticipated Treatment Outcome: Demonstrate an improvement in emotional regulation/mood stability and functioning through reported decreases in depressive symptoms as evidenced by positive changes in daily reports and closing self-appraisals (PHQ 9 and GAD7). Objective(s): Objective 1: Pt will learn and practice 2 self-regulation skills daily to assist with controlling deterioration of depressive and anxiety. 10/10/2022: some progress, goal will continue Intervention: Therapist will teach DBT skills such as ride the wave as well as grounding to assist with self-soothing and reduction of emotional vulnerability/sensitivity. Objective(s): Objective 2: Pt will learn to identify distorted self-defeating, negative thoughts and learn 3 skills to replace them with more positive, adaptive thoughts 2x daily. 10/10/2022: some progress, goal will continue Intervention: Therapist will teach CBT skills including identification of automatic negative thoughts and learned helplessness along with positive self-talk and reframing that can assist in improving perspective and resilience. Objective 3: Pt will identify 3 warning signs of exacerbation of depressive symptoms are along with 3 skills to control deterioration as part of relapse prevention. 10/10/2022: some progress, goal will continue Intervention: Therapist will educate pt on how to use DBT emotional regulation management skills to prevent or reduce the emotional intensity of stress responses that negatively impact functioning. Objective 4: Patient will manage reactive emotional states through use of distress tolerance skills. 10/10/2022: Intervention: Therapist will teach patient distress tolerance skills and rehearse skills in group and patient will practice these skill daily Service(s) Provided (if group, include name of group) Primary Service Provider Frequency of Service Date Added Service D/C Date PHP STEVIE Alonzo, STEVIE Cardenas 5 days a week for 5 hours a day 09/23/22 09/30/2022 Individual Therapy STEVIE Alonzo LPCC At least once during treatment 09/23/22 09/30/2022 Psychiatric Evaluation & Monitoring Dr. Carranza and Dr Thomas At admission and discharge at minimum 09/23/22 10/24/22 Psych IOP STEVIE Brink-S 3 hour sessions/3x weekly 10/03/2022 10/03/2022 Psych IOP Debra HUBBARD 3 hour sessions/3x weekly 10/10/2022 10/24/22 Consideration for Discharge: [x] Improve Level of Functioning [x] Decrease Symptoms [] Control/Maintain Symptoms [] Prevent Relapse Review with Patient: [x] Risks and benefits of treatment [x] Patient's right to refuse treatment recommendations [x] Patient understands signature below represents agreement with treatment plan [] Other: (explain) Patient Signature/Date: (Note: Clinician and Attending to sign document electronically) Bg Howe [facility] [id number] NoteOutpatient Behavioral Health Individualized Treatment Plan Program: [x] Psych IOP [] PHP [] Addiction Med IOP [] [facility] Diagnosis: Bipolar 1 disorder, current episode manic with psychotic features; Unspecified anxiety disorder Adjustment disorder Initial Treatment Plan Date: 09/23/22 LOC Placed (Addiction Med IOP only): NA Tx Plan Revisions Reason and Date: 10/03/2022 Transition to IOP level of care Reason and Date: 10/10/22 transition from afternoon IOP to evening IOP Problem/Need Section Problem Identification/Need 1: Mental Health Disorder Problem Statement: Pt demonstrated impairment in multiple functioning areas as a result of Anxiety, holli and depressive symptoms Date Established Status Revised Date Status D/C Date D/C Status 09/23/22 Active 10/10/2022 active Additional Comment(s): Pt has been seen by Dr Shelton. Describe patient's strengths (ie, personal attributes, traits, coping skills, resources, natural supports): Education; Independent living; Motivation level for treatment; Stable domestic situation Please note any preferences regarding treatment services (ie, requests for accommodations, specific treatment staff, appointment times, cultural and/or mosque considerations, etc). Patient wants PHP, 10/10/22 evening IOP due to returning to work Please identify family members/friends who can be involved in your treatment. Name Relationship Release obtained? If no, explain Jermaine Mosley Spouse Yes Please identify other treatment providers (*required): Type of Provider Name Release obtained? If no, explain Primary Care Provider* referred to [facility] family practice Other Provider* Goals/Objectives Goal 1 Problem ID: 1 Goal/Desired Outcome in Patient's Words: Learn skills to manage my depression and anxiety. Goal/Anticipated Treatment Outcome: Demonstrate an improvement in emotional regulation/mood stability and functioning through reported decreases in depressive symptoms as evidenced by positive changes in daily reports and closing self-appraisals (PHQ 9 and GAD7). Objective(s): Objective 1: Pt will learn and practice 2 self-regulation skills daily to assist with controlling deterioration of depressive and anxiety. 10/10/2022: some progress, goal will continue Intervention: Therapist will teach DBT skills such as ride the wave as well as grounding to assist with self-soothing and reduction of emotional vulnerability/sensitivity. Objective(s): Objective 2: Pt will learn to identify distorted self-defeating, negative thoughts and learn 3 skills to replace them with more positive, adaptive thoughts 2x daily. 10/10/2022: some progress, goal will continue Intervention: Therapist will teach CBT skills including identification of automatic negative thoughts and learned helplessness along with positive self-talk and reframing that can assist in improving perspective and resilience. Objective 3: Pt will identify 3 warning signs of exacerbation of depressive symptoms are along with 3 skills to control deterioration as part of relapse prevention. 10/10/2022: some progress, goal will continue Intervention: Therapist will educate pt on how to use DBT emotional regulation management skills to prevent or reduce the emotional intensity of stress responses that negatively impact functioning. Objective 4: Patient will manage reactive emotional states through use of distress tolerance skills. 10/10/2022: Intervention: Therapist will teach patient distress tolerance skills and rehearse skills in group and patient will practice these skill daily Service(s) Provided (if group, include name of group) Primary Service Provider Frequency of Service Date Added Service D/C Date PHP STEVIE Alonzo, STEVIE Cardenas 5 days a week for 5 hours a day 09/23/22 09/30/2022 Individual Therapy STEVIE Alonzo LPCC At least once during treatment 09/23/22 09/30/2022 Psychiatric Evaluation & Monitoring Dr. Carranza and Dr Thomas At admission and discharge at minimum 09/23/22 Psych IOP STEVIE Brink-S 3 hour sessions/3x weekly 10/03/2022 10/03/2022 Psych IOP Debra HUBBARD 3 hour sessions/3x weekly 10/10/2022 Consideration for Discharge: [x] Improve Level of Functioning [x] Decrease Symptoms [] Control/Maintain Symptoms [] Prevent Relapse Review with Patient: [x] Risks and benefits of treatment [x] Patient's right to refuse treatment recommendations [x] Patient understands signature below represents agreement with treatment plan [] Other: (explain) Patient Signature/Date: (Note: Clinician and Attending to sign document electronically) Debra Conway [facility] [id number] NoteInterim History: This patient was seen in follow-up for further evaluation and treatment of her mood disorder with anxiety and a history of psychotic symptoms/paranoid thoughts. Her vital signs were reviewed and are stable. Most recent lab results were reviewed as well and are unremarkable. Her only physical complaint is mild drowsiness she attributes to her medication. She says this has been improving. She presents today to begin the [facility]. She is transitioning from [facility]. She has been followed up to this point by Teresita Shelton MD. This psychiatrist is covering for Dr. Shelton in his absence. Previous documentation by Dr. Shelton was reviewed. The patient reports no new medical problems. She has no new allergies. The patient denied present thoughts of self-harm or harming others. She had no delusions or hallucinations. Mood is euthymic and stable. Affect is variable and appropriate to the topic of conversation. Thought processes are linear and logical. She ambulates without difficulty. She has no abnormal movements. Sleep and appetite have been improving. The patient was initially scheduled to participate in the afternoon IOP. However, she says she is now interested in returning to work part-time and would like instead to participate in the evening IOP. Will facilitate transfer from one to the other. She did not require refills of her medications. The patient will begin the [facility]/evening. Will make no other change in treatment at this time. She will be followed in IOP as necessary. Target Signs/Symptoms: Mood symptoms, anxiety and psychotic symptoms/paranoid Medication side effects: drowsiness, mild; resolving ROS: Gastrointestinal: Appetite changeNone . Change in bowel habitsNone. Nausea None. VomitingNone. Neurologic: HeadacheNone. Sleep problemsNone. TremorNone. WeaknessNone. Objective: Vitals: 10/05/22 1500 BP: 128/87 BP Location: Other (Comment) Pulse: 102 Resp: 20 Temp: 36.7 ?C (98 ?F) TempSrc: Tympanic SpO2: 96% Examination: Mental Status Exam: GENERAL OBSERVATIONS : No acute distress Orientation As below Demeanor Pleasant and cooperative Activity No gross psychomotor changes Eye Contact Good . SPEECH :. Rate Normal. Volume Within normal limits . Articulation Well articulated. Coherent Yes Spontaneous Yes. MOOD & AFFECT :. Depression None. Anxiety None. Anger None. Anhedonia None. Euphoria None. Affect Variable and appropriate THOUGHT PROCESS: Process Linear and logical. THOUGHT CONTENT :. Hallucinations None. Delusions No delusions. Suicidality No plan Homicidality None. Judgement Good Insight Good Orientation time: Yes, person: Yes, situation: Yes, place:Yes. Attention Good. Concentration Good. Memory Recent: intact, Remote:intact. Gait Normal . Fund of Knowledge normal. Condition: gradually improving Prognosis: Good . Treatment Modality: Medication management and supportive psychotherapy Response to Treatment: Good. Goals: Short Term Decrease mood symptoms, anxiety and psychotic symptoms. Rn Private Duty Maintain mood stability, reality testing and level of function. Focus of Therapy/Additional Narrative:: Supportive. Duration Frequency of Therapy Beginning the [facility] . Individual Therapy TBD . Medication Management Indefinite . Sufficient ability to Benefit Therapy Good. Plan discussed with patient and agrees. Current Outpatient Medications: divalproex (Depakote ER) 250 MG 24 hr tablet, Take 5 tabs at night, Disp: 180 tablet, Rfl: 1 hydroCHLOROthiazide (HYDRODiuril) 25 MG tablet, Take 1 tablet (25 mg) by mouth daily. Do not start before September 17, 2022., Disp: 30 tablet, Rfl: 0 hydrOXYzine pamoate (Vistaril) 50 MG capsule, Take 1 capsule (50 mg) by mouth every 8 hours as needed for anxiety., Disp: 30 capsule, Rfl: 1 risperiDONE (RisperDAL) 0.5 MG tablet, Take 1 tablet (0.5 mg) by mouth every evening., Disp: 60 tablet, Rfl: 1 Problem List Items Addressed This Visit Other Bipolar 1 disorder, manic, mild (CMS/HCC) (HCC) Will begin the [facility]; changing from afternoon to evening Will continue present psychiatric treatment Will follow in IOP as necessary Electronically signed by [email or web address]@ on [email or web address]@ at [email or web address] 09-23-2022 NoteOutpatient Behavioral Health Individualized Treatment Plan Program: [] Psych IOP [x] PHP [] Addiction Med IOP [] Tra[facility] Diagnosis: Bipolar 1 disorder, current episode manic with psychotic features Unspecified anxiety disorder Adjustment disorder Initial Treatment Plan Date: 09/23/22 LOC Placed (Addiction Med IOP only): NA Tx Plan Revisions Reason and Date: Reason and Date: Problem/Need Section Problem Identification/Need 1: Mental Health Disorder Problem Statement: Pt demonstrated impairment in multiple functioning areas as a result of Anxiety, holli and depressive symptoms Date Established Status Revised Date Status D/C Date D/C Status 09/23/22 Active Additional Comment(s): Pt has been seen by Dr Shelton. Describe patient's strengths (ie, personal attributes, traits, coping skills, resources, natural supports): Education; Independent living; Motivation level for treatment; Stable domestic situation Please note any preferences regarding treatment services (ie, requests for accommodations, specific treatment staff, appointment times, cultural and/or mosque considerations, etc). Patient wants PHP Please identify family members/friends who can be involved in your treatment. Name Relationship Release obtained? If no, explain Jermaine Mosley Spouse Yes Please identify other treatment providers (*required): Type of Provider Name Release obtained? If no, explain Primary Care Provider* referred to [facility] family practice Other Provider* Goals/Objectives Goal 1 Problem ID: 1 Goal/Desired Outcome in Patient's Words: Learn skills to manage my depression and anxiety.. Goal/Anticipated Treatment Outcome: Demonstrate an improvement in emotional regulation/mood stability and functioning through reported decreases in depressive symptoms as evidenced by positive changes in daily reports and closing self-appraisals (PHQ9 and GAD7). Objective(s): Objective 1: Pt will learn and practice 2 self-regulation skills daily to assist with controlling deterioration of depressive and anxiety . Intervention: Therapist will teach DBT skills such as ride the wave as well as grounding to assist with self-soothing and reduction of emotional vulnerability/sensitivity. Objective(s): Objective 2: Pt will learn to identify distorted self-defeating, negative thoughts and learn 3 skills to replace them with more positive, adaptive thoughts 2x daily. Intervention: Therapist will teach CBT skills including identification of automatic negative thoughts and learned helplessness along with positive self-talk and reframing that can assist in improving perspective and resilience. Objective 3: Pt will identify 3 warning signs of exacerbation of depressive symptoms are along with 3 skills to control deterioration as part of relapse prevention. Intervention: Therapist will educate pt on how to use DBT emotional regulation management skills to prevent or reduce the emotional intensity of stress responses that negatively impact functioning. Objective 4: Patient will manage reactive emotional states through use of distress tolerance skills. Intervention: Therapist will teach patient distress tolerance skills and rehearse skills in group and patient will practice these skill daily Service(s) Provided (if group, include name of group) Primary Service Provider Frequency of Service Date Added Service D/C Date [facility] STEVIE Alonzo Mark Cook, LPCC 5 days a week for 5 hours a day 09/23/22 Individual Therapy STEVIE Alonzo LPCC At least once during treatment 09/23/22 Psychiatric Evaluation & Monitoring Dr. Carranza and Dr Thomas At admission and discharge at minimum 09/23/22 Consideration for Discharge: [x] Improve Level of Functioning [x] Decrease Symptoms [] Control/Maintain Symptoms [] Prevent Relapse Review with Patient: [x] Risks and benefits of treatment [x] Patient's right to refuse treatment recommendations [x] Patient understands signature below represents agreement with treatment plan [] Other: (explain) Patient Signature/Date: (Note: Clinician and Attending to sign document electronically) [facility] [id number] NoteDischarge Summary Elizabeth Mosley : 1975 ADMIT DATE: 09/13/2022 DISCHARGE DATE: 09/21/2022 PRIMARY CARE PHYSICIAN: No primary care provider on file. VISIT STATUS: Admission CODE STATUS: Full Code DISCHARGE DIAGNOSES: 1.) Bipolar 1 disorder, current episode manic with psychotic features 2.) Unspecified anxiety disorder 3.) Adjustment disorder HOSPITAL COURSE: Elizabeth was admitted to [facility] for psychiatric stabilization. On initial presentation her mood was slightly euphoric, disorganized, with racing thoughts. She was continued with home Depakote which was increased to 750 mg twice daily for mood stabilization and also added Risperdal 0.5 mg twice a day. Her mood improved over time. She was engaged with both individual and group related activities. She interacted well with peers and staff. She did not have any significant ongoing physical complaints or medication side effects. She did have some ongoing anxiety specifically about caring for her father which seems to be a large stressor in her life and leave is the main trigger to her recent mood related changes. I was in contact with her throughout admission. On the day of discharge she was in good spirits and euthymic, there is no further evidence of euphoria. She did not have rapid pressured speech. She did not seem disorganized and seemed logical and thought process. She understood what medication she was on and also voiced desire to get into outpatient groups. She was not sure if she would be able to arrange transportation up to [place] but she was going to talk to her family about it. I did speak with her on the day of discharge and he was comfortable with her return home, they are going to look into transportation to outpatient groups for follow-up. SIGNIFICANT DIAGNOSTIC STUDIES: none CONSULTANTS: [facility] RECOMMENDED NEXT STEPS: Follow up as scheduled DISCHARGE MEDICATIONS: Medication List START taking these medications hydroCHLOROthiazide 25 MG tablet Commonly known as: HYDRODiuril Take 1 tablet (25 mg) by mouth daily. Do not start before September 17, 2022. risperiDONE 0.5 MG tablet Commonly known as: RisperDAL Take 1 tablet (0.5 mg) by mouth 2 times daily. CHANGE how you take these medications divalproex 250 MG 24 hr tablet Commonly known as: Depakote ER Take 3 tablets (750 mg) by mouth 2 times daily. Do not crush, chew, or split. What changed: medication strength how much to take when to take this Another medication with the same name was removed. Continue taking this medication, and follow the directions you see here. CONTINUE taking these medications hydrOXYzine pamoate 50 MG capsule Commonly known as: Vistaril Take 1 capsule (50 mg) by mouth every 8 hours as needed for anxiety. traZODone 50 MG tablet Commonly known as: Desyrel Take 1 tablet (50 mg) by mouth Nightly as needed for sleep. STOP taking these medications LORazepam 1 MG tablet Commonly known as: Ativan Where to Get Your Medications These medications were sent to [facility]/pharmacy #[id number] - [place] [address] [address] [facility] [address] [facility] [address] divalproex 250 MG 24 hr tablet risperiDONE 0.5 MG tablet Information about where to get these medications is not yet available Ask your nurse or doctor about these medications hydroCHLOROthiazide 25 MG tablet DIET: Adult diet Regular ACTIVITY: No restriction. COMPLEXITY OF FOLLOW UP: [x] Moderate Complexity: follow up within 7-14 calendar days (79781) [] Severe Complexity: follow up within 7 calendar days (46482) FOLLOW UP TESTING, PENDING RESULTS OR REFERRALS AT TRANSITIONAL CARE VISIT: [] Yes [x] No PENDING STUDIES: none DISPOSITION: Home FACILITY/HOME CARE AGENCY NAME: Follow up with [facility] [address] [place] [address] Go on 10/25/2022 Scheduled Appointment at 2pm/arrive 1:30PM for paperwork with Dr. Duff for intake/psychiatric follow-up. Bring id, insurance card, wear a mask. INSTRUCTIONS TO MA/SW: Please call patient on day after discharge (must document patient contacted within 2 business days of discharge). FOLLOW UP QUESTIONS FOR MA/SW: 1. Did you get medications filled and taking them as instructed from discharge? 2. Are you following your discharge instructions from your hospital stay? 3. Please confirm patient is scheduled for a follow up appointment within the above time frame. DISCHARGE TIME: > 30 minutes SIGNED: Teresita Shelton MD 09/21/2022, 3:05 [facility] [id number] NoteInpatient Psychiatric Progress Note 09/20/22 Elizabeth Mosley was seen in follow up for bipolar disorder, which is chronic in nature. On exam, Elizabeth was sitting in the common area talking with nursing students. She reports feeling good. Denied significant depression or anxiety. Her mood continues to appear very slightly euphoric. She is not irritable or angry. Continues to be preoccupied with her medications upon the last discharge, and having difficulty picking up at the pharmacy. She denies suicidal or homicidal ideation, no intent or plan. Denies auditory or visual hallucinations or delusional thoughts. Has been compliant with Depakote and Risperdal for mood, reports improved clarity of thought and decreased racing thoughts. Denies significant physical complaints or medication side effects. Reports sleeping and eating well. She has been attending individual and group related activities. She has not displayed any significant bizarre or agitated behavior. She has been following up with her , hopeful upon her return to home she will get help from family taking care of her . Per staff she has been calm, cooperative, compliant with treatment. Medications: divalproex, 750 mg, Oral, Daily divalproex, 750 mg, Oral, Nightly hydroCHLOROthiazide, 25 mg, Oral, Daily risperiDONE, 0.5 mg, Oral, BID PRN medications: acetaminophen OR acetaminophen, benztropine, diphenhydrAMINE AND haloperidol lactate AND LORazepam, diphenhydrAMINE AND haloperidol AND LORazepam, hydrOXYzine pamoate, LORazepam, polyethylene glycol (PEG) 3350, traZODone Mental Status Examination: Vitals : BP 125/89 Pulse 109 Temp 36.3 ?C (97.4 ?F) (Temporal) Resp 18 SpO2 100% APPEARANCE: Well groomed, appropriate eye contact. BEHAVIOR: normal PSYCHOMOTOR: within normal limits SPEECH: Coherent and Regular rate, rhythm, volume and articulation LANGUAGE: Naming intact MOOD: Euthymic and Euphoric AFFECT: Euthymic, full-range THOUGHT PROCESS: Goal-directed THOUGHT CONTENT: normal PERCEPTIONS/HALLUCINATIONS: denies ABSTRACTION: fair INSIGHT: fair, including concerning psychiatric condition. JUDGMENT: fair, including concerning psychiatric condition. ORIENTATION: Appropriate to age, Person, Place, and Time MEMORY: recent and remote memory intact ATTENTION SPAN: fair CONCENTRATION: fair FUND OF KNOWLEDGE: fair GAIT: Within normal limits ROS: [x] All negative/unchanged except if checked. Explain positive(checked items) below: [] Constitutional [] Eyes [] Ear/Nose/Mouth/Throat [] Respiratory [] CV [] GI [] [] Musculoskeletal [] Skin/Breast [] Neurological [] Endocrine [] Heme/Lymph [] Allergic/Immunologic Explanation: denies ASSESSMENT: 1.) Bipolar 1 disorder, current episode manic with psychotic features 2.) Unspecified anxiety disorder Patient symptoms :are improving Patient continues to need, on a daily basis, active treatment furnished directly by or requiring the supervision of inpatient psychiatric personnel. Treatment Plan: -Continue Depakote to 750mg BID for holli. Continue Risperdal 0.5mg BID for mood. -Expected discharge in next 1-2 days, will follow up with tomorrow regarding progress Continue Current Medications if not otherwise stated. Will continue to titrate medications and assess for effectiveness and tolerability. Continue Follow-up. Continue crisis intervention oriented psychotherapy, group and milieu therapies. Social work and transitional care continue to assist with necessary family liaison and discharge planning. Pt expressed agreement and understanding with treatment plan. PSYCHOTHERAPY/COUNSELING: Supportive, therapeutic interview Inpatient MDM Complexity: 1.) Patient has at least one chronic illness with severe exacerbation, and requiring 2.) Prescription drug management MDM Level: moderate Note: Please note this report has been produced using speech recognition software and may contain errors related to that system including errors in grammar, punctuation, and spelling, as well as words and phrases that may be inappropriate. If there are any questions or concerns please feel free to contact the dictating provider for clarification.[facility] 09-19-2022 NoteInpatient Psychiatric Progress Note 09/19/22 Elizabeth Mosley was seen in follow up for bipolar disorder, which is chronic in nature. On exam, Elizabeth was sitting in the common area. Overall she is pleasant and cooperative, mood seems bright. Still seems slightly disorganized at times. She seems overly focused on wanting to go over the exact details and dates and medication doses that she was taking on this hospitalization and in between the previous one. She denied significant depression or anxiety. Still endorses some ongoing worry and feeling overwhelmed with having to take care of her father at home. Reports she is also worried about returning to work in addition to taking care of him. Denies suicidal or homicidal ideation. Denies auditory or visual hallucinations. Reports sleeping roughly 6 to 7 hours at night and her appetite is good. She has been compliant with Depakote and Risperdal for mood and states that it has been calm in her mind down. She denied significant physical complaints or medication side effects. She has been going to individual and group related activities. Her staff she has been calm, cooperative, compliant with treatment, she has not shown any bizarre or agitatedbehavior. I did talk to her to update on progress. She reportsafter her last hospitalization she was doing well for couple days, then almost abruptly her mood changed where she was angry, irritable and displaying other odd behavior. He does think that taking care of her father has been stress inducing for her. He wants her to be well before returning home does not think she is quite there yet. Medications: divalproex, 750 mg, Oral, Daily divalproex, 750 mg, Oral, Nightly hydroCHLOROthiazide, 25 mg, Oral, Daily risperiDONE, 0.5 mg, Oral, BID PRN medications: acetaminophen OR acetaminophen, benztropine, diphenhydrAMINE AND haloperidol lactate AND LORazepam, diphenhydrAMINE AND haloperidol AND LORazepam, hydrOXYzine pamoate, LORazepam, polyethylene glycol (PEG) 3350, traZODone Mental Status Examination: Vitals : BP (!) 131/95 Pulse 101 Temp 36.2 ?C (97.2 ?F) (Temporal) Resp 18 SpO2 100% APPEARANCE: Well groomed, appropriate eye contact. BEHAVIOR: normal PSYCHOMOTOR: within normal limits SPEECH: Coherent and Regular rate, rhythm, volume and articulation LANGUAGE: Naming intact MOOD: Euthymic and Euphoric AFFECT: Constricted THOUGHT PROCESS: Tangential THOUGHT CONTENT: paranoid ideation PERCEPTIONS/HALLUCINATIONS: denies ABSTRACTION: fair INSIGHT: poor, including concerning psychiatric condition. JUDGMENT: poor, including concerning psychiatric condition. ORIENTATION: Appropriate to age, Person, Place, and Time MEMORY: recent and remote memory intact ATTENTION SPAN: fair CONCENTRATION: fair FUND OF KNOWLEDGE: fair GAIT: Within normal limits ROS: [x] All negative/unchanged except if checked. Explain positive(checked items) below: [] Constitutional [] Eyes [] Ear/Nose/Mouth/Throat [] Respiratory [] CV [] GI [] [] Musculoskeletal [] Skin/Breast [] Neurological [] Endocrine [] Heme/Lymph [] Allergic/Immunologic Explanation: denies ASSESSMENT: 1.) Bipolar 1 disorder, current episode manic with psychotic features 2.) Unspecified anxiety disorder Patient symptoms :are improving Patient continues to need, on a daily basis, active treatment furnished directly by or requiring the supervision of inpatient psychiatric personnel. Treatment Plan: -Continue Depakote to 750mg BID for holli. Continue Risperdal 0.5mg BID for mood. Continue Current Medications if not otherwise stated. Will continue to titrate medications and assess for effectiveness and tolerability. Continue Follow-up. Continue crisis intervention oriented psychotherapy, group and milieu therapies. Social work and transitional care continue to assist with necessary family liaison and discharge planning. Pt expressed agreement and understanding with treatment plan. PSYCHOTHERAPY/COUNSELING: Supportive, therapeutic interview Inpatient MDM Complexity: 1.) Patient has at least one chronic illness with severe exacerbation, and requiring 2.) Prescription drug management MDM Level: moderate Note: Please note this report has been produced using speech recognition software and may contain errors related to that system including errors in grammar, punctuation, and spelling, as well as words and phrases that may be inappropriate. If there are any questions or concerns please feel free to contact the dictating provider for clarification.[facility] 09-19-2022 NotePatient Medication Education Group Activity Group Date:09/19/22 Start Time:2:00 pm End Time:2:25 pm Facilitators:Rosalie Bruno 2022 Number of Participants: 5 Group Focus: Discussion on safe medication practices Purpose: Share tips for medication organization and success, answer any medication related questions Camille Teran PharmD Candidate 2022[facility]03-12-2023 Note Psychiatric Progress Note 09/18/2022 Chief Complaint Patient presents with Psychiatric Evaluation Pt. Presents to ED via private vehicle with who reports the patient was just discharged from [facility]. Pt. Presents to room 50 with pressured speech, flight of ideas, and repetitive speech. Pt. Denies SI/HI at time of intake but states she feels like her doctor changed too many of her meds around. Pt. States she does not feel safe at her home and will not elaborate as to why she does not feel safe. Pt. Is oriented to time, place, and location on arrival. Subjective: Pt is being seen in follow-up for bipolar disorder. Pt has been compliant with Risperdal and Depakote. Pt denied thoughts about harming herself or others. Denied acute complaints. Preoccupied with discharge. [x] Patient was seen and examined in person [x] Chart reviewed [x] Labs reviewed [x] Patient's case discussed with staff/team Suicidal Ideation: [x] No [] Yes Homicidal Ideation: [x] No [] Yes Auditory Hallucinations: [x] No [] Yes Visual Hallucinations: [x] No [] Yes Delusions: [x] No [] Yes Medication side effects(SE): [x] No [] Yes Mental Status Examination Vitals : BP (!) 137/94 Pulse 98 Temp 36.2 ?C (97.2 ?F) (Temporal) Resp 16 SpO2 100% Appearance: [x] Casually groomed [] Unkempt [] Disheveled Level of Consciousness: [x] Alert [] Drowsy [] Tired [] Lethargic [] Distractible [] Asleep [] Could not be assessed Gait and Station: [x] Stable [] Sitting [] Lying down [] Unstable [] In wheel chair or other support Muscle Tone and Strength: [x] Normal [] Increased [] Decreased Manner: [x] Cooperative [] Guarded [] Suspicious [] Irritable [] Hostile [] Withdrawn Motor Activity: [x] Normal [] Agitation [] Psychomotor retardation [] Tremor [] Abnormal involuntary movements [] Extrapyramidal side effects Speech: [x] Normal [] Soft [] Loud [] Rapid [] Pressured [] Dysarthria [] Incoherent Mood: [x] Euthymic [] Depressed [] Irritable [] Angry [] Anxious [] Fearful [] Apathetic [] Euphoric [] Other [] Could not be assessed Affect: [x] Normally variable [] Restricted [] Flat [] Irritable [] Angry [] Anxious [] Labile [] Expansive [] Exaggerated Thought Process/Association: [] Normal [] Tangential [x] Circumstantial [] Poverty of Thought [] Disorganized [] Racing Thoughts [] Flight of Ideas [] Organized and logical [] Could not be assessed Thought Content: [] Hopelessness [] Worthlessness [] Hypochondriasis [] Anxious [] Depressed [x] Ruminations [] Obsessions/Compulsions [] Hopeful [] Motivated [] Future Oriented [] Could not be assessed Delusions: [x] No noted delusions [] Delusions [] Persecutory [] Bizarre [] Judaism [] Grandiose [] Somatic [] Could not be assessed Thoughts of Harm: [x] No SI/HI [] Passive wish [] No suicidal ideation [] Suicidal ideation with plan [] Suicidal ideation without plan [] No homicidal ideation [] Homicidal ideation with plan [] Homicidal ideation without plan [] Could not be assessed Hallucinations: [x] No hallucinations [] Hallucinations [] Auditory [] Visual [] Olfactory [] Tactile [] Could not be assessed Attention/Concentration: [x] Intact [] Poor [] Distractible Cognition: [x] Intact [] Impaired Memory: [x] Intact [] Impaired [] Poor [] Could not be assessed Insight: [] Intact [x] Fair [] Limited [] Improved Judgement: [] Intact [] Fair [x] Limited [] Improved MEDICATIONS: Current Facility-Administered Medications: acetaminophen (Tylenol) tablet 650 mg, 650 mg, Oral, q6h PRN, 650 mg at 09/18/22 1453 OR acetaminophen (Tylenol) suppository 650 mg, 650 mg, Rectal, q6h PRN, Rosaura Polk DO benztropine (Cogentin) injection 2 mg, 2 mg, IntraMUSCular, BID PRN, Rosaura Polk, diphenhydrAMINE (BENADryl) injection 50 mg, 50 mg, IntraMUSCular, q6h PRN AND haloperidol lactate (Haldol) injection 5 mg, 5 mg, IntraMUSCular, q6h PRN AND LORazepam (Ativan) injection 2 mg, 2 mg, IntraMUSCular, q6h PRN, Rosaura Polk, diphenhydrAMINE (BENADryl) tablet/capsule 50 mg, 50 mg, Oral, q6h PRN, 50 mg at 09/14/22318 AND haloperidol (Haldol) tablet 5 mg, 5 mg, Oral, q6h PRN, 5 mg at 09/14/22318 AND LORazepam (Ativan) tablet 2 mg, 2 mg, Oral, q6h PRN, Rosaura Polk DO, 2 mg at 09/14/22318 divalproex (Depakote ER) 24 hr tablet 750 mg, 750 mg, Oral, Daily, Teresita Shelton MD, 750 mg at 09/18/22 0804 divalproex (Depakote ER) 24 hr tablet 750 mg, 750 mg, Oral, Nightly, Teresita Shelton MD, 750 mg at 09/17/222016 hydroCHLOROthiazide (HYDRODiuril) tablet 25 mg, 25 mg, Oral, Daily, Renita Thomas Jr., MD, 25 mg at 09/18/22 0805 hydrOXYzine pamoate (Vistaril) capsule 50 mg, 50 mg, Oral, q6h PRN, Rosaura Polk DO, 50 mg at 09/18/22 1453 LORazepam (Ativan) tablet 1 mg, 1 mg, Oral, Daily PRN, Rosaura Polk DO polyethylene glycol (PEG) 3350 (Miralax) packet 17 g, 17 g, O (more content not included)...[facility]03-11-2023 NotePsychiatric Progress Note 09/17/2022 Chief Complaint Patient presents with Psychiatric Evaluation Pt. Presents to ED via private vehicle with who reports the patient was just discharged from [facility]. Pt. Presents to room 50 with pressured speech, flight of ideas, and repetitive speech. Pt. Denies SI/HI at time of intake but states she feels like her doctor changed too many of her meds around. Pt. States she does not feel safe at her home and will not elaborate as to why she does not feel safe. Pt. Is oriented to time, place, and location on arrival. Subjective: Pt is being seen in follow-up for bipolar disorder. Pt has been compliant with Risperdal and Depakote. Pt denied thoughts about harming herself or others. Denied acute complaints. Preoccupied with discharge. [x] Patient was seen and examined in person [x] Chart reviewed [x] Labs reviewed [x] Patient's case discussed with staff/team Suicidal Ideation: [x] No [] Yes Homicidal Ideation: [x] No [] Yes Auditory Hallucinations: [x] No [] Yes Visual Hallucinations: [x] No [] Yes Delusions: [x] No [] Yes Medication side effects(SE): [x] No [] Yes Mental Status Examination Vitals : BP 125/89 Pulse 108 Temp 36.3 ?C (97.3 ?F) (Temporal) Resp 16 SpO2 100% Appearance: [x] Casually groomed [] Unkempt [] Disheveled Level of Consciousness: [x] Alert [] Drowsy [] Tired [] Lethargic [] Distractible [] Asleep [] Could not be assessed Gait and Station: [x] Stable [] Sitting [] Lying down [] Unstable [] In wheel chair or other support Muscle Tone and Strength: [x] Normal [] Increased [] Decreased Manner: [x] Cooperative [] Guarded [] Suspicious [] Irritable [] Hostile [] Withdrawn Motor Activity: [x] Normal [] Agitation [] Psychomotor retardation [] Tremor [] Abnormal involuntary movements [] Extrapyramidal side effects Speech: [x] Normal [] Soft [] Loud [] Rapid [] Pressured [] Dysarthria [] Incoherent Mood: [x] Euthymic [] Depressed [] Irritable [] Angry [] Anxious [] Fearful [] Apathetic [] Euphoric [] Other [] Could not be assessed Affect: [x] Normally variable [] Restricted [] Flat [] Irritable [] Angry [] Anxious [] Labile [] Expansive [] Exaggerated Thought Process/Association: [] Normal [] Tangential [x] Circumstantial [] Poverty of Thought [] Disorganized [] Racing Thoughts [] Flight of Ideas [] Organized and logical [] Could not be assessed Thought Content: [] Hopelessness [] Worthlessness [] Hypochondriasis [] Anxious [] Depressed [x] Ruminations [] Obsessions/Compulsions [] Hopeful [] Motivated [] Future Oriented [] Could not be assessed Delusions: [x] No noted delusions [] Delusions [] Persecutory [] Bizarre [] Judaism [] Grandiose [] Somatic [] Could not be assessed Thoughts of Harm: [x] No SI/HI [] Passive wish [] No suicidal ideation [] Suicidal ideation with plan [] Suicidal ideation without plan [] No homicidal ideation [] Homicidal ideation with plan [] Homicidal ideation without plan [] Could not be assessed Hallucinations: [x] No hallucinations [] Hallucinations [] Auditory [] Visual [] Olfactory [] Tactile [] Could not be assessed Attention/Concentration: [x] Intact [] Poor [] Distractible Cognition: [x] Intact [] Impaired Memory: [x] Intact [] Impaired [] Poor [] Could not be assessed Insight: [] Intact [x] Fair [] Limited [] Improved Judgement: [] Intact [] Fair [x] Limited [] Improved MEDICATIONS: Current Facility-Administered Medications: acetaminophen (Tylenol) tablet 650 mg, 650 mg, Oral, q6h PRN OR acetaminophen (Tylenol) suppository 650 mg, 650 mg, Rectal, q6h PRN, Rosaura Polk DO benztropine (Cogentin) injection 2 mg, 2 mg, IntraMUSCular, BID PRN, Rosaura Polk DO diphenhydrAMINE (BENADryl) injection 50 mg, 50 mg, IntraMUSCular, q6h PRN AND haloperidol lactate (Haldol) injection 5 mg, 5 mg, IntraMUSCular, q6h PRN AND LORazepam (Ativan) injection 2 mg, 2 mg, IntraMUSCular, q6h PRN, Rosaura Polk DO diphenhydrAMINE (BENADryl) tablet/capsule 50 mg, 50 mg, Oral, q6h PRN, 50 mg at 09/14/22318 AND haloperidol (Haldol) tablet 5 mg, 5 mg, Oral, q6h PRN, 5 mg at 09/14/22318 AND LORazepam (Ativan) tablet 2 mg, 2 mg, Oral, q6h PRN, Rosaura Polk DO, 2 mg at 09/14/22318 divalproex (Depakote ER) 24 hr tablet 750 mg, 750 mg, Oral, Daily, Teresita Shelton MD, 750 mg at 09/17/22832 divalproex (Depakote ER) 24 hr tablet 750 mg, 750 mg, Oral, Nightly, Teresita Shelton MD, 750 mg at 09/16/222042 hydroCHLOROthiazide (HYDRODiuril) tablet 25 mg, 25 mg, Oral, Daily, Renita Thomas Jr., MD, 25 mg at 09/17/22832 hydrOXYzine pamoate (Vistaril) capsule 50 mg, 50 mg, Oral, q6h PRN, Rosaura Polk DO, 50 mg at 09/13/222041 LORazepam (Ativan) tablet 1 mg, 1 mg, Oral, Daily PRN, Rosaura Polk DO polyethylene glycol (PEG) 3350 (Miralax) packet 17 g, 17 g, Oral, Daily PRN, Rosaura Lehman (more content not included)...[facility]03-11-2023 Note Problem: Potential for Harm to Self or Others Goal: Denies harm toward self or others Outcome: [facility]03-10-2023 NoteInpatient Psychiatric Progress Note 09/16/22 Elizabeth Mosley was seen in follow up for bipolar disorder, which is chronic in nature. On exam, Elizabeth was sitting in the group room. Overall she is pleasant and cooperative. Mood is slightly euphoric. Continues to have poor insight, is disorganized in thought process and tangential. Still does not quite understand her 's concerns for bring her back into the hospital. She seems irritable by this, but then also says that she brought herself in and wanted to be here for help. This is an somewhat direct opposition to her affect about being in the hospital. Continues to tell me a story about the last 2 weeks and the events leading to the hospital, however there is little logical connection between much of what she is saying. She reported sleeping and eating well. She has been compliant with Depakote however she refused Risperdal last night. She is denying auditory or visual hallucinations. Appears to have some ongoing paranoia about her and mistrust. She is denying significant physical complaints or side effects. She has been going to group activities. Continues to be anxious specifically about taking care of her father and wanting to return back to work. Per staff she has been calm, cooperative. Medications: [START ON 09/17/2022] divalproex, 750 mg, Oral, Daily divalproex, 750 mg, Oral, Nightly hydroCHLOROthiazide, 25 mg, Oral, Daily risperiDONE, 0.5 mg, Oral, BID PRN medications: acetaminophen OR acetaminophen, benztropine, diphenhydrAMINE AND haloperidol lactate AND LORazepam, diphenhydrAMINE AND haloperidol AND LORazepam, hydrOXYzine pamoate, LORazepam, polyethylene glycol (PEG) 3350, traZODone Mental Status Examination: Vitals : BP 124/84 Pulse 88 Temp 36.7 ?C (98.1 ?F) (Temporal) Resp 20 SpO2 99% APPEARANCE: Well groomed, appropriate eye contact. BEHAVIOR: normal PSYCHOMOTOR: within normal limits SPEECH: Coherent and Regular rate, rhythm, volume and articulation LANGUAGE: Naming intact MOOD: Euthymic and Euphoric AFFECT: Constricted THOUGHT PROCESS: Tangential THOUGHT CONTENT: paranoid ideation PERCEPTIONS/HALLUCINATIONS: denies ABSTRACTION: fair INSIGHT: poor, including concerning psychiatric condition. JUDGMENT: poor, including concerning psychiatric condition. ORIENTATION: Appropriate to age, Person, Place, and Time MEMORY: recent and remote memory intact ATTENTION SPAN: fair CONCENTRATION: fair FUND OF KNOWLEDGE: fair GAIT: Within normal limits ROS: [x] All negative/unchanged except if checked. Explain positive(checked items) below: [] Constitutional [] Eyes [] Ear/Nose/Mouth/Throat [] Respiratory [] CV [] GI [] [] Musculoskeletal [] Skin/Breast [] Neurological [] Endocrine [] Heme/Lymph [] Allergic/Immunologic Explanation: denies ASSESSMENT: 1.) Bipolar 1 disorder, current episode manic with psychotic features 2.) Unspecified anxiety disorder Patient symptoms :show no change Patient continues to need, on a daily basis, active treatment furnished directly by or requiring the supervision of inpatient psychiatric personnel. Treatment Plan: -Will increase Depakote to 750mg BID for holli. Continue Risperdal 0.5mg BID for mood. Continue Current Medications if not otherwise stated. Will continue to titrate medications and assess for effectiveness and tolerability. Continue Follow-up. Continue crisis intervention oriented psychotherapy, group and milieu therapies. Social work and transitional care continue to assist with necessary family liaison and discharge planning. Pt expressed agreement and understanding with treatment plan. PSYCHOTHERAPY/COUNSELING: Supportive, therapeutic interview Inpatient MDM Complexity: 1.) Patient has at least one chronic illness with severe exacerbation, and requiring 2.) Prescription drug management and high risk of morbidity without ongoing treatment due to ongoing disorganization,manic behavior, irritability, recent anger and bizarre behavior, second admission in last 2 weeks, not safe for discharge at this time MDM Level: high Note: Please note this report has been produced using speech recognition software and may contain errors related to that system including errors in grammar, punctuation, and spelling, as well as words and phrases that may be inappropriate. If there are any questions or concerns please feel free to contact the dictating provider for clarification.[facility] 09-16-2022 NoteHospitalist Progress Note 09/16/2022 [phone]: Please page me ([phone]) for patient care issues. [phone]: Please page [facility] night Hospitalist for any issues. Subjective: Admit Date: 09/13/2022 PCP: No primary care provider on file. Room#: S7-104/S7-104 A Interval History: No overnight issues. Patient observed in the day room working on a word puzzle in no acute distress. Lab results discussed with patient. Patient reports B/L thigh pain resolved. No new complaints. Tolerating diet and meds. Denies chest pain, sob, abdominal pain, nausea, vomiting, diarrhea, constipation, fevers, or chills. Adult diet Regular @[id number]@ 24HR INTAKE/OUTPUT: No intake or output data in the 24 hours ending 09/16/22 0943 Past Medical History: No past medical history on file. LABS: CBC: Recent Labs 09/13/22 1042 WBC 9.8 RBC 4.37 HGB 12.6 HCT 39.6 MCV 90.6 RDW 14.3 PLT 355 BMP: Recent Labs 09/13/22 1042 09/16/22 0548 NA 143 143 K 3.6 4.2 CL 106 107 CO2 27 27 BUN 17 21* CREATININE 0.81 0.78 GLUCOSE 110* 98 CALCIUM 9.3 9.4 ANIONGAP 9 9 LIVER PROFILE: Recent Labs 09/13/22 1042 09/16/22 0548 AST 46 47* ALT 37* 30 BILITOT 0.3 0.2 ALKPHOS 102 96 PROT 8.2 7.9 PT/INR: No results for input(s): PROTIME, INR in the last 72 hours. CARDIAC ENZYMES: No results for input(s): TROPONINI in the last 72 hours. Procalcitonin: No results found for: PROCAL COVID-19 PCR: No results for input(s): COVID19 in the last 72 hours. Objective: Vitals: BP 124/84 Pulse 88 Temp 36.7 ?C (98.1 ?F) (Temporal) Resp 20 SpO2 99% Pulse Ox: SpO2 Av.3 % Min: 96 % Max: 100 % Supplemental O2: General appearance: No apparent distress, appears stated age and cooperative with exam HEENT: Normal cephalic, atraumatic without obvious deformity. Pupils equal, round, and reactive to light. Extra ocular muscles intact. Conjunctivae/corneas clear. Neck: Supple, with full range of motion. No jugular venous distention. Trachea midline. No lymphadenopathy. Respiratory: Normal respiratory effort. Clear to auscultation, bilaterally without Rales/Wheezes/Rhonchi. Cardiovascular: Regular rate and rhythm with normal S1/S2 without murmurs, rubs or gallops. Abdomen: Soft, non-tender, non-distended with normal bowel sounds. No rebound or guarding. Musculoskeletal: No clubbing, cyanosis or edema bilaterally. Full range of motion without deformity, +2 peripheral pulses in all extremities. Skin: Skin color, texture, turgor normal. No rashes or lesions. Neurologic: Neurovascularly intact without any focal sensory/motor deficits. Cranial nerves: II-XII intact, grossly non-focal. Medications: divalproex, 500 mg, Oral, Daily divalproex, 500 mg, Oral, Nightly hydroCHLOROthiazide, 25 mg, Oral, Daily risperiDONE, 0.5 mg, Oral, BID Assessment Elevated CK- 693-->patient reports B/L thigh (hamstring) pain. Repeat CK on 09/16 155 Elevated LFT's, mild - unknown etiology - AST 47 ALT 30 on 09/16/22 HTN - managed on hydrochlorothiazide BP Readings from Last 3 Encounters: 09/16/22 124/84 09/06/22 121/82 - monitor BP Acute Psychosis - managed per Primary team Medical Decision Making -continue current tx and meds. Patient medically stable from a medicine standpoint. USACS will sign off, please call with any questions. -am labs, replace lytes prn -increase activity -DVT prophylaxis: [] Lovenox [] Heparin [] SCDs [x] Encourage ambulation [] Already on Anticoagulation Anticipated Discharge - Date - Per Primary team - Location - Per Primary team - Pending the following - Primary team clearance Total time spent (which include face to face and non face to face encounters) : 30 minutes Toxic drug monitoring/narrow therapeutic index drug monitoring : # Drug name : # Route administered : # Method of monitoring : Extended Emergency Contact Information Primary Emergency Contact: Mayra Adam Mobile Relation: Daughter Secondary Emergency Contact: Maddy Medrano Mobile Relation: Daughter Socorro Solis, [employer] - [employer]LECT[employer]ICAL REPAIRER Division of Hospitalist Medicine Inpatient Medical Services/[facility] [place] PAGER: [employer] [facility]03-09-2023 NoteProblem: Potential for Harm to Self or Others Goal: Denies harm toward self or others Outcome: [facility]03-09-2023 NoteInpatient Psychiatric Progress Note 09/15/22 Elizabeth Mosley was seen in follow up for bipolar disorder, which is chronic in nature. On exam, Jackie was sitting in the group room during a scheduled activity, when I walked up to her she actually had her eyes closed and did not appear to be participating. Mood appears to be fairly euthymic today she does not appear euphoric or irritable. Still has poor insight, dismissive of her 's concerns about her mental state recently. She is able to verbalize that she has a history of bipolar disorder and the last time she came into the hospital she requested it because she knew she was not doing well, but still does not think she needs to be here now. Continues to be disorganized, she started telling me about her lithium level being checked which did not have any relevance to what we are talking about, I told her that she was not on lithium, and she told me this was about a past event. Reports that she is sleeping and eating appropriately. Denies suicidal or homicidal ideation, no intent or plan. Has been compliant with scheduled Depakote and Risperdal for mood stabilization. Becomes tearful when talking about stress at home and taking care of her , her father and also working. She denied physical complaints or medication side effects. Per staff she has been calm, cooperative, compliant with treatment Medications: divalproex, 500 mg, Oral, Daily divalproex, 500 mg, Oral, Nightly hydroCHLOROthiazide, 25 mg, Oral, Daily risperiDONE, 0.5 mg, Oral, BID PRN medications: acetaminophen OR acetaminophen, benztropine, diphenhydrAMINE AND haloperidol lactate AND LORazepam, diphenhydrAMINE AND haloperidol AND LORazepam, hydrOXYzine pamoate, LORazepam, polyethylene glycol (PEG) 3350, traZODone Mental Status Examination: Vitals : BP 112/77 Pulse 96 Temp 36.6 ?C (97.8 ?F) (Temporal) Resp 18 SpO2 96% APPEARANCE: Well groomed, appropriate eye contact. BEHAVIOR: normal PSYCHOMOTOR: within normal limits SPEECH: Coherent and Regular rate, rhythm, volume and articulation LANGUAGE: Naming intact MOOD: Euthymic AFFECT: Constricted THOUGHT PROCESS: Tangential THOUGHT CONTENT: normal PERCEPTIONS/HALLUCINATIONS: denies ABSTRACTION: fair INSIGHT: fair, including concerning psychiatric condition. JUDGMENT: fair, including concerning psychiatric condition. ORIENTATION: Appropriate to age, Person, Place, and Time MEMORY: recent and remote memory intact ATTENTION SPAN: fair CONCENTRATION: fair FUND OF KNOWLEDGE: fair GAIT: Within normal limits ROS: [x] All negative/unchanged except if checked. Explain positive(checked items) below: [] Constitutional [] Eyes [] Ear/Nose/Mouth/Throat [] Respiratory [] CV [] GI [] [] Musculoskeletal [] Skin/Breast [] Neurological [] Endocrine [] Heme/Lymph [] Allergic/Immunologic Explanation: denies ASSESSMENT: 1.) Bipolar 1 disorder, current episode manic with psychotic features 2.) Unspecified anxiety disorder Patient symptoms :show no change Patient continues to need, on a daily basis, active treatment furnished directly by or requiring the supervision of inpatient psychiatric personnel. Treatment Plan: -Will continue to titrate Risperdal and Depakote as tolerable will not make changes today as Risperdal was just added yesterday. Continue Current Medications if not otherwise stated. Will continue to titrate medications and assess for effectiveness and tolerability. Continue Follow-up. Continue crisis intervention oriented psychotherapy, group and milieu therapies. Social work and transitional care continue to assist with necessary family liaison and discharge planning. Pt expressed agreement and understanding with treatment plan. PSYCHOTHERAPY/COUNSELING: Supportive, therapeutic interview Inpatient MDM Complexity: 1.) Patient has at least one chronic illness with severe exacerbation, and requiring 2.) Prescription drug management and high risk of morbidity without ongoing treatment due to ongoing disorganization, irritability, recent anger and bizarre behavior, second admission in last 2 weeks, not safe for discharge at this time MDM Level: high Note: Please note this report has been produced using speech recognition software and may contain errors related to that system including errors in grammar, punctuation, and spelling, as well as words and phrases that may be inappropriate. If there are any questions or concerns please feel free to contact the dictating provider for clarification.[facility] 09-15-2022 NoteIndividual Therapy Progress Note Date of Service: 09/15/22 Start Time: 9:45am End Time: 10:00am Summary of Session: LPCC-S spoke with pt about progress in treatment. Pt asked twice who this software writer was and if I was a doctor during the 15min meeting. Pt reported that when she left the hospital few weeks ago, things at home were stressful. Pt reported that her was not truthful with her when she brought her to the hospital. Pt reported that her medications had to be picked up at two different pharmacies when she left last time. Pt reported that she only sleeps 4hrs a night and that it is normal for her. Pt reported that she was pacing a lot yesterday buy worries it is upsetting to other pt. MENTAL STATUS EXAM General Observations: Appearance: [x] Neatly groomed [] Unkempt [] Disheveled [] Other Demeanor: [x] Spontaneous [] Hostile [] Mistrustful [] Preoccupied [] Demanding Activity: [x] Normal [] Hyperactive [] Hypoactive Speech: [x] Clear [] Slurred []Rapid [] Pressured [] Slow [] Soft spoken [] Loud [] Mute [] Rambling [] Incoherent [] Word salad [] Nonsensical Eye Contact: [x] Average [] Sporadic [] Poor [] Avoidant [] Intense MOOD & AFFECT: Mood: [] Euthymic [] Depressed [x] Anxious [] Angry [] Euphoric [] Irritable [] Other: Affect: [x] Full [] Blunted [] Constricted [] Flat [] Inappropriate [] Labile BEHAVIOR: [] Cooperative [] Resistant [] Agitated [] Impulsive [] Hyperactive [] Aggresive [] Assaultive [x] Restless [] Anhedonia [] Akathisia [] Dissociating [] Withdrawn [] Irritable [] Relaxed [] Tired/fatigued [] Tearful [] Pacing [] Easily Startled [] Trembling/shaking Grimaces COGNITION: Thought Processes: [] Logical [] [place] [x] Circumstantial [] Tangential [] Loose [x] Incoherent [] Blocked [] Racing [] Flight of Ideas Thought Content: Delusions: [] Grandiose [] Persecutory [] Somatic [] Judaism [] Bizarre [] Nihilistic [] None reported/observed Other: [] Autistic [] Obsessions [] Guilt [] Phobic [] Guarded Preoccupied [] Ideas of Reference [] Preoccupation with Suicidal Ideation [] None Reported [] Ideation [] Intent [] Plan [] Self abusive behaviors (assess lethality if present) Homicidal Ideation [x] None Reported [] Ideation [] Intent [] Plan [] Aggressive behaviors (assess lethality of present) Perceptions: [x] Within normal limits [] Illusions [] Depersonalization [] Derealization [] Hallucinations: [] Auditory [] Visual [] Olfactory []Gustatory [] Tactile [] Visceral Oriented to: [x] Person [x] Place [x] Time [x] Situation Level of Consciousness: [] Alert [] Clouded [x] Fluctuating Memory Tested: [] Yes [x] No Memory Disturbance: [] Yes [x] No Attention Deficit: [] Yes [x] No Judgment: [] Good [x] Fair [] Poor Insight: [] Good [x] Fair [] Poor Comments re: significant MSE findings: N/A Therapeutic Intervention: Motivational Interviewing Patient Response to Intervention: Pt was open to talking but struggled with insight into her condition. Goal(s) Addressed During Session: Mood Stabilization Progress Towards Goal: Minimal progress [facility] [id number] NoteHospitalist Progress Note 09/15/2022 [phone]: Please page ri ([phone]) for patient care issues. [phone]: Please page [facility] Hospitalist for any issues. Subjective: Admit Date: 09/13/2022 PCP: No primary care provider on file. Room#: S7-104/S7-104 A Interval History: No overnight issues. On approach, patient ambulating halls on her way to group therapy. Patient interviewed in her room. On exam, she reports, B/L hamstring pain and states its my magnesium. She has no other physical complaints at this time. Tolerating diet and meds. Denies chest pain, sob, abdominal pain, nausea, vomiting, diarrhea, constipation, fevers, or chills. Adult diet Regular @[id number]@ 24HR INTAKE/OUTPUT: No intake or output data in the 24 hours ending 09/15/22927 Past Medical History: No past medical history on file. LABS: CBC: Recent Labs 09/13/22 1042 WBC 9.8 RBC 4.37 HGB 12.6 HCT 39.6 MCV 90.6 RDW 14.3 PLT 355 BMP: Recent Labs 09/13/22 1042 NA 143 K 3.6 CL 106 CO2 27 BUN 17 CREATININE 0.81 GLUCOSE 110* CALCIUM 9.3 ANIONGAP 9 LIVER PROFILE: Recent Labs 09/13/22 1042 AST 46 ALT 37* BILITOT 0.3 ALKPHOS 102 PROT 8.2 PT/INR: No results for input(s): PROTIME, INR in the last 72 hours. CARDIAC ENZYMES: No results for input(s): TROPONINI in the last 72 hours. Procalcitonin: No results found for: PROCAL COVID-19 PCR: No results for input(s): COVID19 in the last 72 hours. Objective: Vitals: BP (!) 136/94 Pulse 102 Temp 36.1 ?C (96.9 ?F) (Temporal) Resp 20 SpO2 100% Pulse Ox: SpO2 Av.3 % Min: 98 % Max: 100 % Supplemental O2: General appearance: No apparent distress, appears stated age and cooperative with exam HEENT: Normal cephalic, atraumatic without obvious deformity. Pupils equal, round, and reactive to light. Extra ocular muscles intact. Conjunctivae/corneas clear. Neck: Supple, with full range of motion. No jugular venous distention. Trachea midline. No lymphadenopathy. Respiratory: Normal respiratory effort. Clear to auscultation, bilaterally without Rales/Wheezes/Rhonchi. Cardiovascular: Regular rate and rhythm with normal S1/S2 without murmurs, rubs or gallops. Abdomen: Soft, non-tender, non-distended with normal bowel sounds. No rebound or guarding. Musculoskeletal: No clubbing, cyanosis or edema bilaterally. Full range of motion without deformity, +2 peripheral pulses in all extremities. Skin: Skin color, texture, turgor normal. No rashes or lesions. Neurologic: Neurovascularly intact without any focal sensory/motor deficits. Cranial nerves: II-XII intact, grossly non-focal. Medications: divalproex, 500 mg, Oral, Daily divalproex, 500 mg, Oral, Nightly hydroCHLOROthiazide, 25 mg, Oral, Daily risperiDONE, 0.5 mg, Oral, BID Assessment Elevated CK- 693-->patient reports B/L thigh (hamstring) pain Elevated LFT's, mild- ALT 37 on 09/2022 - unknown etiology - improving from-->08/2022 AST 150 ALT 128 HTN - managed on hydrochlorothiazide BP Readings from Last 3 Encounters: 09/15/22 112/77 09/06/22 121/82 - monitor BP Acute Psychosis - managed per Primary team Medical Decision Making - repeat CMP and CK in am to monitor trends - encourage increased fluid intake -am labs, replace lytes prn -increase activity -DVT prophylaxis: [] Lovenox [] Heparin [] SCDs [x] Encourage ambulation [] Already on Anticoagulation Anticipated Discharge - Date - Per Primary team - Location - Per Primary team - Pending the following - Primary team clearance Total time spent (which include face to face and non face to face encounters) : 30 minutes Toxic drug monitoring/narrow therapeutic index drug monitoring : # Drug name : # Route administered : # Method of monitoring : Extended Emergency Contact Information Primary Emergency Contact: KiaHomercristopher Mobile Relation: Daughter Secondary Emergency Contact: Maddy Medrano Mobile Relation: Daughter Socorro SKIP [employer] - [employer] Division of Hospitalist Medicine Inpatient Medical Services/[facility] [place] PAGER: [facility] [id number] NoteDepartment of Psychiatry History and Physical - Adult CHIEF COMPLAINT: my History obtained from: chart review and patient reports Patient was seen after discussion with staff and reviewing the chart HISTORY OF PRESENT ILLNESS: The patient is a 47 y.o. female who presents with manic behavior. Per emergency department note, patient was brought in for psychiatric evaluation, she was presenting with pressured speech, flight of ideas and tangential speaking. She was evaluated by the psychiatric resident who spoke with Félix her . Per his account she seemed to be doing well after her discharge, however got into an argument with her sister and then her mood deteriorated. She started displaying disorganized behavior such as wearing multiple clothing items at once, apparently only sleeping 1 to 2 hours a night, following family members around the house and talking nonstop about random things. On exam she is relatively calm and cooperative, she does have some minimization and blames her forbringing her back to the hospital. She does not think anything is wrong. She does not report taking her Depakote for her it was unclear if she was taking 250 or 500 mg. Her Depakote level in the emergency department was 60. She seems preoccupied with apparently some transactions on her phone that glitch she then went to the bank to figure this out. Then started telling me about her bank lock box. Reports some ongoing stress about taking care of her father who is living with her at this time. Reports that she has been asking family to help but per her account she is not getting any. She is displaying some racing thoughts, her speech is not pressured, she does seem disorganized, slightly delusional about her and not trusting him. Medications Prior to Admission: divalproex, 500 mg, Oral, Daily divalproex, 500 mg, Oral, Nightly hydroCHLOROthiazide, 25 mg, Oral, Daily risperiDONE, 0.5 mg, Oral, BID PRN medications: acetaminophen OR acetaminophen, benztropine, diphenhydrAMINE AND haloperidol lactate AND LORazepam, diphenhydrAMINE AND haloperidol AND LORazepam, hydrOXYzine pamoate, LORazepam, polyethylene glycol (PEG) 3350, traZODone Compliance:yes Psychiatric Review of Systems Depression: trouble concentrating Holli or Hypomania: reduced self-care, mixed mood symptoms, delusions, anxiety, and feelings of losing control Hx of Mood Disorder: previous mixed mood episode Anxiety: feelings of losing control, racing thoughts Obsessions and Compulsions: frequent and repetitive worrying and repetitive thoughts PTSD: denies Hallucinations: denies Delusions: persecutory Access to weapons?: denies Past Psychiatric History: She has a history of bipolar 1 disorder. She was recently admitted to [facility] last week and discharged. She was discharged on Depakote 500 mg twice a day and Ativan 1 mg twice a day. She has not been on any other psychiatric medications in the past. Denies previous suicide attempts. Past Medical History: HTN Past Surgical History: No past surgical history on file. Allergies: Patient has no known allergies. Family History: No family history on file. Social History: Reports she is from [facility]. 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 She currently lives with her and 2 children. She is Buddhism. Substance Abuse History: ETOH: none Illicit Drugs: none Tobacco: no use REVIEW OF SYSTEMS: ROS: [x] All negative/unchanged except if checked. Explain positive(checked items) below: [] Constitutional [] Eyes [] Ear/Nose/Mouth/Throat [] Respiratory [] CV [] GI [] [] Musculoskeletal [] Skin/Breast [] Neurological [] Endocrine [] Heme/Lymph [] Allergic/Immunologic Explanation: denies Mental Status Examination: Vitals : BP 124/88 Pulse 95 Temp 36.4 ?C (97.6 ?F) (Temporal) Resp 16 SpO2 96% APPEARANCE: Fairly groomed. BEHAVIOR: normal PSYCHOMOTOR: within normal limits SPEECH: Coherent and Regular rate, rhythm, volume and articulation LANGUAGE: Naming intact MOOD: Anxious AFFECT: Euthymic, full-range THOUGHT PROCESS: Circumstantial THOUGHT CONTENT: delusions PERCEPTIONS/HALLUCINATIONS: denies ABSTRACTION: fair INSIGHT: poor, including concerning psychiatric condition. JUDGMENT: poor, including concerning psychiatric condition. ORIENTATION: oriented to person, place, time/date, and situation MEMORY: recent and remote memory intact ATTENTION SPAN: fair CONCENTRATION: fair FUND OF KNOWLEDGE: good GAIT: Within normal limits PSYCHIATRIC RISK ASSESSMENT: Acute Factors: Lack of social supports and Psychosis Protective Factors: Willingness to seek help and support Risk Assessment: Moderate Risk Volatile/Aggressive Behavior LABS: Recent Labs 09/13/22 1042 WBC 9.8 HGB 12.6 PLT 355 Recent Labs 09/13/22 1042 (more content not included)...[facility] [id number] Note Attestation signed by Teresita Shelton MD at 09/06/2022 1:27 PM I saw and evaluated the patient, participating in the leblanc portions of the service. I reviewed the resident?s note. I agree with the resident?s findings and plan. I spent greater than 30 min providing discharge services. Discharge Summary Elizabeth Mosley : 1975 ADMIT DATE: 08/31/2022 DISCHARGE DATE: 09/06/2022 PRIMARY CARE PHYSICIAN: No primary care provider on file. VISIT STATUS: Admission CODE STATUS: Full Code DISCHARGE DIAGNOSES: Principal Problem: Bipolar 1 disorder, manic, mild (CMS/HCC) ([facility]) Active Problems: Agitation states as acute reaction to exceptional (gross) stress Caregiver's other noncompliance with patient's medication regimen Disorientation HOSPITAL COURSE: Pt was admitted to [place] [address] for safety and stabilization for bipolar 1. Patient initially presented with confusion and anger. She was initially resumed on Depakote 250 mg daily which was the dose confirmed by her pharmacy. Patient reports that she was on 250 in the morning and 500 mg nightly and her medication was increased to this. Then Depakote was eventually increased again to 500 mg BID. She was also started on Ativan 1 mg BID. Patient's symptoms of confusion improved significantly. Pt was compliant with medications and maintained safety on the unit. They did require prn- sedation on the first day but for the rest of hospitalization patient did not require restraints, seclusion, or prn sedation during their admission. Pt consistently denied suicidal or homicidal ideation. On the day of discharge, the pt denied suicidal or homicidal ideation, AVH, or delusional beliefs. She was future oriented. Pt was willing to follow-up on an outpatient basis and continue taking medications. Spoke to patient's , Félix ([phone]). Denies any concerns with the patient being discharged today. Feel like patient is heading right direction. States he will miner pick patient and they will return to their home in [facility]. States that he will be there to take weight off her shoulders. Denies patient has any access to guns or weapons at home. SIGNIFICANT DIAGNOSTIC STUDIES: none CONSULTANTS: Internal Medicine RECOMMENDED NEXT STEPS: Follow up with the [facility] Follow up with [facility] DISCHARGE MEDICATIONS: Medication List START taking these medications * divalproex 500 MG 24 hr tablet Commonly known as: Depakote ER Take 1 tablet (500 mg) by mouth Nightly. Do not crush, chew, or split. Replaces: divalproex 500 MG EC tablet * divalproex 500 MG 24 hr tablet Commonly known as: Depakote ER Take 1 tablet (500 mg) by mouth daily. Do not crush, chew, or split. Do not start before September 07, 2022. Start taking on: September 07, 2022 Replaces: divalproex 250 MG EC tablet hydrOXYzine pamoate 50 MG capsule Commonly known as: Vistaril Take 1 capsule (50 mg) by mouth every 8 hours as needed for anxiety. LORazepam 1 MG tablet Commonly known as: Ativan Take 1 tablet (1 mg) by mouth Daily as needed for anxiety for up to 14 days. traZODone 50 MG tablet Commonly known as: Desyrel Take 1 tablet (50 mg) by mouth Nightly as needed for sleep. * This list has 2 medication(s) that are the same as other medications prescribed for you. Read the directions carefully, and ask your doctor or other care provider to review them with you. STOP taking these medications divalproex 250 MG EC tablet Commonly known as: Depakote Replaced by: divalproex 500 MG 24 hr tablet divalproex 500 MG EC tablet Commonly known as: Depakote Replaced by: divalproex 500 MG 24 hr tablet hydroCHLOROthiazide 25 MG tablet Commonly known as: HYDRODiuril hydrOXYzine HCl 25 MG tablet Commonly known as: Atarax Where to Get Your Medications These medications were sent to [facility]/pharmacy #[id number] - [place], [place] - [address] [place] [address] divalproex 500 MG 24 hr tablet divalproex 500 MG 24 hr tablet hydrOXYzine pamoate 50 MG capsule LORazepam 1 MG tablet traZODone 50 MG tablet DIET: Adult diet Regular ACTIVITY: No restriction. COMPLEXITY OF FOLLOW UP: [x] Moderate Complexity: follow up within 7-14 calendar days (33428) [] Severe Complexity: follow up within 7 calendar days (54348) FOLLOW UP TESTING, PENDING RESULTS OR REFERRALS AT TRANSITIONAL CARE VISIT: [] Yes [x] No PENDING STUDIES: none DISPOSITION: Home FACILITY/HOME CARE AGENCY NAME: n/a [facility] up with [facility] [address] [place] Barreto (more content not included)...[facility] [id number] NoteIndividual Therapy Progress Note Date of Service: 09/06/22 Start Time: 9:00 am End Time: 10:00 am Summary of Session: LPCC-S met with pt to discuss progress in treatment. Pt spent time processing feelings and emotions surrounding admission into hospital and struggle with acceptance with bipolar disorder. Pt shared that she was stressed out due to working and taking care of elderly father. Pt struggled with remembering exact dates about events prior to coming into hospital. PT reported suffering with PTSD but refused to discuss traumatic events she had experienced in the past. Discussed the benefits of following doctor treatment recommendations, medication compliance, and finding an EAP or mental health therapist to work with after discharge. Pt reported that she plans on asking her psychiatrist for a referral. Reviewed Coping Skills Worksheet and pt was able to identify multiple coping skills she uses to regulate mood and provide self care. MENTAL STATUS EXAM General Observations: Appearance: [x] Neatly groomed [] Unkempt [] Disheveled [] Other Demeanor: [x] Spontaneous [] Hostile [] Mistrustful [] Preoccupied [] Demanding Activity: [x] Normal [] Hyperactive [] Hypoactive Speech: [x] Clear [] Slurred []Rapid [] Pressured [] Slow [] Soft spoken [] Loud [] Mute [] Rambling [] Incoherent [] Word salad [] Nonsensical Eye Contact: [x] Average [] Sporadic [] Poor [] Avoidant [] Intense MOOD & AFFECT: Mood: [] Euthymic [x] Depressed [] Anxious [] Angry [] Euphoric [] Irritable [] Other: Affect: [x] Full [] Blunted [] Constricted [] Flat [] Inappropriate [] Labile BEHAVIOR: [x] Cooperative [] Resistant [] Agitated [] Impulsive [] Hyperactive [] Aggresive [] Assaultive [] Restless [] Anhedonia [] Akathisia [] Dissociating [] Withdrawn [] Irritable [] Relaxed [] Tired/fatigued [] Tearful [] Pacing [] Easily Startled [] Trembling/shaking Grimaces COGNITION: Thought Processes: [] Logical [] [place] [] Circumstantial [x] Tangential [] Loose [] Incoherent [] Blocked [] Racing [] Flight of Ideas Thought Content: Delusions: [] Grandiose [] Persecutory [] Somatic [] Judaism [] Bizarre [] Nihilistic [x] None reported/observed Other: [] Autistic [] Obsessions [] Guilt [] Phobic [] Guarded Preoccupied [] Ideas of Reference [] Preoccupation with Suicidal Ideation [x] None Reported [] Ideation [] Intent [] Plan [] Self abusive behaviors (assess lethality if present) Homicidal Ideation [x] None Reported [] Ideation [] Intent [] Plan [] Aggressive behaviors (assess lethality of present) Perceptions: [x] Within normal limits [] Illusions [] Depersonalization [] Derealization [] Hallucinations: [] Auditory [] Visual [] Olfactory []Gustatory [] Tactile [] Visceral Oriented to: [x] Person [x] Place [x] Time [x] Situation Level of Consciousness: [x] Alert [] Clouded [] Fluctuating Memory Tested: [] Yes [x] No Memory Disturbance: [] Yes [x] No Attention Deficit: [] Yes [x] No Judgment: [] Good [x] Fair [] Poor Insight: [] Good [x] Fair [] Poor Comments re: significant MSE findings: N/A Therapeutic Intervention: CBT Coping SKills Patient Response to Intervention: Pt was open to talking. Goal(s) Addressed During Session: Mood Stabilization Progress Towards Goal: Minimal progress [facility]02-28-2023 NoteProblem: Safety - Adult Goal: Free from fall injury Outcome: Progressing Problem: Altered Thought Processes as Evidenced by Goal: STG - Desires improvement in ability to think and concentrate Outcome: [facility]02-27-2023 NoteProblem: Safety - Adult Goal: Free from fall injury Outcome: Progressing Problem: Altered Thought Processes as Evidenced by Goal: STG - Desires improvement in ability to think and concentrate Outcome: [facility]02-27-2023 NoteHospitalist Progress Note 09/05/2022 [phone]: Please page me ([phone]) for patient care issues. [phone]: Please page [facility] Consult Hospitalist for any issues. Subjective: Admit Date: 08/31/2022 PCP: No primary care provider on file. Room#: S7-114/S7-114 A Interval History: No overnight issues. Denies chest pain, sob, abdominal pain, nausea, vomiting, diarrhea, constipation, fevers, or chills. Adult diet Regular 24HR INTAKE/OUTPUT: No intake or output data in the 24 hours ending 09/05/22 1628 Past Medical History: No past medical history on file. LABS: CBC: Recent Labs 09/03/22 0555 WBC 9.6 RBC 3.98 HGB 11.8 HCT 35.4 MCV 88.9 RDW 14.0 PLT 380 BMP:No results for input(s): NA, K, CL, CO2, BUN, CREATININE, GLUCOSE, CALCIUM, ANIONGAP in the last 72 hours. LIVER PROFILE: Recent Labs 09/03/22 0555 AST 107* ALT 141* BILITOT 0.5 ALKPHOS 89 PROT 7.3 PT/INR: No results for input(s): PROTIME, INR in the last 72 hours. CARDIAC ENZYMES: No results for input(s): TROPONINI in the last 72 hours. Procalcitonin: No results found for: PROCAL COVID-19 PCR: No results for input(s): COVID19 in the last 72 hours. Objective: Vitals: BP 127/84 Pulse 101 Temp 35.8 ?C (96.5 ?F) (Temporal) Resp 18 Ht 5' 6 (1.676 m) Wt 250 lb (113 kg) SpO2 100% BMI 40.35 kg/m? Pulse Ox: SpO2 Av.5 % Min: 99 % Max: 100 % Supplemental O2: General appearance: No apparent distress, appears stated age and cooperative with exam HEENT: Normal cephalic, atraumatic without obvious deformity. Pupils equal, round, and reactive to light. Extra ocular muscles intact. Conjunctivae/corneas clear. Neck: Supple, with full range of motion. No jugular venous distention. Trachea midline. No lymphadenopathy. Respiratory: Normal respiratory effort. Clear to auscultation, bilaterally without Rales/Wheezes/Rhonchi. Cardiovascular: Regular rate and rhythm with normal S1/S2 without murmurs, rubs or gallops. Abdomen: Soft, non-tender, non-distended with normal bowel sounds. No rebound or guarding. Musculoskeletal: No clubbing, cyanosis or edema bilaterally. Full range of motion without deformity, +2 peripheral pulses in all extremities. Skin: Skin color, texture, turgor normal. No rashes or lesions. Neurologic: Neurovascularly intact without any focal sensory/motor deficits. Cranial nerves: II-XII intact, grossly non-focal. Medications: divalproex, 500 mg, Oral, Nightly [START ON 09/06/2022] divalproex, 500 mg, Oral, Daily LORazepam, 1 mg, Oral, BID Assessment Elevated blood pressure-noted to have labile blood pressure earlier in hospital stay. Patient has had blood pressure within acceptable limits the past 2 days with trends below: Asymptomatic. Would not start antihypertensive medication at this time. If needed she reports that she has been on hydrochlorothiazide in the past. Recommend follow-up with PCP as an outpatient and lifestyle modifications, dietary approach to stop hypertension instructions provided. 2. Mild transaminitis-no abdominal pain, nausea, vomiting. Patient has had this in the past. Recommend follow-up with PCP as outpatient. 3. Unspecified mood disorder and catatonia-Per primary team Medical Decision Making Patient medically stable at this time and we will sign off. Please do not hesitate contact us with any change in condition, questions or concerns. We appreciate the consultation and involvement in this patient's care. -DVT prophylaxis: [] Lovenox [] Heparin [] SCDs [x] Encourage ambulation [] Already on Anticoagulation Anticipated Discharge -Per primary team Total time spent (which include face to face and non face to face encounters) : 30 minutes Extended Emergency Contact Information Primary Emergency Contact: Mayra Adam Mobile Relation: Daughter Secondary Emergency Contact: Maddy Medrano Mobile Relation: Daughter Stephanie CaterinapalomoSKIP - ELECTRICAL REPAIRER Division of Hospitalist Medicine Inpatient Medical Services/[facility] PAGER: [facility]02-27-2023 NoteProblem: Safety - Adult Goal: Free from fall injury Outcome: Progressing Problem: Altered Thought Processes as Evidenced by Goal: STG - Desires improvement in ability to think and concentrate Outcome: [facility]02-26-2023 NoteProblem: Safety - Adult Goal: Free from fall injury Outcome: Progressing Problem: Altered Thought Processes as Evidenced by Goal: STG - Desires improvement in ability to think and concentrate Outcome: [facility]02-26-2023 NoteWeekend provider progress note Subjective patient is seen for chief complaint of bipolar disorder. Patient is calm and today does not seem to have any new complaints. Sleeping well and eating well likes her medications does not want changes. Does not seem paranoid today. We have a fairly lighthearted chat and she is spending time with staff members and medications. Now she is stable. The entire psychiatric review of systems is denied including severe depression guilt or worthlessness severe insomnia appetite changes severe anxiety with physical symptoms or panic attacks nightmares or flashbacks, auditory or visual hallucinations or delusions, racing thoughts or grandiosity. Side effects of the patient's prescribed psychiatric medications were denied including pain myalgias nausea or vomiting stomach pain drooling headache or blurry vision urinary changes bowel changes oversedation sleep changes or appetite changes. Objective Vitals: 09/04/22 0803 BP: (!) 143/104 Pulse: 99 Resp: 16 Temp: 36.6 ?C (97.8 ?F) SpO2: 96% Mental Status Exam: Appearance: appropriately dressed and healthy looking, Behavior: cooperative and attentive Speech: spontaneous, normal rate, normal volume, and well articulated Mood: ok, Affect: Not congruent somewhat hyperthymic and intense. Some degree of paranoia., Thought content: intact Thought process: logical and coherent, Insight: fair , Judgment: fair Suicidal Intentions: No Suicidal Plan: No Activity normal Associations: Goal-Directed Orientation: oriented to person and place. Attention fair. Concentration fair. Memory Recent: intact, Remote:intact. Language Naming: intact, Repetition: intact. Fund of knowledge: fair Assessment and Plan Bipolar 1 disorder - Continue medications as prescribed may need more time to take effect and slowly stabilized mood. - Keep an eye on patient's level of paranoia, she may need an adjustment of her medications but hard to tell at this point -The patient's psychiatric symptoms and side effects to medications were assessed today. The patient is not reporting intolerable or dangerous side effects and psychiatric symptoms are slowly improving, current psychiatric symptoms are not immediately dangerous such that they warrant an urgent medication increase today, therefore currently I lack sufficient evidence to warrant titrating or tapering any current psychiatric medicines, plan to make the decision to continue the medications at current doses for today and allow them more time to stabilize current symptoms. Changes to treatment plan over weekend or critical information/events over weekend None As of 09/04/22 symptoms of bipolar still severe enough to make inpatient level care medically necessary, and is expected that this treatment will improve said symptoms. Chart reviewed and staff consulted about patient progress and behaviors. Narrative portions of note written using Growish dictation software. Efforts are made to dictate clearly and proofread but errors in dictation still may occur. Please reach out to author with any clarifying questions. 1 Chronic problem that is currently exacerbated was reviewed today and the prescription medications used for this problem were reviewed and managed. Plan to Bill at moderate level of medical decision making. Oral Flaherty, [facility] [id number] NoteHospitalist Progress Note 09/04/2022 [phone]: Please page me ([phone]) for patient care issues. [phone]: Please page [facility] Hospitalist for any issues. Subjective: Admit Date: 08/31/2022 PCP: No primary care provider on file. Room#: S7-114/S7-114 A Interval History: No overnight issues. Complaint with medication. Tolerating diet. Wanting to start on ozempic. Encourage lifestyle changes and She states she has started walking in the wall ways instead of lying in bed. Denies chest pain, sob, abdominal pain, nausea, vomiting, diarrhea, constipation, fevers, or chills. Adult diet Regular @[id number]@ 24HR INTAKE/OUTPUT: No intake or output data in the 24 hours ending 09/04/22 1241 Past Medical History: No past medical history on file. LABS: CBC: Recent Labs 09/03/22 0555 WBC 9.6 RBC 3.98 HGB 11.8 HCT 35.4 MCV 88.9 RDW 14.0 PLT 380 BMP:No results for input(s): NA, K, CL, CO2, BUN, CREATININE, GLUCOSE, CALCIUM, ANIONGAP in the last 72 hours. LIVER PROFILE: Recent Labs 09/03/22 0555 AST 107* ALT 141* BILITOT 0.5 ALKPHOS 89 PROT 7.3 PT/INR: No results for input(s): PROTIME, INR in the last 72 hours. CARDIAC ENZYMES: No results for input(s): TROPONINI in the last 72 hours. Procalcitonin: No results found for: PROCAL COVID-19 PCR: No results for input(s): COVID19 in the last 72 hours. Objective: Vitals: BP (!) 143/104 Pulse 99 Temp 36.6 ?C (97.8 ?F) (Temporal) Resp 16 Ht 1.676 m (5' 6) Wt 113 kg (250 lb) SpO2 96% BMI 40.35 kg/m? Pulse Ox: SpO2 Av % Min: 96 % Max: 96 % Supplemental O2: General appearance: No apparent distress, appears stated age and cooperative with exam HEENT: Normal cephalic, atraumatic without obvious deformity. Pupils equal, round, and reactive to light. Extra ocular muscles intact. Conjunctivae/corneas clear. Neck: Supple, with full range of motion. No jugular venous distention. Trachea midline. No lymphadenopathy. Respiratory: Normal respiratory effort. Clear to auscultation, bilaterally without Rales/Wheezes/Rhonchi. Cardiovascular: Regular rate and rhythm with normal S1/S2 without murmurs, rubs or gallops. Abdomen: Soft, non-tender, non-distended with normal bowel sounds. No rebound or guarding. Musculoskeletal: No clubbing, cyanosis or edema bilaterally. Full range of motion without deformity, +2 peripheral pulses in all extremities. Skin: Skin color, texture, turgor normal. No rashes or lesions. Neurologic: Neurovascularly intact without any focal sensory/motor deficits. Cranial nerves: II-XII intact, grossly non-focal. Medications: divalproex, 250 mg, Oral, Daily divalproex, 500 mg, Oral, Nightly LORazepam, 1 mg, Oral, BID Assessment Elevated transaminases: patient reports history of the same, has fatty liver - stable on 09/04 -continue to monitor pt for any worsening symptoms. Mild elevated SBP/DBP: monitor Acute psychosis: mgmt per primary team Medical Decision Making -am labs, replace lytes prn -increase activity -DVT prophylaxis: [] Lovenox [] Heparin [] SCDs [x] Encourage ambulation [] Already on Anticoagulation Anticipated Discharge - Date - TBD - Location - Defer to primary - Pending the following - defer to primary for clearance Total time spent (which include face to face and non face to face encounters) : 30 minutes Toxic drug monitoring/narrow therapeutic index drug monitoring : # Drug name : # Route administered : # Method of monitoring : Extended Emergency Contact Information Primary Emergency Contact: Mayra Adam Mobile Relation: Daughter Secondary Emergency Contact: MedranoMaddy Mobile Relation: Daughter Maria Luisa Caroline Sahu APRN - [place] Division of Hospitalist Medicine Inpatient Medical Services/[facility] [place] PAGER: [place] [facility]Problem: Safety - Adult Goal: Free from fall injury Outcome: Progressing Problem: Altered Thought Processes as Evidenced by Goal: STG - Desires improvement in ability to think and concentrate Outcome: [facility]02-25-2023 NoteProblem: Safety - Adult Goal: Free from fall injury Outcome: Progressing Problem: Altered Thought Processes as Evidenced by Goal: STG - Desires improvement in ability to think and concentrate Outcome: [facility] [place] [id number] NoteWeekend provider progress note Subjective patient is seen for chief complaint of bipolar disorder. Patient is walking the hallways with her hands tucked inside her shirt. She insists we talk in the hallway and she keeps her hands in her shirt during the interview. He has an intense stare as somewhat pressured speech and is somewhat paranoid. She seems to think that for some reason I am going to change her medications and she seems to think that for some reason I am saying that her medications can cause suicidality. I try to clarify nicely that neither of these things are true. Otherwise the patient denies all common side effects and psychiatric symptoms listed below. She states that being back on her medicines is helping with her symptoms. She has no needs at this time. The entire psychiatric review of systems is denied including severe depression guilt or worthlessness severe insomnia appetite changes severe anxiety with physical symptoms or panic attacks nightmares or flashbacks, auditory or visual hallucinations or delusions, racing thoughts or grandiosity. Side effects of the patient's prescribed psychiatric medications were denied including pain myalgias nausea or vomiting stomach pain drooling headache or blurry vision urinary changes bowel changes oversedation sleep changes or appetite changes. Objective Vitals: 09/03/22 0744 BP: (!) 145/90 Pulse: 92 Resp: Temp: 35.9 ?C (96.7 ?F) SpO2: 99% Mental Status Exam: Appearance: appropriately dressed and healthy looking, Behavior: cooperative and attentive Speech: spontaneous, normal rate, normal volume, and well articulated Mood: ok, Affect: Not congruent somewhat hyperthymic and intense. Some degree of paranoia., Thought content: intact Thought process: logical and coherent, Insight: fair , Judgment: fair Suicidal Intentions: No Suicidal Plan: No Activity normal Associations: Goal-Directed Orientation: oriented to person and place. Attention fair. Concentration fair. Memory Recent: intact, Remote:intact. Language Naming: intact, Repetition: intact. Fund of knowledge: fair Assessment and Plan Bipolar 1 disorder - Continue medications as prescribed may need more time to take effect and slowly stabilized mood. - Keep an eye on patient's level of paranoia, she may need an adjustment of her medications but hard to tell at this point -The patient's psychiatric symptoms and side effects to medications were assessed today. The patient is not reporting intolerable or dangerous side effects and psychiatric symptoms are slowly improving, current psychiatric symptoms are not immediately dangerous such that they warrant an urgent medication increase today, therefore currently I lack sufficient evidence to warrant titrating or tapering any current psychiatric medicines, plan to make the decision to continue the medications at current doses for today and allow them more time to stabilize current symptoms. Changes to treatment plan over weekend or critical information/events over weekend None As of 09/03/22 symptoms of bipolar still severe enough to make inpatient level care medically necessary, and is expected that this treatment will improve said symptoms. Chart reviewed and staff consulted about patient progress and behaviors. Narrative portions of note written using [employer] dictation software. Efforts are made to dictate clearly and proofread but errors in dictation still may occur. Please reach out to author with any clarifying questions. 1 Chronic problem that is currently exacerbated was reviewed today and the prescription medications used for this problem were reviewed and managed. Plan to Bill at moderate level of medical decision making. Oral Flaherty, [facility] [id number] NoteHospitalist Progress Note 09/03/2022 11:27 AM Subjective: Admit Date: 08/31/2022 PCP: No primary care provider on file. Room#: S7-114/S7-114 A Interval History: No overnight issues. Denies chest pain, sob, abdominal pain, nausea, vomiting, diarrhea, constipation, fevers, or chills. Flat affect, VSS. Adult diet Regular @[id number]@ 24HR INTAKE/OUTPUT: No intake or output data in the 24 hours ending 09/03/22 1127 Past Medical History: none Medications: divalproex, 250 mg, Oral, Daily divalproex, 500 mg, Oral, Nightly influenza, 0.5 mL, IntraMUSCular, Once LORazepam, 1 mg, Oral, BID LABS: CBC: Recent Labs 08/31/223 09/03/22 0555 WBC 12.3* 9.6 RBC 4.51 3.98 HGB 13.0 11.8 HCT 40.7 35.4 MCV 90.3 88.9 RDW 14.2 14.0 PLT 387 380 BMP: Recent Labs 08/31/222252 NA 141 K 3.6 CL 104 CO2 29 BUN 24* CREATININE 0.80 GLUCOSE 121* CALCIUM 9.2 ANIONGAP 7 LIVER PROFILE: Recent Labs 08/31/22225209/03/22 0555 AST 150* 107* ALT 128* 141* BILITOT 0.4 0.5 ALKPHOS 101 89 PROT 8.6* 7.3 PT/INR: No results for input(s): PROTIME, INR in the last 72 hours. CARDIAC ENZYMES: Recent Labs 08/31/222252 TROPONINI <0.012 Procalcitonin: No results found for: PROCAL COVID-19 PCR: No results for input(s): COVID19 in the last 72 hours. Objective: Vitals: BP (!) 145/90 Pulse 92 Temp 35.9 ?C (96.7 ?F) (Temporal) Resp 20 Ht 5' 6 (1.676 m) Wt 250 lb (113 kg) SpO2 99% BMI 40.35 kg/m? Pulse Ox: SpO2 Av.5 % Min: 99 % Max: 100 % Supplemental O2: General appearance: No apparent distress, appears stated age HEENT: Normal cephalic, atraumatic without obvious deformity. Conjunctivae/corneas clear. Neck: Supple, with full range of motion. No jugular venous distention. Trachea midline. Respiratory: Normal respiratory effort. Clear to auscultation, bilaterally without Rales/Wheezes/Rhonchi. Cardiovascular: Regular rate and rhythm with normal S1/S2 without murmurs, rubs or gallops. Abdomen: Soft, non-tender, non-distended with normal bowel sounds. Musculoskeletal: No clubbing, cyanosis or edema bilaterally. Full range of motion without deformity. Skin: Skin color, texture, turgor normal. No rashes or lesions. Neurologic: Alert, NV grossly intact, flat affect Assessment Elevated transaminases: patient reports history of the same, has fatty liver Mild elevated BP: monitor Acute psychosis: mgmt per primary team Plan - follow results of hepatitis panel, consider RUQ US, may need ammonia level if worse - reviewed UA in ER- specimen contaminated, not sent for culture, patient asymptomatic -DVT prophylaxis: [] Lovenox [] Heparin [] SCDs [x] Encourage ambulation [] Already on Anticoagulation Advance Directive: Full Code Discharge planning: TBD IVONNE BECERRA PA-C Division of Hospitalist [facility]02-25-2023 NoteProblem: Safety - Adult Goal: Free from fall injury Outcome: Progressing Problem: Altered Thought Processes as Evidenced by Goal: STG - Desires improvement in ability to think and concentrate Outcome: [facility]02-25-2023 NoteProblem: Safety - Adult Goal: Free from fall injury Outcome: Progressing Problem: Altered Thought Processes as Evidenced by Goal: STG - Desires improvement in ability to think and concentrate Outcome: [facility]02-24-2023 NoteHospitalist Progress Note 09/02/[phone]: Please page ri ([phone]) for patient care issues. [phone]: Please page [facility] Hospitalist for any issues. Subjective: Admit Date: 08/31/2022 PCP: No primary care provider on file. Room#: S7-114/S7114 A Interval History: No overnight issues. Patient ambulatory throughout unit. Patient provides minimal conversation, however is cooperative with assessment. Patient denies urinary sx, chest pain, sob, abdominal pain, nausea, vomiting, diarrhea, constipation, fevers, or chills. Tolerating diet and meds. Adult diet Regular @[id number]@ 24HR INTAKE/OUTPUT: No intake or output data in the 24 hours ending 09/02/22 1144 Past Medical History: No past medical history on file. LABS: CBC: Recent Labs 08/31/222252 WBC 12.3* RBC 4.51 HGB 13.0 HCT 40.7 MCV 90.3 RDW 14.2 PLT 387 BMP: Recent Labs 08/31/222252 NA 141 K 3.6 CL 104 CO2 29 BUN 24* CREATININE 0.80 GLUCOSE 121* CALCIUM 9.2 ANIONGAP 7 LIVER PROFILE: Recent Labs 08/31/222252 AST 150* ALT 128* BILITOT 0.4 ALKPHOS 101 PROT 8.6* PT/INR: No results for input(s): PROTIME, INR in the last 72 hours. CARDIAC ENZYMES: Recent Labs 08/31/222252 TROPONINI <0.012 Procalcitonin: No results found for: PROCAL COVID-19 PCR: No results for input(s): COVID19 in the last 72 hours. Objective: Vitals: BP 122/71 Pulse 95 Temp 36.3 ?C (97.3 ?F) (Temporal) Resp 20 Ht 1.676 m (5' 6) Wt 113 kg (250 lb) SpO2 98% BMI 40.35 kg/m? Pulse Ox: SpO2 Av % Min: 98 % Max: 98 % Supplemental O2: General appearance: No apparent distress, appears stated age and cooperative with exam HEENT: Normal cephalic, atraumatic without obvious deformity. Pupils equal, round, and reactive to light. Extra ocular muscles intact. Conjunctivae/corneas clear. Neck: Supple, with full range of motion. No jugular venous distention. Trachea midline. No lymphadenopathy. Respiratory: Normal respiratory effort. Clear to auscultation, bilaterally without Rales/Wheezes/Rhonchi. Cardiovascular: Regular rate and rhythm with normal S1/S2 without murmurs, rubs or gallops. Abdomen: Soft, non-tender, non-distended with normal bowel sounds. No rebound or guarding. Musculoskeletal: No clubbing, cyanosis or edema bilaterally. Full range of motion without deformity, +2 peripheral pulses in all extremities. Skin: Skin color, texture, turgor normal. No rashes or lesions. Neurologic: Neurovascularly intact without any focal sensory/motor deficits. Cranial nerves: II-XII intact, grossly non-focal. Medications: divalproex, 250 mg, Oral, Daily divalproex, 500 mg, Oral, Nightly influenza, 0.5 mL, IntraMUSCular, Once LORazepam, 1 mg, Oral, BID Assessment Cystitis: UA on 09/01 reviewed. Patient given 500 mg Keflex once in ED-09/01. Denies urinary sx: urinary frequency, burning, or vaginal discharge. Urine Cx collected and pending--> Elevated LFT's- unknown etiology AST 150 ALT 128 Elevated BP- improving BP Readings from Last 3 Encounters: 09/02/22 122/71 Acute psychosis Medical Decision Making -Labs pending: Hepatic panel, CBC A1c & fasting-Lipid -continue current tx and meds -am labs, replace lytes prn -increase activity -DVT prophylaxis: [] Lovenox [] Heparin [] SCDs [x] Encourage ambulation [] Already on Anticoagulation Anticipated Discharge - Date - TBD - Location - Per Primary - Pending the following - Primary team clearance Total time spent (which include face to face and non face to face encounters) : 30 minutes Toxic drug monitoring/narrow therapeutic index drug monitoring : # Drug name : # Route administered : # Method of monitoring : Extended Emergency Contact Information Primary Emergency Contact: Mayra Adam Mobile Relation: Daughter Secondary Emergency Contact: Maddy Medrano Mobile Relation: Daughter Socorro Saavedranco, INSTANT [employer]ESSOR - ELECTRICAL REPAIRER Division of Hospitalist Medicine Inpatient Medical Services/[facility] [place] PAGER: Epic [facility]02-24-2023 NoteProblem: Safety - Adult Goal: Free from fall injury [facility]Problem: Safety - Adult Goal: Free from fall injury Outcome: Progressing The patient is Moderately Stable - Low risk of patient condition declining or worsening The patient's goals for the shift include Safety The clinical goals for the shift include Safety Over the shift, the patient did not make progress toward the following goals. Barriers to progression include . Recommendations to address these barriers include .[facility]02-23-2023 NoteDepartment of Psychiatry History and Physical - Adult CHIEF COMPLAINT: confusion History obtained from: chart review, patient reports, and daughter Patient was seen after discussion with staff and reviewing the chart HISTORY OF PRESENT ILLNESS: The patient is a 47 y.o. female who presents with change in mental status, confusion, history of bipolar disorder and apparently not taking her medications recently. Patient was evaluated in the emergency department and transferred to [facility] for psychiatric management. On my examination, the patient was initially standing in the group area but not participating. When I introduced myself and asked to walk to her room she started walking with me but extremely slowly. She made no eye contact whatsoever. She would not answer any of the questions asked her. As we slowly walked to her room I stopped to try to talk to her little more clearly, she still would not answer me I attempted to see if she had any pupillary reflex or any tracking of her eye movements when I did that she grimaced and turned around and started walking the other way. I again started to interact with her and she fell be back to her room but would not go into her room. When I explained to her that we will try to reach out to her family and I was also started her on some medication in order to reduce her anxiety she actually looked at me and said okay, you. She then walked away from me. I did talk to her daughter Mayra over the phone who reports over the past couple weeks she has been disorganized, rambling, confused, acting very tired and having behavioral outburst. Reports that she has a history of having stress-induced shut downs. Reports recent stressor is that her grandson's father has declining health. She was not sure about her current medications, I had attempted to call her other daughter but did not get a return phone call yet. I was able to talk to her pharmacy and she is prescribed 250 mg of Depakote and hydroxyzine as needed. Medications Prior to Admission: divalproex, 250 mg, Oral, Daily [START ON 09/02/2022] influenza, 0.5 mL, IntraMUSCular, Once PRN medications: acetaminophen OR acetaminophen, cloNIDine, diphenhydrAMINE AND haloperidol lactate AND LORazepam, diphenhydrAMINE AND haloperidol AND LORazepam, hydrOXYzine pamoate, ondansetron ODT OR ondansetron, polyethylene glycol (PEG) 3350, traZODone Compliance: questionable Psychiatric Review of Systems I attempted to ask screening questions for psychiatric review of systems, however patient would not respond to me. Past Psychiatric History: Prior Diagnosis: unknown Outpatient treatment: unknown Hospitalization: unknown Hx of Suicidal Attempts: unknown Previous discontinued Psychiatric Med Trials: Depakote Past Medical History: No past medical history on file. Past Surgical History: No past surgical history on file. Allergies: Patient has no known allergies. Family History: No family history on file. Social History: Would not answer any questions regarding social history. Substance Abuse History: Did not answer any questions regarding alcohol or drug use. Her talk screen and ethanol level in the emergency department were negative. REVIEW OF SYSTEMS: ROS: [x] All negative/unchanged except if checked. Explain positive(checked items) below: [x] Constitutional [] Eyes [] Ear/Nose/Mouth/Throat [] Respiratory [] CV [] GI [] [] Musculoskeletal [] Skin/Breast [] Neurological [] Endocrine [] Heme/Lymph [] Allergic/Immunologic Explanation: change in mental status, confusion Mental Status Examination: Vitals : BP (!) 146/109 (BP Location: Left arm, Patient Position: Sitting) Pulse 110 Temp 36.4 ?C (97.6 ?F) (Temporal) Resp 16 Ht 1.676 m (5' 6) Wt 113 kg (250 lb) SpO2 99% BMI 40.35 kg/m? APPEARANCE: Disheveled. BEHAVIOR: avoids eye contact and uninterested PSYCHOMOTOR: psychomotor retardation SPEECH: minimal LANGUAGE: unable to assess MOOD: Dysphoric AFFECT: Flat THOUGHT PROCESS: Blocking THOUGHT CONTENT: minimal PERCEPTIONS/HALLUCINATIONS: would not answer ABSTRACTION: unsatisfactory INSIGHT: poor, including concerning psychiatric condition. JUDGMENT: poor, including concerning psychiatric condition. ORIENTATION: oriented to person MEMORY: global memory impairment noted ATTENTION SPAN: poor CONCENTRATION: poor FUND OF KNOWLEDGE: poor GAIT: slow PSYCHIATRIC RISK ASSESSMENT: Acute Factors: History of not adhering to treatment or medication regimen and Severe anxiety Protective Factors: Support through ongoing medical and mental healthcare relationships Risk Assessment: High Risk Volatile/Aggressive Behavior LABS: Recent Labs 08/31/22 2253 WBC 12.3* HGB 13.0 PLT 387 Recent Labs 08/31/22 2253 NA 141 K 3.6 CL 104 CO2 29 BUN 24* CREATININE 0.80 GLUCOSE 12 (more content not included)...[facility]02-23-[facility] Note Problem: Safety - Adult Goal: Free from fall injury Outcome: Progressing Problem: Altered Thought Processes as Evidenced by Goal: STG - Desires improvement in ability to think and concentrate [facility]: [facility] No data available for this section [facility] Evaluation note* Diagnosis Onset Date Resolution Status Depression chronic Hypertension chronic Hypothyroidism chronic [facility] Work Phone: Evaluation noteNo assessment information available [facility] Work Phone: Hospital Discharge instructions No data available for this section [facility] Progress note No data available for this section [facility] Summary Purpose Family History No Family History Records Found Relationship Condition Age at Onset Recorded Date/T dustin Not Specified Anemia Unknown Depression Unknown Hypertension Unknown Parkinson's disease Unknown Disorder of thyroid Unknown Advance Directives No Advanced Directives Records Found Advance Directive Response Recorded Date/ Time Advance Directives unknown September 29, 022 3:00pm Living Will No September 29, 2021 3:00pm Power of Software Packager No September 29 3:00pm Advance Directive Response Recorded Date/ Time Advance Directives unknown September 29, 2 022 2:00pm Living Will No September 29, 2021 2:00pm Power of Software Packager No September 29 2:00pm Chief Complaint and Reason for Visit Chief Complaint 6 M FU Reason for Visit Depression Hypertension Hypothyroidism Chief Complaint SCREENING Additional Source Comments INFORMATION SOURCE (unrecogn ized section and content) DATE CREATED AUTHOR 12/10/2018 [facility] ([place]) DATE CREATED AUTHOR AUTHOR'S ORGANIZ ATION 01/28/2020 [facility] DATE CREATED AUTHOR AUTHOR'S ORGANIZ ATION 12/30/2022 [facility] DATE CREATED AUTHOR AUTHOR'S ORGANIZ ATION 11/06/2024 [facility] DATE CREATED AUTHOR AUTHOR'S ORGANIZ ATION 03/29/[address] [facility] Goals (unrecognized section and content) Goals may be documented in a n alternate sectionGoals may be documented in an alternate section No data available for this section No data available for this section Care Teams (unrecognized sec tion and content) Team Status: Active Member Role Status Dates Dr. Rosa Dwyer MD Family Provider Active Dr. Rosa Dwyer MD Primary Care Provider Active Team Status: Inactive Member Role Status Dates Dr. Rosa Dwyer MD Primary Care Provider, Atten ding Provider Active FOR RECORDS PERTAINING TO PATIENTS WHO ARE OR HAVE BEEN ENROLLED IN A CHEMICAL DEPENDENCY/SUBSTANCEABUSE PROGRAM, SOME INFORMATION MAY BE OMITTED. This clinical summary was aggregated from multiple sources. Caution should be exercised in using it in the provision of clinical care. This summary normalizes information from multiple sources, and as a consequence, information in this document may materially change the coding, format and clinical context of patient data. In addition, data may be omitted in some cases. CLINICAL DECISIONS SHOULD BE BASED ON THE PRIMARY CLINICAL RECORDS. [employer] provides no warranty or guarantee of the accuracy or completeness of information in this document.
== END | disposition home or self-care (01) ==
PROVIDERS: PCP Internal Medicine; Referring Provider Internal Medicine; Visit Provider Internal Medicine
DX: Z12.31 Encounter for screening mammogram for malignant neoplasm of breast (principal)
CPT/HCPCS: 77063; 77067

== ENCOUNTER → 2025-05-29 | Outpatient (CLI) | payer OTHER, SELFPAY ==
[2025-05-29 15:39] LABS: AST(SGOT) 17 U/L (<=31); Alanine Aminotransfer ALT/SGPT 17 U/L (<=34); Albumin, Serum 4.1 g/dL (3.5-5.0); Alkaline Phosphatase 100 U/L (35-104); Anion Gap 9 (5-15); BUN 9 mg/dL (4-19); BUN/Creat Ratio 13.7 RATIO (10-20); Calcium,Total 9.4 mg/dL (7.6-11.0); Carbon Dioxide 26.1 mmol/L (21.0-32.0); Chloride 102 mmol/L (98-108); Globulin 3.5 g/dL (2.2-4.2); Glucose 105 mg/dL (70-99); Potassium 3.9 mmol/L (3.3-5.1)
== END | disposition home or self-care (01) ==
LOC: LAB 14:37
PROVIDERS: PCP Internal Medicine; Referring Provider Nurse Practitioner Family; Visit Provider Nurse Practitioner Family
DX: Z79.899 Other long term (current) drug therapy (principal)
CPT/HCPCS: 36415; 80053